=== PATIENT | male | born 1960 | race Hispanic/Latino ===

== ENCOUNTER 2017-10-29 02:27 | Emergency (ER) | payer MEDICARE ==
[2017-10-29 03:04] VITALS: BP 117/76
--- NOTE | 2017-10-29 03:30 | XRay Report ---
FINAL REPORT EXAM: XR SPINE LUMBOSACRAL 2-3V HISTORY: L SPINE PAIN FROM FALL TECHNIQUE: Three views of the lumbar spine were submitted. There are no previous studies available for comparison. FINDINGS: There is a chronic compression fracture of L1 with fusion and stabilization with Hutchison rods and pedicle screws extending from T11 through L3. There is no evidence of hardware complication or acute fracture. The SI joints appear normal. The soft tissues otherwise are remarkable for calcification of the abdominal aorta. IMPRESSION: Chronic fracture of L1 with thoracolumbar stabilization from T11 through L3 with hardware in place. No evidence acute injury.
--- NOTE | 2017-10-29 05:00 | Cat Scan Report ---
FINAL REPORT EXAM: CT HEAD/BRAIN WO CON HISTORY: fall TECHNIQUE: Routine axial imaging was obtained of the brain without IV contrast. Comparison is made the study of 03/31/2017. FINDINGS: There is mild atrophy. There is no evidence of acute stroke or hemorrhage. The ventricular system is appropriate in size and is symmetric. The basal cisterns appear normal. The mastoid air cells are well pneumatized. The sinuses reveal dependent secretions in the left sphenoid sinus. The calvarium reveals postsurgical deformity of the right frontal bone extending to the right supraorbital area. There is no evidence of acute skull fracture. IMPRESSION: Age related atrophy. No evidence of acute stroke or hemorrhage. Remote postsurgical changes with hardware in place along the right frontal bone and extending to the right supraorbital area.
[2017-10-29] MEDS ORDERED: NORCO 5/325 ONE (07:13)
[2017-10-29] MEDS ORDERED: NORCO 5/325 PO ONE (07:17)
--- NOTE | 2017-10-29 07:39 | Emergency Department Report ---
HPI - General Chief Complaint: Fall Time Seen by Provider: 10/29/17 07:26 - HPI HPI: Patient is a 57-year-old male who presents to ED complaining of lower back pain times a couple of days. She states that he had an accident back in 1986 . He got was put in his back. Patient states from time to time he gets intermittent back pain. Patient denies any recent trauma injuries or falls. Patient denies fevers/chills/chest pain/shortness of breath/blurry vision/nausea/vomiting or new symptoms. ED Past Medical Hx - Past Medical History Previous Medical History?: Yes Hx Hypertension: Yes Hx Seizures: Yes Hx Psychiatric Treatment: Yes (schizophrenia) Hx Asthma: No Hx COPD: Yes Hx Dementia: Yes Additional medical history: back surgery - Surgical History Past Surgical History?: Yes Additional Surgical History: back surgery from seizure, umbilical hernia repair - Social History Smoking Status: Current Every Day Smoker Substance Use Type: None - Medications Home Medications: Home Medications Medication Instructions Recorded Confirmed Last Taken Type risperiDONE [RisperiDONE] 1 mg PO DAILY 07/02/14 04/01/17 1 Day Ago History ~03/31/17 risperiDONE [RisperiDONE] 2 mg PO HS 07/02/14 04/01/17 1 Day Ago History ~03/31/17 Aspirin [Aspirin BABY CHEW TAB] 81 mg PO DAILY #30 tab.chew 04/02/17 Unknown Rx Carvedilol [Coreg] 3.125 mg PO BID #60 tablet 04/02/17 Unknown Rx Divalproex Sodium [Divalproex 1,000 mg PO HS #60 tab.er.24h 04/02/17 Unknown Rx Sodium ER] Docusate Sodium [Colace CAP] 100 mg PO BID PRN #60 capsule 04/02/17 Unknown Rx Lisinopril [Zestril TAB] 40 mg PO DAILY #30 tablet 04/02/17 Unknown Rx Mirtazapine [Remeron] 45 mg PO DAILY #30 tablet 04/02/17 Unknown Rx Paroxetine HCl [PARoxetine] 40 mg PO DAILY #30 tablet 04/02/17 Unknown Rx amLODIPine [Norvasc] 10 mg PO QDAY #30 tablet 04/02/17 Unknown Rx traMADol [Ultram 50 MG tab] 50 mg PO Q6HR PRN #20 tablet 10/29/17 Unknown Rx ED Review of Systems ROS: Stated complaint: BACK PAIN; GLF Other details as noted in HPI Constitutional: denies: chills, fever Eyes: denies: eye pain, eye discharge, vision change ENT: denies: ear pain, throat pain Respiratory: denies: cough, shortness of breath, wheezing Cardiovascular: denies: chest pain, palpitations Endocrine: no symptoms reported Gastrointestinal: denies: abdominal pain, nausea, vomiting, diarrhea Genitourinary: denies: urgency, dysuria Musculoskeletal: back pain, myalgia. denies: joint swelling, arthralgia Skin: denies: rash, lesions, pruritus Neurological: denies: headache, weakness, paresthesias Psychiatric: denies: anxiety, depression Hematological/Lymphatic: denies: easy bleeding, easy bruising Physical Exam - Physical Exam Vital Signs: Vital Signs 10/29/17 03:02 Temperature 98.7 F Pulse Rate 85 Respiratory 17 Rate Blood Pressure 117/76 O2 Sat by Pulse 99 Oximetry Physical Exam: GENERAL: Alert and oriented x3, no apparent distress, Normal Gait, atraumatic. HEAD: Head is normocephalic and a-traumatic. NECK: Supple. Non edematous, No lymphadenopathy or thyromegaly. No C-spine tenderness, full range of motion LUNGS: Symetrical with respiration, No wheezing, no rales or crackles, CTAB. HEART: S1, S2 present, regular rate and rhythm without murmur, no rubs, no gallops. Non tender to palpation BACK: Full range of motion, no spinal tenderness, Tenderness to palpation of the trapezius muscles and latissimus dorsi muscles of the back EXTREMITIES/MUSCULOSKELETAL: No cyanosis, clubbing, rash, lesions or edema. Full ROM bilaterally. UE/LE Pulses 2+ bilaterally. LE and UE 5+ strength bilaterally, NEUROLOGIC: The patient is cooperative with no focal neurologic deficits. SKIN: Warm and dry, No lesions, No ulceration or induration present. ED Course Vital Signs 10/29/17 03:02 Temperature 98.7 F Pulse Rate 85 Respiratory 17 Rate Blood Pressure 117/76 O2 Sat by Pulse 99 Oximetry ED Medical Decision Making - Medical Decision Making 57-year-old male presents with chronic back pain ED course: Patient received Emerson for pain while in the ED Patient is in no acute or respiratory distress. Patient able to ambulate without any problems. He seen in the ED room in no distress at all, very comfortable . I discussed the patient to follow up with his primary care dr Car. I discussed the patient was sent home on some pain medication. I discussed the patient is new onset of symptoms or worsening symptoms return to ED. Critical care attestation.: If time is entered above; I have spent that time in minutes in the direct care of this critically ill patient, excluding procedure time. ED Disposition Clinical Impression: Back pain Qualifiers: Back pain location: low back pain Chronicity: chronic Back pain laterality: unspecified Sciatica presence: without sciatica Qualified Code(s): M54.5 - Low back pain; G89.29 - Other chronic pain Chronic low back pain without sciatica Qualifiers: Back pain laterality: unspecified Qualified Code(s): M54.5 - Low back pain; G89.29 - Other chronic pain Disposition: DC-01 TO HOME OR SELFCARE Is pt being admited?: No Does the pt Need Aspirin: No Condition: Stable Instructions: Low Back Strain (ED), Arthralgia (ED), Chronic Back Pain (ED) Additional Instructions: Make sure to follow up with the primary care physician as discussed. Take all your medications as you've been prescribed. If you have any worsening symptoms or develop new symptoms please return to ED immediately. Prescriptions: traMADol [Ultram 50 MG tab] 50 mg PO Q6HR PRN #20 tablet PRN Reason: Pain Referrals: POORNIMA CAR MD [Primary Care Provider] - 3-5 Days Forms: Accompanied Note, Work/School Release Form(ED) Time of Disposition: 07:42
== END 2017-10-29 08:01 | disposition home or self-care (01) ==
LOC: ED 02:27
DX: M54.5 Low back pain (principal); G89.29 Other chronic pain; I10 Essential (primary) hypertension; F20.9 Schizophrenia, unspecified; J44.9 Chronic obstructive pulmonary disease, unspecified; F17.200 Nicotine dependence, unspecified, uncomplicated; Z79.82 Long term (current) use of aspirin
CPT/HCPCS: 70450; 72100; 99284

== ENCOUNTER 2018-01-07 14:38 | Inpatient (IN) | payer MEDICARE ==
--- NOTE | 2018-01-07 15:52 | Emergency Department Report ---
HPI - General Chief Complaint: Dyspnea/Respdistress Time Seen by Provider: 01/07/18 15:10 - HPI HPI: Room 5 The patient is a 57-year-old male presenting with chief complaint of syncopal. The patient states he was standing up urinating into the commode when he began to get weak and passed out. The patient states he does not feel the way he normally feels after having a seizure. The patient injured his right face with the fall but denies pain. Patient states he currently feels lightheaded. 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 Duration: [See above] Quality: Lightheaded Severity: Moderate Modifying factors: [see above] Context: [see above] Mode of transportation: [not driving] ED Past Medical Hx - Past Medical History Hx Hypertension: Yes Hx Seizures: Yes Hx Psychiatric Treatment: Yes (schizophrenia) Hx COPD: Yes Hx Dementia: Yes Additional medical history: back surgery - Surgical History Additional Surgical History: back surgery from seizure, umbilical hernia repair - Family History Family history: no significant - Social History Smoking Status: Never Smoker (1 pack per day) Substance Use Type: None (denies illicit drug use) - Medications Home Medications: Home Medications Medication Instructions Recorded Confirmed Last Taken Type risperiDONE [RisperiDONE] 1 mg PO DAILY 07/02/14 01/07/18 1 Day Ago History ~03/31/17 risperiDONE [RisperiDONE] 2 mg PO HS 07/02/14 01/07/18 1 Day Ago History ~03/31/17 Aspirin [Aspirin BABY CHEW TAB] 81 mg PO DAILY #30 tab.chew 04/02/17 01/07/18 Unknown Rx Carvedilol [Coreg] 3.125 mg PO BID #60 tablet 04/02/17 01/07/18 Unknown Rx Divalproex Sodium [Divalproex 1,000 mg PO HS #60 tab.er.24h 04/02/17 01/07/18 Unknown Rx Sodium ER] Docusate Sodium [Colace CAP] 100 mg PO BID PRN #60 capsule 04/02/17 01/07/18 Unknown Rx Lisinopril [Zestril TAB] 40 mg PO DAILY #30 tablet 04/02/17 01/07/18 Unknown Rx Mirtazapine [Remeron] 45 mg PO DAILY #30 tablet 04/02/17 01/07/18 Unknown Rx Paroxetine HCl [PARoxetine] 40 mg PO DAILY #30 tablet 04/02/17 01/07/18 Unknown Rx amLODIPine [Norvasc] 10 mg PO QDAY #30 tablet 04/02/17 01/07/18 Unknown Rx traMADol [Ultram 50 MG tab] 50 mg PO Q6HR PRN #20 tablet 10/29/17 01/07/18 Unknown Rx ED Review of Systems ROS: Stated complaint: PAIN Other details as noted in HPI Constitutional: weakness Eyes: denies: eye pain ENT: denies: throat pain Respiratory: no symptoms reported Cardiovascular: denies: chest pain Endocrine: no symptoms reported Gastrointestinal: denies: abdominal pain Genitourinary: denies: dysuria Musculoskeletal: denies: back pain Neurological: denies: headache Physical Exam - Physical Exam Vital Signs: Vital Signs 01/07/18 15:12 Temperature 98 F Pulse Rate 95 H Respiratory 16 Rate Blood Pressure 182/101 O2 Sat by Pulse 96 Oximetry Physical Exam: GENERAL: The patient is well-developed well-nourished male lying on stretcher with obvious right superior palpebral ecchymosis. [] HEENT: Normocephalic. Right superior palpebral ecchymosis. Extraocular motions are intact. Patient has moist mucous membranes. NECK: Supple. Trachea midline CHEST/LUNGS: Clear to auscultation. There is no respiratory distress noted. HEART/CARDIOVASCULAR: Regular. There is no tachycardia. There is no gallop rub or murmur. ABDOMEN: Abdomen is soft, nontender. Patient has normal bowel sounds. There is no abdominal distention. SKIN: There is no rash. There is no edema. There is no diaphoresis. NEURO: The patient is awake and responsive but not fully alert. Patient is slow to respond at times and sometimes does not answer the question posed. The patient is cooperative. The patient has no focal neurologic deficits. The patient has normal speech MUSCULOSKELETAL: There is no limitation range of motion. ED Course Vital Signs 01/07/18 15:12 Temperature 98 F Pulse Rate 95 H Respiratory 16 Rate Blood Pressure 182/101 O2 Sat by Pulse 96 Oximetry ED Medical Decision Making - Lab Data Result diagrams: 01/07/18 15:44 01/07/18 15:44 - EKG Data -: EKG Interpreted by Me EKG shows normal: sinus rhythm Rate: normal - EKG Data When compared to previous EKG there are: no significant change Interpretation: unchanged when compared t (03/30/2017) - Radiology Data Radiology results: report reviewed (CT head, CT cervical spine, CT facial bones) , image reviewed (CT head, CT cervical spine, CT facial bones) [address] [address] Cat Scan Report Signed Patient: MATTHEW PEGUERO MR#: [id number] : 1959 Acct:[id number] Age/Sex: 57 / M ADM Date: 01/07/18 Loc: ED Attending Dr: Ordering Physician: DEIDRE CAMPBELL MD Date of Service: 01/07/18 Procedure(s): CT head/brain wo con Accession Number(s): [id number] cc: DEIDRE CAMPBELL MD FINAL REPORT PROCEDURE: CT head without contrast. TECHNIQUE: Computerized tomography of the head was performed without contrast material. HISTORY: Syncope, head and neck injury. COMPARISON: CT head 10/29/2017. FINDINGS: The ventricles are normal in size. The landers matter and white matter appear normal. There is metallic internal fixation hardware in the right side of the frontal bone. This causes severe streak artifact. There are no mass lesions. There is no intracranial hemorrhage. The mastoid air cells and paranasal sinuses are clear. IMPRESSION: No evidence of acute injury. Transcribed By: [facility] Dictated By: PUMA FLORES MD Electronically Authenticated By: PUMA FLORES MD Signed Date/Time: 01/07/181745 DD/ 45 TD/TT: 01/07/181745 [address] [address] Cat Scan Report Signed Patient: MATTHEW PEGUERO MR#: [id number] : 1959 Acct:[id number] Age/Sex: 57 / M ADM Date: 01/07/18 Loc: ED Attending Dr: Ordering Physician: DEIDRE CAMPBELL MD Date of Service: 01/07/18 Procedure(s): CT cervical spine wo con Accession Number(s): [id number] cc: DEIDRE CAMPBELL MD FINAL REPORT PROCEDURE: CT cervical spine without contrast. TECHNIQUE: Computerized tomography of the cervical spine was performed from the skull base to T1 without contrast material. HISTORY: Syncope, head neck injury. COMPARISON: No prior studies are available for comparison. FINDINGS: The cervical vertebrae have normal height and satisfactory alignment. There are no fractures. There is no subluxation. There is mild disc space narrowing at C3-4. There is prominent anterior osteophyte formation at this level. There is fusion of the C5 and C6 vertebral bodies. There is fusion of the left-sided facet joint and possibly the right-sided facet joint at this level. The spinal canal appears adequately patent. The neural foramina appear adequately patent. IMPRESSION: No evidence of acute cervical spine injury. Transcribed By: [facility] Dictated By: PUMA FLORES MD Electronically Authenticated By: PUMA FLORES MD Signed Date/Time: 01/07/181742 DD/ 42 TD/TT: 01/07/181742 [facility] [address] [place] [address] Cat Scan Report Signed Patient: MATTHEW PEGUERO MR#: [id number] : 1959 Acct:[id number] Age/Sex: 57 / M ADM Date: 01/07/18 Loc: ED Attending Dr: Ordering Physician: DEIDRE CAMPBELL MD Date of Service: 01/07/18 Procedure(s): CT facial bones wo con Accession Number(s): [id number] cc: DEIDRE CAMPBELL MD FINAL REPORT PROCEDURE: CT facial bones without contrast. TECHNIQUE: Computerized tomography of the facial bones and soft tissues with axial, sagittal and coronal sections performed from the cranial aspect of the frontal sinuses to the caudal portion of the mandible without contrast material. HISTORY: Syncope, head and facial injury. COMPARISON: No prior studies are available for comparison. FINDINGS: The facial bones appear intact without acute fracture. There is some metallic hardware in the right side of the frontal bone from a previous injury. The orbital contents appear normal. There are no blowout type injuries. The mastoid air cells and paranasal sinuses are clear. The facial soft tissues are unremarkable. IMPRESSION: Old right frontal bone fracture. No evidence of an acute injury. Transcribed By: [facility] Dictated By: PUMA FLORES MD Electronically Authenticated By: PUMA FLORES MD Signed Date/Time: 01/07/181800 DD/ 00 TD/TT: 01/07/181800 - Differential Diagnosis syncope, seizure, subtherapeutic Depakote, ACS, PE Critical care attestation.: If time is entered above; I have spent that time in minutes in the direct care of this critically ill patient, excluding procedure time. ED Disposition Clinical Impression: Syncope Disposition: OP ADMIT IP TO THIS HOSP Is pt being admited?: Yes Does the pt Need Aspirin: Yes Condition: Fair Instructions: Syncope (ED) Referrals: PRIMARY CARE,MD [Primary Care Provider] - 3-5 Days Time of Disposition: 18:22 (Hospitalist notified (Dr Dominguez))
[2018-01-07] MEDS ORDERED: CATAPRES PO ONE (16:01)
[2018-01-07 16:08] LABS: Basophils # (Auto) 0.1 K/mm3 (0.0-0.1); Basophils % (Auto) 0.8 % (0.0-1.8); Eosinophils # (Auto) 0.1 K/mm3 (0.0-0.4); Eosinophils % (Auto) 0.8 % (0.0-4.3); Hemoglobin 13.6 gm/dl (11.8-15.2); Lymphocytes # (Auto) 1.3 K/mm3 (1.2-5.4); Lymphocytes % (Auto) 14.5 % (13.4-35.0); Mean Corpuscular HGB Conc 32 % (32-34); Mean Corpuscular Hemoglobin 29 pg (28-32); Mean Corpuscular Volume 89 fl (84-94); Monocytes # (Auto) 0.9 K/mm3 (0.0-0.8); Monocytes % (Auto) 10.2 % (0.0-7.3); Red Blood Count 4.74 M/mm3 (3.65-5.03); Red Cell Distribution Width 16.5 % (13.2-15.2)
[2018-01-07 16:15] LABS: Platelet Count 225 K/mm3 (140-440)
[2018-01-07 16:17] LABS: INR 0.83 (0.87-1.13)
[2018-01-07 16:18] LABS: Partial Thromboplastin Time 23.5 Sec. (24.2-36.6)
[2018-01-07 16:26] LABS: Creatine Kinase MB 2.6 ng/mL (0.0-4.0)
[2018-01-07 16:27] LABS: BUN/Creatinine Ratio 14; Blood Urea Nitrogen 7 mg/dL (9-20); Calcium 10.1 mg/dL (8.4-10.2); Hemolysis Index 74
--- NOTE | 2018-01-07 17:48 | Cat Scan Report ---
FINAL REPORT PROCEDURE: CT cervical spine without contrast. TECHNIQUE: Computerized tomography of the cervical spine was performed from the skull base to T1 without contrast material. HISTORY: Syncope, head neck injury. COMPARISON: No prior studies are available for comparison. FINDINGS: The cervical vertebrae have normal height and satisfactory alignment. There are no fractures. There is no subluxation. There is mild disc space narrowing at C3-4. There is prominent anterior osteophyte formation at this level. There is fusion of the C5 and C6 vertebral bodies. There is fusion of the left-sided facet joint and possibly the right-sided facet joint at this level. The spinal canal appears adequately patent. The neural foramina appear adequately patent. IMPRESSION: No evidence of acute cervical spine injury.
[2018-01-07 17:51] LABS: Amorphous Crystals,Urine Few; Bilirubin,Urine NEG (Negative); Blood,Urine NEG (Negative); Color,Urine Yellow (Yellow); Mucus,Urine FEW /HPF; Protein,Urine <15 mg/dL mg/dL (Negative); RBC,Urine < 1.0 /HPF (0.0-6.0); Urobilinogen,Urine < 2.0 mg/dL (<2.0); WBC,Urine < 1.0 /HPF (0.0-6.0)
--- NOTE | 2018-01-07 17:51 | Cat Scan Report ---
FINAL REPORT PROCEDURE: CT head without contrast. TECHNIQUE: Computerized tomography of the head was performed without contrast material. HISTORY: Syncope, head and neck injury. COMPARISON: CT head 10/29/2017. FINDINGS: The ventricles are normal in size. The landers matter and white matter appear normal. There is metallic internal fixation hardware in the right side of the frontal bone. This causes severe streak artifact. There are no mass lesions. There is no intracranial hemorrhage. The mastoid air cells and paranasal sinuses are clear. IMPRESSION: No evidence of acute injury.
[2018-01-07 17:54] LABS: Amphetamine Screen,Urine PRESUMPTIVE NEGATIVE; Benzodiazepines Screen,Urine PRESUMPTIVE NEGATIVE; Cannabinoid Screen,Urine PRESUMPTIVE NEGATIVE; Cocaine Screen,Urine PRESUMPTIVE NEGATIVE; Methadone Screen,Urine PRESUMPTIVE NEGATIVE; Opiate Screen,Urine PRESUMPTIVE NEGATIVE
--- NOTE | 2018-01-07 18:09 | Cat Scan Report ---
FINAL REPORT PROCEDURE: CT facial bones without contrast. TECHNIQUE: Computerized tomography of the facial bones and soft tissues with axial, sagittal and coronal sections performed from the cranial aspect of the frontal sinuses to the caudal portion of the mandible without contrast material. HISTORY: Syncope, head and facial injury. COMPARISON: No prior studies are available for comparison. FINDINGS: The facial bones appear intact without acute fracture. There is some metallic hardware in the right side of the frontal bone from a previous injury. The orbital contents appear normal. There are no blowout type injuries. The mastoid air cells and paranasal sinuses are clear. The facial soft tissues are unremarkable. IMPRESSION: Old right frontal bone fracture. No evidence of an acute injury.
--- NOTE | 2018-01-07 18:09 | History and Physical Report ---
History of Present Illness Chief complaint: I passed out History of present illness: 57 YO Male with HTN, Seizure Disorder, Chronic Pain, COPD, Dementia, Schizophrenia, Nicotine Dependence presents to ED for evaluation. Pt states that he was in the restroom urinating when he experienced a sudden onset of dizziness, blurred vision, weakness, and subsequently passed out. Pt states that he awoke later and had an injury to his right face, as well as right side numbness. Pt transported to [facility] for further care and evaluation. Pt seen and evaluated in ED and found to have symptoms consistent with CVA. Pt denies fever , chills, CP, Palpitations, NVD, unilateral leg swelling, calf pain, individual/ family history of DVT/PE, Productive cough, or recent ill contacts. Pt admitted to telemetry, and initiated on CVA protocol. Pt outside therapeutic window for TPA. Past History Past Medical History: COPD, hypertension, seizures, other (Dementia) Past Surgical History: Other (Back, Brain) Social history: Family history: hypertension Medications and Allergies Allergies Allergy/AdvReac Type Severity Reaction Status Date / Time No Known Allergies Allergy Verified 01/07/18 15:09 Home Medications Medication Instructions Recorded Confirmed Last Taken Type risperiDONE [RisperiDONE] 1 mg PO DAILY 07/02/14 01/07/18 1 Day Ago History ~03/31/17 risperiDONE [RisperiDONE] 2 mg PO HS 07/02/14 01/07/18 1 Day Ago History ~03/31/17 Aspirin [Aspirin BABY CHEW TAB] 81 mg PO DAILY #30 tab.chew 04/02/17 01/07/18 Unknown Rx Carvedilol [Coreg] 3.125 mg PO BID #60 tablet 04/02/17 01/07/18 Unknown Rx Divalproex Sodium [Divalproex 1,000 mg PO HS #60 tab.er.24h 04/02/17 01/07/18 Unknown Rx Sodium ER] Docusate Sodium [Colace CAP] 100 mg PO BID PRN #60 capsule 04/02/17 01/07/18 Unknown Rx Lisinopril [Zestril TAB] 40 mg PO DAILY #30 tablet 04/02/17 01/07/18 Unknown Rx Mirtazapine [Remeron] 45 mg PO DAILY #30 tablet 04/02/17 01/07/18 Unknown Rx Paroxetine HCl [PARoxetine] 40 mg PO DAILY #30 tablet 04/02/17 01/07/18 Unknown Rx amLODIPine [Norvasc] 10 mg PO QDAY #30 tablet 04/02/17 01/07/18 Unknown Rx traMADol [Ultram 50 MG tab] 50 mg PO Q6HR PRN #20 tablet 10/29/17 01/07/18 Unknown Rx Review of Systems Constitutional: no weight loss, no weight gain, no fever, no chills Ears, nose, mouth and throat: no ear pain, no ear discharge, no tinnitis, no decreased hearing, no nose pain Cardiovascular: no chest pain, no orthopnea, no palpitations, no rapid/ irregular heart beat, no edema Respiratory: no cough, no cough with sputum, no excessive sputum, no hemoptysis , no shortness of breath Gastrointestinal: no abdominal pain, no nausea, no vomiting, no diarrhea, no constipation Genitourinary Male: no hematuria, no flank pain, no discharge, no urinary frequency, no urinary hesitancy Rectal: no pain, no incontinence, no bleeding Musculoskeletal: no neck stiffness, no neck pain, no shooting arm pain, no arm numbness/tingling, no low back pain, no shooting leg pain Integumentary: no rash, no pruritis, no redness, no sores, no wounds, no jaundice Neurological: head injury, weakness, numbness, syncope, loss of vision, no tingling, no seizures, no tremors, no ataxia, no headaches, no migraines, no convulsions Psychiatric: no anxiety, no memory loss, no change in sleep habits, no sleep disturbances, no insomnia, no hypersomnia, no change in appetite Endocrine: no cold intolerance, no heat intolerance, no polyphagia, no excessive thirst, no polydipsia, no polyuria, no nocturia Hematologic/Lymphatic: no easy bruising, no easy bleeding, no lymphadenopathy, no lymphedema Allergic/Immunologic: no urticaria, no allergic rhinitis, no wheezing, no persistent infections, no anaphylaxis, no angioedema Exam - Constitutional Vitals: Temp Pulse Resp BP Pulse Ox 98 F 74 16 178/82 96 01/07/18 15:12 01/07/18 17:57 01/07/18 16:43 01/07/18 17:57 01/07/18 16:43 General appearance: Present: mild distress - EENT Eyes: Present: PERRL (Right facial trauma) ENT: hearing intact, clear oral mucosa - Neck Neck: Present: supple, normal ROM - Respiratory Respiratory effort: normal Respiratory: bilateral: CTA - Cardiovascular Heart Sounds: Present: S1 & S2. Absent: rub, click - Extremities Extremities: pulses symmetrical, No edema Peripheral Pulses: within normal limits - Abdominal General gastrointestinal: Present: soft, non-tender, non-distended, normal bowel sounds Male genitourinary: Present: normal - Integumentary Integumentary: Present: clear, warm, dry - Musculoskeletal Musculoskeletal: right sided weakness - Psychiatric Psychiatric: appropriate mood/affect, intact judgment & insight - Neurologic Neurologic: CNII-XII intact, moves all extremities Results - Labs CBC & Chem 7: 01/07/18 15:44 01/07/18 15:44 Labs: Abnormal lab results 01/07/18 01/07/18 01/07/18 Range/Units 15:44 15:44 15:44 RDW 16.5 H (13.2-15.2) % [place] % (Auto) 10.2 H (0.0-7.3) % [place] # 0.9 H (0.0-0.8) K/mm3 Seg Neutrophils % 73.7 H (40.0-70.0) % PT 11.8 L (12.2-14.9) Sec. INR 0.83 L (0.87-1.13) APTT 23.5 L (24.2-36.6) Sec. Sodium 133 L (137-145) mmol/L Chloride 89.4 L (98-107) mmol/L Carbon Dioxide 36 H (22-30) mmol/L BUN 7 L (9-20) mg/dL Creatinine 0.5 L (0.8-1.5) mg/dL Glucose 130 H (75-100) mg/dL POC Glucose (70-105) CK-MB (CK-2) Rel Index 4.3 H (0-4) Urine pH (5.0-7.0) Valproic Acid (50-100) ug/mL 01/07/18 01/07/18 01/07/18 Range/Units 15:51 15:53 Unknown RDW (13.2-15.2) % [place] % (Auto) (0.0-7.3) % [place] # (0.0-0.8) K/mm3 Seg Neutrophils % (40.0-70.0) % PT (12.2-14.9) Sec. INR (0.87-1.13) APTT (24.2-36.6) Sec. Sodium (137-145) mmol/L Chloride (98-107) mmol/L Carbon Dioxide (22-30) mmol/L BUN (9-20) mg/dL Creatinine (0.8-1.5) mg/dL Glucose (75-100) mg/dL POC Glucose 134 H (70-105) CK-MB (CK-2) Rel Index (0-4) Urine pH 8.0 H (5.0-7.0) Valproic Acid 27.1 L (50-100) ug/mL Assessment and Plan - Patient Problems (1) CVA (cerebral vascular accident) Current Visit: Yes Status: Acute Qualifiers: Precerebral and cerebral artery: middle cerebral artery Laterality of affected vessel: left Plan to address problem: Stroke protocol: CT Head, MRI Brain, MRA Brain, Echo, CArotid Doppler, PT/OT/ Speech Therapy, Antiplatelet therpay, lipid panel (2) Syncope Current Visit: Yes Status: Acute Qualifiers: Encounter type: initial encounter Plan to address problem: CT head, neuro checks, (3) Seizure Current Visit: Yes Status: Acute Plan to address problem: Seizure precautions, resume prehospital antiepileptic therapy (4) COPD (chronic obstructive pulmonary disease) Current Visit: Yes Status: Chronic Plan to address problem: supplemental oxygen, resume home medication, NIPPV as clinically indicated, pulse oximetry (5) Chronic back pain Current Visit: No Status: Acute Plan to address problem: Pain control, supportive care, ambulate in hallway PRN (6) DVT prophylaxis Current Visit: No Status: Acute Plan to address problem: SCD to BLE while in bed.
[2018-01-07] MEDS ORDERED: SODIUM CHLORIDE FLUSH SYRINGE 10 ML IV PRN (18:12)
[2018-01-07] MEDS ORDERED: PHENERGAN PR PRN (18:12)
[2018-01-07] MEDS ORDERED: REGLAN PO PRN (18:12)
[2018-01-07] MEDS ORDERED: PROVENTIL IH PRN (18:12)
[2018-01-07] MEDS ORDERED: MILK OF MAGNESIA PO PRN (18:12)
[2018-01-07] MEDS ORDERED: DULCOLAX PR PRN (18:12)
[2018-01-07] MEDS ORDERED: TYLENOL PO PRN (18:12)
[2018-01-07] MEDS ORDERED: ZOFRAN IV PRN (18:12)
[2018-01-07] MEDS ORDERED: COLACE PO PRN (18:16)
[2018-01-07] MEDS: RisperDAL PO SCH (23:23)
[2018-01-08 06:17] LABS: Chol/HDL Ratio 2.9 %
[2018-01-08] MEDS ORDERED: NON-FORMULARY (Mirtazapine [Remeron] 45 MG) PO SCH (10:00)
[2018-01-08] MEDS ORDERED: NON-FORMULARY (Paroxetine Hcl [Paroxetine] 40 MG) PO SCH (10:00)
[2018-01-08] MEDS: ASPIRIN PO SCH (10:37)
[2018-01-08] MEDS: ULTRAM PO PRN ×2 (10:37→20:25)
[2018-01-08] MEDS: REMERON PO SCH (10:37)
[2018-01-08] MEDS: RisperDAL PO SCH ×2 (10:38→21:49)
[2018-01-08] MEDS: PAXIL PO SCH (10:38)
--- NOTE | 2018-01-08 12:37 | Progress Note ---
Assessment and Plan Assessment and plan: Patient is a 57 yo man with a history of HTN, Seizure Disorder, Chronic Pain, COPD, Dementia, Schizophrenia and Nicotine Dependence who pw syncope while urinating with head trauma/right black eye -Suspect CVA per admission: Stroke protocol used, CT Head, (I cancelled due to metal in face and back; therefore, consulted Neurology, Echo, CArotid Doppler, PT/OT/ Speech Therapy, treat w/ Antiplatelet/statin -Syncope, appears micturitin syncope, CT head, neuro checks, ordered Orthostatic vitals -Seizure: Seizure precautions, resume prehospital antiepileptic therapy -Accelerated hypertension: prn iv hydralazine -COPD (chronic obstructive pulmonary disease): supplemental oxygen, resume home medication, NIPPV as clinically indicated, pulse oximetry -Chronic back pain: symptomatic care -DVT prophylaxis: SCD to BLE while in bed. History Interval history: Patient was seen and examined. Follow-up on current diagnosis. Overnight uneventful. Patient denies any chest pain, shortness breath, nausea/vomiting or severe headaches. Imaging, nursing note, chart, labs and old chart reviewed. Discussed with patient. Hospitalist Physical - Physical exam Narrative exam: GEN: WDWN, NAD, Awake, Alert, Orientated x2, slow to answer question HEENT: ,right eyelid and palepebral ecchymosis and forehead trauma, EOMI, PERRL , OP Clear NECK: supple, no adenopathy, no thyromegaly, no JVD CVS/HEART: RRR, normal S1S2, pulses present bilaterally CHEST/LUNGS: CTA B, Symmetrical chest expansion, good air entry bilaterally GI/Abdomen: soft, NTND, good bowel sounds, no guarding or rebound /Bladder: no suprapubic tenderness, no CVA or paraspinal tenderness EXT/Skin: no c/c/e, no obvious rash MSK: FROM x 4 Neuro: CN 2-12 grossly intact, no new focal deficits Psych: calm - Constitutional Vitals: Temp Pulse Resp BP Pulse Ox 98.9 F 83 18 162/92 96 01/08/18 05:35 01/08/18 11:28 01/08/18 05:35 01/08/18 05:35 01/08/18 05:35 General appearance: Absent: mild distress Results - Labs CBC & Chem 7: 01/07/18 15:44 01/07/18 15:44 Labs: Laboratory Last Values WBC 9.2 K/mm3 (4.5-11.0) 01/07/18 15:44 RBC 4.74 M/mm3 (3.65-5.03) 01/07/18 15:44 Hgb 13.6 gm/dl (11.8-15.2) 01/07/18 15:44 Hct 42.0 % (35.5-45.6) 01/07/18 15:44 MCV 89 fl (84-94) 01/07/18 15:44 MCH 29 pg (28-32) 01/07/18 15:44 MCHC 32 % (32-34) 01/07/18 15:44 RDW 16.5 % (13.2-15.2) H 01/07/18 15:44 Plt Count 225 K/mm3 (140-440) 01/07/18 15:44 Lymph % (Auto) 14.5 % (13.4-35.0) 01/07/18 15:44 [place] % (Auto) 10.2 % (0.0-7.3) H 01/07/18 15:44 Eos % (Auto) 0.8 % (0.0-4.3) 01/07/18 15:44 Baso % (Auto) 0.8 % (0.0-1.8) 01/07/18 15:44 Lymph # 1.3 K/mm3 (1.2-5.4) 01/07/18 15:44 [place] # 0.9 K/mm3 (0.0-0.8) H 01/07/18 15:44 Eos # 0.1 K/mm3 (0.0-0.4) 01/07/18 15:44 Baso # 0.1 K/mm3 (0.0-0.1) 01/07/18 15:44 Seg Neutrophils % 73.7 % (40.0-70.0) H 01/07/18 15:44 Seg Neutrophils # 6.8 K/mm3 (1.8-7.7) 01/07/18 15:44 PT 11.8 Sec. (12.2-14.9) L 01/07/18 15:44 INR 0.83 (0.87-1.13) L 01/07/18 15:44 APTT 23.5 Sec. (24.2-36.6) L 01/07/18 15:44 D-Dimer < 135.0 ng/mlDDU (0-234) 01/07/18 15:44 Sodium 133 mmol/L (137-145) L 01/07/18 15:44 Potassium 4.0 mmol/L (3.6-5.0) 01/07/18 15:44 Chloride 89.4 mmol/L (98-107) L 01/07/18 15:44 Carbon Dioxide 36 mmol/L (22-30) H 01/07/18 15:44 Anion Gap 12 mmol/L 01/07/18 15:44 BUN 7 mg/dL (9-20) L 01/07/18 15:44 Creatinine 0.5 mg/dL (0.8-1.5) L 01/07/18 15:44 Estimated GFR > 60 ml/min 01/07/18 15:44 BUN/Creatinine Ratio 14 % 01/07/18 15:44 Glucose 130 mg/dL (75-100) H 01/07/18 15:44 POC Glucose 134 (70-105) H 01/07/18 15:51 Calcium 10.1 mg/dL (8.4-10.2) 01/07/18 15:44 Total Creatine Kinase 60 units/L (55-170) 01/07/18 15:44 CK-MB (CK-2) 2.6 ng/mL (0.0-4.0) 01/07/18 15:44 CK-MB (CK-2) Rel Index 4.3 (0-4) H 01/07/18 15:44 Troponin T < 0.010 ng/mL (0.00-0.029) 01/07/18 15:44 Triglycerides 119 mg/dL (2-149) 01/08/18 04:59 Cholesterol 174 mg/dL (50-199) 01/08/18 04:59 LDL Cholesterol Direct 101 mg/dL (50-130) 01/08/18 04:59 HDL Cholesterol 60 mg/dL (40-59) H 01/08/18 04:59 Cholesterol/HDL Ratio 2.90 % 01/08/18 04:59 Urine Color Yellow (Yellow) 01/07/18 Unknown Urine Turbidity Clear (Clear) 01/07/18 Unknown Urine pH 8.0 (5.0-7.0) H 01/07/18 Unknown Ur Specific [place] 1.005 (1.003-1.030) 01/07/18 Unknown Urine Protein <15 mg/dl mg/dL (Negative) 01/07/18 Unknown Urine Glucose (UA) Neg mg/dL (Negative) 01/07/18 Unknown Urine Ketones Neg mg/dL (Negative) 01/07/18 Unknown Urine Blood Neg (Negative) 01/07/18 Unknown Urine Nitrite Neg (Negative) 01/07/18 Unknown Urine Bilirubin Neg (Negative) 01/07/18 Unknown Urine Urobilinogen < 2.0 mg/dL (<2.0) 01/07/18 Unknown Ur Leukocyte Esterase Neg (Negative) 01/07/18 Unknown Urine WBC (Auto) < 1.0 /HPF (0.0-6.0) 01/07/18 Unknown Urine RBC (Auto) < 1.0 /HPF (0.0-6.0) 01/07/18 Unknown Amorphous Crystals Few 01/07/18 Unknown Urine Mucus Few /HPF 01/07/18 Unknown Urine Opiates Screen Presumptive negative 01/07/18 Unknown Urine Methadone Screen Presumptive negative 01/07/18 Unknown Ur Barbiturates Screen Presumptive negative 01/07/18 Unknown Valproic Acid 27.1 ug/mL (50-100) L 01/07/18 15:53 Ur Phencyclidine Scrn Presumptive negative 01/07/18 Unknown Ur Amphetamines Screen Presumptive negative 01/07/18 Unknown U Benzodiazepines Scrn Presumptive negative 01/07/18 Unknown Urine Cocaine Screen Presumptive negative 01/07/18 Unknown U Marijuana (THC) Screen Presumptive negative 01/07/18 Unknown Drugs of Abuse Note Disclamer 01/07/18 Unknown Plasma/Serum Alcohol < 0.01 % (0-0.07) 01/07/18 15:44
[2018-01-09] MEDS: ULTRAM PO PRN (05:36)
[2018-01-09 06:09] LABS: Hematocrit 39.5 % (35.5-45.6); Hemoglobin 12.4 gm/dl (11.8-15.2); Mean Corpuscular HGB Conc 31 % (32-34); Mean Corpuscular Hemoglobin 28 pg (28-32); Mean Corpuscular Volume 90 fl (84-94); Platelet Count 237 K/mm3 (140-440); Red Cell Distribution Width 16.2 % (13.2-15.2)
[2018-01-09 06:30] LABS: BUN/Creatinine Ratio 14; Blood Urea Nitrogen 7 mg/dL (9-20); Calcium 10.1 mg/dL (8.4-10.2); Hemolysis Index 92
--- NOTE | 2018-01-09 08:06 | Progress Note ---
Assessment and Plan Assessment and plan: Patient is a 57 yo man with a history of HTN, Seizure Disorder, Chronic Pain, COPD, Dementia, Schizophrenia and Nicotine Dependence who pw syncope while urinating with head trauma/right black eye -Syncope, appears micturitin syncope, CT head, neuro checks, I ordered Orthostatic vitals==>normal Orthostasis -Seizure: Seizure precautions, resume prehospital antiepileptic therapy of Depakote -Accelerated hypertension: prn iv hydralazine, resume home medications -COPD (chronic obstructive pulmonary disease): supplemental oxygen, resume home medication, NIPPV as clinically indicated, pulse oximetry -Chronic back pain: symptomatic care -DVT prophylaxis: SCD to BLE while in bed. -CVA ruled out: Overnight temp of 100.2 Fahrenheit, isolation, work up with cxr, ua and blood culture History Interval history: Patient was seen and examined. Follow-up on current diagnosis. Overnight uneventful. Patient denies any chest pain, shortness breath, nausea/vomiting or severe headaches. Imaging, nursing note, chart, labs and old chart reviewed. Discussed with patient. Hospitalist Physical - Physical exam Narrative exam: GEN: WDWN, NAD, Awake, Alert, Orientated x2, slow to answer question HEENT: ,right eyelid and palepebral ecchymosis and forehead trauma, EOMI, PERRL , OP Clear NECK: supple, no adenopathy, no thyromegaly, no JVD CVS/HEART: RRR, normal S1S2, pulses present bilaterally CHEST/LUNGS: CTA B, Symmetrical chest expansion, good air entry bilaterally GI/Abdomen: soft, NTND, good bowel sounds, no guarding or rebound /Bladder: no suprapubic tenderness, no CVA or paraspinal tenderness EXT/Skin: no c/c/e, no obvious rash MSK: FROM x 4 Neuro: CN 2-12 grossly intact, no new focal deficits Psych: calm - Constitutional Vitals: Temp Pulse Resp BP Pulse Ox 98.7 F 98 H 18 155/76 95 01/09/18 04:20 01/09/18 04:20 01/09/18 06:35 01/09/18 04:20 01/09/18 04:20 General appearance: Absent: mild distress Results - Labs CBC & Chem 7: 01/09/18 05:02 01/09/18 05:02 Labs: Laboratory Last Values WBC 6.9 K/mm3 (4.5-11.0) 01/09/18 05:02 RBC 4.40 M/mm3 (3.65-5.03) 01/09/18 05:02 Hgb 12.4 gm/dl (11.8-15.2) 01/09/18 05:02 Hct 39.5 % (35.5-45.6) 01/09/18 05:02 MCV 90 fl (84-94) 01/09/18 05:02 MCH 28 pg (28-32) 01/09/18 05:02 MCHC 31 % (32-34) L 01/09/18 05:02 RDW 16.2 % (13.2-15.2) H 01/09/18 05:02 Plt Count 237 K/mm3 (140-440) 01/09/18 05:02 Lymph % (Auto) 14.5 % (13.4-35.0) 01/07/18 15:44 [place] % (Auto) 10.2 % (0.0-7.3) H 01/07/18 15:44 Eos % (Auto) 0.8 % (0.0-4.3) 01/07/18 15:44 Baso % (Auto) 0.8 % (0.0-1.8) 01/07/18 15:44 Lymph # 1.3 K/mm3 (1.2-5.4) 01/07/18 15:44 [place] # 0.9 K/mm3 (0.0-0.8) H 01/07/18 15:44 Eos # 0.1 K/mm3 (0.0-0.4) 01/07/18 15:44 Baso # 0.1 K/mm3 (0.0-0.1) 01/07/18 15:44 Seg Neutrophils % 73.7 % (40.0-70.0) H 01/07/18 15:44 Seg Neutrophils # 6.8 K/mm3 (1.8-7.7) 01/07/18 15:44 PT 11.8 Sec. (12.2-14.9) L 01/07/18 15:44 INR 0.83 (0.87-1.13) L 01/07/18 15:44 APTT 23.5 Sec. (24.2-36.6) L 01/07/18 15:44 D-Dimer < 135.0 ng/mlDDU (0-234) 01/07/18 15:44 Sodium 140 mmol/L (137-145) D 01/09/18 05:02 Potassium 4.0 mmol/L (3.6-5.0) 01/09/18 05:02 Chloride 91.9 mmol/L (98-107) L 01/09/18 05:02 Carbon Dioxide 38 mmol/L (22-30) H 01/09/18 05:02 Anion Gap 14 mmol/L 01/09/18 05:02 BUN 7 mg/dL (9-20) L 01/09/18 05:02 Creatinine 0.5 mg/dL (0.8-1.5) L 01/09/18 05:02 Estimated GFR > 60 ml/min 01/09/18 05:02 BUN/Creatinine Ratio 14 % 01/09/18 05:02 Glucose 95 mg/dL (75-100) 01/09/18 05:02 POC Glucose 102 (70-105) 01/08/18 17:44 Calcium 10.1 mg/dL (8.4-10.2) 01/09/18 05:02 Total Creatine Kinase 60 units/L (55-170) 01/07/18 15:44 CK-MB (CK-2) 2.6 ng/mL (0.0-4.0) 01/07/18 15:44 CK-MB (CK-2) Rel Index 4.3 (0-4) H 01/07/18 15:44 Troponin T < 0.010 ng/mL (0.00-0.029) 01/07/18 15:44 Triglycerides 119 mg/dL (2-149) 01/08/18 04:59 Cholesterol 174 mg/dL (50-199) 01/08/18 04:59 LDL Cholesterol Direct 101 mg/dL (50-130) 01/08/18 04:59 HDL Cholesterol 60 mg/dL (40-59) H 01/08/18 04:59 Cholesterol/HDL Ratio 2.90 % 01/08/18 04:59 Urine Color Yellow (Yellow) 01/07/18 Unknown Urine Turbidity Clear (Clear) 01/07/18 Unknown Urine pH 8.0 (5.0-7.0) H 01/07/18 Unknown Ur Specific [place] 1.005 (1.003-1.030) 01/07/18 Unknown Urine Protein <15 mg/dl mg/dL (Negative) 01/07/18 Unknown Urine Glucose (UA) Neg mg/dL (Negative) 01/07/18 Unknown Urine Ketones Neg mg/dL (Negative) 01/07/18 Unknown Urine Blood Neg (Negative) 01/07/18 Unknown Urine Nitrite Neg (Negative) 01/07/18 Unknown Urine Bilirubin Neg (Negative) 01/07/18 Unknown Urine Urobilinogen < 2.0 mg/dL (<2.0) 01/07/18 Unknown Ur Leukocyte Esterase Neg (Negative) 01/07/18 Unknown Urine WBC (Auto) < 1.0 /HPF (0.0-6.0) 01/07/18 Unknown Urine RBC (Auto) < 1.0 /HPF (0.0-6.0) 01/07/18 Unknown Amorphous Crystals Few 01/07/18 Unknown Urine Mucus Few /HPF 01/07/18 Unknown Urine Opiates Screen Presumptive negative 01/07/18 Unknown Urine Methadone Screen Presumptive negative 01/07/18 Unknown Ur Barbiturates Screen Presumptive negative 01/07/18 Unknown Valproic Acid 27.1 ug/mL (50-100) L 01/07/18 15:53 Ur Phencyclidine Scrn Presumptive negative 01/07/18 Unknown Ur Amphetamines Screen Presumptive negative 01/07/18 Unknown U Benzodiazepines Scrn Presumptive negative 01/07/18 Unknown Urine Cocaine Screen Presumptive negative 01/07/18 Unknown U Marijuana (THC) Screen Presumptive negative 01/07/18 Unknown Drugs of Abuse Note Disclamer 01/07/18 Unknown Plasma/Serum Alcohol < 0.01 % (0-0.07) 01/07/18 15:44
--- NOTE | 2018-01-09 09:31 | History and Physical Report ---
History of Present Illness Date of examination: 01/09/18 Date of admission: 01/07/18 18:12 History of present illness: NEUROLOGY CONSULTATION NOTE Hx reviewed in chart and with patient. He became light headed while standing early in the morning urinating. He fell, hit his head and right face and regained consciousness promptly. He has a seizure disorder x 20 years, and is on Depakote, not followed by a neurologist. He thinks his last seizure was 6 mos ago. He carries diagnoses of Dementia, Schizophrenia, HTN, COPD, tobacco abuse, and has had back surgery. CT face, neck normal, head - normal brain; C-ultrasound nl; Echo - nl with EF 55-60% ROS: naught to add MEDS/ALLERGIES - SEE CHART SH/FH REVIEWED BUT NOT RECOPIED HERE EXAM: HEENT - ECCYMOSIS UNDER RIGHT EYE. MANY TEETH MISSING, VERY POOR DENTITION NECK - SUPPLE, NO BRUITS COR - NO M, RUBS LUNGS - CLEAR ABD - BS NORMAL EXTREM - NO TRAUMA NEURO EXAM MS: ALERT, COOPERATIVE, SPEECH FLUENT AND INTELLIGIBLE, ORIENTED X 3, FOLLOWS COMMANDS REASONABLY WELL CN 2 - 12: NL, EOM FULL WITHOUT NYSTAGMUS, PUPILS BOTH 4 MM AND REACT TO BRIGHT LIGHT, NO VISUAL FIELD CUTS TO FINGER CONFRONTATION MOT: NL STRENGTH ALL FOUR EXTREM SENS: DENIES LOSS TO TOUCH THROUGHOUT CEREB: FNF REASONABLY WELL DONE BILAT DTRS: 1+ BICEPS, 1+ AT KNEES, TRACE AT ANKLES, BOTH GREAT TOES DOWNGOING TO PLANTAR STIM GAIT NOT TESTED DUE TO FALL RISK DXIMP: 1. Micturition syncope, perhaps exacc by postural hypotension (BP med related? ) 2. Multiple other Dxs as above RECC: 1. Neuro work up complete 2. Agree with your plan 3. Call as needed. Earl Leary MD Past History Past Medical History: COPD, hypertension, seizures, other (Dementia) Past Surgical History: Other (Back, Brain) Social history: Family history: hypertension Medications and Allergies Allergies Allergy/AdvReac Type Severity Reaction Status Date / Time No Known Allergies Allergy Verified 01/07/18 15:09 Home Medications Medication Instructions Recorded Confirmed Last Taken Type risperiDONE [RisperiDONE] 1 mg PO DAILY 07/02/14 01/07/18 1 Day Ago History ~03/31/17 risperiDONE [RisperiDONE] 2 mg PO HS 07/02/14 01/07/18 1 Day Ago History ~03/31/17 Aspirin [Aspirin BABY CHEW TAB] 81 mg PO DAILY #30 tab.chew 04/02/17 01/07/18 Unknown Rx Carvedilol [Coreg] 3.125 mg PO BID #60 tablet 04/02/17 01/07/18 Unknown Rx Divalproex Sodium [Divalproex 1,000 mg PO HS #60 tab.er.24h 04/02/17 01/07/18 Unknown Rx Sodium ER] Docusate Sodium [Colace CAP] 100 mg PO BID PRN #60 capsule 04/02/17 01/07/18 Unknown Rx Lisinopril [Zestril TAB] 40 mg PO DAILY #30 tablet 04/02/17 01/07/18 Unknown Rx Mirtazapine [Remeron] 45 mg PO DAILY #30 tablet 04/02/17 01/07/18 Unknown Rx Paroxetine HCl [PARoxetine] 40 mg PO DAILY #30 tablet 04/02/17 01/07/18 Unknown Rx amLODIPine [Norvasc] 10 mg PO QDAY #30 tablet 04/02/17 01/07/18 Unknown Rx traMADol [Ultram 50 MG tab] 50 mg PO Q6HR PRN #20 tablet 10/29/17 01/07/18 Unknown Rx Active Meds: Active Medications Acetaminophen (Tylenol) 650 mg PO Q4H PRN PRN Reason: Non Cardiac Pain or Temp>100.5 Albuterol (Proventil) 2.5 mg IH Q3HRT PRN PRN Reason: Shortness Of Breath Amlodipine Besylate (Norvasc) 10 mg PO QDAY [facility] Aspirin (Aspirin) 325 mg PO QDAY [facility] Last Admin: 01/08/18 10:37 Dose: 325 mg Atorvastatin Calcium (Lipitor) 40 mg PO QHS [facility] Last Admin: 01/08/18 21:49 Dose: 40 mg Bisacodyl (Dulcolax) 10 mg UT QDAY PRN PRN Reason: Constipation Carvedilol (Coreg) 3.125 mg PO BID [facility] Divalproex Sodium (Depakote Er) 1,000 mg PO HS [facility] Last Admin: 01/08/18 21:49 Dose: 1,000 mg Docusate Sodium (Colace) 100 mg PO BID PRN PRN Reason: Constipation Heparin Sodium (Porcine) (Heparin) 5,000 unit SUB-Q Q12HR [facility] Hydralazine HCl (Apresoline) 10 mg IV Q4HR PRN PRN Reason: Blood Pressure Magnesium Hydroxide (Milk Of Magnesia) 30 ml PO Q4H PRN PRN Reason: Constipation Metoclopramide HCl (Reglan) 10 mg PO Q6H PRN PRN Reason: Nausea And Vomiting Mirtazapine (Remeron) 45 mg PO QDAY [facility] Last Admin: 01/08/18 10:37 Dose: 45 mg Ondansetron HCl (Zofran) 4 mg IV Q8H PRN PRN Reason: N/V unrelieved by Reglan Paroxetine HCl (Paxil) 40 mg PO DAILY [facility] Last Admin: 01/08/18 10:38 Dose: 40 mg Promethazine HCl (Phenergan) 25 mg UT Q6H PRN PRN Reason: Nausea And Vomiting Risperidone (Risperdal) 1 mg PO DAILY [facility] Last Admin: 01/08/18 10:38 Dose: 1 mg Risperidone (Risperdal) 2 mg PO HS [facility] Last Admin: 01/08/18 21:49 Dose: 2 mg Sodium Chloride (Sodium Chloride Flush Syringe 10 Ml) 10 ml IV PRN PRN PRN Reason: LINE FLUSH Tramadol HCl (Ultram) 50 mg PO Q6HR PRN PRN Reason: Pain Last Admin: 01/09/18 05:36 Dose: 50 mg Physical Examination - Vital Signs Vital Signs: Vital Signs Temp Pulse Resp BP Pulse Ox 98 F 95 H 16 182/101 96 01/07/18 15:12 01/07/18 15:12 01/07/18 15:12 01/07/18 15:12 01/07/18 15:12 Results - Laboratory Findings CBC and BMP: 01/09/18 05:02 01/09/18 05:02 Abnormal Lab Findings: Abnormal Labs 01/07/18 01/07/18 01/07/18 15:44 15:44 15:44 MCHC RDW 16.5 H [place] % (Auto) 10.2 H [place] # 0.9 H Seg Neutrophils % 73.7 H PT 11.8 L INR 0.83 L APTT 23.5 L Sodium 133 L Chloride 89.4 L Carbon Dioxide 36 H BUN 7 L Creatinine 0.5 L Glucose 130 H POC Glucose CK-MB (CK-2) Rel Index 4.3 H HDL Cholesterol Urine pH Valproic Acid 01/07/18 01/07/18 01/07/18 15:51 15:53 Unknown MCHC RDW [place] % (Auto) [place] # Seg Neutrophils % PT INR APTT Sodium Chloride Carbon Dioxide BUN Creatinine Glucose POC Glucose 134 H CK-MB (CK-2) Rel Index HDL Cholesterol Urine pH 8.0 H Valproic Acid 27.1 L 01/08/18 01/09/18 01/09/18 04:59 05:02 05:02 MCHC 31 L RDW 16.2 H [place] % (Auto) [place] # Seg Neutrophils % PT INR APTT Sodium Chloride 91.9 L Carbon Dioxide 38 H BUN 7 L Creatinine 0.5 L Glucose POC Glucose CK-MB (CK-2) Rel Index HDL Cholesterol 60 H Urine pH Valproic Acid
--- NOTE | 2018-01-09 09:37 | XRay Report ---
AP CHEST: HISTORY: Pneumonia Compared to 03/30/17. AP view of the chest demonstrates a normal mediastinal and cardiac contour with clear lungs and normal bony and soft tissue structures. IMPRESSION: Unremarkable AP chest.
[2018-01-09] MEDS: REMERON PO SCH (11:29)
[2018-01-09] MEDS: NORVASC PO SCH (11:29)
[2018-01-09] MEDS: RisperDAL PO SCH ×2 (11:29→22:14)
[2018-01-09] MEDS: PAXIL PO SCH (11:30)
[2018-01-09] MEDS: ASPIRIN PO SCH (11:30)
[2018-01-09] MEDS: COREG PO SCH ×2 (11:31→22:13)
[2018-01-09] MEDS: HEPARIN SUB-Q SCH ×2 (18:09→22:13)
[2018-01-10] MEDS: RisperDAL PO SCH ×3 (00:46→23:19)
[2018-01-10] MEDS: COREG PO SCH ×3 (00:47→23:19)
[2018-01-10] MEDS: ULTRAM PO PRN (00:48)
[2018-01-10 06:58] LABS: Hematocrit 41.1 % (35.5-45.6); Hemoglobin 13.3 gm/dl (11.8-15.2); Mean Corpuscular HGB Conc 32 % (32-34); Mean Corpuscular Hemoglobin 29 pg (28-32); Mean Corpuscular Volume 88 fl (84-94); Platelet Count 261 K/mm3 (140-440); Red Blood Count 4.67 M/mm3 (3.65-5.03); Red Cell Distribution Width 16.4 % (13.2-15.2)
[2018-01-10 07:13] LABS: BUN/Creatinine Ratio 24; Blood Urea Nitrogen 12 mg/dL (9-20); Calcium 10.4 mg/dL (8.4-10.2); Hemolysis Index 16
--- NOTE | 2018-01-10 08:24 | Progress Note ---
Assessment and Plan Assessment and plan: Patient is a 57 yo man with a history of HTN, Seizure Disorder, Chronic Pain, COPD, Dementia, Schizophrenia and Nicotine Dependence who pw syncope while urinating with head trauma/right black eye -Syncope, appears micturition syncope, CT head, neuro checks, I ordered Orthostatic vitals==>normal Orthostasis, patient on large dose of Remeron which can cause syncope, will decrease -Seizure: Seizure precautions, resume prehospital antiepileptic therapy of Depakote -Acute hypoxic respiratory failure, most likely poa, 85% RA, pCXR unremarkable: possible COPD related, add duo nebs -Accelerated hypertension: prn iv hydralazine, Increased Coreg to 6.25 bid, restart home lisinopril -COPD (chronic obstructive pulmonary disease): supplemental oxygen, resume home medication, NIPPV as clinically indicated, pulse oximetry -Chronic back pain: symptomatic care -DVT prophylaxis: SCD to BLE while in bed. -CVA ruled out -Low grade fever with isolated temp of 100.2 Fahrenheit, resolved, UA and blood culture pending, pCXR unremarkable -Advance care planning: full code History Interval history: Patient was seen and examined. Follow-up on current diagnosis of syncope. Overnight uneventful. Patient denies any chest pain, shortness breath, nausea/ vomiting or severe headaches. Imaging, nursing note, chart, labs and old chart reviewed. Discussed with patient. Hospitalist Physical - Physical exam Narrative exam: GEN: WDWN, NAD, Awake, Alert, Orientated x2, slow to answer question HEENT: ,right eyelid and palepebral ecchymosis and forehead trauma, EOMI, PERRL , OP Clear NECK: supple, no adenopathy, no thyromegaly, no JVD CVS/HEART: RRR, normal S1S2, pulses present bilaterally CHEST/LUNGS: CTA B, Symmetrical chest expansion, good air entry bilaterally GI/Abdomen: soft, NTND, good bowel sounds, no guarding or rebound /Bladder: no suprapubic tenderness, no CVA or paraspinal tenderness EXT/Skin: no c/c/e, no obvious rash MSK: FROM x 4 Neuro: CN 2-12 grossly intact, no new focal deficits Psych: calm - Constitutional Vitals: Temp Pulse Resp BP Pulse Ox 98.8 F 93 H 20 172/88 84 01/10/18 05:03 01/10/18 05:08 01/10/18 05:03 01/10/18 05:03 01/10/18 05:08 General appearance: Absent: mild distress Results - Labs CBC & Chem 7: 01/10/18 05:26 01/10/18 05:26 Labs: Laboratory Last Values WBC 10.0 K/mm3 (4.5-11.0) 01/10/18 05:26 RBC 4.67 M/mm3 (3.65-5.03) 01/10/18 05:26 Hgb 13.3 gm/dl (11.8-15.2) 01/10/18 05:26 Hct 41.1 % (35.5-45.6) 01/10/18 05:26 MCV 88 fl (84-94) 01/10/18 05:26 MCH 29 pg (28-32) 01/10/18 05:26 MCHC 32 % (32-34) 01/10/18 05:26 RDW 16.4 % (13.2-15.2) H 01/10/18 05:26 Plt Count 261 K/mm3 (140-440) 01/10/18 05:26 Lymph % (Auto) 14.5 % (13.4-35.0) 01/07/18 15:44 [place] % (Auto) 10.2 % (0.0-7.3) H 01/07/18 15:44 Eos % (Auto) 0.8 % (0.0-4.3) 01/07/18 15:44 Baso % (Auto) 0.8 % (0.0-1.8) 01/07/18 15:44 Lymph # 1.3 K/mm3 (1.2-5.4) 01/07/18 15:44 [place] # 0.9 K/mm3 (0.0-0.8) H 01/07/18 15:44 Eos # 0.1 K/mm3 (0.0-0.4) 01/07/18 15:44 Baso # 0.1 K/mm3 (0.0-0.1) 01/07/18 15:44 Seg Neutrophils % 73.7 % (40.0-70.0) H 01/07/18 15:44 Seg Neutrophils # 6.8 K/mm3 (1.8-7.7) 01/07/18 15:44 PT 11.8 Sec. (12.2-14.9) L 01/07/18 15:44 INR 0.83 (0.87-1.13) L 01/07/18 15:44 APTT 23.5 Sec. (24.2-36.6) L 01/07/18 15:44 D-Dimer < 135.0 ng/mlDDU (0-234) 01/07/18 15:44 Sodium 135 mmol/L (137-145) L 01/10/18 05:26 Potassium 3.9 mmol/L (3.6-5.0) 01/10/18 05:26 Chloride 84.7 mmol/L (98-107) L 01/10/18 05:26 Carbon Dioxide 40 mmol/L (22-30) H 01/10/18 05:26 Anion Gap 14 mmol/L 01/10/18 05:26 BUN 12 mg/dL (9-20) 01/10/18 05:26 Creatinine 0.5 mg/dL (0.8-1.5) L 01/10/18 05:26 Estimated GFR > 60 ml/min 01/10/18 05:26 BUN/Creatinine Ratio 24 % 01/10/18 05:26 Glucose 93 mg/dL (75-100) 01/10/18 05:26 POC Glucose 96 (70-105) 01/09/18 22:32 Calcium 10.4 mg/dL (8.4-10.2) H 01/10/18 05:26 Total Creatine Kinase 60 units/L (55-170) 01/07/18 15:44 CK-MB (CK-2) 2.6 ng/mL (0.0-4.0) 01/07/18 15:44 CK-MB (CK-2) Rel Index 4.3 (0-4) H 01/07/18 15:44 Troponin T < 0.010 ng/mL (0.00-0.029) 01/07/18 15:44 Triglycerides 119 mg/dL (2-149) 01/08/18 04:59 Cholesterol 174 mg/dL (50-199) 01/08/18 04:59 LDL Cholesterol Direct 101 mg/dL (50-130) 01/08/18 04:59 HDL Cholesterol 60 mg/dL (40-59) H 01/08/18 04:59 Cholesterol/HDL Ratio 2.90 % 01/08/18 04:59 Urine Color Yellow (Yellow) 01/07/18 Unknown Urine Turbidity Clear (Clear) 01/07/18 Unknown Urine pH 8.0 (5.0-7.0) H 01/07/18 Unknown Ur Specific [place] 1.005 (1.003-1.030) 01/07/18 Unknown Urine Protein <15 mg/dl mg/dL (Negative) 01/07/18 Unknown Urine Glucose (UA) Neg mg/dL (Negative) 01/07/18 Unknown Urine Ketones Neg mg/dL (Negative) 01/07/18 Unknown Urine Blood Neg (Negative) 01/07/18 Unknown Urine Nitrite Neg (Negative) 01/07/18 Unknown Urine Bilirubin Neg (Negative) 01/07/18 Unknown Urine Urobilinogen < 2.0 mg/dL (<2.0) 01/07/18 Unknown Ur Leukocyte Esterase Neg (Negative) 01/07/18 Unknown Urine WBC (Auto) < 1.0 /HPF (0.0-6.0) 01/07/18 Unknown Urine RBC (Auto) < 1.0 /HPF (0.0-6.0) 01/07/18 Unknown Amorphous Crystals Few 01/07/18 Unknown Urine Mucus Few /HPF 01/07/18 Unknown Urine Opiates Screen Presumptive negative 01/07/18 Unknown Urine Methadone Screen Presumptive negative 01/07/18 Unknown Ur Barbiturates Screen Presumptive negative 01/07/18 Unknown Valproic Acid 27.1 ug/mL (50-100) L 01/07/18 15:53 Ur Phencyclidine Scrn Presumptive negative 01/07/18 Unknown Ur Amphetamines Screen Presumptive negative 01/07/18 Unknown U Benzodiazepines Scrn Presumptive negative 01/07/18 Unknown Urine Cocaine Screen Presumptive negative 01/07/18 Unknown U Marijuana (THC) Screen Presumptive negative 01/07/18 Unknown Drugs of Abuse Note Disclamer 01/07/18 Unknown Plasma/Serum Alcohol < 0.01 % (0-0.07) 01/07/18 15:44
[2018-01-10] MEDS ORDERED: COREG PO SCH (10:00)
[2018-01-10] MEDS: HEPARIN SUB-Q SCH ×2 (10:26→23:21)
[2018-01-10] MEDS: ASPIRIN PO SCH (10:31)
[2018-01-10] MEDS: NORVASC PO SCH (10:31)
[2018-01-10] MEDS: PAXIL PO SCH (10:43)
[2018-01-10] MEDS: REMERON PO SCH (10:44)
[2018-01-10] MEDS ORDERED: REMERON PO SCH (12:28)
[2018-01-10] MEDS: LEVAQUIN 750MG/150ML 750 MG/150 ML BAG IV SCH (12:54)
--- NOTE | 2018-01-10 13:12 | Progress Note ---
Assessment and Plan - Patient Problems (1) COPD (chronic obstructive pulmonary disease) Current Visit: Yes Status: Chronic Subjective Date of service: 01/10/18 Objective Vital Signs - 12hr 01/10/18 01/10/18 01/10/18 01:15 01:22 05:03 Temperature 99.0 F 98.8 F Pulse Rate 105 H 102 H 102 H Respiratory 22 20 Rate Blood Pressure 181/111 172/88 Blood Pressure [Left] O2 Sat by Pulse 84 89 84 Oximetry 01/10/18 01/10/18 01/10/18 05:08 08:22 10:31 Temperature 98.7 F Pulse Rate 93 H 89 83 Respiratory 16 Rate Blood Pressure 175/95 Blood Pressure 175/95 [Left] O2 Sat by Pulse 84 92 Oximetry 01/10/18 01/10/18 11:00 11:50 Temperature 98.7 F Pulse Rate 100 H 104 H Respiratory 19 Rate Blood Pressure 182/120 Blood Pressure [Left] O2 Sat by Pulse 91 Oximetry CBC and BMP: 01/10/18 05:26 01/10/18 05:26 ABG, PT/INR, D-dimer: PT/INR, D-dimer PT 11.8 Sec. (12.2-14.9) L 01/07/18 15:44 INR 0.83 (0.87-1.13) L 01/07/18 15:44 D-Dimer < 135.0 ng/mlDDU (0-234) 01/07/18 15:44 Abnormal lab findings: Abnormal Labs 01/07/18 01/07/18 01/07/18 15:44 15:44 15:44 MCHC RDW 16.5 H [place] % (Auto) 10.2 H [place] # 0.9 H Seg Neutrophils % 73.7 H PT 11.8 L INR 0.83 L APTT 23.5 L Sodium 133 L Chloride 89.4 L Carbon Dioxide 36 H BUN 7 L Creatinine 0.5 L Glucose 130 H POC Glucose Calcium CK-MB (CK-2) Rel Index 4.3 H HDL Cholesterol Urine pH Valproic Acid 01/07/18 01/07/18 01/07/18 15:51 15:53 Unknown MCHC RDW [place] % (Auto) [place] # Seg Neutrophils % PT INR APTT Sodium Chloride Carbon Dioxide BUN Creatinine Glucose POC Glucose 134 H Calcium CK-MB (CK-2) Rel Index HDL Cholesterol Urine pH 8.0 H Valproic Acid 27.1 L 01/08/18 01/09/18 01/09/18 04:59 05:02 05:02 MCHC 31 L RDW 16.2 H [place] % (Auto) [place] # Seg Neutrophils % PT INR APTT Sodium Chloride 91.9 L Carbon Dioxide 38 H BUN 7 L Creatinine 0.5 L Glucose POC Glucose Calcium CK-MB (CK-2) Rel Index HDL Cholesterol 60 H Urine pH Valproic Acid 01/10/18 01/10/18 05:26 05:26 MCHC RDW 16.4 H [place] % (Auto) [place] # Seg Neutrophils % PT INR APTT Sodium 135 L Chloride 84.7 L Carbon Dioxide 40 H BUN Creatinine 0.5 L Glucose POC Glucose Calcium 10.4 H CK-MB (CK-2) Rel Index HDL Cholesterol Urine pH Valproic Acid
--- NOTE | 2018-01-10 13:14 | Consultation ---
History of Present Illness Consult date: 01/10/18 Reason for consult: chest pain, COPD History of present illness: PULMONARY CONSULTATION. Dr. Dominguez thank you for asking us to participate in the care of this patient. 57 YO Male with HTN, Seizure Disorder, Chronic Pain, COPD, Dementia, Schizophrenia, Nicotine Dependence presents to ED for evaluation. Pt states that he was in the restroom urinating when he experienced a sudden onset of dizziness, blurred vision, weakness, and subsequently passed out. Pt states that he awoke later and had an injury to his right face, as well as right side numbness. Pt transported to [facility] for further care and evaluation. Pt seen and evaluated in ED and found to have symptoms consistent with CVA. Pt denies fever , chills, CP, Palpitations, NVD, unilateral leg swelling, calf pain, individual/ family history of DVT/PE, Productive cough, or recent ill contacts. Pt admitted to telemetry, and initiated on CVA protocol. Pt outside therapeutic window for TPA. Patient presently in deep sleep. On 3 litres O2. O2 saturation 94%. Unable to get furthur history other than mentioned in history physical by primary care doctor. Smoking history, alcohol history or drug history is not known. No Known drug allergies. Past History Past Medical History: COPD, hypertension, seizures, other (Dementia) Past Surgical History: Other (Back, Brain) Social history: Family history: hypertension Medications and Allergies Allergies Allergy/AdvReac Type Severity Reaction Status Date / Time No Known Allergies Allergy Verified 01/07/18 15:09 Home Medications Medication Instructions Recorded Confirmed Last Taken Type risperiDONE [RisperiDONE] 1 mg PO DAILY 07/02/14 01/07/18 1 Day Ago History ~03/31/17 risperiDONE [RisperiDONE] 2 mg PO HS 07/02/14 01/07/18 1 Day Ago History ~03/31/17 Aspirin [Aspirin BABY CHEW TAB] 81 mg PO DAILY #30 tab.chew 04/02/17 01/07/18 Unknown Rx Carvedilol [Coreg] 3.125 mg PO BID #60 tablet 04/02/17 01/07/18 Unknown Rx Divalproex Sodium [Divalproex 1,000 mg PO HS #60 tab.er.24h 04/02/17 01/07/18 Unknown Rx Sodium ER] Docusate Sodium [Colace CAP] 100 mg PO BID PRN #60 capsule 04/02/17 01/07/18 Unknown Rx Lisinopril [Zestril TAB] 40 mg PO DAILY #30 tablet 04/02/17 01/07/18 Unknown Rx Mirtazapine [Remeron] 45 mg PO DAILY #30 tablet 04/02/17 01/07/18 Unknown Rx Paroxetine HCl [PARoxetine] 40 mg PO DAILY #30 tablet 04/02/17 01/07/18 Unknown Rx amLODIPine [Norvasc] 10 mg PO QDAY #30 tablet 04/02/17 01/07/18 Unknown Rx traMADol [Ultram 50 MG tab] 50 mg PO Q6HR PRN #20 tablet 10/29/17 01/07/18 Unknown Rx Active Meds: Active Medications Acetaminophen (Tylenol) 650 mg PO Q4H PRN PRN Reason: Non Cardiac Pain or Temp>100.5 Albuterol (Proventil) 2.5 mg IH Q3HRT PRN PRN Reason: Shortness Of Breath Albuterol/Ipratropium (Duoneb *Not For Prn Use*) 1 ampul IH TIDRT [facility] Amlodipine Besylate (Norvasc) 10 mg PO QDAY [facility] Last Admin: 01/10/18 10:31 Dose: 10 mg Aspirin (Aspirin) 325 mg PO QDAY [facility] Last Admin: 01/10/18 10:31 Dose: 325 mg Atorvastatin Calcium (Lipitor) 40 mg PO QHS [facility] Last Admin: 01/10/18 00:47 Dose: 40 mg Bisacodyl (Dulcolax) [address] QDAY PRN PRN Reason: Constipation Carvedilol (Coreg) 6.25 mg PO BID [facility] Last Admin: 01/10/18 10:31 Dose: 6.25 mg Divalproex Sodium (Depakote Er) 1,000 mg PO [facility] Last Admin: 01/10/18 00:46 Dose: 1,000 mg Docusate Sodium (Colace) 100 mg PO BID PRN PRN Reason: Constipation Heparin Sodium (Porcine) (Heparin) 5,000 unit SUB-Q Q12HR [facility] Last Admin: 01/10/18 10:26 Dose: 5,000 unit Hydralazine HCl (Apresoline) 10 mg IV Q4HR PRN PRN Reason: Blood Pressure Levofloxacin/Dextrose (Levaquin 750mg/150ml) 750 mg in 150 mls @ 100 mls/hr IV Q24HR [facility]; Protocol Last Admin: 01/10/18 12:54 Dose: 100 mls/hr Lisinopril (Zestril) 40 mg PO DAILY [facility] Magnesium Hydroxide (Milk Of Magnesia) 30 ml PO Q4H PRN PRN Reason: Constipation Methylprednisolone Sodium Succinate (Solu-Medrol) 40 mg IV Q8HR [facility] Metoclopramide HCl (Reglan) 10 mg PO Q6H PRN PRN Reason: Nausea And Vomiting Mirtazapine (Remeron) 15 mg PO QDAY [facility] Ondansetron HCl (Zofran) 4 mg IV Q8H PRN PRN Reason: N/V unrelieved by Reglan Paroxetine HCl (Paxil) 40 mg PO DAILY [facility] Last Admin: 01/10/18 10:43 Dose: 40 mg Promethazine HCl (Phenergan) [address] Q6H PRN PRN Reason: Nausea And Vomiting Risperidone (Risperdal) 1 mg PO DAILY [facility] Last Admin: 01/10/18 10:44 Dose: 1 mg Risperidone (Risperdal) 2 mg PO HS [facility] Last Admin: 01/10/18 00:46 Dose: 2 mg Sodium Chloride (Sodium Chloride Flush Syringe 10 Ml) 10 ml IV PRN PRN PRN Reason: LINE FLUSH Review of Systems All systems: negative Physical Examination Vital signs: Vital Signs Temp Pulse Resp BP Pulse Ox 98 F 95 H 16 182/101 96 01/07/18 15:12 01/07/18 15:12 01/07/18 15:12 01/07/18 15:12 01/07/18 15:12 General appearance: no acute distress, asleep Eyes: non-icteric ENT: oropharynx moist Neck: supple, no JVD Ascultation: Bilateral: other (Prolonged expiratory phase.) Results - Laboratory Findings CBC and BMP: 01/10/18 05:26 01/10/18 05:26 PT/INR, D-dimer PT 11.8 Sec. (12.2-14.9) L 01/07/18 15:44 INR 0.83 (0.87-1.13) L 01/07/18 15:44 D-Dimer < 135.0 ng/mlDDU (0-234) 01/07/18 15:44 Abnormal lab findings: Abnormal Labs 01/07/18 01/07/18 01/07/18 15:44 15:44 15:44 MCHC RDW 16.5 H [place] % (Auto) 10.2 H [place] # 0.9 H Seg Neutrophils % 73.7 H PT 11.8 L INR 0.83 L APTT 23.5 L Sodium 133 L Chloride 89.4 L Carbon Dioxide 36 H BUN 7 L Creatinine 0.5 L Glucose 130 H POC Glucose Calcium CK-MB (CK-2) Rel Index 4.3 H HDL Cholesterol Urine pH Valproic Acid 01/07/18 01/07/18 01/07/18 15:51 15:53 Unknown MCHC RDW [place] % (Auto) [place] # Seg Neutrophils % PT INR APTT Sodium Chloride Carbon Dioxide BUN Creatinine Glucose POC Glucose 134 H Calcium CK-MB (CK-2) Rel Index HDL Cholesterol Urine pH 8.0 H Valproic Acid 27.1 L 01/08/18 01/09/18 01/09/18 04:59 05:02 05:02 MCHC 31 L RDW 16.2 H [place] % (Auto) [place] # Seg Neutrophils % PT INR APTT Sodium Chloride 91.9 L Carbon Dioxide 38 H BUN 7 L Creatinine 0.5 L Glucose POC Glucose Calcium CK-MB (CK-2) Rel Index HDL Cholesterol 60 H Urine pH Valproic Acid 01/10/18 01/10/18 05:26 05:26 MCHC RDW 16.4 H [place] % (Auto) [place] # Seg Neutrophils % PT INR APTT Sodium 135 L Chloride 84.7 L Carbon Dioxide 40 H BUN Creatinine 0.5 L Glucose POC Glucose Calcium 10.4 H CK-MB (CK-2) Rel Index HDL Cholesterol Urine pH Valproic Acid - Diagnostic Findings Chest x-ray: report reviewed, image reviewed (Reported unremarkable AP chest) Assessment and Plan 57 YO Male with HTN, Seizure Disorder, Chronic Pain, COPD, Dementia, Schizophrenia, Nicotine Dependence presents to ED for evaluation. Pt states that he was in the restroom urinating when he experienced a sudden onset of dizziness, blurred vision, weakness, and subsequently passed out. Pt states that he awoke later and had an injury to his right face, as well as right side numbness. Pt transported to [facility] for further care and evaluation. Pt seen and evaluated in ED and found to have symptoms consistent with CVA. Pt denies fever , chills, CP, Palpitations, NVD, unilateral leg swelling, calf pain, individual/ family history of DVT/PE, Productive cough, or recent ill contacts. Pt admitted to telemetry, and initiated on CVA protocol. Pt outside therapeutic window for TPA. Patient presently in deep sleep. On 3 litres O2. O2 saturation 94%. Unable to get furthur history other than mentioned in history physical by primary care doctor. Smoking history, alcohol history or drug history is not known. No Known drug allergies. - Patient Problems (1) COPD (chronic obstructive pulmonary disease) Current Visit: Yes Status: Chronic Plan to address problem: O2 3 litres via nasal canula. Albuterol/atrovent aerosol treatments q 6 hours. Continue I/V solumedrol. Patient is on Levaquin. Continue S/C Heparin. Patient is on Reglan. (2) CVA (cerebral vascular accident) Current Visit: Yes Status: Acute Qualifiers: Precerebral and cerebral artery: middle cerebral artery Laterality of affected vessel: left Plan to address problem: Management as per primary care and neurology. (3) Seizure Current Visit: Yes Status: Acute Plan to address problem: Management as per primary care and neurology. (4) HYACINTH (acute kidney injury) Current Visit: No Status: Acute Plan to address problem: Management as per nephrology. (5) Acute coronary syndrome Current Visit: No Status: Acute Plan to address problem: Management as per cardiology. (6) Mental disorder affecting medical condition Current Visit: No Status: Acute Plan to address problem: Recommend to consult psychiatry.
[2018-01-10] MEDS: DUONEB *Not for PRN Use IH SCH ×2 (14:29→20:27)
[2018-01-11] MEDS: DUONEB *Not for PRN Use IH SCH ×3 (07:35→20:02)
--- NOTE | 2018-01-11 07:52 | Progress Note ---
Assessment and Plan Assessment and plan: Patient is a 57 yo man with a history of HTN, Seizure Disorder, Chronic Pain, COPD, Dementia, Schizophrenia and Nicotine Dependence who pw syncope while urinating with head trauma/right black eye -Syncope, appears micturition syncope, CT head, neuro checks, I ordered Orthostatic vitals==>normal Orthostasis, patient on large dose of Remeron which can cause syncope, will decrease dose -Seizure: Seizure precautions, resume prehospital antiepileptic therapy of Depakote -Acute hypoxic respiratory failure, most likely poa, 85% RA, pCXR unremarkable: possible COPD related, add duo nebs -Accelerated hypertension: prn iv hydralazine, Increased Coreg to 6.25 bid, restart home lisinopril -AE COPD (chronic obstructive pulmonary disease): supplemental oxygen, NIPPV as indicated, pulse oximetry, added iv solumedrol, on levaquin and consulted Pulmonology who is following -Chronic back pain: symptomatic care -DVT prophylaxis: SCD to BLE while in bed. -CVA ruled out -Low grade fever with isolated temp of 100.2 Fahrenheit, resolved, UA and blood culture negative x 24 hours, pCXR unremarkable -Advance care planning: full code History Interval history: Patient was seen and examined. Follow-up on current diagnosis of syncope. Overnight uneventful. Patient denies any chest pain, shortness breath, nausea/ vomiting or severe headaches. Imaging, nursing note, chart, labs and old chart reviewed. Discussed with patient. Hospitalist Physical - Physical exam Narrative exam: GEN: WDWN, NAD, Awake, Alert, Orientated x2, slow to answer question HEENT: ,right eyelid and palepebral ecchymosis and forehead trauma, EOMI, PERRL , OP Clear NECK: supple, no adenopathy, no thyromegaly, no JVD CVS/HEART: RRR, normal S1S2, pulses present bilaterally CHEST/LUNGS: CTA B, Symmetrical chest expansion, good air entry bilaterally GI/Abdomen: soft, NTND, good bowel sounds, no guarding or rebound /Bladder: no suprapubic tenderness, no CVA or paraspinal tenderness EXT/Skin: no c/c/e, no obvious rash MSK: FROM x 4 Neuro: CN 2-12 grossly intact, no new focal deficits Psych: calm - Constitutional Vitals: Temp Pulse Resp BP Pulse Ox 98.3 F 89 20 144/91 92 01/11/18 05:49 01/11/18 07:42 01/11/18 07:42 01/11/18 05:49 01/11/18 07:37 General appearance: Absent: mild distress Results - Labs CBC & Chem 7: 01/10/18 05:26 01/10/18 05:26 Labs: Laboratory Last Values WBC 10.0 K/mm3 (4.5-11.0) 01/10/18 05:26 RBC 4.67 M/mm3 (3.65-5.03) 01/10/18 05:26 Hgb 13.3 gm/dl (11.8-15.2) 01/10/18 05:26 Hct 41.1 % (35.5-45.6) 01/10/18 05:26 MCV 88 fl (84-94) 01/10/18 05:26 MCH 29 pg (28-32) 01/10/18 05:26 MCHC 32 % (32-34) 01/10/18 05:26 RDW 16.4 % (13.2-15.2) H 01/10/18 05:26 Plt Count 261 K/mm3 (140-440) 01/10/18 05:26 Lymph % (Auto) 14.5 % (13.4-35.0) 01/07/18 15:44 [place] % (Auto) 10.2 % (0.0-7.3) H 01/07/18 15:44 Eos % (Auto) 0.8 % (0.0-4.3) 01/07/18 15:44 Baso % (Auto) 0.8 % (0.0-1.8) 01/07/18 15:44 Lymph # 1.3 K/mm3 (1.2-5.4) 01/07/18 15:44 [place] # 0.9 K/mm3 (0.0-0.8) H 01/07/18 15:44 Eos # 0.1 K/mm3 (0.0-0.4) 01/07/18 15:44 Baso # 0.1 K/mm3 (0.0-0.1) 01/07/18 15:44 Seg Neutrophils % 73.7 % (40.0-70.0) H 01/07/18 15:44 Seg Neutrophils # 6.8 K/mm3 (1.8-7.7) 01/07/18 15:44 PT 11.8 Sec. (12.2-14.9) L 01/07/18 15:44 INR 0.83 (0.87-1.13) L 01/07/18 15:44 APTT 23.5 Sec. (24.2-36.6) L 01/07/18 15:44 D-Dimer < 135.0 ng/mlDDU (0-234) 01/07/18 15:44 Sodium 135 mmol/L (137-145) L 01/10/18 05:26 Potassium 3.9 mmol/L (3.6-5.0) 01/10/18 05:26 Chloride 84.7 mmol/L (98-107) L 01/10/18 05:26 Carbon Dioxide 40 mmol/L (22-30) H 01/10/18 05:26 Anion Gap 14 mmol/L 01/10/18 05:26 BUN 12 mg/dL (9-20) 01/10/18 05:26 Creatinine 0.5 mg/dL (0.8-1.5) L 01/10/18 05:26 Estimated GFR > 60 ml/min 01/10/18 05:26 BUN/Creatinine Ratio 24 % 01/10/18 05:26 Glucose 93 mg/dL (75-100) 01/10/18 05:26 POC Glucose 96 (70-105) 01/09/18 22:32 Calcium 10.4 mg/dL (8.4-10.2) H 01/10/18 05:26 Total Creatine Kinase 60 units/L (55-170) 01/07/18 15:44 CK-MB (CK-2) 2.6 ng/mL (0.0-4.0) 01/07/18 15:44 CK-MB (CK-2) Rel Index 4.3 (0-4) H 01/07/18 15:44 Troponin T < 0.010 ng/mL (0.00-0.029) 01/07/18 15:44 Triglycerides 119 mg/dL (2-149) 01/08/18 04:59 Cholesterol 174 mg/dL (50-199) 01/08/18 04:59 LDL Cholesterol Direct 101 mg/dL (50-130) 01/08/18 04:59 HDL Cholesterol 60 mg/dL (40-59) H 01/08/18 04:59 Cholesterol/HDL Ratio 2.90 % 01/08/18 04:59 Urine Color Yellow (Yellow) 01/07/18 Unknown Urine Turbidity Clear (Clear) 01/07/18 Unknown Urine pH 8.0 (5.0-7.0) H 01/07/18 Unknown Ur Specific [place] 1.005 (1.003-1.030) 01/07/18 Unknown Urine Protein <15 mg/dl mg/dL (Negative) 01/07/18 Unknown Urine Glucose (UA) Neg mg/dL (Negative) 01/07/18 Unknown Urine Ketones Neg mg/dL (Negative) 01/07/18 Unknown Urine Blood Neg (Negative) 01/07/18 Unknown Urine Nitrite Neg (Negative) 01/07/18 Unknown Urine Bilirubin Neg (Negative) 01/07/18 Unknown Urine Urobilinogen < 2.0 mg/dL (<2.0) 01/07/18 Unknown Ur Leukocyte Esterase Neg (Negative) 01/07/18 Unknown Urine WBC (Auto) < 1.0 /HPF (0.0-6.0) 01/07/18 Unknown Urine RBC (Auto) < 1.0 /HPF (0.0-6.0) 01/07/18 Unknown Amorphous Crystals Few 01/07/18 Unknown Urine Mucus Few /HPF 01/07/18 Unknown Urine Opiates Screen Presumptive negative 01/07/18 Unknown Urine Methadone Screen Presumptive negative 01/07/18 Unknown Ur Barbiturates Screen Presumptive negative 01/07/18 Unknown Valproic Acid 27.1 ug/mL (50-100) L 01/07/18 15:53 Ur Phencyclidine Scrn Presumptive negative 01/07/18 Unknown Ur Amphetamines Screen Presumptive negative 01/07/18 Unknown U Benzodiazepines Scrn Presumptive negative 01/07/18 Unknown Urine Cocaine Screen Presumptive negative 01/07/18 Unknown U Marijuana (THC) Screen Presumptive negative 01/07/18 Unknown Drugs of Abuse Note Disclamer 01/07/18 Unknown Plasma/Serum Alcohol < 0.01 % (0-0.07) 01/07/18 15:44
[2018-01-11] MEDS: NORVASC PO SCH (09:58)
[2018-01-11] MEDS: REMERON PO SCH (09:58)
[2018-01-11] MEDS: COREG PO SCH ×2 (09:58→21:40)
[2018-01-11] MEDS: PAXIL PO SCH (09:58)
[2018-01-11] MEDS: LEVAQUIN 750MG/150ML 750 MG/150 ML BAG IV SCH (09:58)
[2018-01-11] MEDS: ZESTRIL PO SCH (09:58)
[2018-01-11] MEDS: ASPIRIN PO SCH (09:58)
[2018-01-11] MEDS: RisperDAL PO SCH ×2 (09:58→21:41)
[2018-01-11] MEDS: HEPARIN SUB-Q SCH ×2 (09:59→21:42)
[2018-01-11] MEDS: NORCO 10/325 PO PRN ×2 (12:12→18:05)
--- NOTE | 2018-01-11 13:01 | Progress Note ---
Assessment and Plan Acute Hypoxemic Respiratory Failure Acute COPD exacerbation Seizure Disorder Syncope Possible Acute CVA (negative work-up) HYACINTH Acute Coronary Syndrome Chronic Back Pain - continue systemic steroids - add brovana & pulmicort - continue empiric AB's - home oxygen evaluation at discharge - add GI prophylaxis - contineu VTE prophylaxis - continue chronic disease meds . continue other care per attending / other consultants including syncope w/up .... 35' Subjective Date of service: 01/11/18 Principal diagnosis: Acute Hypoxemic Resp Failure; Seizure disorder; Acute COPD exacerbation Interval history: Patient is seen today for: Acute Hypoxemic Resp Failure; Seizure disorder; Acute COPD exacerbation Seen and examined at bedside; 24-hour events reviewed; nursing and respiratory care staff consulted; sitting in chair; remains on 3L NC; denies acute chest pains; a little less SOB; No N/V/F/C Objective Vital Signs - 12hr 01/11/18 01/11/18 01/11/18 05:49 07:36 07:37 Temperature 98.3 F Pulse Rate 104 H Pulse Rate [ 88 Bilateral Throughout] Respiratory 18 Rate Respiratory 20 Rate [Bilateral Throughout] Blood Pressure 144/91 Blood Pressure [Left] O2 Sat by Pulse 87 92 Oximetry 01/11/18 01/11/18 01/11/18 07:42 07:43 10:00 Temperature 98.8 F Pulse Rate 102 H Pulse Rate [ 89 Bilateral Throughout] Respiratory 18 18 Rate Respiratory 20 Rate [Bilateral Throughout] Blood Pressure 137/90 Blood Pressure [Left] O2 Sat by Pulse 89 91 Oximetry 01/11/18 01/11/18 11:00 12:14 Temperature 98.7 F Pulse Rate 98 H 85 Pulse Rate [ Bilateral Throughout] Respiratory 19 Rate Respiratory Rate [Bilateral Throughout] Blood Pressure Blood Pressure 116/76 [Left] O2 Sat by Pulse 90 Oximetry Constitutional: no acute distress, other (middle aged CM normocephalic with mildly increased respiratory effort) Eyes: non-icteric, other (periorbital ecchymosis) ENT: oropharynx moist, other (mallampati 3) Neck: supple, no lymphadenopathy, no JVD, other (no thyromegaly) Ascultation: Bilateral: diminished breath sounds, rhonchi (posterior bases), other (Prolonged expiratory phase.) Percussion: Bilateral: not dull Cardiovascular: regular rate and rhythm, other (No R/M) Gastrointestinal: normoactive bowel sounds, soft, non-tender, non-distended, other (No HSM) Integumentary: rash Extremities: no cyanosis, no edema, pink and warm, pulses normal Neurologic: normal mental status, non-focal exam, pupils equal and round, CN II- XII normal, motor strength normal and Psychiatric: mood appropriate, affect normal CBC and BMP: 01/10/18 05:26 01/10/18 05:26 ABG, PT/INR, D-dimer: PT/INR, D-dimer PT 11.8 Sec. (12.2-14.9) L 01/07/18 15:44 INR 0.83 (0.87-1.13) L 01/07/18 15:44 D-Dimer < 135.0 ng/mlDDU (0-234) 01/07/18 15:44 Abnormal lab findings: Abnormal Labs 01/07/18 01/07/18 01/07/18 15:44 15:44 15:44 MCHC RDW 16.5 H [place] % (Auto) 10.2 H [place] # 0.9 H Seg Neutrophils % 73.7 H PT 11.8 L INR 0.83 L APTT 23.5 L Sodium 133 L Chloride 89.4 L Carbon Dioxide 36 H BUN 7 L Creatinine 0.5 L Glucose 130 H POC Glucose Calcium CK-MB (CK-2) Rel Index 4.3 H HDL Cholesterol Urine pH Valproic Acid 01/07/18 01/07/18 01/07/18 15:51 15:53 Unknown MCHC RDW [place] % (Auto) [place] # Seg Neutrophils % PT INR APTT Sodium Chloride Carbon Dioxide BUN Creatinine Glucose POC Glucose 134 H Calcium CK-MB (CK-2) Rel Index HDL Cholesterol Urine pH 8.0 H Valproic Acid 27.1 L 01/08/18 01/09/18 01/09/18 04:59 05:02 05:02 MCHC 31 L RDW 16.2 H [place] % (Auto) [place] # Seg Neutrophils % PT INR APTT Sodium Chloride 91.9 L Carbon Dioxide 38 H BUN 7 L Creatinine 0.5 L Glucose POC Glucose Calcium CK-MB (CK-2) Rel Index HDL Cholesterol 60 H Urine pH Valproic Acid 01/10/18 01/10/18 05:26 05:26 MCHC RDW 16.4 H [place] % (Auto) [place] # Seg Neutrophils % PT INR APTT Sodium 135 L Chloride 84.7 L Carbon Dioxide 40 H BUN Creatinine 0.5 L Glucose POC Glucose Calcium 10.4 H CK-MB (CK-2) Rel Index HDL Cholesterol Urine pH Valproic Acid Chest x-ray: image reviewed (no acute process; cardiomegaly) Allied health notes reviewed: nursing
[2018-01-11] MEDS: BROVANA NEBU IH SCH (20:00)
[2018-01-11] MEDS: PULMICORT IH SCH (20:00)
[2018-01-12] MEDS: NORCO 10/325 PO PRN ×3 (00:04→22:19)
[2018-01-12] MEDS: ASPIRIN PO SCH (10:52)
[2018-01-12] MEDS: PEPCID PO SCH (10:52)
[2018-01-12] MEDS: REMERON PO SCH (10:52)
[2018-01-12] MEDS: RisperDAL PO SCH ×2 (10:52→22:19)
[2018-01-12] MEDS: NORVASC PO SCH (10:52)
[2018-01-12] MEDS: LEVAQUIN 750MG/150ML 750 MG/150 ML BAG IV SCH (10:52)
[2018-01-12] MEDS: HEPARIN SUB-Q SCH ×2 (10:53→22:18)
[2018-01-12] MEDS: PAXIL PO SCH (10:53)
[2018-01-12] MEDS: ZESTRIL PO SCH (10:53)
[2018-01-12] MEDS: COREG PO SCH ×2 (10:53→22:00)
[2018-01-12] MEDS: PULMICORT IH SCH ×2 (11:15→21:20)
[2018-01-12] MEDS: BROVANA NEBU IH SCH ×2 (11:15→21:20)
[2018-01-12] MEDS: DUONEB *Not for PRN Use IH SCH ×2 (11:16→21:20)
--- NOTE | 2018-01-12 14:02 | Progress Note ---
Assessment and Plan Assessment and plan: Patient is a 57 yo man with a history of HTN, Seizure Disorder, Chronic Pain, COPD, Dementia, Schizophrenia and Nicotine Dependence who presented with syncope while urinating with head trauma/right black eye -Syncope, appears micturition syncope, CT head, neuro checks, normal Orthostasis. -Seizure: Seizure precautions, resume prehospital antiepileptic therapy of Depakote -Acute hypoxic respiratory failure, most likely poa, 85% RA, pCXR unremarkable: possible COPD related, add duo nebs -Accelerated hypertension: prn iv hydralazine, Increased Coreg to 6.25 bid, restart home lisinopril -AE COPD (chronic obstructive pulmonary disease): supplemental oxygen, NIPPV as indicated, pulse oximetry, added iv solumedrol, on levaquin and consulted Pulmonology who is following -Chronic back pain: symptomatic care -DVT prophylaxis: SCD to BLE while in bed. -CVA ruled out -Advance care planning: full code History Interval history: Patient was seen and evaluated this morning, patient didn't have any complaints. Hospitalist Physical - Physical exam Narrative exam: Not in cardiopulmonary distress. The patient appeared well nourished and normally developed. Vital signs as documented. Head exam is unremarkable. No scleral icterus . Neck is without jugular venous distension, thyromegaly, or carotid bruits. Lungs are clear to auscultation. Cardiac exam reveals regular rate and Rhythm. First and second heart sounds normal. No murmurs, rubs or gallops. Abdominal exam reveals normal bowel sounds, no masses, no organomegaly and no aortic enlargement. Extremities are nonedematous and both femoral and pedal pulses are normal. HEAD KILN OPERATOR: Alert and oriented. No focal weakness. - Constitutional Vitals: Temp Pulse Resp BP Pulse Ox 97.8 F 82 20 98/54 92 01/12/18 12:27 01/12/18 12:27 01/12/18 12:27 01/12/18 12:27 01/12/18 12:27 General appearance: Absent: mild distress Results - Labs CBC & Chem 7: 01/10/18 05:26 01/10/18 05:26 Labs: Laboratory Last Values WBC 10.0 K/mm3 (4.5-11.0) 01/10/18 05:26 RBC 4.67 M/mm3 (3.65-5.03) 01/10/18 05:26 Hgb 13.3 gm/dl (11.8-15.2) 01/10/18 05:26 Hct 41.1 % (35.5-45.6) 01/10/18 05:26 MCV 88 fl (84-94) 01/10/18 05:26 MCH 29 pg (28-32) 01/10/18 05:26 MCHC 32 % (32-34) 01/10/18 05:26 RDW 16.4 % (13.2-15.2) H 01/10/18 05:26 Plt Count 261 K/mm3 (140-440) 01/10/18 05:26 Lymph % (Auto) 14.5 % (13.4-35.0) 01/07/18 15:44 [place] % (Auto) 10.2 % (0.0-7.3) H 01/07/18 15:44 Eos % (Auto) 0.8 % (0.0-4.3) 01/07/18 15:44 Baso % (Auto) 0.8 % (0.0-1.8) 01/07/18 15:44 Lymph # 1.3 K/mm3 (1.2-5.4) 01/07/18 15:44 [place] # 0.9 K/mm3 (0.0-0.8) H 01/07/18 15:44 Eos # 0.1 K/mm3 (0.0-0.4) 01/07/18 15:44 Baso # 0.1 K/mm3 (0.0-0.1) 01/07/18 15:44 Seg Neutrophils % 73.7 % (40.0-70.0) H 01/07/18 15:44 Seg Neutrophils # 6.8 K/mm3 (1.8-7.7) 01/07/18 15:44 PT 11.8 Sec. (12.2-14.9) L 01/07/18 15:44 INR 0.83 (0.87-1.13) L 01/07/18 15:44 APTT 23.5 Sec. (24.2-36.6) L 01/07/18 15:44 D-Dimer < 135.0 ng/mlDDU (0-234) 01/07/18 15:44 Sodium 135 mmol/L (137-145) L 01/10/18 05:26 Potassium 3.9 mmol/L (3.6-5.0) 01/10/18 05:26 Chloride 84.7 mmol/L (98-107) L 01/10/18 05:26 Carbon Dioxide 40 mmol/L (22-30) H 01/10/18 05:26 Anion Gap 14 mmol/L 01/10/18 05:26 BUN 12 mg/dL (9-20) 01/10/18 05:26 Creatinine 0.5 mg/dL (0.8-1.5) L 01/10/18 05:26 Estimated GFR > 60 ml/min 01/10/18 05:26 BUN/Creatinine Ratio 24 % 01/10/18 05:26 Glucose 93 mg/dL (75-100) 01/10/18 05:26 POC Glucose 96 (70-105) 01/09/18 22:32 Calcium 10.4 mg/dL (8.4-10.2) H 01/10/18 05:26 Total Creatine Kinase 60 units/L (55-170) 01/07/18 15:44 CK-MB (CK-2) 2.6 ng/mL (0.0-4.0) 01/07/18 15:44 CK-MB (CK-2) Rel Index 4.3 (0-4) H 01/07/18 15:44 Troponin T < 0.010 ng/mL (0.00-0.029) 01/07/18 15:44 Triglycerides 119 mg/dL (2-149) 01/08/18 04:59 Cholesterol 174 mg/dL (50-199) 01/08/18 04:59 LDL Cholesterol Direct 101 mg/dL (50-130) 01/08/18 04:59 HDL Cholesterol 60 mg/dL (40-59) H 01/08/18 04:59 Cholesterol/HDL Ratio 2.90 % 01/08/18 04:59 Urine Color Yellow (Yellow) 01/07/18 Unknown Urine Turbidity Clear (Clear) 01/07/18 Unknown Urine pH 8.0 (5.0-7.0) H 01/07/18 Unknown Ur Specific [place] 1.005 (1.003-1.030) 01/07/18 Unknown Urine Protein <15 mg/dl mg/dL (Negative) 01/07/18 Unknown Urine Glucose (UA) Neg mg/dL (Negative) 01/07/18 Unknown Urine Ketones Neg mg/dL (Negative) 01/07/18 Unknown Urine Blood Neg (Negative) 01/07/18 Unknown Urine Nitrite Neg (Negative) 01/07/18 Unknown Urine Bilirubin Neg (Negative) 01/07/18 Unknown Urine Urobilinogen < 2.0 mg/dL (<2.0) 01/07/18 Unknown Ur Leukocyte Esterase Neg (Negative) 01/07/18 Unknown Urine WBC (Auto) < 1.0 /HPF (0.0-6.0) 01/07/18 Unknown Urine RBC (Auto) < 1.0 /HPF (0.0-6.0) 01/07/18 Unknown Amorphous Crystals Few 01/07/18 Unknown Urine Mucus Few /HPF 01/07/18 Unknown Urine Opiates Screen Presumptive negative 01/07/18 Unknown Urine Methadone Screen Presumptive negative 01/07/18 Unknown Ur Barbiturates Screen Presumptive negative 01/07/18 Unknown Valproic Acid 27.1 ug/mL (50-100) L 01/07/18 15:53 Ur Phencyclidine Scrn Presumptive negative 01/07/18 Unknown Ur Amphetamines Screen Presumptive negative 01/07/18 Unknown U Benzodiazepines Scrn Presumptive negative 01/07/18 Unknown Urine Cocaine Screen Presumptive negative 01/07/18 Unknown U Marijuana (THC) Screen Presumptive negative 01/07/18 Unknown Drugs of Abuse Note Disclamer 01/07/18 Unknown Plasma/Serum Alcohol < 0.01 % (0-0.07) 01/07/18 15:44
--- NOTE | 2018-01-12 16:21 | Progress Note ---
Assessment and Plan Acute Hypoxemic Respiratory Failure Acute COPD exacerbation Seizure Disorder Syncope (? Micturition related) Possible Acute CVA (negative work-up) HYACINTH Acute Coronary Syndrome Chronic Back Pain - continue systemic steroids - added brovana & pulmicort - continue empiric AB's - home oxygen evaluation at discharge - add GI prophylaxis - contineu VTE prophylaxis - continue chronic disease meds . continue other care per attending / other consultants including syncope w/up .... 25' Subjective Date of service: 01/12/18 Principal diagnosis: Acute Hypoxemic Resp Failure; Seizure disorder; Acute COPD exacerbation Interval history: Patient is seen today for: Acute Hypoxemic Resp Failure; Seizure disorder; Acute COPD exacerbation Seen and examined at bedside; 24-hour events reviewed; nursing and respiratory care staff consulted; sitting in chair; remains on 3L NC; denies acute chest pains; Objective Vital Signs - 12hr 01/12/18 01/12/18 01/12/18 05:29 07:57 10:00 Temperature 97.6 F Pulse Rate 83 Pulse Rate [ Bilateral Throughout] Respiratory 20 20 18 Rate Respiratory Rate [Bilateral Throughout] Blood Pressure Blood Pressure 109/68 [Left] O2 Sat by Pulse 90 92 Oximetry 01/12/18 01/12/18 01/12/18 11:00 11:14 11:16 Temperature Pulse Rate 80 Pulse Rate [ 86 Bilateral Throughout] Respiratory Rate Respiratory 20 Rate [Bilateral Throughout] Blood Pressure Blood Pressure [Left] O2 Sat by Pulse 93 Oximetry 01/12/18 01/12/18 01/12/18 11:33 12:27 15:24 Temperature 97.8 F 97.7 F Pulse Rate 82 80 Pulse Rate [ 88 Bilateral Throughout] Respiratory 20 18 Rate Respiratory 20 Rate [Bilateral Throughout] Blood Pressure 89/50 Blood Pressure 98/54 [Left] O2 Sat by Pulse 92 92 Oximetry Constitutional: no acute distress, other (middle aged CM normocephalic with mildly increased respiratory effort) Eyes: non-icteric, other (periorbital ecchymosis) ENT: oropharynx moist, other (mallampati 3) Neck: supple, no lymphadenopathy, no JVD, other (no thyromegaly) Ascultation: Bilateral: diminished breath sounds, rhonchi (posterior bases), other (Prolonged expiratory phase.) Percussion: Bilateral: not dull Cardiovascular: regular rate and rhythm, other (No R/M) Gastrointestinal: normoactive bowel sounds, soft, non-tender, non-distended, other (No HSM) Integumentary: rash Extremities: no cyanosis, no edema, pink and warm, pulses normal Neurologic: normal mental status, non-focal exam, pupils equal and round, CN II- XII normal, motor strength normal and Psychiatric: mood appropriate, affect normal CBC and BMP: 01/10/18 05:26 01/10/18 05:26 ABG, PT/INR, D-dimer: PT/INR, D-dimer PT 11.8 Sec. (12.2-14.9) L 01/07/18 15:44 INR 0.83 (0.87-1.13) L 01/07/18 15:44 D-Dimer < 135.0 ng/mlDDU (0-234) 01/07/18 15:44 Abnormal lab findings: Abnormal Labs 01/07/18 01/07/18 01/07/18 15:44 15:44 15:44 MCHC RDW 16.5 H [place] % (Auto) 10.2 H [place] # 0.9 H Seg Neutrophils % 73.7 H PT 11.8 L INR 0.83 L APTT 23.5 L Sodium 133 L Chloride 89.4 L Carbon Dioxide 36 H BUN 7 L Creatinine 0.5 L Glucose 130 H POC Glucose Calcium CK-MB (CK-2) Rel Index 4.3 H HDL Cholesterol Urine pH Valproic Acid 01/07/18 01/07/18 01/07/18 15:51 15:53 Unknown MCHC RDW [place] % (Auto) [place] # Seg Neutrophils % PT INR APTT Sodium Chloride Carbon Dioxide BUN Creatinine Glucose POC Glucose 134 H Calcium CK-MB (CK-2) Rel Index HDL Cholesterol Urine pH 8.0 H Valproic Acid 27.1 L 01/08/18 01/09/18 01/09/18 04:59 05:02 05:02 MCHC 31 L RDW 16.2 H [place] % (Auto) [place] # Seg Neutrophils % PT INR APTT Sodium Chloride 91.9 L Carbon Dioxide 38 H BUN 7 L Creatinine 0.5 L Glucose POC Glucose Calcium CK-MB (CK-2) Rel Index HDL Cholesterol 60 H Urine pH Valproic Acid 01/10/18 01/10/18 05:26 05:26 MCHC RDW 16.4 H [place] % (Auto) [place] # Seg Neutrophils % PT INR APTT Sodium 135 L Chloride 84.7 L Carbon Dioxide 40 H BUN Creatinine 0.5 L Glucose POC Glucose Calcium 10.4 H CK-MB (CK-2) Rel Index HDL Cholesterol Urine pH Valproic Acid Allied health notes reviewed: nursing
[2018-01-13] MEDS ORDERED: NACL 0.9% 1000 ML 1,000 ML IV SCH ×5 (01:04→23:00)
[2018-01-13] MEDS: BROVANA NEBU IH SCH ×2 (07:42→23:03)
[2018-01-13] MEDS: PULMICORT IH SCH ×2 (07:42→20:29)
[2018-01-13] MEDS: DUONEB *Not for PRN Use IH SCH ×2 (07:43→20:29)
[2018-01-13] MEDS: NORCO 10/325 PO PRN ×2 (08:20→12:05)
[2018-01-13] MEDS: REMERON PO SCH (09:30)
[2018-01-13] MEDS: RisperDAL PO SCH ×2 (09:30→21:32)
[2018-01-13] MEDS: NORVASC PO SCH ×2 (09:40→10:00)
[2018-01-13] MEDS: PAXIL PO SCH (09:40)
[2018-01-13] MEDS: ZESTRIL PO SCH ×2 (09:40→10:00)
[2018-01-13] MEDS: ASPIRIN PO SCH (09:41)
[2018-01-13] MEDS: PEPCID PO SCH (09:41)
[2018-01-13] MEDS: LEVAQUIN PO SCH (09:41)
[2018-01-13] MEDS: HEPARIN SUB-Q SCH ×2 (09:44→21:32)
[2018-01-13] MEDS: COREG PO SCH ×2 (10:00→21:38)
--- NOTE | 2018-01-13 12:28 | Discharge Summary ---
Providers - Providers Date of Admission: 01/07/18 18:12 Attending physician: PRAKASH AYALA MD 01/07/18 18:12 Occupational Therapy Evaluate and Treat [CONS] Routine Comment: Reason For Exam: Neuro deficits Physical Therapy Evaluation and Treat [CONS] Routine Comment: Reason For Exam: Neuro deficits 01/08/18 12:34 Consult to Physician [CONS] Routine Comment: Consulting Provider: DON SEGURA Physician Instructions: Reason For Exam: syncope ?CVA, unable to get mri due to metal 01/10/18 09:40 Speech Therapy Evaluation and Treat [CONS] Routine Reason For Exam: Difficulty in swallowing 01/10/18 12:39 Consult to Physician [CONS] Routine Comment: Consulting Provider: ARBEN CHACON Physician Instructions: Reason For Exam: respiratory failure Primary care physician: CARGO SERVICE AGENT Hospitalization Reason for admission: COPD exacerbation Condition: Stable Disposition: [id number]/[place]-06 HOME UNDER [facility] Time spent for discharge: 34 minutes - Discharge Diagnoses (1) COPD (chronic obstructive pulmonary disease) Status: Chronic Qualifiers: COPD type: COPD with acute exacerbation Qualified Code(s): J44.1 - Chronic obstructive pulmonary disease with (acute) exacerbation Core Measure Documentation - Palliative Care Palliative Care/ Comfort Measures: Not Applicable - Core Measures Any of the following diagnoses?: none Exam - Physical Exam Narrative exam: Not in cardiopulmonary distress. The patient appeared well nourished and normally developed. Vital signs as documented. Head exam is unremarkable. No scleral icterus . Neck is without jugular venous distension, thyromegaly, or carotid bruits. Lungs are clear to auscultation. Cardiac exam reveals regular rate and Rhythm. First and second heart sounds normal. No murmurs, rubs or gallops. Abdominal exam reveals normal bowel sounds, no masses, no organomegaly and no aortic enlargement. Extremities are nonedematous and both femoral and pedal pulses are normal. FACILITY ATTENDANT: Alert and oriented. No focal weakness. - Constitutional Vitals: Temp Pulse Resp BP Pulse Ox 97.4 F L 80 18 81/40 91 01/13/18 08:18 01/13/18 08:18 01/13/18 08:18 01/13/18 08:18 01/13/18 08:18 Plan Activity: no restrictions Weight Bearing Status: Full Weight Bearing Diet: low salt Additional Instructions: Follow up at [facility] in 1-2 weeks Follow up with: PRIMARY CARE, [Primary Care Provider] - 3-5 Days Prescriptions: AtorvaSTATin [Lipitor] 40 mg PO QHS #30 tablet amLODIPine [Norvasc] 10 mg PO QDAY #30 tablet Arformoterol Nebu [Brovana Nebu] 15 mcg IH Q12HRT #30 ml Aspirin [Aspirin BABY CHEW TAB] 81 mg PO DAILY #30 tab.chew Budesonide [Pulmicort Respules] 0.5 mg IH Q12HRT #30 nebu Carvedilol [Coreg] 3.125 mg PO BID #60 tablet Divalproex Sodium [Divalproex Sodium ER] 1,000 mg PO HS #60 tab.er.24h Docusate Sodium [Colace CAP] 100 mg PO BID PRN #60 capsule PRN Reason: Constipation Levofloxacin [Levaquin TAB] 500 mg PO QDAY #5 tablet Lisinopril [Zestril TAB] 40 mg PO DAILY #30 tablet Mirtazapine 7.5 mg PO DAILY #30 tablet Paroxetine HCl [PARoxetine] 40 mg PO DAILY #30 tablet Prednisone [predniSONE 10 mg (6-Day Pack, 21 Tabs)] 10 mg PO .TAPER #1 tab.ds.pk risperiDONE [RisperiDONE] 2 mg PO HS #60 tablet
--- NOTE | 2018-01-13 14:31 | Progress Note ---
Assessment and Plan Acute Hypoxemic Respiratory Failure Acute COPD exacerbation Seizure Disorder Syncope (? Micturition related) Possible Acute CVA (negative work-up) HYACINTH Acute Coronary Syndrome Chronic Back Pain - continue systemic steroids - continue brovana & pulmicort - continue empiric AB's - home oxygen evaluation at discharge - added GI prophylaxis - continue VTE prophylaxis - continue chronic disease meds . continue other care per attending / other consultants including syncope w/up .... 25' Subjective Date of service: 01/13/18 Principal diagnosis: Acute Hypoxemic Resp Failure; Seizure disorder; Acute COPD exacerbation Interval history: Patient is seen today for: Acute Hypoxemic Resp Failure; Seizure disorder; Acute COPD exacerbation Seen and examined at bedside; 24-hour events reviewed; nursing and respiratory care staff consulted; sitting in chair; remains on 3L NC; denies acute chest pains; somnolent; No N/V/F/C Objective Vital Signs - 12hr 01/13/18 01/13/18 01/13/18 04:00 04:23 07:42 Temperature 98.5 F Pulse Rate 81 Pulse Rate [ 84 Bilateral Throughout] Respiratory 18 18 Rate Respiratory 18 Rate [Bilateral Throughout] Blood Pressure Blood Pressure 84/67 [Left] O2 Sat by Pulse 95 98 Oximetry 01/13/18 01/13/18 01/13/18 07:52 08:18 12:36 Temperature 97.4 F L Pulse Rate 80 78 Pulse Rate [ 87 Bilateral Throughout] Respiratory 18 Rate Respiratory 18 Rate [Bilateral Throughout] Blood Pressure 81/40 79/44 Blood Pressure [Left] O2 Sat by Pulse 91 92 Oximetry 01/13/18 01/13/18 12:54 13:00 Temperature Pulse Rate 80 Pulse Rate [ Bilateral Throughout] Respiratory Rate Respiratory Rate [Bilateral Throughout] Blood Pressure 78/48 Blood Pressure [Left] O2 Sat by Pulse Oximetry Constitutional: no acute distress, other (middle aged CM normocephalic with mildly increased respiratory effort) Eyes: non-icteric, other (periorbital ecchymosis) ENT: oropharynx moist, other (mallampati 3) Neck: supple, no lymphadenopathy, no JVD, other (no thyromegaly) Ascultation: Bilateral: diminished breath sounds, rhonchi (posterior bases), other (Prolonged expiratory phase.) Percussion: Bilateral: not dull Cardiovascular: regular rate and rhythm, other (No R/M) Gastrointestinal: normoactive bowel sounds, soft, non-tender, non-distended, other (No HSM) Integumentary: rash Extremities: no cyanosis, no edema, pink and warm, pulses normal Neurologic: normal mental status, non-focal exam, pupils equal and round, CN II- XII normal, motor strength normal and Psychiatric: mood appropriate, affect normal CBC and BMP: 01/14/18 02:08 01/15/18 04:08 ABG, PT/INR, D-dimer: PT/INR, D-dimer PT 11.8 Sec. (12.2-14.9) L 01/07/18 15:44 INR 0.83 (0.87-1.13) L 01/07/18 15:44 D-Dimer < 135.0 ng/mlDDU (0-234) 01/07/18 15:44 Abnormal lab findings: Abnormal Labs 01/07/18 01/07/18 01/07/18 15:44 15:44 15:44 MCHC RDW 16.5 H [place] % (Auto) 10.2 H [place] # 0.9 H Seg Neutrophils % 73.7 H PT 11.8 L INR 0.83 L APTT 23.5 L Sodium 133 L Chloride 89.4 L Carbon Dioxide 36 H BUN 7 L Creatinine 0.5 L Glucose 130 H POC Glucose Calcium CK-MB (CK-2) Rel Index 4.3 H HDL Cholesterol Urine pH Valproic Acid 01/07/18 01/07/18 01/07/18 15:51 15:53 Unknown MCHC RDW [place] % (Auto) [place] # Seg Neutrophils % PT INR APTT Sodium Chloride Carbon Dioxide BUN Creatinine Glucose POC Glucose 134 H Calcium CK-MB (CK-2) Rel Index HDL Cholesterol Urine pH 8.0 H Valproic Acid 27.1 L 01/08/18 01/09/18 01/09/18 04:59 05:02 05:02 MCHC 31 L RDW 16.2 H [place] % (Auto) [place] # Seg Neutrophils % PT INR APTT Sodium Chloride 91.9 L Carbon Dioxide 38 H BUN 7 L Creatinine 0.5 L Glucose POC Glucose Calcium CK-MB (CK-2) Rel Index HDL Cholesterol 60 H Urine pH Valproic Acid 01/10/18 01/10/18 05:26 05:26 MCHC RDW 16.4 H [place] % (Auto) [place] # Seg Neutrophils % PT INR APTT Sodium 135 L Chloride 84.7 L Carbon Dioxide 40 H BUN Creatinine 0.5 L Glucose POC Glucose Calcium 10.4 H CK-MB (CK-2) Rel Index HDL Cholesterol Urine pH Valproic Acid Allied health notes reviewed: nursing
[2018-01-13] MEDS: DELTASONE PO SCH (15:17)
--- NOTE | 2018-01-13 16:10 | Progress Note ---
Assessment and Plan Assessment and plan: Patient is a 57 yo man with a history of HTN, Seizure Disorder, Chronic Pain, COPD, Dementia, Schizophrenia and Nicotine Dependence who presented with syncope while urinating with head trauma/right black eye -Syncope, appears micturition syncope, CT head, neuro checks, normal Orthostasis. -Seizure: Seizure precautions, resume prehospital antiepileptic therapy of Depakote -Acute hypoxic respiratory failure, most likely poa, 85% RA, pCXR unremarkable: possible COPD related, add duo nebs -Accelerated hypertension: prn iv hydralazine, Increased Coreg to 6.25 bid, restart home lisinopril -AE COPD (chronic obstructive pulmonary disease): supplemental oxygen, NIPPV as indicated, pulse oximetry, added iv solumedrol, on levaquin and consulted Pulmonology who is following -Chronic back pain: symptomatic care -DVT prophylaxis: SCD to BLE while in bed. -CVA ruled out -Advance care planning: full code Hypotension; - Hold his blood pressure medications, and if no improvement will give him fluid Possible discharge tomorrow if BP is stable - Patient Problems (1) COPD (chronic obstructive pulmonary disease) Current Visit: Yes Status: Chronic Qualifiers: COPD type: COPD with acute exacerbation Qualified Code(s): J44.1 - Chronic obstructive pulmonary disease with (acute) exacerbation History Interval history: Patient was seen and evaluated this morning, patient didn't have any complaints. Hospitalist Physical - Physical exam Narrative exam: Not in cardiopulmonary distress. The patient appeared well nourished and normally developed. Vital signs as documented. Head exam is unremarkable. No scleral icterus . Neck is without jugular venous distension, thyromegaly, or carotid bruits. Lungs are clear to auscultation. Cardiac exam reveals regular rate and Rhythm. First and second heart sounds normal. No murmurs, rubs or gallops. Abdominal exam reveals normal bowel sounds, no masses, no organomegaly and no aortic enlargement. Extremities are nonedematous and both femoral and pedal pulses are normal. PHOTOGRAPHIC PROCESSOR: Alert and oriented. No focal weakness. - Constitutional Vitals: Temp Pulse Resp BP Pulse Ox 97.4 F L 80 18 78/48 92 01/13/18 08:18 01/13/18 13:00 01/13/18 10:00 01/13/18 12:54 01/13/18 12:36 General appearance: Absent: mild distress Results - Labs CBC & Chem 7: 01/10/18 05:26 01/10/18 05:26 Labs: Laboratory Last Values WBC 10.0 K/mm3 (4.5-11.0) 01/10/18 05:26 RBC 4.67 M/mm3 (3.65-5.03) 01/10/18 05:26 Hgb 13.3 gm/dl (11.8-15.2) 01/10/18 05:26 Hct 41.1 % (35.5-45.6) 01/10/18 05:26 MCV 88 fl (84-94) 01/10/18 05:26 MCH 29 pg (28-32) 01/10/18 05:26 MCHC 32 % (32-34) 01/10/18 05:26 RDW 16.4 % (13.2-15.2) H 01/10/18 05:26 Plt Count 261 K/mm3 (140-440) 01/10/18 05:26 Lymph % (Auto) 14.5 % (13.4-35.0) 01/07/18 15:44 [place] % (Auto) 10.2 % (0.0-7.3) H 01/07/18 15:44 Eos % (Auto) 0.8 % (0.0-4.3) 01/07/18 15:44 Baso % (Auto) 0.8 % (0.0-1.8) 01/07/18 15:44 Lymph # 1.3 K/mm3 (1.2-5.4) 01/07/18 15:44 [place] # 0.9 K/mm3 (0.0-0.8) H 01/07/18 15:44 Eos # 0.1 K/mm3 (0.0-0.4) 01/07/18 15:44 Baso # 0.1 K/mm3 (0.0-0.1) 01/07/18 15:44 Seg Neutrophils % 73.7 % (40.0-70.0) H 01/07/18 15:44 Seg Neutrophils # 6.8 K/mm3 (1.8-7.7) 01/07/18 15:44 PT 11.8 Sec. (12.2-14.9) L 01/07/18 15:44 INR 0.83 (0.87-1.13) L 01/07/18 15:44 APTT 23.5 Sec. (24.2-36.6) L 01/07/18 15:44 D-Dimer < 135.0 ng/mlDDU (0-234) 01/07/18 15:44 Sodium 135 mmol/L (137-145) L 01/10/18 05:26 Potassium 3.9 mmol/L (3.6-5.0) 01/10/18 05:26 Chloride 84.7 mmol/L (98-107) L 01/10/18 05:26 Carbon Dioxide 40 mmol/L (22-30) H 01/10/18 05:26 Anion Gap 14 mmol/L 01/10/18 05:26 BUN 12 mg/dL (9-20) 01/10/18 05:26 Creatinine 0.5 mg/dL (0.8-1.5) L 01/10/18 05:26 Estimated GFR > 60 ml/min 01/10/18 05:26 BUN/Creatinine Ratio 24 % 01/10/18 05:26 Glucose 93 mg/dL (75-100) 01/10/18 05:26 POC Glucose 96 (70-105) 01/09/18 22:32 Calcium 10.4 mg/dL (8.4-10.2) H 01/10/18 05:26 Total Creatine Kinase 60 units/L (55-170) 01/07/18 15:44 CK-MB (CK-2) 2.6 ng/mL (0.0-4.0) 01/07/18 15:44 CK-MB (CK-2) Rel Index 4.3 (0-4) H 01/07/18 15:44 Troponin T < 0.010 ng/mL (0.00-0.029) 01/07/18 15:44 Triglycerides 119 mg/dL (2-149) 01/08/18 04:59 Cholesterol 174 mg/dL (50-199) 01/08/18 04:59 LDL Cholesterol Direct 101 mg/dL (50-130) 01/08/18 04:59 HDL Cholesterol 60 mg/dL (40-59) H 01/08/18 04:59 Cholesterol/HDL Ratio 2.90 % 01/08/18 04:59 Urine Color Yellow (Yellow) 01/07/18 Unknown Urine Turbidity Clear (Clear) 01/07/18 Unknown Urine pH 8.0 (5.0-7.0) H 01/07/18 Unknown Ur Specific [place] 1.005 (1.003-1.030) 01/07/18 Unknown Urine Protein <15 mg/dl mg/dL (Negative) 01/07/18 Unknown Urine Glucose (UA) Neg mg/dL (Negative) 01/07/18 Unknown Urine Ketones Neg mg/dL (Negative) 01/07/18 Unknown Urine Blood Neg (Negative) 01/07/18 Unknown Urine Nitrite Neg (Negative) 01/07/18 Unknown Urine Bilirubin Neg (Negative) 01/07/18 Unknown Urine Urobilinogen < 2.0 mg/dL (<2.0) 01/07/18 Unknown Ur Leukocyte Esterase Neg (Negative) 01/07/18 Unknown Urine WBC (Auto) < 1.0 /HPF (0.0-6.0) 01/07/18 Unknown Urine RBC (Auto) < 1.0 /HPF (0.0-6.0) 01/07/18 Unknown Amorphous Crystals Few 01/07/18 Unknown Urine Mucus Few /HPF 01/07/18 Unknown Urine Opiates Screen Presumptive negative 01/07/18 Unknown Urine Methadone Screen Presumptive negative 01/07/18 Unknown Ur Barbiturates Screen Presumptive negative 01/07/18 Unknown Valproic Acid 27.1 ug/mL (50-100) L 01/07/18 15:53 Ur Phencyclidine Scrn Presumptive negative 01/07/18 Unknown Ur Amphetamines Screen Presumptive negative 01/07/18 Unknown U Benzodiazepines Scrn Presumptive negative 01/07/18 Unknown Urine Cocaine Screen Presumptive negative 01/07/18 Unknown U Marijuana (THC) Screen Presumptive negative 01/07/18 Unknown Drugs of Abuse Note Disclamer 01/07/18 Unknown Plasma/Serum Alcohol < 0.01 % (0-0.07) 01/07/18 15:44
[2018-01-13] MEDS ORDERED: NACL 0.9% 1000 ML 500 ML IV SCH (17:00)
[2018-01-13] MEDS ORDERED: NACL 0.9% 1000 ML 1,000 ML IV ONE (18:20)
--- NOTE | 2018-01-13 20:01 | Progress Note ---
Assessment and Plan - Patient Problems (1) Acute hypercapnic respiratory failure Current Visit: Yes Status: Acute Plan to address problem: Admit to ICU, NIPPV, Serial ABG, supplemental oxygen, supportive care. The high probability of a clinically significant, sudden or life threatening deterioration of the [Neuro, respiratory, cardiac] system(s) required my full and direct attention, intervention and personal management. The aggregate critical care time was [65] minutes. This time is in addition to time spent performing reported procedures but includes the following: [x] Data Review and interpretation [x] Patient assessment and monitoring of vital signs [x] Documentation [x] Medication orders and management (2) Encephalopathy Current Visit: Yes Status: Acute Plan to address problem: CT Head, neuro checks, hold sedating medication. (3) CVA (cerebral vascular accident) Current Visit: Yes Status: Acute Qualifiers: Precerebral and cerebral artery: middle cerebral artery Laterality of affected vessel: left Plan to address problem: Stroke protocol: CT Head, MRI Brain, MRA Brain, Echo, CArotid Doppler, PT/OT/ Speech Therapy, Antiplatelet therpay, lipid panel (4) Syncope Current Visit: Yes Status: Acute Qualifiers: Encounter type: initial encounter Plan to address problem: CT head, neuro checks, (5) Seizure Current Visit: Yes Status: Acute Plan to address problem: Seizure precautions, resume prehospital antiepileptic therapy (6) COPD (chronic obstructive pulmonary disease) Current Visit: Yes Status: Chronic Qualifiers: COPD type: COPD with acute exacerbation Qualified Code(s): J44.1 - Chronic obstructive pulmonary disease with (acute) exacerbation Plan to address problem: supplemental oxygen, resume home medication, NIPPV as clinically indicated, pulse oximetry (7) Chronic back pain Current Visit: No Status: Acute Plan to address problem: Pain control, supportive care, ambulate in hallway PRN (8) DVT prophylaxis Current Visit: No Status: Acute Plan to address problem: SCD to BLE while in bed. History Interval history: Code Med Called. Pt seen and evaluated by me. Pt found to be in respiratory distress and hypotensive. Pt transferred to ICU for further care. Pt initiated on NIPPV due to Respiratory Acidosis. Pt has positive gag reflex and in able to protect his airway at time of exam. Hospitalist Physical - Constitutional Vitals: Temp Pulse Resp BP Pulse Ox 97.4 F L 80 18 78/35 92 01/13/18 08:18 01/13/18 13:00 01/13/18 10:00 01/13/18 17:50 01/13/18 12:36 General appearance: Absent: mild distress - EENT Eyes: Present: miosis ENT: hearing intact - Neck Neck: Present: supple - Respiratory Respiratory effort: labored Respiratory: bilateral: diminished, rhonchi - Cardiovascular Rhythm: other (hypotensive) - Extremities Extremities: no ischemia Extremity abnormal: edema Peripheral Pulses: within normal limits - Abdominal General gastrointestinal: soft, non-tender, tender - Integumentary Integumentary: Present: clear, dry - Psychiatric Psychiatric: no intact judgment & insight, no memory intact - Neurologic Neurologic: no gait normal Results - Labs CBC & Chem 7: 01/10/18 05:26 01/10/18 05:26 Labs: Laboratory Last Values WBC 10.0 K/mm3 (4.5-11.0) 01/10/18 05:26 RBC 4.67 M/mm3 (3.65-5.03) 01/10/18 05:26 Hgb 13.3 gm/dl (11.8-15.2) 01/10/18 05:26 Hct 41.1 % (35.5-45.6) 01/10/18 05:26 MCV 88 fl (84-94) 01/10/18 05:26 MCH 29 pg (28-32) 01/10/18 05:26 MCHC 32 % (32-34) 01/10/18 05:26 RDW 16.4 % (13.2-15.2) H 01/10/18 05:26 Plt Count 261 K/mm3 (140-440) 01/10/18 05:26 Lymph % (Auto) 14.5 % (13.4-35.0) 01/07/18 15:44 [place] % (Auto) 10.2 % (0.0-7.3) H 01/07/18 15:44 Eos % (Auto) 0.8 % (0.0-4.3) 01/07/18 15:44 Baso % (Auto) 0.8 % (0.0-1.8) 01/07/18 15:44 Lymph # 1.3 K/mm3 (1.2-5.4) 01/07/18 15:44 [place] # 0.9 K/mm3 (0.0-0.8) H 01/07/18 15:44 Eos # 0.1 K/mm3 (0.0-0.4) 01/07/18 15:44 Baso # 0.1 K/mm3 (0.0-0.1) 01/07/18 15:44 Seg Neutrophils % 73.7 % (40.0-70.0) H 01/07/18 15:44 Seg Neutrophils # 6.8 K/mm3 (1.8-7.7) 01/07/18 15:44 PT 11.8 Sec. (12.2-14.9) L 01/07/18 15:44 INR 0.83 (0.87-1.13) L 01/07/18 15:44 APTT 23.5 Sec. (24.2-36.6) L 01/07/18 15:44 D-Dimer < 135.0 ng/mlDDU (0-234) 01/07/18 15:44 POC ABG pH 7.162 (7.35-7.45) L 01/13/18 19:20 POC ABG pCO2 104.2 (35-45) H 01/13/18 19:20 POC ABG pO2 71 (80-105) L 01/13/18 19:20 POC ABG HCO3 37.3 01/13/18 19:20 POC ABG Total CO2 40 01/13/18 19:20 POC ABG O2 Sat 87 01/13/18 19:20 POC ABG Base Excess 9 01/13/18 19:20 FiO2 50 % 01/13/18 19:20 Sodium 135 mmol/L (137-145) L 01/10/18 05:26 Potassium 3.9 mmol/L (3.6-5.0) 01/10/18 05:26 Chloride 84.7 mmol/L (98-107) L 01/10/18 05:26 Carbon Dioxide 40 mmol/L (22-30) H 01/10/18 05:26 Anion Gap 14 mmol/L 01/10/18 05:26 BUN 12 mg/dL (9-20) 01/10/18 05:26 Creatinine 0.5 mg/dL (0.8-1.5) L 01/10/18 05:26 Estimated GFR > 60 ml/min 01/10/18 05:26 BUN/Creatinine Ratio 24 % 01/10/18 05:26 Glucose 93 mg/dL (75-100) 01/10/18 05:26 POC Glucose 118 (70-105) H 01/13/18 17:53 Calcium 10.4 mg/dL (8.4-10.2) H 01/10/18 05:26 Total Creatine Kinase 60 units/L (55-170) 01/07/18 15:44 CK-MB (CK-2) 2.6 ng/mL (0.0-4.0) 01/07/18 15:44 CK-MB (CK-2) Rel Index 4.3 (0-4) H 01/07/18 15:44 Troponin T < 0.010 ng/mL (0.00-0.029) 01/07/18 15:44 Triglycerides 119 mg/dL (2-149) 01/08/18 04:59 Cholesterol 174 mg/dL (50-199) 01/08/18 04:59 LDL Cholesterol Direct 101 mg/dL (50-130) 01/08/18 04:59 HDL Cholesterol 60 mg/dL (40-59) H 01/08/18 04:59 Cholesterol/HDL Ratio 2.90 % 01/08/18 04:59 Urine Color Yellow (Yellow) 01/07/18 Unknown Urine Turbidity Clear (Clear) 01/07/18 Unknown Urine pH 8.0 (5.0-7.0) H 01/07/18 Unknown Ur Specific [place] 1.005 (1.003-1.030) 01/07/18 Unknown Urine Protein <15 mg/dl mg/dL (Negative) 01/07/18 Unknown Urine Glucose (UA) Neg mg/dL (Negative) 01/07/18 Unknown Urine Ketones Neg mg/dL (Negative) 01/07/18 Unknown Urine Blood Neg (Negative) 01/07/18 Unknown Urine Nitrite Neg (Negative) 01/07/18 Unknown Urine Bilirubin Neg (Negative) 01/07/18 Unknown Urine Urobilinogen < 2.0 mg/dL (<2.0) 01/07/18 Unknown Ur Leukocyte Esterase Neg (Negative) 01/07/18 Unknown Urine WBC (Auto) < 1.0 /HPF (0.0-6.0) 01/07/18 Unknown Urine RBC (Auto) < 1.0 /HPF (0.0-6.0) 01/07/18 Unknown Amorphous Crystals Few 01/07/18 Unknown Urine Mucus Few /HPF 01/07/18 Unknown Urine Opiates Screen Presumptive negative 01/07/18 Unknown Urine Methadone Screen Presumptive negative 01/07/18 Unknown Ur Barbiturates Screen Presumptive negative 01/07/18 Unknown Valproic Acid 27.1 ug/mL (50-100) L 01/07/18 15:53 Ur Phencyclidine Scrn Presumptive negative 01/07/18 Unknown Ur Amphetamines Screen Presumptive negative 01/07/18 Unknown U Benzodiazepines Scrn Presumptive negative 01/07/18 Unknown Urine Cocaine Screen Presumptive negative 01/07/18 Unknown U Marijuana (THC) Screen Presumptive negative 01/07/18 Unknown Drugs of Abuse Note Disclamer 01/07/18 Unknown Plasma/Serum Alcohol < 0.01 % (0-0.07) 01/07/18 15:44
--- NOTE | 2018-01-13 20:31 | Cat Scan Report ---
FINAL REPORT EXAM: CT HEAD/BRAIN WO CON HISTORY: encephalopathy TECHNIQUE: Noncontrast CT axial images of the brain. PRIORS: 07 January 2018. FINDINGS: Postsurgical change and fixation hardware again noted in the right frontal calvarium, with associated beam hardening artifact limiting evaluation somewhat. No parenchymal mass, mass effect, hemorrhage, midline shift or hydrocephalus. No evidence of acute cortical infarct. No abnormal, extra-axial fluid or air collection. Remainder of osseous calvarium grossly intact. IMPRESSION: 1. No acute intracranial findings or significant interval change.
[2018-01-13 20:32] LABS: Hematocrit 38.1 % (35.5-45.6); Hemoglobin 11.8 gm/dl (11.8-15.2); Mean Corpuscular HGB Conc 31 % (32-34); Mean Corpuscular Hemoglobin 28 pg (28-32); Mean Corpuscular Volume 90 fl (84-94); Platelet Count 213 K/mm3 (140-440); Red Blood Count 4.25 M/mm3 (3.65-5.03); Red Cell Distribution Width 16.2 % (13.2-15.2)
[2018-01-13 21:06] LABS: Calcium 8.5 mg/dL (8.4-10.2)
--- NOTE | 2018-01-13 21:08 | XRay Report ---
FINAL REPORT EXAM: XR CHEST 1V AP HISTORY: hypoxia TECHNIQUE: Single, portable chest x-ray. PRIORS: 30 March 2017. FINDINGS: Cardiac silhouette prominent, which may be due in part to portable technique. Lungs mildly hypoinflated and show mild elevation or eventration of right hemidiaphragm about the same. Mild and partially confluent opacities project over left lower lung, new from comparison. No other focal consolidation or apparent pneumothorax. Mild dextroconvex curvature and degenerative change in the thoracic spine and posterior fixation hardware again partially visualized in thoracolumbar spine. IMPRESSION: 1. Findings which may represent left basilar atelectasis, mild infiltrate or postinflammatory change new in the interval. Correlate clinically.
[2018-01-14] MEDS ORDERED: ZOSYN/NS 2.25 GM/50ML 2.25 GM/50 ML BAG IV SCH (01:00)
[2018-01-14] MEDS ORDERED: ZOSYN/NS 2.25 GM/50ML 2.25 GM/50 ML BAG IV ONE (01:00)
--- NOTE | 2018-01-14 01:01 | Event Note ---
Called by nurse because blood pressures in the 70s systolically Check rectal temp, start Zosyn, fluid bolus and increase IV fluids to 75 mL an hour BMP noted with acute renal failure, repeat BMP to make ensure accuracy Addendum PAtient reponded to IV fluid Repeat labs confirmed ARF Check US kidneys, consult renal
[2018-01-14] MEDS ORDERED: NACL 0.9% 500 ML 500 ML IV ONE (01:04)
[2018-01-14 02:44] LABS: Basophils % (Auto) 0.2 % (0.0-1.8); Hematocrit 39.5 % (35.5-45.6); Hemoglobin 12.2 gm/dl (11.8-15.2); Lymphocytes # (Auto) 0.6 K/mm3 (1.2-5.4); Lymphocytes % (Auto) 8.7 % (13.4-35.0); Mean Corpuscular HGB Conc 31 % (32-34); Mean Corpuscular Hemoglobin 28 pg (28-32); Mean Corpuscular Volume 90 fl (84-94); Monocytes # (Auto) 0.9 K/mm3 (0.0-0.8); Monocytes % (Auto) 13.4 % (0.0-7.3); Platelet Count 197 K/mm3 (140-440); Red Blood Count 4.41 M/mm3 (3.65-5.03); Red Cell Distribution Width 16.1 % (13.2-15.2)
[2018-01-14 02:52] LABS: Calcium 8.6 mg/dL (8.4-10.2)
--- NOTE | 2018-01-14 07:49 | Consultation ---
History of Present Illness - Reason for Consult Consult date: 01/14/18 acute renal failure - History of Present Illness 57 y/o [place] male with h/o significant for COPD, HTN, dementia, admitted for symptoms concerning for CVA with sudden onset dizziness lightheadness as he was urinating at home. Brought in, CVA work up completed. Patient also had been treated for COPD exacerbation here in the hospital. Per notes, he was preparing to be discharged, when it was noted that he was developing more respiratory distress and he became more progressively hypotensive, for which a code was called. he was transferred to the ICU, on bipap. From a respiratory standpoint seems stable overnight. He had received a total of 3.5L fluid boluses and now is on standing IVF at 100 cc NS. Per nursing staff, patient has not voided since being transferred. Nephrology was consulted secondary to acute kidney injury, with a serum creatinine elevated at 3.1 from a previous of 0.7. A renal US is pending. He had a bladder scan done, which revealed 300 cc of urine. He has no bee in at present time. History was obtained from review of charts and discussion with nursing staff, as patient not a good historian at present time. He is currently on bibpap. Past History Past Medical History: COPD, hypertension, seizures, other (Dementia) Past Surgical History: Other (Back, Brain) Social history: Family history: hypertension Medications and Allergies Allergies Allergy/AdvReac Type Severity Reaction Status Date / Time No Known Allergies Allergy Verified 01/07/18 15:09 Home Medications Medication Instructions Recorded Confirmed Last Taken Type risperiDONE [RisperiDONE] 1 mg PO DAILY 07/02/14 01/07/18 1 Day Ago History ~03/31/17 Arformoterol Nebu [Brovana Nebu] 15 mcg IH Q12HRT #30 ml 01/13/18 Unknown Rx Aspirin [Aspirin BABY CHEW TAB] 81 mg PO DAILY #30 tab.chew 01/13/18 Unknown Rx AtorvaSTATin [Lipitor] 40 mg PO QHS #30 tablet 01/13/18 Unknown Rx Budesonide [Pulmicort Respules] 0.5 mg IH Q12HRT #30 nebu 01/13/18 Unknown Rx Carvedilol [Coreg] 3.125 mg PO BID #60 tablet 01/13/18 Unknown Rx Divalproex Sodium [Divalproex 1,000 mg PO HS #60 tab.er.24h 01/13/18 Unknown Rx Sodium ER] Docusate Sodium [Colace CAP] 100 mg PO BID PRN #60 capsule 01/13/18 Unknown Rx Levofloxacin [Levaquin TAB] 500 mg PO QDAY #5 tablet 01/13/18 Unknown Rx Lisinopril [Zestril TAB] 40 mg PO DAILY #30 tablet 01/13/18 Unknown Rx Mirtazapine 7.5 mg PO DAILY #30 tablet 01/13/18 Unknown Rx Paroxetine HCl [PARoxetine] 40 mg PO DAILY #30 tablet 01/13/18 Unknown Rx Prednisone [predniSONE 10 mg 10 mg PO .TAPER #1 tab.ds.pk 01/13/18 Unknown Rx (6-Day Pack, 21 Tabs)] amLODIPine [Norvasc] 10 mg PO QDAY #30 tablet 01/13/18 Unknown Rx risperiDONE [RisperiDONE] 2 mg PO HS #60 tablet 01/13/18 Unknown Rx Active Meds: Active Medications Acetaminophen (Tylenol) 650 mg PO Q4H PRN PRN Reason: Non Cardiac Pain or Temp>100.5 Acetaminophen/Hydrocodone Bitart ([place] 10/325) 1 each PO Q4H PRN PRN Reason: Pain , Severe (7-10) Last Admin: 01/13/18 12:05 Dose: 1 each Albuterol (Proventil) 2.5 mg IH Q3HRT PRN PRN Reason: Shortness Of Breath Albuterol/Ipratropium (Duoneb *Not For Prn Use*) 1 ampul IH BIDRT [facility] Last Admin: 01/13/18 20:29 Dose: 1 ampul Arformoterol Tartrate (Brovana Nebu) 15 mcg IH Q12HRT [facility] Last Admin: 01/13/18 23:03 Dose: Not Given Aspirin (Aspirin) 325 mg PO QDAY [facility] Last Admin: 01/13/18 09:41 Dose: 325 mg Atorvastatin Calcium (Lipitor) 40 mg PO QHS [facility] Last Admin: 01/13/18 22:30 Dose: Not Given Bisacodyl (Dulcolax) 10 mg NM QDAY PRN PRN Reason: Constipation Budesonide (Pulmicort) 0.5 mg IH Q12HRT [facility] Last Admin: 01/13/18 20:29 Dose: 0.5 mg Carvedilol (Coreg) 6.25 mg PO BID [facility] Last Admin: 01/13/18 21:38 Dose: Not Given Divalproex Sodium (Depakote Er) 1,000 mg PO HS [facility] Last Admin: 01/13/18 21:31 Dose: 1,000 mg Docusate Sodium (Colace) 100 mg PO BID PRN PRN Reason: Constipation Famotidine (Pepcid) 20 mg PO QDAY [facility] Last Admin: 01/13/18 09:41 Dose: 20 mg Heparin Sodium (Porcine) (Heparin) 5,000 unit SUB-Q Q12HR [facility] Last Admin: 01/13/18 21:32 Dose: 5,000 unit Hydralazine HCl (Apresoline) 10 mg IV Q4HR PRN PRN Reason: Blood Pressure Sodium Chloride (Nacl 0.9% 1000 Ml) 500 mls @ 999 mls/hr IV DIRECT [facility] Last Admin: 01/13/18 17:15 Dose: 999 mls/hr Sodium Chloride (Nacl 0.9% 1000 Ml) 1,000 mls @ 100 mls/hr IV DIRECT [facility] Stop: 01/15/18 07:59 Levofloxacin (Levaquin) 750 mg PO Q24H [facility] Stop: 01/14/18 23:59 Last Admin: 01/13/18 09:41 Dose: 750 mg Magnesium Hydroxide (Milk Of Magnesia) 30 ml PO Q4H PRN PRN Reason: Constipation Metoclopramide HCl (Reglan) 10 mg PO Q6H PRN PRN Reason: Nausea And Vomiting Mirtazapine (Remeron) 15 mg PO QDAY [facility] Last Admin: 01/13/18 09:30 Dose: 15 mg Ondansetron HCl (Zofran) 4 mg IV Q8H PRN PRN Reason: N/V unrelieved by Reglan Paroxetine HCl (Paxil) 40 mg PO DAILY [facility] Last Admin: 01/13/18 09:40 Dose: 40 mg Prednisone (Deltasone) 40 mg PO QDAY [facility] Last Admin: 01/13/18 15:17 Dose: 40 mg Promethazine HCl (Phenergan) 25 mg NM Q6H PRN PRN Reason: Nausea And Vomiting Risperidone (Risperdal) 1 mg PO DAILY [facility] Last Admin: 01/13/18 09:30 Dose: 1 mg Risperidone (Risperdal) 2 mg PO HS [facility] Last Admin: 01/13/18 21:32 Dose: 2 mg Sodium Chloride (Sodium Chloride Flush Syringe 10 Ml) 10 ml IV PRN PRN PRN Reason: LINE FLUSH Last Admin: 01/10/18 20:19 Dose: 10 ml Review of Systems ROS unobtainable: due to mental status Exam - Vital Signs Vital signs: Vital Signs Temp Pulse Resp BP Pulse Ox 98 F 95 H 16 182/101 96 01/07/18 15:12 01/07/18 15:12 01/07/18 15:12 01/07/18 15:12 01/07/18 15:12 - General Appearance General appearance: appears stated age, obese, fatigue EENT: PERRL Neck: Present: neck supple, trachea midline Respiratory: Decreased Breath Sounds Heart: regular, S1S2 Gastrointestinal: Present: normal, normoactive bowel sounds Integumentary: no rash, warm and dry Neurologic: no focal deficit Musculoskeletal: Present: deferred Psychiatric: cooperative Results - Lab Results 01/14/18 02:08 01/14/18 02:04 Most recent lab results Calcium 8.6 mg/dL (8.4-10.2) 01/14/18 02:04 - Image Kidney/bladder ultrasound: pending Assessment and Plan - Patient Problems (1) HYACINTH (acute kidney injury) Current Visit: No Status: Acute Plan to address problem: Likely secondary to ATN in the setting of his hypovolemic shock, persistently low blood pressures. Suggest placement of Bee for accurate measurements of his UO. Follow up on renal US to r/o any obstruction given his sudden decreased urine output. Blood cultures are negative so far. Will continue to follow closely. No acute need for renal replacement therapy, but will reassess daily. Once volume repleted with appropriate blood pressures, if he remains anuric would recommend diuretic dose. (2) Hyponatremia Current Visit: Yes Status: Acute Plan to address problem: In the setting of acute kidney injury. Will monitor closely. Repeat renal function panel daily (3) Hypertension Current Visit: Yes Status: Acute Plan to address problem: Now that he has been hypotensive, agree with holding blood pressure medications. Will continue to monitor closely in the ICU. (4) Acute and chronic respiratory failure Current Visit: Yes Status: Acute Plan to address problem: Currently on Bipap. Being treated for a COPD exacerbation. Further management per primary team.
--- NOTE | 2018-01-14 08:35 | Progress Note ---
Assessment and Plan Acute hypercapnic respiratory Acute exacerbation of COPD Syncope Seizure Hypotension -Chronic back pain Abnormal CXR, atelectasis right base -Continue with BIPAP and adjust EPAP with restrictive oxygen therapies for better gas excahnge -Has a high base excess, will give doses of acetazolamide -VTE prophylaxis -Bronchodialtors -Steroids -Gentle diuresis while monitoring renal function, blood pressure and electrolyte profile. Replete electrolytes as indicated -Antibiotics and bronchodilators for AE-COPD -CT chest to evaluate the right lung base better. FULL CODE The high probability of a clinically significant, sudden or life threatening deterioration of the [respiratory,] system(s) required my full and direct attention, intervention and personal management. The aggregate critical care time was [35] minutes. This time is in addition to time spent performing reported procedures but includes the following: [x] Data Review and interpretation [x] Patient assessment and monitoring of vital signs [x] Documentation [x] Medication orders and management Subjective Date of service: 01/14/18 Principal diagnosis: Acute Hypercapnic Resp Failure; Seizure disorder; Acute COPD exacerbation Interval history: Seen and examined at bedside; 24-hour events reviewed; nursing and respiratory care staff consulted; lying in bed on NIPPV, denies acute chest pains; no shortness of breath, states he feels better. He is hungry. His sister is at the bedside Objective Vital Signs - 12hr 01/13/18 01/13/18 01/13/18 20:41 20:42 20:51 Temperature Pulse Rate 80 83 Pulse Rate [ 86 Bilateral Throughout] Pulse Rate [ None] Respiratory 10 L 11 L Rate Respiratory 21 Rate [Bilateral Throughout] Respiratory Rate [back] Blood Pressure 80/50 80/50 O2 Sat by Pulse 96 97 Oximetry 01/13/18 01/13/18 01/13/18 21:00 21:11 21:21 Temperature Pulse Rate 83 83 83 Pulse Rate [ Bilateral Throughout] Pulse Rate [ None] Respiratory 12 12 14 Rate Respiratory Rate [Bilateral Throughout] Respiratory Rate [back] Blood Pressure 87/57 87/57 87/57 O2 Sat by Pulse 98 96 95 Oximetry 01/13/18 01/13/18 01/13/18 21:31 21:38 21:41 Temperature Pulse Rate 85 86 84 Pulse Rate [ Bilateral Throughout] Pulse Rate [ None] Respiratory 17 15 Rate Respiratory Rate [Bilateral Throughout] Respiratory Rate [back] Blood Pressure 87/57 87/57 87/57 O2 Sat by Pulse 99 98 Oximetry 01/13/18 01/13/18 01/13/18 21:45 21:51 22:00 Temperature Pulse Rate 85 86 Pulse Rate [ Bilateral Throughout] Pulse Rate [ None] Respiratory 15 16 18 Rate Respiratory Rate [Bilateral Throughout] Respiratory 15 Rate [back] Blood Pressure 87/57 90/54 O2 Sat by Pulse 93 98 96 Oximetry 01/13/18 01/13/18 01/13/18 22:11 22:21 22:23 Temperature Pulse Rate 83 82 84 Pulse Rate [ Bilateral Throughout] Pulse Rate [ None] Respiratory 16 13 27 H Rate Respiratory Rate [Bilateral Throughout] Respiratory Rate [back] Blood Pressure 90/54 90/54 90/54 O2 Sat by Pulse 96 96 100 Oximetry 01/13/18 01/13/18 01/13/18 22:31 22:41 22:51 Temperature Pulse Rate 83 83 81 Pulse Rate [ Bilateral Throughout] Pulse Rate [ None] Respiratory 13 25 H 18 Rate Respiratory Rate [Bilateral Throughout] Respiratory Rate [back] Blood Pressure 90/54 90/54 90/54 O2 Sat by Pulse 96 92 87 Oximetry 01/13/18 01/13/18 01/13/18 23:00 23:11 23:21 Temperature Pulse Rate 83 79 79 Pulse Rate [ Bilateral Throughout] Pulse Rate [ None] Respiratory 19 20 14 Rate Respiratory Rate [Bilateral Throughout] Respiratory Rate [back] Blood Pressure 82/45 82/45 82/48 O2 Sat by Pulse 84 87 89 Oximetry 01/13/18 01/13/18 01/13/18 23:31 23:35 23:41 Temperature Pulse Rate 83 83 84 Pulse Rate [ Bilateral Throughout] Pulse Rate [ None] Respiratory 14 12 14 Rate Respiratory Rate [Bilateral Throughout] Respiratory 15 Rate [back] Blood Pressure 82/44 82/44 82/44 O2 Sat by Pulse 96 93 92 Oximetry 01/13/18 01/13/18 01/14/18 23:43 23:51 00:00 Temperature 98.1 F Pulse Rate 83 83 Pulse Rate [ Bilateral Throughout] Pulse Rate [ None] Respiratory 14 14 Rate Respiratory Rate [Bilateral Throughout] Respiratory Rate [back] Blood Pressure 82/44 64/37 O2 Sat by Pulse 93 97 Oximetry 01/14/18 01/14/18 01/14/18 00:11 00:21 00:31 Temperature Pulse Rate 81 81 81 Pulse Rate [ Bilateral Throughout] Pulse Rate [ None] Respiratory 15 13 13 Rate Respiratory Rate [Bilateral Throughout] Respiratory Rate [back] Blood Pressure 75/45 75/45 75/45 O2 Sat by Pulse 97 92 92 Oximetry 01/14/18 01/14/18 01/14/18 00:41 00:51 01:00 Temperature Pulse Rate 80 80 Pulse Rate [ Bilateral Throughout] Pulse Rate [ 84 None] Respiratory 14 14 14 Rate Respiratory Rate [Bilateral Throughout] Respiratory Rate [back] Blood Pressure 84/45 84/45 75/45 O2 Sat by Pulse 94 94 97 Oximetry 01/14/18 01/14/18 01/14/18 01:01 01:05 01:11 Temperature 98.0 F Pulse Rate 79 75 Pulse Rate [ Bilateral Throughout] Pulse Rate [ None] Respiratory 15 25 H Rate Respiratory Rate [Bilateral Throughout] Respiratory Rate [back] Blood Pressure 93/55 93/55 O2 Sat by Pulse 93 98 Oximetry 01/14/18 01/14/18 01/14/18 01:21 01:30 01:31 Temperature Pulse Rate 75 77 Pulse Rate [ Bilateral Throughout] Pulse Rate [ None] Respiratory 12 17 Rate Respiratory Rate [Bilateral Throughout] Respiratory Rate [back] Blood Pressure 93/55 93/55 O2 Sat by Pulse 100 93 100 Oximetry 01/14/18 01/14/18 01/14/18 01:41 01:51 02:00 Temperature Pulse Rate 76 78 82 Pulse Rate [ Bilateral Throughout] Pulse Rate [ None] Respiratory 23 22 27 H Rate Respiratory Rate [Bilateral Throughout] Respiratory Rate [back] Blood Pressure 93/55 93/55 101/76 O2 Sat by Pulse 92 98 88 Oximetry 01/14/18 01/14/18 01/14/18 02:11 02:21 02:31 Temperature Pulse Rate 82 81 80 Pulse Rate [ Bilateral Throughout] Pulse Rate [ None] Respiratory 18 17 20 Rate Respiratory Rate [Bilateral Throughout] Respiratory Rate [back] Blood Pressure 101/76 101/76 101/76 O2 Sat by Pulse 94 93 94 Oximetry 01/14/18 01/14/18 01/14/18 02:41 02:51 03:00 Temperature Pulse Rate 80 79 79 Pulse Rate [ Bilateral Throughout] Pulse Rate [ None] Respiratory 20 25 H 27 H Rate Respiratory Rate [Bilateral Throughout] Respiratory Rate [back] Blood Pressure 101/76 101/76 101/76 O2 Sat by Pulse 93 94 94 Oximetry 01/14/18 01/14/18 01/14/18 03:11 03:21 03:31 Temperature Pulse Rate 82 77 Pulse Rate [ Bilateral Throughout] Pulse Rate [ None] Respiratory 18 14 46 H Rate Respiratory Rate [Bilateral Throughout] Respiratory Rate [back] Blood Pressure 97/62 97/62 97/62 O2 Sat by Pulse 91 94 94 Oximetry 01/14/18 01/14/18 01/14/18 03:41 03:51 04:00 Temperature 97.9 F Pulse Rate 78 81 79 Pulse Rate [ Bilateral Throughout] Pulse Rate [ None] Respiratory 23 24 13 Rate Respiratory Rate [Bilateral Throughout] Respiratory Rate [back] Blood Pressure 97/62 97/62 102/63 O2 Sat by Pulse 94 95 95 Oximetry 01/14/18 01/14/18 01/14/18 04:11 04:21 04:31 Temperature Pulse Rate 77 77 79 Pulse Rate [ Bilateral Throughout] Pulse Rate [ None] Respiratory 15 18 14 Rate Respiratory Rate [Bilateral Throughout] Respiratory Rate [back] Blood Pressure 102/63 102/63 102/63 O2 Sat by Pulse 94 93 95 Oximetry 01/14/18 01/14/18 01/14/18 04:41 04:51 05:00 Temperature Pulse Rate 79 77 77 Pulse Rate [ Bilateral Throughout] Pulse Rate [ None] Respiratory 19 14 13 Rate Respiratory Rate [Bilateral Throughout] Respiratory Rate [back] Blood Pressure 102/63 102/63 92/59 O2 Sat by Pulse 94 94 93 Oximetry 01/14/18 01/14/18 01/14/18 05:11 05:21 05:31 Temperature Pulse Rate 76 77 77 Pulse Rate [ Bilateral Throughout] Pulse Rate [ None] Respiratory 11 L 11 L 17 Rate Respiratory Rate [Bilateral Throughout] Respiratory Rate [back] Blood Pressure 102/63 102/63 102/63 O2 Sat by Pulse 94 94 94 Oximetry 01/14/18 01/14/18 01/14/18 05:32 05:41 05:51 Temperature Pulse Rate 77 76 78 Pulse Rate [ Bilateral Throughout] Pulse Rate [ None] Respiratory 24 25 H Rate Respiratory Rate [Bilateral Throughout] Respiratory Rate [back] Blood Pressure 92/59 92/59 O2 Sat by Pulse 93 95 95 Oximetry 01/14/18 01/14/18 06:00 08:00 Temperature 98.3 F Pulse Rate 78 Pulse Rate [ Bilateral Throughout] Pulse Rate [ None] Respiratory 25 H Rate Respiratory Rate [Bilateral Throughout] Respiratory Rate [back] Blood Pressure 101/65 O2 Sat by Pulse Oximetry Constitutional: no acute distress, other (middle aged CM normocephalic with mildly increased respiratory effort) Eyes: non-icteric, other (periorbital ecchymosis) ENT: oropharynx moist, other (mallampati 3) Neck: supple, no lymphadenopathy, no JVD, other (no thyromegaly) Effort: mildly labored Ascultation: Bilateral: diminished breath sounds, rhonchi (posterior bases), other (Prolonged expiratory phase.) Percussion: Bilateral: not dull Cardiovascular: regular rate and rhythm, other (No R/M) Gastrointestinal: normoactive bowel sounds, soft, non-tender, non-distended, other (No HSM, obese) Integumentary: rash Extremities: no cyanosis, no edema, pink and warm, pulses normal Neurologic: normal mental status, non-focal exam, pupils equal and round, CN II- XII normal, motor strength normal and Psychiatric: mood appropriate, affect normal CBC and BMP: 01/14/18 02:08 01/15/18 04:08 ABG, PT/INR, D-dimer: ABG POC ABG pH 7.182 (7.35-7.45) L 01/13/18 21:25 POC ABG pCO2 88.2 (35-45) H 01/13/18 21:25 POC ABG pO2 99 (80-105) 01/13/18 21:25 POC ABG HCO3 33.1 01/13/18 21:25 POC ABG Total CO2 36 01/13/18 21:25 POC ABG O2 Sat 95 01/13/18 21:25 PT/INR, D-dimer PT 11.8 Sec. (12.2-14.9) L 01/07/18 15:44 INR 0.83 (0.87-1.13) L 01/07/18 15:44 D-Dimer < 135.0 ng/mlDDU (0-234) 01/07/18 15:44 Abnormal lab findings: Abnormal Labs 01/07/18 01/07/18 01/07/18 15:44 15:44 15:44 MCHC RDW 16.5 H Lymph % (Auto) [place] % (Auto) 10.2 H Lymph # [place] # 0.9 H Seg Neutrophils % 73.7 H PT 11.8 L INR 0.83 L APTT 23.5 L POC ABG pH POC ABG pCO2 POC ABG pO2 Sodium 133 L Chloride 89.4 L Carbon Dioxide 36 H BUN 7 L Creatinine 0.5 L Glucose 130 H POC Glucose Calcium CK-MB (CK-2) Rel Index 4.3 H HDL Cholesterol Urine pH Valproic Acid 01/07/18 01/07/18 01/07/18 15:51 15:53 Unknown MCHC RDW Lymph % (Auto) [place] % (Auto) Lymph # [place] # Seg Neutrophils % PT INR APTT POC ABG pH POC ABG pCO2 POC ABG pO2 Sodium Chloride Carbon Dioxide BUN Creatinine Glucose POC Glucose 134 H Calcium CK-MB (CK-2) Rel Index HDL Cholesterol Urine pH 8.0 H Valproic Acid 27.1 L 01/08/18 01/09/18 01/09/18 04:59 05:02 05:02 MCHC 31 L RDW 16.2 H Lymph % (Auto) [place] % (Auto) Lymph # [place] # Seg Neutrophils % PT INR APTT POC ABG pH POC ABG pCO2 POC ABG pO2 Sodium Chloride 91.9 L Carbon Dioxide 38 H BUN 7 L Creatinine 0.5 L Glucose POC Glucose Calcium CK-MB (CK-2) Rel Index HDL Cholesterol 60 H Urine pH Valproic Acid 01/10/18 01/10/18 01/13/18 05:26 05:26 17:53 MCHC RDW 16.4 H Lymph % (Auto) [place] % (Auto) Lymph # [place] # Seg Neutrophils % PT INR APTT POC ABG pH POC ABG pCO2 POC ABG pO2 Sodium 135 L Chloride 84.7 L Carbon Dioxide 40 H BUN Creatinine 0.5 L Glucose POC Glucose 118 H Calcium 10.4 H CK-MB (CK-2) Rel Index HDL Cholesterol Urine pH Valproic Acid 01/13/18 01/13/18 01/13/18 19:20 19:59 20:10 MCHC 31 L RDW 16.2 H Lymph % (Auto) [place] % (Auto) Lymph # [place] # Seg Neutrophils % PT INR APTT POC ABG pH 7.162 L POC ABG pCO2 104.2 H POC ABG pO2 71 L Sodium 129 L Chloride 86.0 L Carbon Dioxide 33 H D BUN 80 H Creatinine 3.1 H D Glucose 124 H POC Glucose Calcium CK-MB (CK-2) Rel Index HDL Cholesterol Urine pH Valproic Acid 01/13/18 01/14/18 01/14/18 21:25 02:04 02:08 MCHC 31 L RDW 16.1 H Lymph % (Auto) 8.7 L [place] % (Auto) 13.4 H Lymph # 0.6 L [place] # 0.9 H Seg Neutrophils % 77.7 H PT INR APTT POC ABG pH 7.182 L POC ABG pCO2 88.2 H POC ABG pO2 Sodium 129 L Chloride 91.0 L Carbon Dioxide BUN 82 H Creatinine 3.1 H Glucose 123 H POC Glucose Calcium CK-MB (CK-2) Rel Index HDL Cholesterol Urine pH Valproic Acid Chest x-ray: image reviewed (Low lung volumes with elevated right hemidiaphragm , possible infiltrate) Allied health notes reviewed: nursing
--- NOTE | 2018-01-14 08:59 | Vascular Lab Report ---
CAROTID DUPLEX STUDY: RIGHT PSVEDV CCA [id number] CCA DIST:[id number] ICA PROX:[id number] ICA MID:8231 ICA DIST:[id number] ECA: 93 VERT: 42 19 LEFT PSVEDV CCA PROX:[id number] CCA DIST:[id number] ICA PROX:9525 ICA MID:[id number] ICA DIST:7833 ECA: 124 VERT: 57 25 REASON FOR EXAM: Stroke. COMMENTS ON THE RIGHT: Doppler frequency analysis is consistent with 16 to 49 percent diameter reduction of the internal carotid artery. A small amount of plaque is seen. The common carotid artery is patent. The external carotid artery is patent. The vertebral artery has antegrade flow. COMMENTS ON THE LEFT: Doppler frequency analysis is consistent with 16 to 49 percent diameter reduction of the internal carotid artery. A small amount of plaque is seen. The common carotid artery is patent. The external carotid artery is patent. The vertebral artery has antegrade flow. IMPRESSION: Less than 50% diameter reduction in the internal carotid arteries bilaterally.
[2018-01-14] MEDS: BROVANA NEBU IH SCH ×2 (09:09→19:48)
[2018-01-14] MEDS: PULMICORT IH SCH ×2 (09:09→19:48)
[2018-01-14] MEDS: DUONEB *Not for PRN Use IH SCH ×2 (09:09→19:48)
[2018-01-14] MEDS: COREG PO SCH ×2 (10:00→21:17)
[2018-01-14] MEDS: NACL 0.9% 1000 ML 1,000 ML IV SCH ×2 (10:00→20:14)
[2018-01-14] MEDS: HEPARIN SUB-Q SCH ×2 (10:53→21:20)
[2018-01-14] MEDS: RisperDAL PO SCH ×2 (10:54→21:17)
[2018-01-14] MEDS: DELTASONE PO SCH (10:54)
[2018-01-14] MEDS: LEVAQUIN PO SCH (10:54)
[2018-01-14] MEDS: PEPCID PO SCH (10:54)
[2018-01-14] MEDS: ASPIRIN PO SCH (10:54)
[2018-01-14] MEDS: NORCO 10/325 PO PRN ×2 (11:05→20:11)
--- NOTE | 2018-01-14 12:14 | Ultrasound Report ---
ULTRASOUND RENAL BILATERAL HISTORY: Acute renal failure. TECHNIQUE: transabdominal ultrasound with color Doppler interrogation. FINDINGS: The right kidney measures 12.0 x 7.0 x 5.4cm. Right renal cortex: 1.9cm. The left kidney measures 13.1 x 6.5 x 5.6cm. Left renal cortex: 1.4cm. Scans of the kidneys show normal renal contours. There is normal central calyceal clustering and good preservation of the cortical thickness. There is no evidence of mass or hydronephrosis. The bladder is collapsed and contains a Ochoa catheter. IMPRESSION: Unremarkable renal ultrasound.
[2018-01-14 13:27] LABS: Bilirubin,Urine NEG (Negative); Blood,Urine NEG (Negative); Color,Urine Straw (Yellow); Protein,Urine <15 mg/dL mg/dL (Negative); Urobilinogen,Urine < 2.0 mg/dL (<2.0); WBC,Urine < 1.0 /HPF (0.0-6.0)
[2018-01-14 13:29] LABS: Chloride, Urine 21.9 mmolL (110-250)
[2018-01-14] MEDS: PAXIL PO SCH (15:05)
[2018-01-14] MEDS: REMERON PO SCH (15:05)
[2018-01-14 15:33] LABS: Calcium 9.2 mg/dL (8.4-10.2)
--- NOTE | 2018-01-14 15:50 | Progress Note ---
Assessment and Plan Assessment and plan: Patient is a 57 yo man with a history of HTN, Seizure Disorder, Chronic Pain, COPD, Dementia, Schizophrenia and Nicotine Dependence who presented with syncope while urinating with head trauma/right black eye. Yesterday patient was somnolent and he was in respiratory distress with hypotension. CT head was done and negative for acute intracranial process. Patient was given bolus of IV fluids without improvement of his blood pressure and patient was transferred to ICU. ABG showed patient is hypercapnia. Acute kidney injury, creatinine was 3. Patient was managed appropriately in the ICU , blood pressures normalized HYACINTH Showed some improvement Acute exacerbation of COPD Acute hypercapnic respiratory failure patient is on BiPAP, patient is saturating well, patient is alert and oriented Syncope; resolved Seizure: Continue home medication Hypotension; blood pressure medications were held, he was given IV fluid and patient pressure normal -Chronic back pain: symptomatic care -DVT prophylaxis: SCD to BLE while in bed. -CVA ruled out -Advance care planning: full code DVT prophylaxis: Heparin The high probability of a clinically significant, sudden or life threatening deterioration of the [respiratory, renal] system(s) required my full and direct attention, intervention and personal management. The aggregate critical care time was [34] minutes. This time is in addition to time spent performing reported procedures but includes the following: [x] Data Review and interpretation [x] Patient assessment and monitoring of vital signs [x] Documentation [x] Medication orders and management - Patient Problems (1) COPD (chronic obstructive pulmonary disease) Current Visit: Yes Status: Chronic Qualifiers: COPD type: COPD with acute exacerbation Qualified Code(s): J44.1 - Chronic obstructive pulmonary disease with (acute) exacerbation History Interval history: Patient was seen and evaluated this morning, Patient is on BIPAP. He was alert. Hospitalist Physical - Physical exam Narrative exam: Patie is in cardiopulmonary distress. Patient is on BIPAP. The patient appeared well nourished and normally developed. Vital signs as documented. Head exam is unremarkable. No scleral icterus . Neck is without jugular venous distension, thyromegaly, or carotid bruits. Lungs are clear to auscultation. Cardiac exam reveals regular rate and Rhythm. First and second heart sounds normal. No murmurs, rubs or gallops. Abdominal exam reveals normal bowel sounds, no masses, no organomegaly and no aortic enlargement. Extremities are nonedematous and both femoral and pedal pulses are normal. ALIGNER: Alert and oriented. No focal weakness. - Constitutional Vitals: Temp Pulse Resp BP Pulse Ox 98.3 F 82 29 H 84/36 98 01/14/18 08:00 01/14/18 12:29 01/14/18 12:29 01/14/18 12:29 01/14/18 14:05 General appearance: Absent: mild distress Results - Labs CBC & Chem 7: 01/14/18 02:08 01/14/18 14:44 Labs: Laboratory Last Values WBC 6.6 K/mm3 (4.5-11.0) 01/14/18 02:08 RBC 4.41 M/mm3 (3.65-5.03) 01/14/18 02:08 Hgb 12.2 gm/dl (11.8-15.2) 01/14/18 02:08 Hct 39.5 % (35.5-45.6) 01/14/18 02:08 MCV 90 fl (84-94) 01/14/18 02:08 MCH 28 pg (28-32) 01/14/18 02:08 MCHC 31 % (32-34) L 01/14/18 02:08 RDW 16.1 % (13.2-15.2) H 01/14/18 02:08 Plt Count 197 K/mm3 (140-440) 01/14/18 02:08 Lymph % (Auto) 8.7 % (13.4-35.0) L 01/14/18 02:08 [place] % (Auto) 13.4 % (0.0-7.3) H 01/14/18 02:08 Eos % (Auto) 0.0 % (0.0-4.3) 01/14/18 02:08 Baso % (Auto) 0.2 % (0.0-1.8) 01/14/18 02:08 Lymph # 0.6 K/mm3 (1.2-5.4) L 01/14/18 02:08 [place] # 0.9 K/mm3 (0.0-0.8) H 01/14/18 02:08 Eos # 0.0 K/mm3 (0.0-0.4) 01/14/18 02:08 Baso # 0.0 K/mm3 (0.0-0.1) 01/14/18 02:08 Seg Neutrophils % 77.7 % (40.0-70.0) H 01/14/18 02:08 Seg Neutrophils # 5.1 K/mm3 (1.8-7.7) 01/14/18 02:08 PT 11.8 Sec. (12.2-14.9) L 01/07/18 15:44 INR 0.83 (0.87-1.13) L 01/07/18 15:44 APTT 23.5 Sec. (24.2-36.6) L 01/07/18 15:44 D-Dimer < 135.0 ng/mlDDU (0-234) 01/07/18 15:44 POC ABG pH 7.263 (7.35-7.45) L 01/14/18 11:18 POC ABG pCO2 80.4 (35-45) H 01/14/18 11:18 POC ABG pO2 79 (80-105) L 01/14/18 11:18 POC ABG HCO3 36.4 01/14/18 11:18 POC ABG Total CO2 39 01/14/18 11:18 POC ABG O2 Sat 93 01/14/18 11:18 POC ABG Base Excess 9 01/14/18 11:18 FiO2 40 % 01/14/18 11:18 Sodium 135 mmol/L (137-145) L 01/14/18 14:44 Potassium 4.4 mmol/L (3.6-5.0) 01/14/18 14:44 Chloride 95.4 mmol/L (98-107) L 01/14/18 14:44 Carbon Dioxide 28 mmol/L (22-30) 01/14/18 14:44 Anion Gap 16 mmol/L 01/14/18 14:44 BUN 70 mg/dL (9-20) H 01/14/18 14:44 Creatinine 2.0 mg/dL (0.8-1.5) H 01/14/18 14:44 Estimated GFR 34 ml/min 01/14/18 14:44 BUN/Creatinine Ratio 35 % 01/14/18 14:44 Glucose 144 mg/dL (75-100) H 01/14/18 14:44 POC Glucose 118 (70-105) H 01/13/18 17:53 Lactic Acid 0.80 mmol/L (0.7-2.0) 01/13/18 19:59 Calcium 9.2 mg/dL (8.4-10.2) 01/14/18 14:44 Total Creatine Kinase 60 units/L (55-170) 01/07/18 15:44 CK-MB (CK-2) 2.6 ng/mL (0.0-4.0) 01/07/18 15:44 CK-MB (CK-2) Rel Index 4.3 (0-4) H 01/07/18 15:44 Troponin T < 0.010 ng/mL (0.00-0.029) 01/07/18 15:44 Triglycerides 119 mg/dL (2-149) 01/08/18 04:59 Cholesterol 174 mg/dL (50-199) 01/08/18 04:59 LDL Cholesterol Direct 101 mg/dL (50-130) 01/08/18 04:59 HDL Cholesterol 60 mg/dL (40-59) H 01/08/18 04:59 Cholesterol/HDL Ratio 2.90 % 01/08/18 04:59 Urine Color Straw (Yellow) 01/14/18 12:01 Urine Turbidity Clear (Clear) 01/14/18 12:01 Urine pH 6.0 (5.0-7.0) 01/14/18 12:01 Ur Specific [place] 1.010 (1.003-1.030) 01/14/18 12:01 Urine Protein <15 mg/dl mg/dL (Negative) 01/14/18 12:01 Urine Glucose (UA) Neg mg/dL (Negative) 01/14/18 12:01 Urine Ketones Neg mg/dL (Negative) 01/14/18 12:01 Urine Blood Neg (Negative) 01/14/18 12:01 Urine Nitrite Neg (Negative) 01/14/18 12:01 Urine Bilirubin Neg (Negative) 01/14/18 12:01 Urine Urobilinogen < 2.0 mg/dL (<2.0) 01/14/18 12:01 Ur Leukocyte Esterase Neg (Negative) 01/14/18 12:01 Urine WBC (Auto) < 1.0 /HPF (0.0-6.0) 01/14/18 12:01 Urine RBC (Auto) 3.0 /HPF (0.0-6.0) 01/14/18 12:01 Amorphous Crystals Few 01/07/18 Unknown Urine Mucus Few /HPF 01/07/18 Unknown Urine Osmolality 321 Mosm/kg 01/14/18 12:01 Urine Sodium 35 mmol/L 01/14/18 12:01 Urine Chloride 21.9 mmolL (110-250) L 01/14/18 12:01 Urine Opiates Screen Presumptive negative 01/07/18 Unknown Urine Methadone Screen Presumptive negative 01/07/18 Unknown Ur Barbiturates Screen Presumptive negative 01/07/18 Unknown Valproic Acid 27.1 ug/mL (50-100) L 01/07/18 15:53 Ur Phencyclidine Scrn Presumptive negative 01/07/18 Unknown Ur Amphetamines Screen Presumptive negative 01/07/18 Unknown U Benzodiazepines Scrn Presumptive negative 01/07/18 Unknown Urine Cocaine Screen Presumptive negative 01/07/18 Unknown U Marijuana (THC) Screen Presumptive negative 01/07/18 Unknown Drugs of Abuse Note Disclamer 01/07/18 Unknown Plasma/Serum Alcohol < 0.01 % (0-0.07) 01/07/18 15:44
[2018-01-15] MEDS: DIAMOX IV SCH ×2 (04:58→14:40)
[2018-01-15 05:06] LABS: Calcium 9.4 mg/dL (8.4-10.2)
--- NOTE | 2018-01-15 06:42 | Progress Note ---
Assessment and Plan Acute hypercapnic respiratory Acute exacerbation of COPD Syncope Seizure Hypotension -Chronic back pain Abnormal CXR, atelectasis right base -Continue with BIPAP and adjust EPAP with restrictive oxygen therapies for better gas exchange -high base excess give acetazolamide -VTE prophylaxis -Bronchodialtors -Steroids -Gentle diuresis while monitoring renal function, blood pressure and electrolyte profile. Replete electrolytes as indicated -Antibiotics and bronchodilators for AE-COPD -CT chest to evaluate the right lung base better. FULL CODE The high probability of a clinically significant, sudden or life threatening deterioration of the [respiratory,] system(s) required my full and direct attention, intervention and personal management. The aggregate critical care time was [35] minutes. This time is in addition to time spent performing reported procedures but includes the following: [x] Data Review and interpretation [x] Patient assessment and monitoring of vital signs [x] Documentation [x] Medication orders and management Subjective Date of service: 01/15/18 Principal diagnosis: Acute Hypercapnic Resp Failure; Seizure disorder; Acute COPD exacerbation Interval history: Seen and examined at bedside; 24-hour events reviewed; nursing and respiratory care staff consulted; lying in bed on NIPPV, denies acute chest pains; no shortness of breath, states he feels better. Slept well last night. On 50% venturi mask with oxygen saturations of 100%, explained extensively the need to keep him on restrictive oxygen therapies Objective Vital Signs - 12hr 01/14/18 01/14/18 01/14/18 19:00 19:31 19:40 Temperature Pulse Rate 77 83 83 Pulse Rate [ Bilateral Throughout] Respiratory 21 14 19 Rate Respiratory Rate [Bilateral Throughout] Respiratory Rate [back] Blood Pressure 105/57 105/57 105/57 O2 Sat by Pulse 93 97 97 Oximetry 01/14/18 01/14/18 01/14/18 19:48 20:00 20:01 Temperature 98.8 F Pulse Rate 92 H Pulse Rate [ 86 Bilateral Throughout] Respiratory 13 Rate Respiratory 20 Rate [Bilateral Throughout] Respiratory 14 Rate [back] Blood Pressure 105/57 O2 Sat by Pulse 96 Oximetry 01/14/18 01/14/18 01/14/18 20:11 20:31 21:01 Temperature Pulse Rate 90 91 H Pulse Rate [ Bilateral Throughout] Respiratory 14 18 16 Rate Respiratory Rate [Bilateral Throughout] Respiratory Rate [back] Blood Pressure 163/91 163/91 O2 Sat by Pulse 99 96 Oximetry 01/14/18 01/14/18 01/14/18 21:11 21:15 21:17 Temperature Pulse Rate 91 H 92 H Pulse Rate [ Bilateral Throughout] Respiratory 14 13 Rate Respiratory Rate [Bilateral Throughout] Respiratory Rate [back] Blood Pressure 111/66 127/73 O2 Sat by Pulse 97 Oximetry 01/14/18 01/14/18 01/14/18 21:31 21:45 22:00 Temperature Pulse Rate 93 H 95 H 97 H Pulse Rate [ Bilateral Throughout] Respiratory 19 14 20 Rate Respiratory Rate [Bilateral Throughout] Respiratory Rate [back] Blood Pressure 111/66 127/73 129/73 O2 Sat by Pulse 95 94 89 Oximetry 01/14/18 01/14/18 01/14/18 22:15 22:31 22:45 Temperature Pulse Rate 98 H 94 H 93 H Pulse Rate [ Bilateral Throughout] Respiratory 16 15 15 Rate Respiratory Rate [Bilateral Throughout] Respiratory Rate [back] Blood Pressure 129/73 129/73 129/73 O2 Sat by Pulse 97 97 96 Oximetry 01/14/18 01/14/18 01/14/18 23:01 23:15 23:27 Temperature Pulse Rate 92 H 86 83 Pulse Rate [ Bilateral Throughout] Respiratory 14 15 13 Rate Respiratory Rate [Bilateral Throughout] Respiratory Rate [back] Blood Pressure 105/54 105/54 105/54 O2 Sat by Pulse 95 94 94 Oximetry 01/14/18 01/14/18 01/14/18 23:31 23:32 23:45 Temperature Pulse Rate 82 82 82 Pulse Rate [ Bilateral Throughout] Respiratory 13 13 17 Rate Respiratory Rate [Bilateral Throughout] Respiratory Rate [back] Blood Pressure 105/54 105/54 105/54 O2 Sat by Pulse 94 94 94 Oximetry 01/15/18 01/15/18 01/15/18 00:00 00:15 00:31 Temperature 99.6 F Pulse Rate 82 80 78 Pulse Rate [ Bilateral Throughout] Respiratory 12 18 14 Rate Respiratory Rate [Bilateral Throughout] Respiratory Rate [back] Blood Pressure 95/53 105/54 105/54 O2 Sat by Pulse 94 94 94 Oximetry 01/15/18 01/15/18 01/15/18 00:45 01:00 01:31 Temperature Pulse Rate 79 77 74 Pulse Rate [ Bilateral Throughout] Respiratory 12 23 15 Rate Respiratory Rate [Bilateral Throughout] Respiratory Rate [back] Blood Pressure 105/54 98/52 95/53 O2 Sat by Pulse 94 94 93 Oximetry 01/15/18 01/15/18 01/15/18 02:00 02:05 02:31 Temperature Pulse Rate 72 75 Pulse Rate [ Bilateral Throughout] Respiratory 12 12 Rate Respiratory Rate [Bilateral Throughout] Respiratory Rate [back] Blood Pressure 80/47 114/67 98/52 O2 Sat by Pulse 95 96 Oximetry 01/15/18 01/15/18 01/15/18 03:00 03:31 04:00 Temperature 99.1 F Pulse Rate 73 73 78 Pulse Rate [ Bilateral Throughout] Respiratory 14 13 12 Rate Respiratory Rate [Bilateral Throughout] Respiratory Rate [back] Blood Pressure 80/50 90/52 125/75 O2 Sat by Pulse 97 97 96 Oximetry 01/15/18 01/15/18 01/15/18 04:31 05:00 05:31 Temperature Pulse Rate 79 82 Pulse Rate [ Bilateral Throughout] Respiratory 16 16 Rate Respiratory Rate [Bilateral Throughout] Respiratory Rate [back] Blood Pressure 125/75 127/74 127/74 O2 Sat by Pulse 91 86 87 Oximetry 01/15/18 06:01 Temperature Pulse Rate Pulse Rate [ Bilateral Throughout] Respiratory Rate Respiratory Rate [Bilateral Throughout] Respiratory Rate [back] Blood Pressure 127/74 O2 Sat by Pulse 97 Oximetry Constitutional: no acute distress, other (middle aged CM normocephalic with mildly increased respiratory effort) Eyes: non-icteric, other (periorbital ecchymosis, improving) ENT: oropharynx moist, other (mallampati 3) Neck: supple, no lymphadenopathy, no JVD, other (no thyromegaly) Effort: mildly labored Ascultation: Bilateral: diminished breath sounds, rhonchi (posterior bases), other (Prolonged expiratory phase.) Percussion: Bilateral: not dull Cardiovascular: regular rate and rhythm, other (No R/M) Gastrointestinal: normoactive bowel sounds, soft, non-tender, non-distended, other (No HSM, obese) Integumentary: rash Extremities: no cyanosis, no edema, pink and warm, pulses normal Neurologic: normal mental status, non-focal exam, pupils equal and round, CN II- XII normal, motor strength normal and Psychiatric: mood appropriate, affect normal CBC and BMP: 01/14/18 02:08 01/15/18 04:08 ABG, PT/INR, D-dimer: ABG POC ABG pH 7.246 (7.35-7.45) L 01/15/18 04:25 POC ABG pCO2 83.8 (35-45) H 01/15/18 04:25 POC ABG pO2 80 (80-105) 01/15/18 04:25 POC ABG HCO3 36.5 01/15/18 04:25 POC ABG Total CO2 39 01/15/18 04:25 POC ABG O2 Sat 92 01/15/18 04:25 PT/INR, D-dimer PT 11.8 Sec. (12.2-14.9) L 01/07/18 15:44 INR 0.83 (0.87-1.13) L 01/07/18 15:44 D-Dimer < 135.0 ng/mlDDU (0-234) 01/07/18 15:44 Abnormal lab findings: Abnormal Labs 01/07/18 01/07/18 01/07/18 15:44 15:44 15:44 MCHC RDW 16.5 H Lymph % (Auto) [place] % (Auto) 10.2 H Lymph # [place] # 0.9 H Seg Neutrophils % 73.7 H PT 11.8 L INR 0.83 L APTT 23.5 L POC ABG pH POC ABG pCO2 POC ABG pO2 Sodium 133 L Chloride 89.4 L Carbon Dioxide 36 H BUN 7 L Creatinine 0.5 L Glucose 130 H POC Glucose Calcium CK-MB (CK-2) Rel Index 4.3 H HDL Cholesterol Urine pH Urine Chloride Valproic Acid 01/07/18 01/07/18 01/07/18 15:51 15:53 Unknown MCHC RDW Lymph % (Auto) [place] % (Auto) Lymph # [place] # Seg Neutrophils % PT INR APTT POC ABG pH POC ABG pCO2 POC ABG pO2 Sodium Chloride Carbon Dioxide BUN Creatinine Glucose POC Glucose 134 H Calcium CK-MB (CK-2) Rel Index HDL Cholesterol Urine pH 8.0 H Urine Chloride Valproic Acid 27.1 L 01/08/18 01/09/18 01/09/18 04:59 05:02 05:02 MCHC 31 L RDW 16.2 H Lymph % (Auto) [place] % (Auto) Lymph # [place] # Seg Neutrophils % PT INR APTT POC ABG pH POC ABG pCO2 POC ABG pO2 Sodium Chloride 91.9 L Carbon Dioxide 38 H BUN 7 L Creatinine 0.5 L Glucose POC Glucose Calcium CK-MB (CK-2) Rel Index HDL Cholesterol 60 H Urine pH Urine Chloride Valproic Acid 01/10/18 01/10/18 01/13/18 05:26 05:26 17:53 MCHC RDW 16.4 H Lymph % (Auto) [place] % (Auto) Lymph # [place] # Seg Neutrophils % PT INR APTT POC ABG pH POC ABG pCO2 POC ABG pO2 Sodium 135 L Chloride 84.7 L Carbon Dioxide 40 H BUN Creatinine 0.5 L Glucose POC Glucose 118 H Calcium 10.4 H CK-MB (CK-2) Rel Index HDL Cholesterol Urine pH Urine Chloride Valproic Acid 01/13/18 01/13/18 01/13/18 19:20 19:59 20:10 MCHC 31 L RDW 16.2 H Lymph % (Auto) [place] % (Auto) Lymph # [place] # Seg Neutrophils % PT INR APTT POC ABG pH 7.162 L POC ABG pCO2 104.2 H POC ABG pO2 71 L Sodium 129 L Chloride 86.0 L Carbon Dioxide 33 H D BUN 80 H Creatinine 3.1 H D Glucose 124 H POC Glucose Calcium CK-MB (CK-2) Rel Index HDL Cholesterol Urine pH Urine Chloride Valproic Acid 01/13/18 01/14/18 01/14/18 21:25 02:04 02:08 MCHC 31 L RDW 16.1 H Lymph % (Auto) 8.[address] [place] % (Auto) 13.4 H Lymph # 0.[address] [place] # 0.9 H Seg Neutrophils % 77.7 H PT INR APTT POC ABG pH 7.182 L POC ABG pCO2 88.2 H POC ABG pO2 Sodium 129 L Chloride 91.0 L Carbon Dioxide BUN 82 H Creatinine 3.1 H Glucose 123 H POC Glucose Calcium CK-MB (CK-2) Rel Index HDL Cholesterol Urine pH Urine Chloride Valproic Acid 01/14/18 01/14/18 01/14/18 08:37 11:18 12:01 MCHC RDW Lymph % (Auto) [place] % (Auto) Lymph # [place] # Seg Neutrophils % PT INR APTT POC ABG pH 7.284 L 7.263 L POC ABG pCO2 72.3 H 80.4 H POC ABG pO2 71 L 79 L Sodium Chloride Carbon Dioxide BUN Creatinine Glucose POC Glucose Calcium CK-MB (CK-2) Rel Index HDL Cholesterol Urine pH Urine Chloride 21.9 L Valproic Acid 01/14/18 01/14/18 01/15/18 14:44 18:40 04:08 MCHC RDW Lymph % (Auto) [place] % (Auto) Lymph # [place] # Seg Neutrophils % PT INR APTT POC ABG pH 7.230 L POC ABG pCO2 87.5 H POC ABG pO2 70 L Sodium 135 L Chloride 95.4 L Carbon Dioxide BUN 70 H 57 H Creatinine 2.0 H Glucose 144 H 129 H POC Glucose Calcium CK-MB (CK-2) Rel Index HDL Cholesterol Urine pH Urine Chloride Valproic Acid 01/15/18 04:25 MCHC RDW Lymph % (Auto) [place] % (Auto) Lymph # [place] # Seg Neutrophils % PT INR APTT POC ABG pH 7.246 L POC ABG pCO2 83.8 H POC ABG pO2 Sodium Chloride Carbon Dioxide BUN Creatinine Glucose POC Glucose Calcium CK-MB (CK-2) Rel Index HDL Cholesterol Urine pH Urine Chloride Valproic Acid Allied health notes reviewed: nursing
[2018-01-15] MEDS: NACL 0.9% 1000 ML 1,000 ML IV SCH (07:16)
--- NOTE | 2018-01-15 07:29 | Progress Note ---
Assessment and Plan - Patient Problems (1) HYACINTH (acute kidney injury) Current Visit: No Status: Acute Plan to address problem: Renal function has improved with IVF hydration and maintaining adequate hemodynamic parameters. He is non oliguric. Will D/C IVF at this time as he is tolerating PO intake well. (2) Hyponatremia Current Visit: Yes Status: Acute Plan to address problem: In the setting of acute renal injury. Has resolved at this time. Will D/C IVF at present. (3) Hypertension Current Visit: Yes Status: Acute Plan to address problem: Blood pressure parameters are stable at this time. No acute needs to restart antihypertensives at present. Will monitor. (4) Acute and chronic respiratory failure Current Visit: Yes Status: Acute Plan to address problem: Currently on O2 via [place]. Was on bipap earlier. Being treated for a COPD exacerbation. Management per pulmonary team. Subjective Date of service: 01/15/18 Principal diagnosis: Acute Hypercapnic Resp Failure; Seizure disorder; Acute COPD exacerbation Interval history: Patient more alert this am, on 3L O2 via [place]. Eating rae crackers. He had bee placed with >3L UO over last 24 hours. He is tolerating PO intake well per nursing staff. He still has IVF running at 100 cc/hr. Labs noted, with creatinine decreased to 1.4 this am. Hemodynamics are stable. Cultures are negative to date. Objective - Vital Signs Vital signs: Vital Signs - 12hr 01/14/18 01/14/18 01/14/18 19:31 19:40 19:48 Temperature Pulse Rate 83 83 Pulse Rate [ 86 Bilateral Throughout] Respiratory 14 19 Rate Respiratory 20 Rate [Bilateral Throughout] Respiratory Rate [back] Blood Pressure 105/57 105/57 O2 Sat by Pulse 97 97 Oximetry 01/14/18 01/14/18 01/14/18 20:00 20:01 20:11 Temperature 98.8 F Pulse Rate 92 H Pulse Rate [ Bilateral Throughout] Respiratory 13 14 Rate Respiratory Rate [Bilateral Throughout] Respiratory 14 Rate [back] Blood Pressure 105/57 O2 Sat by Pulse 96 Oximetry 01/14/18 01/14/18 01/14/18 20:31 21:01 21:11 Temperature Pulse Rate 90 91 H Pulse Rate [ Bilateral Throughout] Respiratory 18 16 14 Rate Respiratory Rate [Bilateral Throughout] Respiratory Rate [back] Blood Pressure 163/91 163/91 O2 Sat by Pulse 99 96 Oximetry 01/14/18 01/14/18 01/14/18 21:15 21:17 21:31 Temperature Pulse Rate 91 H 92 H 93 H Pulse Rate [ Bilateral Throughout] Respiratory 13 19 Rate Respiratory Rate [Bilateral Throughout] Respiratory Rate [back] Blood Pressure 111/66 127/73 111/66 O2 Sat by Pulse 97 95 Oximetry 01/14/18 01/14/18 01/14/18 21:45 22:00 22:15 Temperature Pulse Rate 95 H 97 H 98 H Pulse Rate [ Bilateral Throughout] Respiratory 14 20 16 Rate Respiratory Rate [Bilateral Throughout] Respiratory Rate [back] Blood Pressure 127/73 129/73 129/73 O2 Sat by Pulse 94 89 97 Oximetry 01/14/18 01/14/18 01/14/18 22:31 22:45 23:01 Temperature Pulse Rate 94 H 93 H 92 H Pulse Rate [ Bilateral Throughout] Respiratory 15 15 14 Rate Respiratory Rate [Bilateral Throughout] Respiratory Rate [back] Blood Pressure 129/73 129/73 105/54 O2 Sat by Pulse 97 96 95 Oximetry 01/14/18 01/14/18 01/14/18 23:15 23:27 23:31 Temperature Pulse Rate 86 83 82 Pulse Rate [ Bilateral Throughout] Respiratory 15 13 13 Rate Respiratory Rate [Bilateral Throughout] Respiratory Rate [back] Blood Pressure 105/54 105/54 105/54 O2 Sat by Pulse 94 94 94 Oximetry 01/14/18 01/14/18 01/15/18 23:32 23:45 00:00 Temperature 99.6 F Pulse Rate 82 82 82 Pulse Rate [ Bilateral Throughout] Respiratory 13 17 12 Rate Respiratory Rate [Bilateral Throughout] Respiratory Rate [back] Blood Pressure 105/54 105/54 95/53 O2 Sat by Pulse 94 94 94 Oximetry 01/15/18 01/15/18 01/15/18 00:15 00:31 00:45 Temperature Pulse Rate 80 78 79 Pulse Rate [ Bilateral Throughout] Respiratory 18 14 12 Rate Respiratory Rate [Bilateral Throughout] Respiratory Rate [back] Blood Pressure 105/54 105/54 105/54 O2 Sat by Pulse 94 94 94 Oximetry 01/15/18 01/15/18 01/15/18 01:00 01:31 02:00 Temperature Pulse Rate 77 74 72 Pulse Rate [ Bilateral Throughout] Respiratory 23 15 12 Rate Respiratory Rate [Bilateral Throughout] Respiratory Rate [back] Blood Pressure 98/52 95/53 80/47 O2 Sat by Pulse 94 93 95 Oximetry 01/15/18 01/15/18 01/15/18 02:05 02:31 03:00 Temperature Pulse Rate 75 73 Pulse Rate [ Bilateral Throughout] Respiratory 12 14 Rate Respiratory Rate [Bilateral Throughout] Respiratory Rate [back] Blood Pressure 114/67 98/52 80/50 O2 Sat by Pulse 96 97 Oximetry 01/15/18 01/15/18 01/15/18 03:31 04:00 04:31 Temperature 99.1 F Pulse Rate 73 78 79 Pulse Rate [ Bilateral Throughout] Respiratory 13 12 16 Rate Respiratory Rate [Bilateral Throughout] Respiratory Rate [back] Blood Pressure 90/52 125/75 125/75 O2 Sat by Pulse 97 96 91 Oximetry 01/15/18 01/15/18 01/15/18 05:00 05:31 06:01 Temperature Pulse Rate 82 Pulse Rate [ Bilateral Throughout] Respiratory 16 Rate Respiratory Rate [Bilateral Throughout] Respiratory Rate [back] Blood Pressure 127/74 127/74 127/74 O2 Sat by Pulse 86 87 97 Oximetry - General Appearance General appearance: well-developed, appears stated age, obese EENT: PERRL Neck: no JVD, no thyromegaly Respiratory: Present: R[place], Decreased Breath Sounds Cardiology: regular, normal heart rate Gastrointestinal: normal, normoactive bowel sounds Integumentary: no rash, warm and dry Neurologic: no focal deficit, no asterixis Musculoskeletal: deferred Psychiatric: mood/affect appropriate, cooperative - Lab 01/14/18 02:08 01/15/18 04:08 Most recent lab results Calcium 9.4 mg/dL (8.4-10.2) 01/15/18 04:08 Urine Sodium 35 mmol/L 01/14/18 12:01 - Imaging Chest x-ray: report reviewed, image reviewed Kidney/bladder ultrasound: report reviewed, image reviewed - Allied health notes Allied health notes reviewed: nursing
[2018-01-15] MEDS: PAXIL PO SCH (09:21)
[2018-01-15] MEDS: REMERON PO SCH (09:21)
[2018-01-15] MEDS: PEPCID PO SCH (09:22)
[2018-01-15] MEDS: ASPIRIN PO SCH (09:22)
[2018-01-15] MEDS: COREG PO SCH ×2 (09:22→21:15)
[2018-01-15] MEDS: RisperDAL PO SCH ×2 (09:22→21:15)
[2018-01-15] MEDS: DELTASONE PO SCH (09:22)
[2018-01-15] MEDS: HEPARIN SUB-Q SCH ×2 (09:23→21:16)
[2018-01-15] MEDS: NORCO 10/325 PO PRN ×2 (09:33→21:12)
[2018-01-15] MEDS: BROVANA NEBU IH SCH ×2 (10:40→19:55)
[2018-01-15] MEDS: PULMICORT IH SCH ×2 (10:40→19:55)
[2018-01-15] MEDS: DUONEB *Not for PRN Use IH SCH ×2 (10:40→19:55)
--- NOTE | 2018-01-15 16:38 | Progress Note ---
Assessment and Plan Assessment and plan: Patient is a 57 yo man with a history of HTN, Seizure Disorder, Chronic Pain, COPD, Dementia, Schizophrenia and Nicotine Dependence who presented with syncope while urinating with head trauma/right black eye. Yesterday patient was somnolent and he was in respiratory distress with hypotension. CT head was done and negative for acute intracranial process. Patient was given bolus of IV fluids without improvement of his blood pressure and patient was transferred to ICU. ABG showed patient is hypercapnia. Acute kidney injury, creatinine was 3. Patient was managed appropriately in the ICU , blood pressures normalized HYACINTH Showed some improvement Acute exacerbation of COPD Acute hypercapnic respiratory failure patient is on BiPAP, patient is saturating well, patient is alert and oriented Syncope; resolved Seizure: Continue home medication Hypotension; blood pressure medications were held, he was given IV fluid and patient pressure normal -Chronic back pain: symptomatic care -DVT prophylaxis: SCD to BLE while in bed. -CVA ruled out -Advance care planning: full code DVT prophylaxis: Heparin The high probability of a clinically significant, sudden or life threatening deterioration of the [respiratory, renal] system(s) required my full and direct attention, intervention and personal management. The aggregate critical care time was [34] minutes. This time is in addition to time spent performing reported procedures but includes the following: [x] Data Review and interpretation [x] Patient assessment and monitoring of vital signs [x] Documentation [x] Medication orders and management - Patient Problems (1) COPD (chronic obstructive pulmonary disease) Current Visit: Yes Status: Chronic Qualifiers: COPD type: COPD with acute exacerbation Qualified Code(s): J44.1 - Chronic obstructive pulmonary disease with (acute) exacerbation History Interval history: Patient was seen and evaluated this morning, Patient is on BIPAP. He was alert and oriented. Hospitalist Physical - Physical exam Narrative exam: Patie is in cardiopulmonary distress. Patient is on BIPAP. The patient appeared well nourished and normally developed. Vital signs as documented. Head exam is unremarkable. No scleral icterus . Neck is without jugular venous distension, thyromegaly, or carotid bruits. Lungs are clear to auscultation. Cardiac exam reveals regular rate and Rhythm. First and second heart sounds normal. No murmurs, rubs or gallops. Abdominal exam reveals normal bowel sounds, no masses, no organomegaly and no aortic enlargement. Extremities are nonedematous and both femoral and pedal pulses are normal. SENIOR INTEGRATION DEVELOPER: Alert and oriented. No focal weakness. - Constitutional Vitals: Temp Pulse Resp BP Pulse Ox 98.7 F 89 14 128/69 90 01/15/18 12:00 01/15/18 12:00 01/15/18 12:00 01/15/18 12:00 01/15/18 12:00 General appearance: Absent: mild distress Results - Labs CBC & Chem 7: 01/14/18 02:08 01/15/18 04:08 Labs: Laboratory Last Values WBC 6.6 K/mm3 (4.5-11.0) 01/14/18 02:08 RBC 4.41 M/mm3 (3.65-5.03) 01/14/18 02:08 Hgb 12.2 gm/dl (11.8-15.2) 01/14/18 02:08 Hct 39.5 % (35.5-45.6) 01/14/18 02:08 MCV 90 fl (84-94) 01/14/18 02:08 MCH 28 pg (28-32) 01/14/18 02:08 MCHC 31 % (32-34) L 01/14/18 02:08 RDW 16.1 % (13.2-15.2) H 01/14/18 02:08 Plt Count 197 K/mm3 (140-440) 01/14/18 02:08 Lymph % (Auto) 8.7 % (13.4-35.0) L 01/14/18 02:08 [place] % (Auto) 13.4 % (0.0-7.3) H 01/14/18 02:08 Eos % (Auto) 0.0 % (0.0-4.3) 01/14/18 02:08 Baso % (Auto) 0.2 % (0.0-1.8) 01/14/18 02:08 Lymph # 0.6 K/mm3 (1.2-5.4) L 01/14/18 02:08 [place] # 0.9 K/mm3 (0.0-0.8) H 01/14/18 02:08 Eos # 0.0 K/mm3 (0.0-0.4) 01/14/18 02:08 Baso # 0.0 K/mm3 (0.0-0.1) 01/14/18 02:08 Seg Neutrophils % 77.7 % (40.0-70.0) H 01/14/18 02:08 Seg Neutrophils # 5.1 K/mm3 (1.8-7.7) 01/14/18 02:08 PT 11.8 Sec. (12.2-14.9) L 01/07/18 15:44 INR 0.83 (0.87-1.13) L 01/07/18 15:44 APTT 23.5 Sec. (24.2-36.6) L 01/07/18 15:44 D-Dimer < 135.0 ng/mlDDU (0-234) 01/07/18 15:44 POC ABG pH 7.246 (7.35-7.45) L 01/15/18 04:25 POC ABG pCO2 83.8 (35-45) H 01/15/18 04:25 POC ABG pO2 80 (80-105) 01/15/18 04:25 POC ABG HCO3 36.5 01/15/18 04:25 POC ABG Total CO2 39 01/15/18 04:25 POC ABG O2 Sat 92 01/15/18 04:25 POC ABG Base Excess 9 01/15/18 04:25 FiO2 40 % 01/15/18 04:25 Sodium 137 mmol/L (137-145) 01/15/18 04:08 Potassium 4.8 mmol/L (3.6-5.0) 01/15/18 04:08 Chloride 99.0 mmol/L (98-107) 01/15/18 04:08 Carbon Dioxide 28 mmol/L (22-30) 01/15/18 04:08 Anion Gap 15 mmol/L 01/15/18 04:08 BUN 57 mg/dL (9-20) H 01/15/18 04:08 Creatinine 1.4 mg/dL (0.8-1.5) 01/15/18 04:08 Estimated GFR 52 ml/min 01/15/18 04:08 BUN/Creatinine Ratio 41 % 01/15/18 04:08 Glucose 129 mg/dL (75-100) H 01/15/18 04:08 POC Glucose 118 (70-105) H 01/13/18 17:53 Lactic Acid 0.80 mmol/L (0.7-2.0) 01/13/18 19:59 Calcium 9.4 mg/dL (8.4-10.2) 01/15/18 04:08 Total Creatine Kinase 60 units/L (55-170) 01/07/18 15:44 CK-MB (CK-2) 2.6 ng/mL (0.0-4.0) 01/07/18 15:44 CK-MB (CK-2) Rel Index 4.3 (0-4) H 01/07/18 15:44 Troponin T < 0.010 ng/mL (0.00-0.029) 01/07/18 15:44 Triglycerides 119 mg/dL (2-149) 01/08/18 04:59 Cholesterol 174 mg/dL (50-199) 01/08/18 04:59 LDL Cholesterol Direct 101 mg/dL (50-130) 01/08/18 04:59 HDL Cholesterol 60 mg/dL (40-59) H 01/08/18 04:59 Cholesterol/HDL Ratio 2.90 % 01/08/18 04:59 Urine Color Straw (Yellow) 01/14/18 12:01 Urine Turbidity Clear (Clear) 01/14/18 12:01 Urine pH 6.0 (5.0-7.0) 01/14/18 12:01 Ur Specific [place] 1.010 (1.003-1.030) 01/14/18 12:01 Urine Protein <15 mg/dl mg/dL (Negative) 01/14/18 12:01 Urine Glucose (UA) Neg mg/dL (Negative) 01/14/18 12:01 Urine Ketones Neg mg/dL (Negative) 01/14/18 12:01 Urine Blood Neg (Negative) 01/14/18 12:01 Urine Nitrite Neg (Negative) 01/14/18 12:01 Urine Bilirubin Neg (Negative) 01/14/18 12:01 Urine Urobilinogen < 2.0 mg/dL (<2.0) 01/14/18 12:01 Ur Leukocyte Esterase Neg (Negative) 01/14/18 12:01 Urine WBC (Auto) < 1.0 /HPF (0.0-6.0) 01/14/18 12:01 Urine RBC (Auto) 3.0 /HPF (0.0-6.0) 01/14/18 12:01 Amorphous Crystals Few 01/07/18 Unknown Urine Mucus Few /HPF 01/07/18 Unknown Urine Osmolality 321 Mosm/kg 01/14/18 12:01 Urine Sodium 35 mmol/L 01/14/18 12:01 Urine Chloride 21.9 mmolL (110-250) L 01/14/18 12:01 Urine Opiates Screen Presumptive negative 01/07/18 Unknown Urine Methadone Screen Presumptive negative 01/07/18 Unknown Ur Barbiturates Screen Presumptive negative 01/07/18 Unknown Valproic Acid 27.1 ug/mL (50-100) L 01/07/18 15:53 Ur Phencyclidine Scrn Presumptive negative 01/07/18 Unknown Ur Amphetamines Screen Presumptive negative 01/07/18 Unknown U Benzodiazepines Scrn Presumptive negative 01/07/18 Unknown Urine Cocaine Screen Presumptive negative 01/07/18 Unknown U Marijuana (THC) Screen Presumptive negative 01/07/18 Unknown Drugs of Abuse Note Disclamer 01/07/18 Unknown Plasma/Serum Alcohol < 0.01 % (0-0.07) 01/07/18 15:44
--- NOTE | 2018-01-15 23:12 | Cat Scan Report ---
FINAL REPORT PROCEDURE: CT CHEST WO CON TECHNIQUE: Computerized axial tomography of the chest was performed without contrast material. This study is performed without intravenous contrast and the sensitivity for pathology, including neoplasms, adenopathy, abscess, pulmonary embolism and aortic dissection, is reduced. HISTORY: hypercapnic respiraotry failure COMPARISON: No prior studies are available for comparison. TECHNICAL QUALITY: Satisfactory. FINDINGS: Multiple small calcified nodules are noted in bilateral lungs consistent with old healed granulomas. Small calcified lymph nodes are noted in bilateral hilar regions. Mild degree bilateral pleural effusions are noted right more than left. Atelectasis of right lower lobe is noted. Subsegmental atelectatic changes are noted involving left lingula and right middle lobe. There are no mass lesions. Aorta is of normal caliber. There is mild cardiomegaly. Coronary arterial calcification is noted. Thyroid demonstrates normal density. A fat containing right adrenal mass is identified measuring 2.8 centimeters. Subacute to ununited fractures are noted involving left veras 10 12th ribs posteriorly. IMPRESSION: Mild degree bilateral pleural effusions Atelectatic changes bilateral lungs as described above. Any underlying infiltrates cannot be excluded. Mild cardiomegaly with coronary arterial calcification Fat containing right adrenal mass most likely represents myelolipoma..
[2018-01-16] MEDS: BROVANA NEBU IH SCH ×2 (08:35→21:09)
[2018-01-16] MEDS: PULMICORT IH SCH ×2 (08:35→21:09)
[2018-01-16] MEDS: DUONEB *Not for PRN Use IH SCH ×2 (08:35→21:14)
--- NOTE | 2018-01-16 08:38 | Progress Note ---
Assessment and Plan Assessment and plan: Patient is a 57 yo man with a history of HTN, Seizure Disorder, Chronic Pain, COPD, Dementia, Schizophrenia and Nicotine Dependence who presented with syncope while urinating with head trauma/right black eye. Yesterday patient was somnolent and he was in respiratory distress with hypotension. CT head was done and negative for acute intracranial process. Patient was given bolus of IV fluids without improvement of his blood pressure and patient was transferred to ICU. ABG showed patient is hypercapnia. Acute kidney injury, creatinine was 3. Patient was managed appropriately in the ICU , blood pressures normalized HYACINTH Showed some improvement Acute exacerbation of COPD Acute hypercapnic respiratory failure patient is on BiPAP, patient is saturating well, patient is alert and oriented Syncope; resolved Seizure: Continue home medication Hypotension; blood pressure medications were held, he was given IV fluid and patient pressure normal -Chronic back pain: symptomatic care -DVT prophylaxis: SCD to BLE while in bed. -CVA ruled out -Advance care planning: full code DVT prophylaxis: Heparin Disposition: transfer to [facility] - Patient Problems (1) COPD (chronic obstructive pulmonary disease) Current Visit: Yes Status: Chronic Qualifiers: COPD type: COPD with acute exacerbation Qualified Code(s): J44.1 - Chronic obstructive pulmonary disease with (acute) exacerbation History Interval history: Patient was seen and evaluated this morning, Patient is on BIPAP. He was alert and oriented. Hospitalist Physical - Physical exam Narrative exam: Patie is in cardiopulmonary distress. Patient is on BIPAP. The patient appeared well nourished and normally developed. Vital signs as documented. Head exam is unremarkable. No scleral icterus . Neck is without jugular venous distension, thyromegaly, or carotid bruits. Lungs are clear to auscultation. Cardiac exam reveals regular rate and Rhythm. First and second heart sounds normal. No murmurs, rubs or gallops. Abdominal exam reveals normal bowel sounds, no masses, no organomegaly and no aortic enlargement. Extremities are nonedematous and both femoral and pedal pulses are normal. MATERIAL ANALYST: Alert and oriented. No focal weakness. - Constitutional Vitals: Temp Pulse Resp BP Pulse Ox 98.5 F 84 24 153/92 92 01/16/18 08:00 01/16/18 08:32 01/16/18 08:32 01/16/18 07:00 01/16/18 07:00 General appearance: Absent: mild distress Results - Labs CBC & Chem 7: 01/14/18 02:08 01/15/18 04:08 Labs: Laboratory Last Values WBC 6.6 K/mm3 (4.5-11.0) 01/14/18 02:08 RBC 4.41 M/mm3 (3.65-5.03) 01/14/18 02:08 Hgb 12.2 gm/dl (11.8-15.2) 01/14/18 02:08 Hct 39.5 % (35.5-45.6) 01/14/18 02:08 MCV 90 fl (84-94) 01/14/18 02:08 MCH 28 pg (28-32) 01/14/18 02:08 MCHC 31 % (32-34) L 01/14/18 02:08 RDW 16.1 % (13.2-15.2) H 01/14/18 02:08 Plt Count 197 K/mm3 (140-440) 01/14/18 02:08 Lymph % (Auto) 8.7 % (13.4-35.0) L 01/14/18 02:08 [place] % (Auto) 13.4 % (0.0-7.3) H 01/14/18 02:08 Eos % (Auto) 0.0 % (0.0-4.3) 01/14/18 02:08 Baso % (Auto) 0.2 % (0.0-1.8) 01/14/18 02:08 Lymph # 0.6 K/mm3 (1.2-5.4) L 01/14/18 02:08 [place] # 0.9 K/mm3 (0.0-0.8) H 01/14/18 02:08 Eos # 0.0 K/mm3 (0.0-0.4) 01/14/18 02:08 Baso # 0.0 K/mm3 (0.0-0.1) 01/14/18 02:08 Seg Neutrophils % 77.7 % (40.0-70.0) H 01/14/18 02:08 Seg Neutrophils # 5.1 K/mm3 (1.8-7.7) 01/14/18 02:08 PT 11.8 Sec. (12.2-14.9) L 01/07/18 15:44 INR 0.83 (0.87-1.13) L 01/07/18 15:44 APTT 23.5 Sec. (24.2-36.6) L 01/07/18 15:44 D-Dimer < 135.0 ng/mlDDU (0-234) 01/07/18 15:44 POC ABG pH 7.298 (7.35-7.45) L 01/15/18 16:43 POC ABG pCO2 72.6 (35-45) H 01/15/18 16:43 POC ABG pO2 68 (80-105) L 01/15/18 16:43 POC ABG HCO3 35.6 01/15/18 16:43 POC ABG Total CO2 38 01/15/18 16:43 POC ABG O2 Sat 90 01/15/18 16:43 POC ABG Base Excess 9 01/15/18 16:43 FiO2 30 % 01/15/18 16:43 Sodium 137 mmol/L (137-145) 01/15/18 04:08 Potassium 4.8 mmol/L (3.6-5.0) 01/15/18 04:08 Chloride 99.0 mmol/L (98-107) 01/15/18 04:08 Carbon Dioxide 28 mmol/L (22-30) 01/15/18 04:08 Anion Gap 15 mmol/L 01/15/18 04:08 BUN 57 mg/dL (9-20) H 01/15/18 04:08 Creatinine 1.4 mg/dL (0.8-1.5) 01/15/18 04:08 Estimated GFR 52 ml/min 01/15/18 04:08 BUN/Creatinine Ratio 41 % 01/15/18 04:08 Glucose 129 mg/dL (75-100) H 01/15/18 04:08 POC Glucose 118 (70-105) H 01/13/18 17:53 Lactic Acid 0.80 mmol/L (0.7-2.0) 01/13/18 19:59 Calcium 9.4 mg/dL (8.4-10.2) 01/15/18 04:08 Total Creatine Kinase 60 units/L (55-170) 01/07/18 15:44 CK-MB (CK-2) 2.6 ng/mL (0.0-4.0) 01/07/18 15:44 CK-MB (CK-2) Rel Index 4.3 (0-4) H 01/07/18 15:44 Troponin T < 0.010 ng/mL (0.00-0.029) 01/07/18 15:44 Triglycerides 119 mg/dL (2-149) 01/08/18 04:59 Cholesterol 174 mg/dL (50-199) 01/08/18 04:59 LDL Cholesterol Direct 101 mg/dL (50-130) 01/08/18 04:59 HDL Cholesterol 60 mg/dL (40-59) H 01/08/18 04:59 Cholesterol/HDL Ratio 2.90 % 01/08/18 04:59 Urine Color Straw (Yellow) 01/14/18 12:01 Urine Turbidity Clear (Clear) 01/14/18 12:01 Urine pH 6.0 (5.0-7.0) 01/14/18 12:01 Ur Specific [place] 1.010 (1.003-1.030) 01/14/18 12:01 Urine Protein <15 mg/dl mg/dL (Negative) 01/14/18 12:01 Urine Glucose (UA) Neg mg/dL (Negative) 01/14/18 12:01 Urine Ketones Neg mg/dL (Negative) 01/14/18 12:01 Urine Blood Neg (Negative) 01/14/18 12:01 Urine Nitrite Neg (Negative) 01/14/18 12:01 Urine Bilirubin Neg (Negative) 01/14/18 12:01 Urine Urobilinogen < 2.0 mg/dL (<2.0) 01/14/18 12:01 Ur Leukocyte Esterase Neg (Negative) 01/14/18 12:01 Urine WBC (Auto) < 1.0 /HPF (0.0-6.0) 01/14/18 12:01 Urine RBC (Auto) 3.0 /HPF (0.0-6.0) 01/14/18 12:01 Amorphous Crystals Few 01/07/18 Unknown Urine Mucus Few /HPF 01/07/18 Unknown Urine Osmolality 321 Mosm/kg 01/14/18 12:01 Urine Sodium 35 mmol/L 01/14/18 12:01 Urine Chloride 21.9 mmolL (110-250) L 01/14/18 12:01 Urine Opiates Screen Presumptive negative 01/07/18 Unknown Urine Methadone Screen Presumptive negative 01/07/18 Unknown Ur Barbiturates Screen Presumptive negative 01/07/18 Unknown Valproic Acid 27.1 ug/mL (50-100) L 01/07/18 15:53 Ur Phencyclidine Scrn Presumptive negative 01/07/18 Unknown Ur Amphetamines Screen Presumptive negative 01/07/18 Unknown U Benzodiazepines Scrn Presumptive negative 01/07/18 Unknown Urine Cocaine Screen Presumptive negative 01/07/18 Unknown U Marijuana (THC) Screen Presumptive negative 01/07/18 Unknown Drugs of Abuse Note Disclamer 01/07/18 Unknown Plasma/Serum Alcohol < 0.01 % (0-0.07) 01/07/18 15:44
--- NOTE | 2018-01-16 09:05 | Progress Note ---
Assessment and Plan Acute hypercapnic respiratory failure -Acute exacerbation of COPD -Syncope -Seizure -Hypotension -Chronic back pain -Abnormal CXR, atelectasis right base -Continue with BIPAP and adjust IPAP with restrictive oxygen therapies for better gas exchange -ABG much improved, continue nocturnal BIPAP and prn -Oxygen at 2L/min -PT/OT to evalute and treat -VTE prophylaxis -Bronchodialtors -Steroids, start steroid taper in the next 24 hours -Gentle diuresis while monitoring renal function, blood pressure and electrolyte profile. -Replete electrolytes as indicated -Antibiotics and bronchodilators for AE-COPD -Transfer to [facility] for ongoing care, will follow FULL CODE Subjective Date of service: 01/16/18 Principal diagnosis: Acute Hypercapnic Resp Failure; Seizure disorder; Acute COPD exacerbation Interval history: Seen and examined at bedside; 24-hour events reviewed; nursing and respiratory care staff consulted; lying in bed on NIPPV, denies acute chest pains; no shortness of breath, states he feels better. Slept well last night. Looks great this morning. Objective Vital Signs - 12hr 01/15/18 01/15/18 01/15/18 21:15 21:31 22:01 Temperature Pulse Rate 104 H 97 H 107 H Pulse Rate [ Bilateral Throughout] Respiratory 19 24 Rate Respiratory Rate [Bilateral Throughout] Blood Pressure 165/76 155/81 163/89 O2 Sat by Pulse 95 94 Oximetry 01/15/18 01/15/18 01/15/18 22:31 23:00 23:31 Temperature Pulse Rate 98 H 98 H 100 H Pulse Rate [ Bilateral Throughout] Respiratory 19 17 16 Rate Respiratory Rate [Bilateral Throughout] Blood Pressure 163/89 140/81 140/81 O2 Sat by Pulse 95 93 95 Oximetry 01/15/18 01/16/18 01/16/18 23:35 00:00 00:07 Temperature 98.4 F Pulse Rate 99 H 98 H 95 H Pulse Rate [ Bilateral Throughout] Respiratory 17 17 27 H Rate Respiratory Rate [Bilateral Throughout] Blood Pressure 140/81 136/78 136/78 O2 Sat by Pulse 96 90 95 Oximetry 01/16/18 01/16/18 01/16/18 00:31 01:00 01:31 Temperature Pulse Rate 88 82 95 H Pulse Rate [ Bilateral Throughout] Respiratory 17 21 19 Rate Respiratory Rate [Bilateral Throughout] Blood Pressure 136/78 136/78 118/70 O2 Sat by Pulse 94 94 97 Oximetry 01/16/18 01/16/18 01/16/18 02:00 02:31 03:00 Temperature Pulse Rate 84 88 77 Pulse Rate [ Bilateral Throughout] Respiratory 13 16 22 Rate Respiratory Rate [Bilateral Throughout] Blood Pressure 135/88 135/88 134/81 O2 Sat by Pulse 95 94 95 Oximetry 01/16/18 01/16/18 01/16/18 03:31 03:35 04:00 Temperature 99.3 F Pulse Rate 82 81 78 Pulse Rate [ Bilateral Throughout] Respiratory 13 27 H 24 Rate Respiratory Rate [Bilateral Throughout] Blood Pressure 134/81 134/81 140/86 O2 Sat by Pulse 97 97 93 Oximetry 01/16/18 01/16/18 01/16/18 04:31 05:00 05:31 Temperature Pulse Rate 76 76 72 Pulse Rate [ Bilateral Throughout] Respiratory 25 H 19 25 H Rate Respiratory Rate [Bilateral Throughout] Blood Pressure 140/86 132/86 132/86 O2 Sat by Pulse 94 94 94 Oximetry 01/16/18 01/16/18 01/16/18 06:00 06:31 07:00 Temperature Pulse Rate 74 79 79 Pulse Rate [ Bilateral Throughout] Respiratory 25 H 16 19 Rate Respiratory Rate [Bilateral Throughout] Blood Pressure 136/79 136/79 153/92 O2 Sat by Pulse 93 95 92 Oximetry 01/16/18 01/16/18 01/16/18 08:00 08:32 08:41 Temperature 98.5 F Pulse Rate Pulse Rate [ 84 89 Bilateral Throughout] Respiratory Rate Respiratory 24 20 Rate [Bilateral Throughout] Blood Pressure O2 Sat by Pulse 93 Oximetry Constitutional: no acute distress, other (middle aged CM normocephalic with mildly increased respiratory effort) Eyes: non-icteric, other (periorbital ecchymosis, improving) ENT: oropharynx moist, other (mallampati 3) Neck: supple, no lymphadenopathy, no JVD, other (no thyromegaly) Effort: mildly labored Ascultation: Bilateral: diminished breath sounds, rhonchi (posterior bases), other (Prolonged expiratory phase.) Percussion: Bilateral: not dull Cardiovascular: regular rate and rhythm, other (No R/M) Gastrointestinal: normoactive bowel sounds, soft, non-tender, non-distended, other (No HSM, obese) Integumentary: rash Extremities: no cyanosis, no edema, pink and warm, pulses normal Neurologic: normal mental status, non-focal exam, pupils equal and round, CN II- XII normal, motor strength normal and Psychiatric: mood appropriate, affect normal CBC and BMP: 01/18/18 05:32 01/18/18 05:32 ABG, PT/INR, D-dimer: ABG POC ABG pH 7.298 (7.35-7.45) L 01/15/18 16:43 POC ABG pCO2 72.6 (35-45) H 01/15/18 16:43 POC ABG pO2 68 (80-105) L 01/15/18 16:43 POC ABG HCO3 35.6 01/15/18 16:43 POC ABG Total CO2 38 01/15/18 16:43 POC ABG O2 Sat 90 01/15/18 16:43 PT/INR, D-dimer PT 11.8 Sec. (12.2-14.9) L 01/07/18 15:44 INR 0.83 (0.87-1.13) L 01/07/18 15:44 D-Dimer < 135.0 ng/mlDDU (0-234) 01/07/18 15:44 Abnormal lab findings: Abnormal Labs 01/07/18 01/07/18 01/07/18 15:44 15:44 15:44 MCHC RDW 16.5 H Lymph % (Auto) [place] % (Auto) 10.2 H Lymph # [place] # 0.9 H Seg Neutrophils % 73.7 H PT 11.8 L INR 0.83 L APTT 23.5 L POC ABG pH POC ABG pCO2 POC ABG pO2 Sodium 133 L Chloride 89.4 L Carbon Dioxide 36 H BUN 7 L Creatinine 0.5 L Glucose 130 H POC Glucose Calcium CK-MB (CK-2) Rel Index 4.3 H HDL Cholesterol Urine pH Urine Chloride Valproic Acid 01/07/18 01/07/18 01/07/18 15:51 15:53 Unknown MCHC RDW Lymph % (Auto) [place] % (Auto) Lymph # [place] # Seg Neutrophils % PT INR APTT POC ABG pH POC ABG pCO2 POC ABG pO2 Sodium Chloride Carbon Dioxide BUN Creatinine Glucose POC Glucose 134 H Calcium CK-MB (CK-2) Rel Index HDL Cholesterol Urine pH 8.0 H Urine Chloride Valproic Acid 27.1 L 01/08/18 01/09/18 01/09/18 04:59 05:02 05:02 MCHC 31 L RDW 16.2 H Lymph % (Auto) [place] % (Auto) Lymph # [place] # Seg Neutrophils % PT INR APTT POC ABG pH POC ABG pCO2 POC ABG pO2 Sodium Chloride 91.9 L Carbon Dioxide 38 H BUN 7 L Creatinine 0.5 L Glucose POC Glucose Calcium CK-MB (CK-2) Rel Index HDL Cholesterol 60 H Urine pH Urine Chloride Valproic Acid 01/10/18 01/10/18 01/13/18 05:26 05:26 17:53 MCHC RDW 16.4 H Lymph % (Auto) [place] % (Auto) Lymph # [place] # Seg Neutrophils % PT INR APTT POC ABG pH POC ABG pCO2 POC ABG pO2 Sodium 135 L Chloride 84.7 L Carbon Dioxide 40 H BUN Creatinine 0.5 L Glucose POC Glucose 118 H Calcium 10.4 H CK-MB (CK-2) Rel Index HDL Cholesterol Urine pH Urine Chloride Valproic Acid 01/13/18 01/13/18 01/13/18 19:20 19:59 20:10 MCHC 31 L RDW 16.2 H Lymph % (Auto) [place] % (Auto) Lymph # [place] # Seg Neutrophils % PT INR APTT POC ABG pH 7.162 L POC ABG pCO2 104.2 H POC ABG pO2 71 L Sodium 129 L Chloride 86.0 L Carbon Dioxide 33 H D BUN 80 H Creatinine 3.1 H D Glucose 124 H POC Glucose Calcium CK-MB (CK-2) Rel Index HDL Cholesterol Urine pH Urine Chloride Valproic Acid 01/13/18 01/14/18 01/14/18 21:25 02:04 02:08 MCHC 31 L RDW 16.1 H Lymph % (Auto) 8.7 L [place] % (Auto) 13.4 H Lymph # 0.6 L [place] # 0.9 H Seg Neutrophils % 77.7 H PT INR APTT POC ABG pH 7.182 L POC ABG pCO2 88.2 H POC ABG pO2 Sodium 129 L Chloride 91.0 L Carbon Dioxide BUN 82 H Creatinine 3.1 H Glucose 123 H POC Glucose Calcium CK-MB (CK-2) Rel Index HDL Cholesterol Urine pH Urine Chloride Valproic Acid 01/14/18 01/14/18 01/14/18 08:37 11:18 12:01 [facility] RDW Lymph % (Auto) [place] % (Auto) Lymph # [place] # Seg Neutrophils % PT INR APTT POC ABG pH 7.284 L 7.263 L POC ABG pCO2 72.3 H 80.4 H POC ABG pO2 71 L 79 L Sodium Chloride Carbon Dioxide BUN Creatinine Glucose POC Glucose Calcium CK-MB (CK-2) Rel Index HDL Cholesterol Urine pH Urine Chloride 21.9 L Valproic Acid 01/14/18 01/14/18 01/15/18 14:44 18:40 04:08 [facility] RDW Lymph % (Auto) [place] % (Auto) Lymph # [place] # Seg Neutrophils % PT INR APTT POC ABG pH 7.230 L POC ABG pCO2 87.5 H POC ABG pO2 70 L Sodium 135 L Chloride 95.4 L Carbon Dioxide BUN 70 H 57 H Creatinine 2.0 H Glucose 144 H 129 H POC Glucose Calcium CK-MB (CK-2) Rel Index HDL Cholesterol Urine pH Urine Chloride Valproic Acid 01/15/18 01/15/18 04:25 16:43 [facility] RDW Lymph % (Auto) [place] % (Auto) Lymph # [place] # Seg Neutrophils % PT INR APTT POC ABG pH 7.246 L 7.298 L POC ABG pCO2 83.8 H 72.6 H POC ABG pO2 68 L Sodium Chloride Carbon Dioxide BUN Creatinine Glucose POC Glucose Calcium CK-MB (CK-2) Rel Index HDL Cholesterol Urine pH Urine Chloride Valproic Acid CT scan - chest: image reviewed (right lower lobe infiltrate) Allied health notes reviewed: nursing
[2018-01-16] MEDS: COREG PO SCH ×2 (09:18→21:12)
[2018-01-16] MEDS: PAXIL PO SCH (09:18)
[2018-01-16] MEDS: APRESOLINE IV PRN ×3 (09:19→20:36)
[2018-01-16] MEDS: ASPIRIN PO SCH (09:19)
[2018-01-16] MEDS: DELTASONE PO SCH (09:19)
--- NOTE | 2018-01-16 09:19 | Progress Note ---
Assessment and Plan - Patient Problems (1) HYACINTH (acute kidney injury) Current Visit: No Status: Acute Plan to address problem: Renal function has improved with IVF hydration and maintaining adequate hemodynamic parameters. He is non oliguric. IVF have been DC'd at this time as he is tolerating PO intake well. (2) Hyponatremia Current Visit: Yes Status: Acute Plan to address problem: In the setting of acute renal injury. Has resolved at this time. IVF DC'd at present. (3) Hypertension Current Visit: Yes Status: Acute Plan to address problem: Blood pressure parameters noted at this time. His am blood pressures are in the systolic 130s-150s with latest in 180s. Continue to monitor, but if maintains same trend, would slowly add back his amlodipine. Would hold off on the lisinopril for now in the setting of the recent HYACINTH until renal function further stabilizes back to baseline. (4) Acute and chronic respiratory failure Current Visit: Yes Status: Acute Plan to address problem: Currently on O2 via NC. Was on bipap earlier. Being treated for a COPD exacerbation. Management per pulmonary team. Subjective Date of service: 01/16/18 Principal diagnosis: Acute Hypercapnic Resp Failure; Seizure disorder; Acute COPD exacerbation Interval history: No acute changes overnight. He is tolerating PO intake and is finishing his breakfast this morning. Labs pending this am. He remains non oliguric. Objective - Vital Signs Vital signs: Vital Signs - 12hr 01/15/18 01/15/18 01/15/18 21:31 22:01 22:31 Temperature Pulse Rate 97 H 107 H 98 H Pulse Rate [ Bilateral Throughout] Respiratory 19 24 19 Rate Respiratory Rate [Bilateral Throughout] Blood Pressure 155/81 163/89 163/89 O2 Sat by Pulse 95 94 95 Oximetry 01/15/18 01/15/18 01/15/18 23:00 23:31 23:35 Temperature Pulse Rate 98 H 100 H 99 H Pulse Rate [ Bilateral Throughout] Respiratory 17 16 17 Rate Respiratory Rate [Bilateral Throughout] Blood Pressure 140/81 140/81 140/81 O2 Sat by Pulse 93 95 96 Oximetry 01/16/18 01/16/18 01/16/18 00:00 00:07 00:31 Temperature 98.4 F Pulse Rate 98 H 95 H 88 Pulse Rate [ Bilateral Throughout] Respiratory 17 27 H 17 Rate Respiratory Rate [Bilateral Throughout] Blood Pressure 136/78 136/78 136/78 O2 Sat by Pulse 90 95 94 Oximetry 01/16/18 01/16/18 01/16/18 01:00 01:31 02:00 Temperature Pulse Rate 82 95 H 84 Pulse Rate [ Bilateral Throughout] Respiratory 21 19 13 Rate Respiratory Rate [Bilateral Throughout] Blood Pressure 136/78 118/70 135/88 O2 Sat by Pulse 94 97 95 Oximetry 01/16/18 01/16/18 01/16/18 02:31 03:00 03:31 Temperature Pulse Rate 88 77 82 Pulse Rate [ Bilateral Throughout] Respiratory 16 22 13 Rate Respiratory Rate [Bilateral Throughout] Blood Pressure 135/88 134/81 134/81 O2 Sat by Pulse 94 95 97 Oximetry 01/16/18 01/16/18 01/16/18 03:35 04:00 04:31 Temperature 99.3 F Pulse Rate 81 78 76 Pulse Rate [ Bilateral Throughout] Respiratory 27 H 24 25 H Rate Respiratory Rate [Bilateral Throughout] Blood Pressure 134/81 140/86 140/86 O2 Sat by Pulse 97 93 94 Oximetry 01/16/18 01/16/18 01/16/18 05:00 05:31 06:00 Temperature Pulse Rate 76 72 74 Pulse Rate [ Bilateral Throughout] Respiratory 19 25 H 25 H Rate Respiratory Rate [Bilateral Throughout] Blood Pressure 132/86 132/86 136/79 O2 Sat by Pulse 94 94 93 Oximetry 01/16/18 01/16/18 01/16/18 06:31 07:00 08:00 Temperature 98.5 F Pulse Rate 79 79 Pulse Rate [ Bilateral Throughout] Respiratory 16 19 Rate Respiratory Rate [Bilateral Throughout] Blood Pressure 136/79 153/92 O2 Sat by Pulse 95 92 Oximetry 01/16/18 01/16/18 08:32 08:41 Temperature Pulse Rate Pulse Rate [ 84 89 Bilateral Throughout] Respiratory Rate Respiratory 24 20 Rate [Bilateral Throughout] Blood Pressure O2 Sat by Pulse 93 Oximetry - General Appearance General appearance: well-nourished, appears stated age, chronically ill EENT: PERRL, mucous membranes moist Neck: no JVD, no thyromegaly, supple Respiratory: Present: Decreased Breath Sounds Cardiology: regular, normal heart rate Gastrointestinal: normal, normoactive bowel sounds Integumentary: no rash, warm and dry Neurologic: no focal deficit, no asterixis Musculoskeletal: deferred Psychiatric: mood/affect appropriate, cooperative - Lab 01/14/18 02:08 01/15/18 04:08 Most recent lab results Calcium 9.4 mg/dL (8.4-10.2) 01/15/18 04:08 Urine Sodium 35 mmol/L 01/14/18 12:01 - Allied health notes Allied health notes reviewed: nursing
[2018-01-16] MEDS: NORCO 10/325 PO PRN ×2 (09:20→19:49)
[2018-01-16] MEDS: REMERON PO SCH (09:20)
[2018-01-16] MEDS: HEPARIN SUB-Q SCH ×2 (09:20→21:13)
[2018-01-16] MEDS: PEPCID PO SCH (09:22)
[2018-01-16] MEDS: RisperDAL PO SCH ×2 (09:22→21:12)
[2018-01-16] MEDS ORDERED: DIAMOX PO NR (09:35)
[2018-01-17] MEDS: NORCO 10/325 PO PRN ×3 (08:43→21:16)
[2018-01-17] MEDS: DELTASONE PO SCH (09:39)
[2018-01-17] MEDS: COREG PO SCH ×2 (09:39→21:15)
[2018-01-17] MEDS: RisperDAL PO SCH (09:39)
[2018-01-17] MEDS: ASPIRIN PO SCH (09:40)
[2018-01-17] MEDS: PEPCID PO SCH (09:40)
[2018-01-17] MEDS: HEPARIN SUB-Q SCH ×2 (09:40→21:17)
--- NOTE | 2018-01-17 09:48 | Progress Note ---
Assessment and Plan - Patient Problems (1) HYACINTH (acute kidney injury) Current Visit: No Status: Acute Plan to address problem: Renal function has improved with IVF hydration and maintaining adequate hemodynamic parameters. He is non oliguric. IVF have been DC'd at this time as he is tolerating PO intake well. (2) Hyponatremia Current Visit: Yes Status: Acute Plan to address problem: In the setting of acute renal injury. Has resolved at this time. IVF DC'd at present. No new labs this am. (3) Hypertension Current Visit: Yes Status: Acute Plan to address problem: Blood pressure parameters noted at this time. His am blood pressures are stable Restarted on coreg 6.25 mg BID. Will continue to monitor BP control on current regimen. (4) Acute and chronic respiratory failure Current Visit: Yes Status: Acute Plan to address problem: Currently on O2 via NC. Was on bipap earlier. Being treated for a COPD exacerbation. Management per pulmonary team. Subjective Date of service: 01/17/18 Principal diagnosis: Acute Hypercapnic Resp Failure; Seizure disorder; Acute COPD exacerbation Interval history: No acute issues. He has been transferred to the intermediate ICU. Objective - Vital Signs Vital signs: Vital Signs - 12hr 01/16/18 01/17/18 01/17/18 23:51 00:00 04:00 Temperature 98.1 F 98.2 F Pulse Rate 86 85 74 Respiratory 25 H 22 25 H Rate Blood Pressure 97/55 Blood Pressure 107/66 144/99 [Left] O2 Sat by Pulse 96 97 97 Oximetry 01/17/18 01/17/18 01/17/18 04:58 05:00 07:00 Temperature 97.9 F Pulse Rate 73 73 Respiratory 25 H Rate Blood Pressure 144/99 Blood Pressure [Left] O2 Sat by Pulse 92 Oximetry - General Appearance General appearance: well-developed, appears stated age EENT: PERRL, mucous membranes moist Neck: no JVD, no thyromegaly Respiratory: Present: Clear to Ascultation Cardiology: regular, normal heart rate Gastrointestinal: normal, normoactive bowel sounds Integumentary: no rash, warm and dry Neurologic: no focal deficit, no asterixis, alert and oriented x3 Psychiatric: mood/affect appropriate - Lab 01/14/18 02:08 01/15/18 04:08 Most recent lab results Calcium 9.4 mg/dL (8.4-10.2) 01/15/18 04:08 Urine Sodium 35 mmol/L 01/14/18 12:01 - Allied health notes Allied health notes reviewed: nursing
[2018-01-17] MEDS: DUONEB *Not for PRN Use IH SCH ×2 (09:49→23:19)
[2018-01-17] MEDS: PULMICORT IH SCH ×2 (09:49→22:29)
[2018-01-17] MEDS: BROVANA NEBU IH SCH ×2 (09:51→22:29)
[2018-01-17] MEDS: PAXIL PO SCH (11:08)
--- NOTE | 2018-01-17 14:33 | Progress Note ---
Assessment and Plan Acute Hypoxemic Respiratory Failure Acute COPD exacerbation Seizure Disorder Syncope (? Micturition related) Possible Acute CVA (negative work-up) HYACINTH Acute Coronary Syndrome Chronic Back Pain Abnormal CXR (atelectasis right base) - Continue nocturnal BIPAP with prn daytime use - continue oxygen at 2L/min and wean to keep sats > 90% - Continue with PT/OT , increase activity - continue systemic steroids - continue brovana & pulmicort - continue empiric AB's - home oxygen evaluation at discharge - added GI prophylaxis - continue VTE prophylaxis - continue chronic disease meds . continue other care per attending / other consultants including syncope w/up .... 35' Subjective Date of service: 01/17/18 Principal diagnosis: Acute Hypercapnic Resp Failure; Seizure disorder; Acute COPD exacerbation Interval history: Patient is seen today for: Acute Hypoxemic Resp Failure; Severe Sepsis; Seizure disorder; Acute COPD exacerbation Seen and examined at bedside; 24-hour events reviewed; nursing and respiratory care staff consulted; no adverse overnight events reported to me; resting in bed ; on 2L NC; denies acute chest pains; No N/V/F/C; "can i go home" Objective Vital Signs - 12hr 01/17/18 01/17/18 01/17/18 04:00 04:58 05:00 Temperature 98.2 F Pulse Rate 74 73 73 Pulse Rate [ Bilateral Throughout] Respiratory 25 H 25 H Rate Respiratory Rate [Bilateral Throughout] Blood Pressure 144/99 Blood Pressure 144/99 [Left] O2 Sat by Pulse 97 92 Oximetry 01/17/18 01/17/18 01/17/18 07:00 08:00 09:39 Temperature 97.9 F Pulse Rate 101 H Pulse Rate [ Bilateral Throughout] Respiratory Rate Respiratory Rate [Bilateral Throughout] Blood Pressure 161/96 Blood Pressure [Left] O2 Sat by Pulse 96 Oximetry 01/17/18 01/17/18 01/17/18 09:50 09:56 10:13 Temperature Pulse Rate Pulse Rate [ 102 H 97 H Bilateral Throughout] Respiratory Rate Respiratory 18 17 Rate [Bilateral Throughout] Blood Pressure Blood Pressure [Left] O2 Sat by Pulse 95 Oximetry 01/17/18 01/17/18 01/17/18 11:00 12:00 13:00 Temperature 97.8 F Pulse Rate 92 H Pulse Rate [ Bilateral Throughout] Respiratory 15 16 15 Rate Respiratory Rate [Bilateral Throughout] Blood Pressure Blood Pressure 155/89 143/75 135/78 [Left] O2 Sat by Pulse 95 95 96 Oximetry Constitutional: no acute distress, other (middle aged CM normocephalic with mildly increased respiratory effort) Eyes: non-icteric, other (periorbital ecchymosis, improving) ENT: oropharynx moist, other (mallampati 3) Neck: supple, no lymphadenopathy, no JVD, other (no thyromegaly) Effort: mildly labored Ascultation: Bilateral: diminished breath sounds, rhonchi (posterior bases), other (Prolonged expiratory phase.) Percussion: Bilateral: not dull Cardiovascular: regular rate and rhythm, other (No R/M) Gastrointestinal: normoactive bowel sounds, soft, non-tender, non-distended, other (No HSM, obese) Integumentary: rash Extremities: no cyanosis, no edema, pink and warm, pulses normal Neurologic: normal mental status, non-focal exam, pupils equal and round, CN II- XII normal, motor strength normal and Psychiatric: mood appropriate, affect normal CBC and BMP: 01/20/18 05:08 01/20/18 05:08 ABG, PT/INR, D-dimer: ABG POC ABG pH 7.438 (7.35-7.45) 01/16/18 11:22 POC ABG pCO2 54.2 (35-45) H 01/16/18 11:22 POC ABG pO2 55 (80-105) L 01/16/18 11:22 POC ABG HCO3 36.6 01/16/18 11:22 POC ABG Total CO2 38 01/16/18 11:22 POC ABG O2 Sat 88 01/16/18 11:22 PT/INR, D-dimer PT 11.8 Sec. (12.2-14.9) L 01/07/18 15:44 INR 0.83 (0.87-1.13) L 01/07/18 15:44 D-Dimer < 135.0 ng/mlDDU (0-234) 01/07/18 15:44 Abnormal lab findings: Abnormal Labs 01/07/18 01/07/18 01/07/18 15:44 15:44 15:44 MCHC RDW 16.5 H Lymph % (Auto) [place] % (Auto) 10.2 H Lymph # [place] # 0.9 H Seg Neutrophils % 73.7 H PT 11.8 L INR 0.83 L APTT 23.5 L POC ABG pH POC ABG pCO2 POC ABG pO2 Sodium 133 L Chloride 89.4 L Carbon Dioxide 36 H BUN 7 L Creatinine 0.5 L Glucose 130 H POC Glucose Calcium CK-MB (CK-2) Rel Index 4.3 H HDL Cholesterol Urine pH Urine Chloride Valproic Acid 01/07/18 01/07/18 01/07/18 15:51 15:53 Unknown MCHC RDW Lymph % (Auto) [place] % (Auto) Lymph # [place] # Seg Neutrophils % PT INR APTT POC ABG pH POC ABG pCO2 POC ABG pO2 Sodium Chloride Carbon Dioxide BUN Creatinine Glucose POC Glucose 134 H Calcium CK-MB (CK-2) Rel Index HDL Cholesterol Urine pH 8.0 H Urine Chloride Valproic Acid 27.1 L 01/08/18 01/09/18 01/09/18 04:59 05:02 05:02 MCHC 31 L RDW 16.2 H Lymph % (Auto) [place] % (Auto) Lymph # [place] # Seg Neutrophils % PT INR APTT POC ABG pH POC ABG pCO2 POC ABG pO2 Sodium Chloride 91.9 L Carbon Dioxide 38 H BUN 7 L Creatinine 0.5 L Glucose POC Glucose Calcium CK-MB (CK-2) Rel Index HDL Cholesterol 60 H Urine pH Urine Chloride Valproic Acid 01/10/18 01/10/18 01/13/18 05:26 05:26 17:53 MCHC RDW 16.4 H Lymph % (Auto) [place] % (Auto) Lymph # [place] # Seg Neutrophils % PT INR APTT POC ABG pH POC ABG pCO2 POC ABG pO2 Sodium 135 L Chloride 84.7 L Carbon Dioxide 40 H BUN Creatinine 0.5 L Glucose POC Glucose 118 H Calcium 10.4 H CK-MB (CK-2) Rel Index HDL Cholesterol Urine pH Urine Chloride Valproic Acid 01/13/18 01/13/18 01/13/18 19:20 19:59 20:10 MCHC 31 L RDW 16.2 H Lymph % (Auto) [place] % (Auto) Lymph # [place] # Seg Neutrophils % PT INR APTT POC ABG pH 7.162 L POC ABG pCO2 104.2 H POC ABG pO2 71 L Sodium 129 L Chloride 86.0 L Carbon Dioxide 33 H D BUN 80 H Creatinine 3.1 H D Glucose 124 H POC Glucose Calcium CK-MB (CK-2) Rel Index HDL Cholesterol Urine pH Urine Chloride Valproic Acid 01/13/18 01/14/18 01/14/18 21:25 02:04 02:08 MCHC 31 L RDW 16.1 H Lymph % (Auto) 8.7 L [place] % (Auto) 13.4 H Lymph # 0.6 L [place] # 0.9 H Seg Neutrophils % 77.7 H PT INR APTT POC ABG pH 7.182 L POC ABG pCO2 88.2 H POC ABG pO2 Sodium 129 L Chloride 91.0 L Carbon Dioxide BUN 82 H Creatinine 3.1 H Glucose 123 H POC Glucose Calcium CK-MB (CK-2) Rel Index HDL Cholesterol Urine pH Urine Chloride Valproic Acid 01/14/18 01/14/18 01/14/18 08:37 11:18 12:01 MCHC RDW Lymph % (Auto) [place] % (Auto) Lymph # [place] # Seg Neutrophils % PT INR APTT POC ABG pH 7.284 L 7.263 L POC ABG pCO2 72.3 H 80.4 H POC ABG pO2 71 L 79 L Sodium Chloride Carbon Dioxide BUN Creatinine Glucose POC Glucose Calcium CK-MB (CK-2) Rel Index HDL Cholesterol Urine pH Urine Chloride 21.9 L Valproic Acid 01/14/18 01/14/18 01/15/18 14:44 18:40 04:08 MCHC RDW Lymph % (Auto) [place] % (Auto) Lymph # [place] # Seg Neutrophils % PT INR APTT POC ABG pH 7.230 L POC ABG pCO2 87.5 H POC ABG pO2 70 L Sodium 135 L Chloride 95.4 L Carbon Dioxide BUN 70 H 57 H Creatinine 2.0 H Glucose 144 H 129 H POC Glucose Calcium CK-MB (CK-2) Rel Index HDL Cholesterol Urine pH Urine Chloride Valproic Acid 01/15/18 01/15/18 01/16/18 04:25 16:43 11:22 MCHC RDW Lymph % (Auto) [place] % (Auto) Lymph # [place] # Seg Neutrophils % PT INR APTT POC ABG pH 7.246 L 7.298 L POC ABG pCO2 83.8 H 72.6 H 54.2 H POC ABG pO2 68 L 55 L Sodium Chloride Carbon Dioxide BUN Creatinine Glucose POC Glucose Calcium CK-MB (CK-2) Rel Index HDL Cholesterol Urine pH Urine Chloride Valproic Acid Allied health notes reviewed: nursing
--- NOTE | 2018-01-17 16:15 | Progress Note ---
Assessment and Plan Assessment and plan: Patient is a 57 yo man with a history of HTN, Seizure Disorder, Chronic Pain, COPD, Dementia, Schizophrenia and Nicotine Dependence who presented with syncope while urinating with head trauma/right black eye. Yesterday patient was somnolent and he was in respiratory distress with hypotension. CT head was done and negative for acute intracranial process. Patient was given bolus of IV fluids without improvement of his blood pressure and patient was transferred to ICU. ABG showed patient is hypercapnia. Acute kidney injury, creatinine was 3. Patient was managed appropriately in the ICU , blood pressures normalized HYACINTH Showed some improvement Acute exacerbation of COPD Acute hypercapnic respiratory failure patient is on BiPAP, patient is saturating well, patient is alert and oriented Syncope; resolved Seizure: Continue home medication Hypotension; blood pressure medications were held, he was given IV fluid and patient pressure normal -Chronic back pain: symptomatic care -DVT prophylaxis: SCD to BLE while in bed. -CVA ruled out -Advance care planning: full code DVT prophylaxis: Heparin Disposition: continue inpatient care. - Patient Problems (1) COPD (chronic obstructive pulmonary disease) Current Visit: Yes Status: Chronic Qualifiers: COPD type: COPD with acute exacerbation Qualified Code(s): J44.1 - Chronic obstructive pulmonary disease with (acute) exacerbation History Interval history: Patient was seen and evaluated this morning, Patient is on BIPAP. He was alert and oriented. Hospitalist Physical - Physical exam Narrative exam: Patie is in cardiopulmonary distress. Patient is on BIPAP. The patient appeared well nourished and normally developed. Vital signs as documented. Head exam is unremarkable. No scleral icterus . Neck is without jugular venous distension, thyromegaly, or carotid bruits. Lungs are clear to auscultation. Cardiac exam reveals regular rate and Rhythm. First and second heart sounds normal. No murmurs, rubs or gallops. Abdominal exam reveals normal bowel sounds, no masses, no organomegaly and no aortic enlargement. Extremities are nonedematous and both femoral and pedal pulses are normal. [employer]ERA OPERATOR: Alert and oriented. No focal weakness. - Constitutional Vitals: Temp Pulse Resp BP Pulse Ox 98.5 F 92 H 15 135/78 96 01/17/18 16:00 01/17/18 11:00 01/17/18 13:00 01/17/18 13:00 01/17/18 13:00 General appearance: Absent: mild distress Results - Labs CBC & Chem 7: 01/14/18 02:08 01/15/18 04:08 Labs: Laboratory Last Values WBC 6.6 K/mm3 (4.5-11.0) 01/14/18 02:08 RBC 4.41 M/mm3 (3.65-5.03) 01/14/18 02:08 Hgb 12.2 gm/dl (11.8-15.2) 01/14/18 02:08 Hct 39.5 % (35.5-45.6) 01/14/18 02:08 MCV 90 fl (84-94) 01/14/18 02:08 MCH 28 pg (28-32) 01/14/18 02:08 MCHC 31 % (32-34) L 01/14/18 02:08 RDW 16.1 % (13.2-15.2) H 01/14/18 02:08 Plt Count 197 K/mm3 (140-440) 01/14/18 02:08 Lymph % (Auto) 8.7 % (13.4-35.0) L 01/14/18 02:08 [place] % (Auto) 13.4 % (0.0-7.3) H 01/14/18 02:08 Eos % (Auto) 0.0 % (0.0-4.3) 01/14/18 02:08 Baso % (Auto) 0.2 % (0.0-1.8) 01/14/18 02:08 Lymph # 0.6 K/mm3 (1.2-5.4) L 01/14/18 02:08 [place] # 0.9 K/mm3 (0.0-0.8) H 01/14/18 02:08 Eos # 0.0 K/mm3 (0.0-0.4) 01/14/18 02:08 Baso # 0.0 K/mm3 (0.0-0.1) 01/14/18 02:08 Seg Neutrophils % 77.7 % (40.0-70.0) H 01/14/18 02:08 Seg Neutrophils # 5.1 K/mm3 (1.8-7.7) 01/14/18 02:08 PT 11.8 Sec. (12.2-14.9) L 01/07/18 15:44 INR 0.83 (0.87-1.13) L 01/07/18 15:44 APTT 23.5 Sec. (24.2-36.6) L 01/07/18 15:44 D-Dimer < 135.0 ng/mlDDU (0-234) 01/07/18 15:44 POC ABG pH 7.438 (7.35-7.45) 01/16/18 11:22 POC ABG pCO2 54.2 (35-45) H 01/16/18 11:22 POC ABG pO2 55 (80-105) L 01/16/18 11:22 POC ABG HCO3 36.6 01/16/18 11:22 POC ABG Total CO2 38 01/16/18 11:22 POC ABG O2 Sat 88 01/16/18 11:22 POC ABG Base Excess 12 01/16/18 11:22 FiO2 28 % 01/16/18 11:22 Sodium 137 mmol/L (137-145) 01/15/18 04:08 Potassium 4.8 mmol/L (3.6-5.0) 01/15/18 04:08 Chloride 99.0 mmol/L (98-107) 01/15/18 04:08 Carbon Dioxide 28 mmol/L (22-30) 01/15/18 04:08 Anion Gap 15 mmol/L 01/15/18 04:08 BUN 57 mg/dL (9-20) H 01/15/18 04:08 Creatinine 1.4 mg/dL (0.8-1.5) 01/15/18 04:08 Estimated GFR 52 ml/min 01/15/18 04:08 BUN/Creatinine Ratio 41 % 01/15/18 04:08 Glucose 129 mg/dL (75-100) H 01/15/18 04:08 POC Glucose 118 (70-105) H 01/13/18 17:53 Lactic Acid 0.80 mmol/L (0.7-2.0) 01/13/18 19:59 Calcium 9.4 mg/dL (8.4-10.2) 01/15/18 04:08 Total Creatine Kinase 60 units/L (55-170) 01/07/18 15:44 CK-MB (CK-2) 2.6 ng/mL (0.0-4.0) 01/07/18 15:44 CK-MB (CK-2) Rel Index 4.3 (0-4) H 01/07/18 15:44 Troponin T < 0.010 ng/mL (0.00-0.029) 01/07/18 15:44 Triglycerides 119 mg/dL (2-149) 01/08/18 04:59 Cholesterol 174 mg/dL (50-199) 01/08/18 04:59 LDL Cholesterol Direct 101 mg/dL (50-130) 01/08/18 04:59 HDL Cholesterol 60 mg/dL (40-59) H 01/08/18 04:59 Cholesterol/HDL Ratio 2.90 % 01/08/18 04:59 Urine Color Straw (Yellow) 01/14/18 12:01 Urine Turbidity Clear (Clear) 01/14/18 12:01 Urine pH 6.0 (5.0-7.0) 01/14/18 12:01 Ur Specific [place] 1.010 (1.003-1.030) 01/14/18 12:01 Urine Protein <15 mg/dl mg/dL (Negative) 01/14/18 12:01 Urine Glucose (UA) Neg mg/dL (Negative) 01/14/18 12:01 Urine Ketones Neg mg/dL (Negative) 01/14/18 12:01 Urine Blood Neg (Negative) 01/14/18 12:01 Urine Nitrite Neg (Negative) 01/14/18 12:01 Urine Bilirubin Neg (Negative) 01/14/18 12:01 Urine Urobilinogen < 2.0 mg/dL (<2.0) 01/14/18 12:01 Ur Leukocyte Esterase Neg (Negative) 01/14/18 12:01 Urine WBC (Auto) < 1.0 /HPF (0.0-6.0) 01/14/18 12:01 Urine RBC (Auto) 3.0 /HPF (0.0-6.0) 01/14/18 12:01 Amorphous Crystals Few 01/07/18 Unknown Urine Mucus Few /HPF 01/07/18 Unknown Urine Osmolality 321 Mosm/kg 01/14/18 12:01 Urine Sodium 35 mmol/L 01/14/18 12:01 Urine Chloride 21.9 mmolL (110-250) L 01/14/18 12:01 Urine Opiates Screen Presumptive negative 01/07/18 Unknown Urine Methadone Screen Presumptive negative 01/07/18 Unknown Ur Barbiturates Screen Presumptive negative 01/07/18 Unknown Valproic Acid 27.1 ug/mL (50-100) L 01/07/18 15:53 Ur Phencyclidine Scrn Presumptive negative 01/07/18 Unknown Ur Amphetamines Screen Presumptive negative 01/07/18 Unknown U Benzodiazepines Scrn Presumptive negative 01/07/18 Unknown Urine Cocaine Screen Presumptive negative 01/07/18 Unknown U Marijuana (THC) Screen Presumptive negative 01/07/18 Unknown Drugs of Abuse Note Disclamer 01/07/18 Unknown Plasma/Serum Alcohol < 0.01 % (0-0.07) 01/07/18 15:44
[2018-01-18] MEDS: RisperDAL PO SCH ×3 (00:46→21:07)
[2018-01-18] MEDS: NORCO 10/325 PO PRN ×5 (00:47→21:06)
[2018-01-18 06:03] LABS: Basophils % (Auto) 0.1 % (0.0-1.8); Eosinophils # (Auto) 0.1 K/mm3 (0.0-0.4); Eosinophils % (Auto) 1.1 % (0.0-4.3); Hematocrit 40.8 % (35.5-45.6); Hemoglobin 12.6 gm/dl (11.8-15.2); Lymphocytes # (Auto) 2.2 K/mm3 (1.2-5.4); Lymphocytes % (Auto) 34.9 % (13.4-35.0); Mean Corpuscular HGB Conc 31 % (32-34); Mean Corpuscular Hemoglobin 28 pg (28-32); Mean Corpuscular Volume 90 fl (84-94); Monocytes # (Auto) 0.7 K/mm3 (0.0-0.8); Monocytes % (Auto) 11.9 % (0.0-7.3); Platelet Count 191 K/mm3 (140-440); Red Blood Count 4.54 M/mm3 (3.65-5.03); Red Cell Distribution Width 16.6 % (13.2-15.2)
[2018-01-18 06:11] LABS: BUN/Creatinine Ratio 23; Blood Urea Nitrogen 21 mg/dL (9-20); Calcium 10.1 mg/dL (8.4-10.2); Hemolysis Index 5
[2018-01-18] MEDS: PULMICORT IH SCH ×2 (08:17→21:58)
[2018-01-18] MEDS: BROVANA NEBU IH SCH ×2 (08:17→21:58)
[2018-01-18] MEDS: DUONEB *Not for PRN Use IH SCH (08:17)
--- NOTE | 2018-01-18 08:46 | Progress Note ---
Assessment and Plan Acute hypercapnic respiratory failure -Acute exacerbation of COPD -Syncope -Seizure -Hypotension -Chronic back pain -Abnormal CXR, atelectasis right base -Continue with BIPAP and adjust IPAP with restrictive oxygen therapies for better gas exchange -ABG much improved, continue nocturnal BIPAP and prn -Oxygen at 2L/min - Continue with PT/OT , increase activity -VTE prophylaxis -Bronchodialtors -Steroids, start steroid taper today -Gentle diuresis while monitoring renal function, blood pressure and electrolyte profile. -Replete electrolytes as indicated - Complete antibiotics for AE-COPD -Bronchodilators FULL CODE Subjective Date of service: 01/18/18 Principal diagnosis: Acute Hypercapnic Resp Failure; Seizure disorder; Acute COPD exacerbation Interval history: Seen and examined at bedside; 24-hour events reviewed; nursing and respiratory care staff consulted; lying in bed on NIPPV, denies acute chest pains; no shortness of breath, states he feels better. Slept well last night. Looks great this morning. Objective Vital Signs - 12hr 01/17/18 01/17/18 01/17/18 21:15 21:16 22:00 Temperature Pulse Rate 102 H Pulse Rate [ Bilateral Throughout] Pulse Rate [ Left Radial] Respiratory 18 Rate Respiratory Rate [Bilateral Throughout] Blood Pressure 160/110 Blood Pressure [Left] O2 Sat by Pulse 96 Oximetry 01/17/18 01/17/18 01/17/18 22:16 22:30 23:01 Temperature Pulse Rate 86 Pulse Rate [ 96 H Bilateral Throughout] Pulse Rate [ Left Radial] Respiratory 18 25 H Rate Respiratory 19 Rate [Bilateral Throughout] Blood Pressure 168/102 Blood Pressure [Left] O2 Sat by Pulse 95 Oximetry 01/18/18 01/18/18 01/18/18 00:00 04:00 08:17 Temperature 98.2 F 97.2 F L Pulse Rate 87 76 Pulse Rate [ 89 Bilateral Throughout] Pulse Rate [ 77 Left Radial] Respiratory 14 9 L Rate Respiratory 18 Rate [Bilateral Throughout] Blood Pressure Blood Pressure 156/89 120/77 [Left] O2 Sat by Pulse 96 97 Oximetry 01/18/18 01/18/18 08:20 08:39 Temperature Pulse Rate Pulse Rate [ 90 Bilateral Throughout] Pulse Rate [ Left Radial] Respiratory Rate Respiratory 18 Rate [Bilateral Throughout] Blood Pressure Blood Pressure [Left] O2 Sat by Pulse 95 Oximetry Constitutional: no acute distress, other (middle aged CM normocephalic with mildly increased respiratory effort) Eyes: non-icteric, other (periorbital ecchymosis, improving) ENT: oropharynx moist, other (mallampati 3) Neck: supple, no lymphadenopathy, no JVD, other (no thyromegaly) Effort: mildly labored Ascultation: Bilateral: diminished breath sounds, rhonchi (posterior bases), other (Prolonged expiratory phase.) Percussion: Bilateral: not dull Cardiovascular: regular rate and rhythm, other (No R/M) Gastrointestinal: normoactive bowel sounds, soft, non-tender, non-distended, other (No HSM, obese) Integumentary: rash Extremities: no cyanosis, no edema, pink and warm, pulses normal Neurologic: normal mental status, non-focal exam, pupils equal and round, CN II- XII normal, motor strength normal and Psychiatric: mood appropriate, affect normal CBC and BMP: 01/18/18 05:32 01/18/18 05:32 ABG, PT/INR, D-dimer: ABG POC ABG pH 7.438 (7.35-7.45) 01/16/18 11:22 POC ABG pCO2 54.2 (35-45) H 01/16/18 11:22 POC ABG pO2 55 (80-105) L 01/16/18 11:22 POC ABG HCO3 36.6 01/16/18 11:22 POC ABG Total CO2 38 01/16/18 11:22 POC ABG O2 Sat 88 01/16/18 11:22 PT/INR, D-dimer PT 11.8 Sec. (12.2-14.9) L 01/07/18 15:44 INR 0.83 (0.87-1.13) L 01/07/18 15:44 D-Dimer < 135.0 ng/mlDDU (0-234) 01/07/18 15:44 Abnormal lab findings: Abnormal Labs 01/07/18 01/07/18 01/07/18 15:44 15:44 15:44 MCHC RDW 16.5 H Lymph % (Auto) [place] % (Auto) 10.2 H Lymph # [place] # 0.9 H Seg Neutrophils % 73.7 H PT 11.8 L INR 0.83 L APTT 23.5 L POC ABG pH POC ABG pCO2 POC ABG pO2 Sodium 133 L Chloride 89.4 L Carbon Dioxide 36 H BUN 7 L Creatinine 0.5 L Glucose 130 H POC Glucose Calcium CK-MB (CK-2) Rel Index 4.3 H HDL Cholesterol Urine pH Urine Chloride Valproic Acid 01/07/18 01/07/18 01/07/18 15:51 15:53 Unknown MCHC RDW Lymph % (Auto) [place] % (Auto) Lymph # [place] # Seg Neutrophils % PT INR APTT POC ABG pH POC ABG pCO2 POC ABG pO2 Sodium Chloride Carbon Dioxide BUN Creatinine Glucose POC Glucose 134 H Calcium CK-MB (CK-2) Rel Index HDL Cholesterol Urine pH 8.0 H Urine Chloride Valproic Acid 27.1 L 01/08/18 01/09/18 01/09/18 04:59 05:02 05:02 MCHC 31 L RDW 16.2 H Lymph % (Auto) [place] % (Auto) Lymph # [place] # Seg Neutrophils % PT INR APTT POC ABG pH POC ABG pCO2 POC ABG pO2 Sodium Chloride 91.9 L Carbon Dioxide 38 H BUN 7 L Creatinine 0.5 L Glucose POC Glucose Calcium CK-MB (CK-2) Rel Index HDL Cholesterol 60 H Urine pH Urine Chloride Valproic Acid 01/10/18 01/10/18 01/13/18 05:26 05:26 17:53 MCHC RDW 16.4 H Lymph % (Auto) [place] % (Auto) Lymph # [place] # Seg Neutrophils % PT INR APTT POC ABG pH POC ABG pCO2 POC ABG pO2 Sodium 135 L Chloride 84.7 L Carbon Dioxide 40 H BUN Creatinine 0.5 L Glucose POC Glucose 118 H Calcium 10.4 H CK-MB (CK-2) Rel Index HDL Cholesterol Urine pH Urine Chloride Valproic Acid 01/13/18 01/13/18 01/13/18 19:20 19:59 20:10 MCHC 31 L RDW 16.2 H Lymph % (Auto) [place] % (Auto) Lymph # [place] # Seg Neutrophils % PT INR APTT POC ABG pH 7.162 L POC ABG pCO2 104.2 H POC ABG pO2 71 L Sodium 129 L Chloride 86.0 L Carbon Dioxide 33 H D BUN 80 H Creatinine 3.1 H D Glucose 124 H POC Glucose Calcium CK-MB (CK-2) Rel Index HDL Cholesterol Urine pH Urine Chloride Valproic Acid 01/13/18 01/14/18 01/14/18 21:25 02:04 02:08 MCHC 31 L RDW 16.1 H Lymph % (Auto) 8.7 L [place] % (Auto) 13.4 H Lymph # 0.6 L [place] # 0.9 H Seg Neutrophils % 77.7 H PT INR APTT POC ABG pH 7.182 L POC ABG pCO2 88.2 H POC ABG pO2 Sodium 129 L Chloride 91.0 L Carbon Dioxide BUN 82 H Creatinine 3.1 H Glucose 123 H POC Glucose Calcium CK-MB (CK-2) Rel Index HDL Cholesterol Urine pH Urine Chloride Valproic Acid 01/14/18 01/14/18 01/14/18 08:37 11:18 12:01 MCHC RDW Lymph % (Auto) [place] % (Auto) Lymph # [place] # Seg Neutrophils % PT INR APTT POC ABG pH 7.284 L 7.263 L POC ABG pCO2 72.3 H 80.4 H POC ABG pO2 71 L 79 L Sodium Chloride Carbon Dioxide BUN Creatinine Glucose POC Glucose Calcium CK-MB (CK-2) Rel Index HDL Cholesterol Urine pH Urine Chloride 21.9 L Valproic Acid 01/14/18 01/14/18 01/15/18 14:44 18:40 04:08 MCHC RDW Lymph % (Auto) [place] % (Auto) Lymph # [place] # Seg Neutrophils % PT INR APTT POC ABG pH 7.230 L POC ABG pCO2 87.5 H POC ABG pO2 70 L Sodium 135 L Chloride 95.4 L Carbon Dioxide BUN 70 H 57 H Creatinine 2.0 H Glucose 144 H 129 H POC Glucose Calcium CK-MB (CK-2) Rel Index HDL Cholesterol Urine pH Urine Chloride Valproic Acid 01/15/18 01/15/18 01/16/18 04:25 16:43 11:22 MCHC RDW Lymph % (Auto) [place] % (Auto) Lymph # [place] # Seg Neutrophils % PT INR APTT POC ABG pH 7.246 L 7.298 L POC ABG pCO2 83.8 H 72.6 H 54.2 H POC ABG pO2 68 L 55 L Sodium Chloride Carbon Dioxide BUN Creatinine Glucose POC Glucose Calcium CK-MB (CK-2) Rel Index HDL Cholesterol Urine pH Urine Chloride Valproic Acid 01/18/18 01/18/18 05:32 05:32 MCHC 31 L RDW 16.6 H Lymph % (Auto) [place] % (Auto) 11.9 H Lymph # [place] # Seg Neutrophils % PT INR APTT POC ABG pH POC ABG pCO2 POC ABG pO2 Sodium Chloride Carbon Dioxide 39 H D BUN 21 H Creatinine Glucose POC Glucose Calcium CK-MB (CK-2) Rel Index HDL Cholesterol Urine pH Urine Chloride Valproic Acid Allied health notes reviewed: nursing
[2018-01-18] MEDS: DELTASONE PO SCH (09:30)
[2018-01-18] MEDS: PAXIL PO SCH (09:31)
[2018-01-18] MEDS: ASPIRIN PO SCH (09:31)
[2018-01-18] MEDS: COREG PO SCH ×2 (09:31→21:07)
[2018-01-18] MEDS: PEPCID PO SCH (09:31)
[2018-01-18] MEDS: HEPARIN SUB-Q SCH ×2 (09:32→21:07)
--- NOTE | 2018-01-18 13:54 | Progress Note ---
Assessment and Plan - Patient Problems (1) HYACINTH (acute kidney injury) Current Visit: No Status: Acute Plan to address problem: Renal function has improved s/p IVF hydration and maintaining adequate hemodynamic parameters. now tolerating po well (2) Hyponatremia Current Visit: Yes Status: Acute Plan to address problem: In the setting of acute renal injury. resolved (3) Acute and chronic respiratory failure Current Visit: Yes Status: Acute Plan to address problem: Currently on O2 via [place]. Was on bipap earlier. Being treated for a COPD exacerbation. Management per pulmonary team. (4) Hypertension Current Visit: Yes Status: Acute Plan to address problem: monitor BP control on current regimen. Subjective Date of service: 01/18/18 Principal diagnosis: Acute Hypercapnic Resp Failure; Seizure disorder; Acute COPD exacerbation Interval history: Pt awake, alert, in NAD Objective - Vital Signs Vital signs: Vital Signs - 12hr 01/18/18 01/18/18 01/18/18 04:00 08:00 08:17 Temperature 97.2 F L 97.5 F L Pulse Rate 76 94 H Pulse Rate [ 89 Bilateral Throughout] Pulse Rate [ 77 94 H Left Radial] Respiratory 9 L 18 Rate Respiratory 18 Rate [Bilateral Throughout] Blood Pressure Blood Pressure 120/77 140/85 [Left] O2 Sat by Pulse 97 97 Oximetry 01/18/18 01/18/18 01/18/18 08:20 08:39 09:31 Temperature Pulse Rate 96 H Pulse Rate [ 90 Bilateral Throughout] Pulse Rate [ Left Radial] Respiratory Rate Respiratory 18 Rate [Bilateral Throughout] Blood Pressure 140/85 Blood Pressure [Left] O2 Sat by Pulse 95 Oximetry - General Appearance General appearance: well-developed, well-nourished, appears stated age EENT: ATNC, PERRL, mucous membranes moist Neck: no JVD Respiratory: Present: Clear to Ascultation Cardiology: regular, S1S2 Gastrointestinal: normoactive bowel sounds Integumentary: no rash, other (no edema ) Neurologic: no focal deficit, alert and oriented x3, strength 5/5, CN 3-12 intact Psychiatric: mood/affect appropriate, cooperative - Lab 01/18/18 05:32 01/18/18 05:32 Most recent lab results Calcium 10.1 mg/dL (8.4-10.2) 01/18/18 05:32 Urine Sodium 35 mmol/L 01/14/18 12:01
--- NOTE | 2018-01-18 14:09 | Progress Note ---
Assessment and Plan Assessment and plan: Patient is a 57 yo man with a history of HTN, Seizure Disorder, Chronic Pain, COPD, Dementia, Schizophrenia and Nicotine Dependence who presented with syncope while urinating with head trauma/right black eye. Patient was somnolent and he was in respiratory distress with hypotension. CT head was done and negative for acute intracranial process. Patient was given bolus of IV fluids without improvement of his blood pressure and patient was transferred to ICU. ABG showed patient is hypercapnia. Acute kidney injury, creatinine was 3. Patient was managed appropriately in the ICU , blood pressures normalized HYACINTH resolved. patient is saturating well and transferred to the IMCU. Acute exacerbation of COPD Acute hypercapnic respiratory failure patient is on BiPAP, patient is saturating well, patient is alert and oriented Syncope; resolved Seizure: Continue home medication Hypotension; blood pressure medications were held, he was given IV fluid and patient pressure normal -Chronic back pain: symptomatic care -DVT prophylaxis: SCD to BLE while in bed. -CVA ruled out -Advance care planning: full code DVT prophylaxis: Heparin Disposition: pending placement to SNF. - Patient Problems (1) COPD (chronic obstructive pulmonary disease) Current Visit: Yes Status: Chronic Qualifiers: COPD type: COPD with acute exacerbation Qualified Code(s): J44.1 - Chronic obstructive pulmonary disease with (acute) exacerbation History Interval history: Patient was seen and evaluated this morning, Patient is on [place] oxygen, alert and oriented. Hospitalist Physical - Physical exam Narrative exam: [place] is not cardiopulmonary distress. . The patient appeared well nourished and normally developed. Vital signs as documented. Head exam is unremarkable. No scleral icterus . Neck is without jugular venous distension, thyromegaly, or carotid bruits. Lungs are clear to auscultation. Cardiac exam reveals regular rate and Rhythm. First and second heart sounds normal. No murmurs, rubs or gallops. Abdominal exam reveals normal bowel sounds, no masses, no organomegaly and no aortic enlargement. Extremities are nonedematous and both femoral and pedal pulses are normal. LEATHER LACER: Alert and oriented. No focal weakness. - Constitutional Vitals: Temp Pulse Resp BP Pulse Ox 97.5 F L 96 H 18 140/85 95 01/18/18 08:00 01/18/18 09:31 01/18/18 08:39 01/18/18 09:31 01/18/18 08:20 General appearance: Absent: mild distress Results - Labs CBC & Chem 7: 01/18/18 05:32 01/18/18 05:32 Labs: Laboratory Last Values WBC 6.3 K/mm3 (4.5-11.0) 01/18/18 05:32 RBC 4.54 M/mm3 (3.65-5.03) 01/18/18 05:32 Hgb 12.6 gm/dl (11.8-15.2) 01/18/18 05:32 Hct 40.8 % (35.5-45.6) 01/18/18 05:32 MCV 90 fl (84-94) 01/18/18 05:32 MCH 28 pg (28-32) 01/18/18 05:32 MCHC 31 % (32-34) L 01/18/18 05:32 RDW 16.6 % (13.2-15.2) H 01/18/18 05:32 Plt Count 191 K/mm3 (140-440) 01/18/18 05:32 Lymph % (Auto) 34.9 % (13.4-35.0) 01/18/18 05:32 [place] % (Auto) 11.9 % (0.0-7.3) H 01/18/18 05:32 Eos % (Auto) 1.1 % (0.0-4.3) 01/18/18 05:32 Baso % (Auto) 0.1 % (0.0-1.8) 01/18/18 05:32 Lymph # 2.2 K/mm3 (1.2-5.4) 01/18/18 05:32 [place] # 0.7 K/mm3 (0.0-0.8) 01/18/18 05:32 Eos # 0.1 K/mm3 (0.0-0.4) 01/18/18 05:32 Baso # 0.0 K/mm3 (0.0-0.1) 01/18/18 05:32 Seg Neutrophils % 52.0 % (40.0-70.0) 01/18/18 05:32 Seg Neutrophils # 3.3 K/mm3 (1.8-7.7) 01/18/18 05:32 PT 11.8 Sec. (12.2-14.9) L 01/07/18 15:44 INR 0.83 (0.87-1.13) L 01/07/18 15:44 APTT 23.5 Sec. (24.2-36.6) L 01/07/18 15:44 D-Dimer < 135.0 ng/mlDDU (0-234) 01/07/18 15:44 POC ABG pH 7.438 (7.35-7.45) 01/16/18 11:22 POC ABG pCO2 54.2 (35-45) H 01/16/18 11:22 POC ABG pO2 55 (80-105) L 01/16/18 11:22 POC ABG HCO3 36.6 01/16/18 11:22 POC ABG Total CO2 38 01/16/18 11:22 POC ABG O2 Sat 88 01/16/18 11:22 POC ABG Base Excess 12 01/16/18 11:22 FiO2 28 % 01/16/18 11:22 Sodium 143 mmol/L (137-145) 01/18/18 05:32 Potassium 4.1 mmol/L (3.6-5.0) 01/18/18 05:32 Chloride 101.3 mmol/L (98-107) 01/18/18 05:32 Carbon Dioxide 39 mmol/L (22-30) H D 01/18/18 05:32 Anion Gap 7 mmol/L 01/18/18 05:32 BUN 21 mg/dL (9-20) H 01/18/18 05:32 Creatinine 0.9 mg/dL (0.8-1.5) 01/18/18 05:32 Estimated GFR > 60 ml/min 01/18/18 05:32 BUN/Creatinine Ratio 23 % 01/18/18 05:32 Glucose 91 mg/dL (75-100) 01/18/18 05:32 POC Glucose 118 (70-105) H 01/13/18 17:53 Lactic Acid 0.80 mmol/L (0.7-2.0) 01/13/18 19:59 Calcium 10.1 mg/dL (8.4-10.2) 01/18/18 05:32 Total Creatine Kinase 60 units/L (55-170) 01/07/18 15:44 CK-MB (CK-2) 2.6 ng/mL (0.0-4.0) 01/07/18 15:44 CK-MB (CK-2) Rel Index 4.3 (0-4) H 01/07/18 15:44 Troponin T < 0.010 ng/mL (0.00-0.029) 01/07/18 15:44 Triglycerides 119 mg/dL (2-149) 01/08/18 04:59 Cholesterol 174 mg/dL (50-199) 01/08/18 04:59 LDL Cholesterol Direct 101 mg/dL (50-130) 01/08/18 04:59 HDL Cholesterol 60 mg/dL (40-59) H 01/08/18 04:59 Cholesterol/HDL Ratio 2.90 % 01/08/18 04:59 Urine Color Straw (Yellow) 01/14/18 12:01 Urine Turbidity Clear (Clear) 01/14/18 12:01 Urine pH 6.0 (5.0-7.0) 01/14/18 12:01 Ur Specific [place] 1.010 (1.003-1.030) 01/14/18 12:01 Urine Protein <15 mg/dl mg/dL (Negative) 01/14/18 12:01 Urine Glucose (UA) Neg mg/dL (Negative) 01/14/18 12:01 Urine Ketones Neg mg/dL (Negative) 01/14/18 12:01 Urine Blood Neg (Negative) 01/14/18 12:01 Urine Nitrite Neg (Negative) 01/14/18 12:01 Urine Bilirubin Neg (Negative) 01/14/18 12:01 Urine Urobilinogen < 2.0 mg/dL (<2.0) 01/14/18 12:01 Ur Leukocyte Esterase Neg (Negative) 01/14/18 12:01 Urine WBC (Auto) < 1.0 /HPF (0.0-6.0) 01/14/18 12:01 Urine RBC (Auto) 3.0 /HPF (0.0-6.0) 01/14/18 12:01 Amorphous Crystals Few 01/07/18 Unknown Urine Mucus Few /HPF 01/07/18 Unknown Urine Osmolality 321 Mosm/kg 01/14/18 12:01 Urine Sodium 35 mmol/L 01/14/18 12:01 Urine Chloride 21.9 mmolL (110-250) L 01/14/18 12:01 Urine Opiates Screen Presumptive negative 01/07/18 Unknown Urine Methadone Screen Presumptive negative 01/07/18 Unknown Ur Barbiturates Screen Presumptive negative 01/07/18 Unknown Valproic Acid 27.1 ug/mL (50-100) L 01/07/18 15:53 Ur Phencyclidine Scrn Presumptive negative 01/07/18 Unknown Ur Amphetamines Screen Presumptive negative 01/07/18 Unknown U Benzodiazepines Scrn Presumptive negative 01/07/18 Unknown Urine Cocaine Screen Presumptive negative 01/07/18 Unknown U Marijuana (THC) Screen Presumptive negative 01/07/18 Unknown Drugs of Abuse Note Disclamer 01/07/18 Unknown Plasma/Serum Alcohol < 0.01 % (0-0.07) 01/07/18 15:44
[2018-01-19] MEDS: NORCO 10/325 PO PRN ×4 (04:22→18:40)
[2018-01-19] MEDS: DUONEB *Not for PRN Use IH SCH ×3 (06:32→20:52)
[2018-01-19] MEDS: PULMICORT IH SCH ×2 (08:24→20:53)
[2018-01-19] MEDS: BROVANA NEBU IH SCH ×2 (08:24→20:52)
--- NOTE | 2018-01-19 10:05 | Progress Note ---
Assessment and Plan Assessment and plan: Patient is a 57 yo man with a history of HTN, Seizure Disorder, Chronic Pain, COPD, Dementia, Schizophrenia and Nicotine Dependence who presented with syncope while urinating with head trauma/right black eye. Patient was somnolent and he was in respiratory distress with hypotension. CT head was done and negative for acute intracranial process. Patient was given bolus of IV fluids without improvement of his blood pressure and patient was transferred to ICU. ABG showed patient is hypercapnia. Acute kidney injury, creatinine was 3. Patient was managed appropriately in the ICU , blood pressures normalized HYACINTH resolved. patient is saturating well and transferred to the IM. Acute exacerbation of COPD Acute hypercapnic respiratory failure; resolved , saturating well. Syncope; resolved Seizure: Continue home medication Hypotension; blood pressure medications were held, he was given IV fluid and patient pressure normal -Chronic back pain: symptomatic care -DVT prophylaxis: SCD to BLE while in bed. -CVA ruled out -Advance care planning: full code DVT prophylaxis: Heparin Disposition: pending placement to SNF. Patient wants to go home. - Patient Problems (1) COPD (chronic obstructive pulmonary disease) Current Visit: Yes Status: Chronic Qualifiers: COPD type: COPD with acute exacerbation Qualified Code(s): J44.1 - Chronic obstructive pulmonary disease with (acute) exacerbation History Interval history: Patient was seen and evaluated this morning, Patient is not in distress, alert and oriented x3. Hospitalist Physical - Physical exam Narrative exam: Patient is not cardiopulmonary distress. . The patient appeared well nourished and normally developed. Vital signs as documented. Head exam is unremarkable. No scleral icterus . Neck is without jugular venous distension, thyromegaly, or carotid bruits. Lungs are clear to auscultation. Cardiac exam reveals regular rate and Rhythm. Abdominal exam reveals normal bowel sounds. Extremities are nonedematous and both femoral and pedal pulses are normal. TOBACCO SIZER: Alert and oriented x3. No focal weakness. - Constitutional Vitals: Temp Pulse Resp BP Pulse Ox 97.9 F 92 H 18 140/80 98 01/19/18 04:00 01/19/18 08:34 01/19/18 08:34 01/19/18 04:00 01/19/18 08:24 General appearance: Absent: mild distress Results - Labs CBC & Chem 7: 01/18/18 05:32 01/18/18 05:32 Labs: Laboratory Last Values WBC 6.3 K/mm3 (4.5-11.0) 01/18/18 05:32 RBC 4.54 M/mm3 (3.65-5.03) 01/18/18 05:32 Hgb 12.6 gm/dl (11.8-15.2) 01/18/18 05:32 Hct 40.8 % (35.5-45.6) 01/18/18 05:32 MCV 90 fl (84-94) 01/18/18 05:32 MCH 28 pg (28-32) 01/18/18 05:32 MCHC 31 % (32-34) L 01/18/18 05:32 RDW 16.6 % (13.2-15.2) H 01/18/18 05:32 Plt Count 191 K/mm3 (140-440) 01/18/18 05:32 Lymph % (Auto) 34.9 % (13.4-35.0) 01/18/18 05:32 [place] % (Auto) 11.9 % (0.0-7.3) H 01/18/18 05:32 Eos % (Auto) 1.1 % (0.0-4.3) 01/18/18 05:32 Baso % (Auto) 0.1 % (0.0-1.8) 01/18/18 05:32 Lymph # 2.2 K/mm3 (1.2-5.4) 01/18/18 05:32 [place] # 0.7 K/mm3 (0.0-0.8) 01/18/18 05:32 Eos # 0.1 K/mm3 (0.0-0.4) 01/18/18 05:32 Baso # 0.0 K/mm3 (0.0-0.1) 01/18/18 05:32 Seg Neutrophils % 52.0 % (40.0-70.0) 01/18/18 05:32 Seg Neutrophils # 3.3 K/mm3 (1.8-7.7) 01/18/18 05:32 PT 11.8 Sec. (12.2-14.9) L 01/07/18 15:44 INR 0.83 (0.87-1.13) L 01/07/18 15:44 APTT 23.5 Sec. (24.2-36.6) L 01/07/18 15:44 D-Dimer < 135.0 ng/mlDDU (0-234) 01/07/18 15:44 POC ABG pH 7.438 (7.35-7.45) 01/16/18 11:22 POC ABG pCO2 54.2 (35-45) H 01/16/18 11:22 POC ABG pO2 55 (80-105) L 01/16/18 11:22 POC ABG HCO3 36.6 01/16/18 11:22 POC ABG Total CO2 38 01/16/18 11:22 POC ABG O2 Sat 88 01/16/18 11:22 POC ABG Base Excess 12 01/16/18 11:22 FiO2 28 % 01/16/18 11:22 Sodium 143 mmol/L (137-145) 01/18/18 05:32 Potassium 4.1 mmol/L (3.6-5.0) 01/18/18 05:32 Chloride 101.3 mmol/L (98-107) 01/18/18 05:32 Carbon Dioxide 39 mmol/L (22-30) H D 01/18/18 05:32 Anion Gap 7 mmol/L 01/18/18 05:32 BUN 21 mg/dL (9-20) H 01/18/18 05:32 Creatinine 0.9 mg/dL (0.8-1.5) 01/18/18 05:32 Estimated GFR > 60 ml/min 01/18/18 05:32 BUN/Creatinine Ratio 23 % 01/18/18 05:32 Glucose 91 mg/dL (75-100) 01/18/18 05:32 POC Glucose 118 (70-105) H 01/13/18 17:53 Lactic Acid 0.80 mmol/L (0.7-2.0) 01/13/18 19:59 Calcium 10.1 mg/dL (8.4-10.2) 01/18/18 05:32 Total Creatine Kinase 60 units/L (55-170) 01/07/18 15:44 CK-MB (CK-2) 2.6 ng/mL (0.0-4.0) 01/07/18 15:44 CK-MB (CK-2) Rel Index 4.3 (0-4) H 01/07/18 15:44 Troponin T < 0.010 ng/mL (0.00-0.029) 01/07/18 15:44 Triglycerides 119 mg/dL (2-149) 01/08/18 04:59 Cholesterol 174 mg/dL (50-199) 01/08/18 04:59 LDL Cholesterol Direct 101 mg/dL (50-130) 01/08/18 04:59 HDL Cholesterol 60 mg/dL (40-59) H 01/08/18 04:59 Cholesterol/HDL Ratio 2.90 % 01/08/18 04:59 Urine Color Straw (Yellow) 01/14/18 12:01 Urine Turbidity Clear (Clear) 01/14/18 12:01 Urine pH 6.0 (5.0-7.0) 01/14/18 12:01 Ur Specific [place] 1.010 (1.003-1.030) 01/14/18 12:01 Urine Protein <15 mg/dl mg/dL (Negative) 01/14/18 12:01 Urine Glucose (UA) Neg mg/dL (Negative) 01/14/18 12:01 Urine Ketones Neg mg/dL (Negative) 01/14/18 12:01 Urine Blood Neg (Negative) 01/14/18 12:01 Urine Nitrite Neg (Negative) 01/14/18 12:01 Urine Bilirubin Neg (Negative) 01/14/18 12:01 Urine Urobilinogen < 2.0 mg/dL (<2.0) 01/14/18 12:01 Ur Leukocyte Esterase Neg (Negative) 01/14/18 12:01 Urine WBC (Auto) < 1.0 /HPF (0.0-6.0) 01/14/18 12:01 Urine RBC (Auto) 3.0 /HPF (0.0-6.0) 01/14/18 12:01 Amorphous Crystals Few 01/07/18 Unknown Urine Mucus Few /HPF 01/07/18 Unknown Urine Osmolality 321 Mosm/kg 01/14/18 12:01 Urine Sodium 35 mmol/L 01/14/18 12:01 Urine Chloride 21.9 mmolL (110-250) L 01/14/18 12:01 Urine Opiates Screen Presumptive negative 01/07/18 Unknown Urine Methadone Screen Presumptive negative 01/07/18 Unknown Ur Barbiturates Screen Presumptive negative 01/07/18 Unknown Valproic Acid 27.1 ug/mL (50-100) L 01/07/18 15:53 Ur Phencyclidine Scrn Presumptive negative 01/07/18 Unknown Ur Amphetamines Screen Presumptive negative 01/07/18 Unknown U Benzodiazepines Scrn Presumptive negative 01/07/18 Unknown Urine Cocaine Screen Presumptive negative 01/07/18 Unknown U Marijuana (THC) Screen Presumptive negative 01/07/18 Unknown Drugs of Abuse Note Disclamer 01/07/18 Unknown Plasma/Serum Alcohol < 0.01 % (0-0.07) 01/07/18 15:44
[2018-01-19] MEDS: PEPCID PO SCH (10:09)
[2018-01-19] MEDS: RisperDAL PO SCH ×2 (10:09→21:58)
[2018-01-19] MEDS: ASPIRIN PO SCH (10:09)
[2018-01-19] MEDS: PAXIL PO SCH (10:10)
[2018-01-19] MEDS: COREG PO SCH ×2 (10:10→21:57)
[2018-01-19] MEDS: DELTASONE PO SCH (10:10)
[2018-01-19] MEDS: HEPARIN SUB-Q SCH ×2 (10:11→21:56)
--- NOTE | 2018-01-19 11:43 | Progress Note ---
Assessment and Plan Acute hypercapnic respiratory failure -Acute exacerbation of COPD -Syncope -Seizure -Hypotension -Chronic back pain -Abnormal CXR, atelectasis right base -Continue with BIPAP and adjust IPAP with restrictive oxygen therapies for better gas exchange -ABG much improved, continue nocturnal BIPAP and prn -Oxygen at 2L/min - Continue with PT/OT , increase activity -VTE prophylaxis -Bronchodialtors -Steroids, start steroid taper today -Gentle diuresis while monitoring renal function, blood pressure and electrolyte profile. -Replete electrolytes as indicated - Complete antibiotics for AE-COPD -Bronchodilators FULL CODE Subjective Date of service: 01/19/18 Principal diagnosis: Acute Hypercapnic Resp Failure; Seizure disorder; Acute COPD exacerbation Interval history: Seen and examined at bedside; 24-hour events reviewed; nursing and respiratory care staff consulted; lying in bed on NIPPV, denies acute chest pains; no shortness of breath, states he feels better. Slept well last night. Looks great this morning. Objective Vital Signs - 12hr 01/19/18 01/19/18 01/19/18 00:00 02:00 03:05 Temperature Pulse Rate 76 Pulse Rate [ Bilateral Throughout] Pulse Rate [ 82 77 Left Radial] Respiratory 20 Rate Respiratory Rate [Bilateral Throughout] Blood Pressure 99/60 Blood Pressure 99/60 [Left] O2 Sat by Pulse 98 98 97 Oximetry 01/19/18 01/19/18 01/19/18 04:00 05:00 08:00 Temperature 97.9 F 98.6 F Pulse Rate 82 85 87 Pulse Rate [ Bilateral Throughout] Pulse Rate [ 81 87 Left Radial] Respiratory 15 16 Rate Respiratory Rate [Bilateral Throughout] Blood Pressure Blood Pressure 140/80 145/77 [Left] O2 Sat by Pulse 97 97 Oximetry 01/19/18 01/19/18 01/19/18 08:24 08:34 10:00 Temperature Pulse Rate 87 Pulse Rate [ 86 92 H Bilateral Throughout] Pulse Rate [ 88 Left Radial] Respiratory Rate Respiratory 18 18 Rate [Bilateral Throughout] Blood Pressure Blood Pressure [Left] O2 Sat by Pulse 98 97 Oximetry 01/19/18 10:10 Temperature Pulse Rate 81 Pulse Rate [ Bilateral Throughout] Pulse Rate [ Left Radial] Respiratory Rate Respiratory Rate [Bilateral Throughout] Blood Pressure 177/94 Blood Pressure [Left] O2 Sat by Pulse Oximetry Constitutional: no acute distress, other (middle aged CM normocephalic with mildly increased respiratory effort) Eyes: non-icteric, other (periorbital ecchymosis, improving) ENT: oropharynx moist, other (mallampati 3) Neck: supple, no lymphadenopathy, no JVD, other (no thyromegaly) Effort: mildly labored Ascultation: Bilateral: diminished breath sounds, rhonchi (posterior bases), other (Prolonged expiratory phase.) Percussion: Bilateral: not dull Cardiovascular: regular rate and rhythm, other (No R/M) Gastrointestinal: normoactive bowel sounds, soft, non-tender, non-distended, other (No HSM, obese) Integumentary: rash Extremities: no cyanosis, no edema, pink and warm, pulses normal Neurologic: normal mental status, non-focal exam, pupils equal and round, CN II- XII normal, motor strength normal and Psychiatric: mood appropriate, affect normal CBC and BMP: 01/18/18 05:32 01/18/18 05:32 ABG, PT/INR, D-dimer: ABG POC ABG pH 7.438 (7.35-7.45) 01/16/18 11:22 POC ABG pCO2 54.2 (35-45) H 01/16/18 11:22 POC ABG pO2 55 (80-105) L 01/16/18 11:22 POC ABG HCO3 36.6 01/16/18 11:22 POC ABG Total CO2 38 01/16/18 11:22 POC ABG O2 Sat 88 01/16/18 11:22 PT/INR, D-dimer PT 11.8 Sec. (12.2-14.9) L 01/07/18 15:44 INR 0.83 (0.87-1.13) L 01/07/18 15:44 D-Dimer < 135.0 ng/mlDDU (0-234) 01/07/18 15:44 Abnormal lab findings: Abnormal Labs 01/07/18 01/07/18 01/07/18 15:44 15:44 15:44 MCHC RDW 16.5 H Lymph % (Auto) [place] % (Auto) 10.2 H Lymph # [place] # 0.9 H Seg Neutrophils % 73.7 H PT 11.8 L INR 0.83 L APTT 23.5 L POC ABG pH POC ABG pCO2 POC ABG pO2 Sodium 133 L Chloride 89.4 L Carbon Dioxide 36 H BUN 7 L Creatinine 0.5 L Glucose 130 H POC Glucose Calcium CK-MB (CK-2) Rel Index 4.3 H HDL Cholesterol Urine pH Urine Chloride Valproic Acid 01/07/18 01/07/18 01/07/18 15:51 15:53 Unknown MCHC RDW Lymph % (Auto) [place] % (Auto) Lymph # [place] # Seg Neutrophils % PT INR APTT POC ABG pH POC ABG pCO2 POC ABG pO2 Sodium Chloride Carbon Dioxide BUN Creatinine Glucose POC Glucose 134 H Calcium CK-MB (CK-2) Rel Index HDL Cholesterol Urine pH 8.0 H Urine Chloride Valproic Acid 27.1 L 01/08/18 01/09/18 01/09/18 04:59 05:02 05:02 MCHC 31 L RDW 16.2 H Lymph % (Auto) [place] % (Auto) Lymph # [place] # Seg Neutrophils % PT INR APTT POC ABG pH POC ABG pCO2 POC ABG pO2 Sodium Chloride 91.9 L Carbon Dioxide 38 H BUN 7 L Creatinine 0.5 L Glucose POC Glucose Calcium CK-MB (CK-2) Rel Index HDL Cholesterol 60 H Urine pH Urine Chloride Valproic Acid 01/10/18 01/10/18 01/13/18 05:26 05:26 17:53 MCHC RDW 16.4 H Lymph % (Auto) [place] % (Auto) Lymph # [place] # Seg Neutrophils % PT INR APTT POC ABG pH POC ABG pCO2 POC ABG pO2 Sodium 135 L Chloride 84.7 L Carbon Dioxide 40 H BUN Creatinine 0.5 L Glucose POC Glucose 118 H Calcium 10.4 H CK-MB (CK-2) Rel Index HDL Cholesterol Urine pH Urine Chloride Valproic Acid 01/13/18 01/13/18 01/13/18 19:20 19:59 20:10 MCHC 31 L RDW 16.2 H Lymph % (Auto) [place] % (Auto) Lymph # [place] # Seg Neutrophils % PT INR APTT POC ABG pH 7.162 L POC ABG pCO2 104.2 H POC ABG pO2 71 L Sodium 129 L Chloride 86.0 L Carbon Dioxide 33 H D BUN 80 H Creatinine 3.1 H D Glucose 124 H POC Glucose Calcium CK-MB (CK-2) Rel Index HDL Cholesterol Urine pH Urine Chloride Valproic Acid 01/13/18 01/14/18 01/14/18 21:25 02:04 02:08 MCHC 31 L RDW 16.1 H Lymph % (Auto) 8.7 L [place] % (Auto) 13.4 H Lymph # 0.6 L [place] # 0.9 H Seg Neutrophils % 77.7 H PT INR APTT POC ABG pH 7.182 L POC ABG pCO2 88.2 H POC ABG pO2 Sodium 129 L Chloride 91.0 L Carbon Dioxide BUN 82 H Creatinine 3.1 H Glucose 123 H POC Glucose Calcium CK-MB (CK-2) Rel Index HDL Cholesterol Urine pH Urine Chloride Valproic Acid 01/14/18 01/14/18 01/14/18 08:37 11:18 12:01 MCHC RDW Lymph % (Auto) [place] % (Auto) Lymph # [place] # Seg Neutrophils % PT INR APTT POC ABG pH 7.284 L 7.263 L POC ABG pCO2 72.3 H 80.4 H POC ABG pO2 71 L 79 L Sodium Chloride Carbon Dioxide BUN Creatinine Glucose POC Glucose Calcium CK-MB (CK-2) Rel Index HDL Cholesterol Urine pH Urine Chloride 21.9 L Valproic Acid 01/14/18 01/14/18 01/15/18 14:44 18:40 04:08 MCHC RDW Lymph % (Auto) [place] % (Auto) Lymph # [place] # Seg Neutrophils % PT INR APTT POC ABG pH 7.230 L POC ABG pCO2 87.5 H POC ABG pO2 70 L Sodium 135 L Chloride 95.4 L Carbon Dioxide BUN 70 H 57 H Creatinine 2.0 H Glucose 144 H 129 H POC Glucose Calcium CK-MB (CK-2) Rel Index HDL Cholesterol Urine pH Urine Chloride Valproic Acid 01/15/18 01/15/18 01/16/18 04:25 16:43 11:22 MCHC RDW Lymph % (Auto) [place] % (Auto) Lymph # [place] # Seg Neutrophils % PT INR APTT POC ABG pH 7.246 L 7.298 L POC ABG pCO2 83.8 H 72.6 H 54.2 H POC ABG pO2 68 L 55 L Sodium Chloride Carbon Dioxide BUN Creatinine Glucose POC Glucose Calcium CK-MB (CK-2) Rel Index HDL Cholesterol Urine pH Urine Chloride Valproic Acid 01/18/18 01/18/18 05:32 05:32 MCHC 31 L RDW 16.6 H Lymph % (Auto) [place] % (Auto) 11.9 H Lymph # [place] # Seg Neutrophils % PT INR APTT POC ABG pH POC ABG pCO2 POC ABG pO2 Sodium Chloride Carbon Dioxide 39 H D BUN 21 H Creatinine Glucose POC Glucose Calcium CK-MB (CK-2) Rel Index HDL Cholesterol Urine pH Urine Chloride Valproic Acid Allied health notes reviewed: nursing
--- NOTE | 2018-01-19 16:15 | Progress Note ---
Assessment and Plan - Patient Problems (1) HYACINTH (acute kidney injury) Current Visit: No Status: Acute Plan to address problem: Renal function normalized. tolerating po well (2) Hyponatremia Current Visit: Yes Status: Acute Plan to address problem: In the setting of acute renal injury. resolved (3) Acute and chronic respiratory failure Current Visit: Yes Status: Acute Plan to address problem: Currently on O2 via NC. Being treated for a COPD exacerbation. Management per pulmonary team. (4) Hypertension Current Visit: Yes Status: Acute Plan to address problem: monitor BP control on current regimen. Subjective Date of service: 01/19/18 Principal diagnosis: Acute Hypercapnic Resp Failure; Seizure disorder; Acute COPD exacerbation Interval history: Pt awake, alert, in NAD Objective - Vital Signs Vital signs: Vital Signs - 12hr 01/19/18 01/19/18 01/19/18 05:00 08:00 08:24 Temperature 98.6 F Pulse Rate 85 87 Pulse Rate [ 86 Bilateral Throughout] Pulse Rate [ 87 Left Radial] Respiratory 16 Rate Respiratory 18 Rate [Bilateral Throughout] Blood Pressure Blood Pressure 145/77 [Left] O2 Sat by Pulse 97 98 Oximetry 01/19/18 01/19/18 01/19/18 08:34 10:00 10:10 Temperature Pulse Rate 87 81 Pulse Rate [ 92 H Bilateral Throughout] Pulse Rate [ 88 Left Radial] Respiratory Rate Respiratory 18 Rate [Bilateral Throughout] Blood Pressure 177/94 Blood Pressure [Left] O2 Sat by Pulse 97 Oximetry 01/19/18 01/19/18 12:00 14:00 Temperature 98.7 F Pulse Rate 80 Pulse Rate [ Bilateral Throughout] Pulse Rate [ 88 Left Radial] Respiratory 16 Rate Respiratory Rate [Bilateral Throughout] Blood Pressure Blood Pressure 117/75 [Left] O2 Sat by Pulse 96 94 Oximetry - General Appearance General appearance: well-developed, well-nourished, appears stated age EENT: ATNC, PERRL, mucous membranes moist Neck: no JVD Respiratory: Present: Clear to Ascultation Cardiology: regular, S1S2 Gastrointestinal: normoactive bowel sounds Integumentary: no rash, other (no edema ) Neurologic: no focal deficit, alert and oriented x3, strength 5/5, CN 3-12 intact Psychiatric: mood/affect appropriate, cooperative - Lab 01/18/18 05:32 01/18/18 05:32 Most recent lab results Calcium 10.1 mg/dL (8.4-10.2) 01/18/18 05:32 Urine Sodium 35 mmol/L 01/14/18 12:01
[2018-01-20] MEDS: NORCO 10/325 PO PRN ×3 (02:17→15:02)
[2018-01-20 06:35] LABS: Basophils % (Auto) 0.1 % (0.0-1.8); Eosinophils % (Auto) 0.3 % (0.0-4.3); Hematocrit 38.7 % (35.5-45.6); Lymphocytes # (Auto) 1.3 K/mm3 (1.2-5.4); Mean Corpuscular HGB Conc 31 % (32-34); Mean Corpuscular Hemoglobin 28 pg (28-32); Mean Corpuscular Volume 89 fl (84-94); Monocytes # (Auto) 0.9 K/mm3 (0.0-0.8); Monocytes % (Auto) 15.7 % (0.0-7.3); Platelet Count 166 K/mm3 (140-440); Red Blood Count 4.34 M/mm3 (3.65-5.03); Red Cell Distribution Width 16.6 % (13.2-15.2)
[2018-01-20 06:50] LABS: BUN/Creatinine Ratio 28; Blood Urea Nitrogen 17 mg/dL (9-20); Calcium 10.1 mg/dL (8.4-10.2); Hemolysis Index 2
[2018-01-20] MEDS: BROVANA NEBU IH SCH ×2 (08:37→21:51)
[2018-01-20] MEDS: PULMICORT IH SCH ×2 (08:37→21:51)
[2018-01-20] MEDS: DUONEB *Not for PRN Use IH SCH ×2 (08:37→21:52)
--- NOTE | 2018-01-20 10:29 | Progress Note ---
Assessment and Plan - Patient Problems (1) HYACINTH (acute kidney injury) Current Visit: No Status: Acute Plan to address problem: Renal function normalized. Cr down to 0.6mg/dl. no further recommendations from renal stand point, will sign off. (2) Hyponatremia Current Visit: Yes Status: Acute Plan to address problem: In the setting of acute renal injury. resolved (3) Acute and chronic respiratory failure Current Visit: Yes Status: Acute Plan to address problem: Currently on O2 via NC. Being treated for a COPD exacerbation. Management per pulmonary team. (4) Hypertension Current Visit: Yes Status: Acute Plan to address problem: monitor BP control on current regimen. Subjective Date of service: 01/20/18 Principal diagnosis: Acute Hypercapnic Resp Failure; Seizure disorder; Acute COPD exacerbation Interval history: Pt awake, alert, in NAD Objective - Vital Signs Vital signs: Vital Signs - 12hr 01/19/18 01/20/18 01/20/18 22:28 02:17 03:46 Temperature 98.6 F 97.4 F L Pulse Rate Pulse Rate [ Bilateral Throughout] Respiratory 14 Rate Respiratory Rate [Bilateral Throughout] Blood Pressure [Left] O2 Sat by Pulse Oximetry 01/20/18 01/20/18 01/20/18 04:33 07:00 08:00 Temperature 98.0 F 98.0 F Pulse Rate 84 83 Pulse Rate [ 76 Bilateral Throughout] Respiratory 20 Rate Respiratory 15 Rate [Bilateral Throughout] Blood Pressure 145/78 [Left] O2 Sat by Pulse 92 Oximetry 01/20/18 01/20/18 08:38 08:41 Temperature Pulse Rate Pulse Rate [ 75 Bilateral Throughout] Respiratory Rate Respiratory 16 Rate [Bilateral Throughout] Blood Pressure [Left] O2 Sat by Pulse 99 Oximetry - General Appearance General appearance: well-developed, well-nourished, appears stated age EENT: ATNC, PERRL, mucous membranes moist Neck: no JVD Respiratory: Present: Clear to Ascultation Cardiology: regular, S1S2 Gastrointestinal: normoactive bowel sounds Integumentary: no rash, other (no edema ) Neurologic: no focal deficit, alert and oriented x3, strength 5/5, CN 3-12 intact Psychiatric: mood/affect appropriate, cooperative - Lab 01/20/18 05:08 01/20/18 05:08 Most recent lab results Calcium 10.1 mg/dL (8.4-10.2) 01/20/18 05:08 Urine Sodium 35 mmol/L 01/14/18 12:01
[2018-01-20] MEDS: COREG PO SCH ×2 (10:54→22:14)
[2018-01-20] MEDS: PEPCID PO SCH (10:54)
[2018-01-20] MEDS: ASPIRIN PO SCH (10:54)
[2018-01-20] MEDS: RisperDAL PO SCH ×2 (10:54→22:13)
[2018-01-20] MEDS: HEPARIN SUB-Q SCH ×2 (10:55→22:14)
[2018-01-20] MEDS: PAXIL PO SCH (10:55)
[2018-01-20] MEDS: DELTASONE PO SCH (10:55)
--- NOTE | 2018-01-20 10:55 | Progress Note ---
Assessment and Plan Acute Hypoxemic Respiratory Failure Acute COPD exacerbation Seizure Disorder Syncope (? Micturition related) Possible Acute CVA (negative work-up) HYACINTH Acute Coronary Syndrome Chronic Back Pain Abnormal CXR (atelectasis right base) - home oxygen evaluation - continue oxygen at 2L/min and wean to keep sats > 90% - Continue with PT/OT , increase activity - continue systemic steroids taper - continue brovana & pulmicort - completed empiric AB's - continue GI prophylaxis - continue VTE prophylaxis - continue chronic disease meds - continue other care per attending / other consultants including syncope w/up - outpatient pulmonary clinic f/up post discharge - discharge planning ok pulmonary-chow .... 25' Subjective Date of service: 01/20/18 Principal diagnosis: Acute Hypercapnic Resp Failure; Seizure disorder; Acute COPD exacerbation Interval history: Patient is seen today for: Acute Hypoxemic Resp Failure; Severe Sepsis; Seizure disorder; Acute COPD exacerbation Seen and examined at bedside; 24-hour events reviewed; nursing and respiratory care staff consulted; no adverse overnight events reported to me; up in chair; denies acute chest pains; feels better; No N/V/F/C Objective Vital Signs - 12hr 01/20/18 01/20/18 01/20/18 02:17 03:46 04:33 Temperature 97.4 F L Pulse Rate 84 Pulse Rate [ Bilateral Throughout] Respiratory 14 Rate Respiratory Rate [Bilateral Throughout] Blood Pressure [Left] O2 Sat by Pulse Oximetry 01/20/18 01/20/18 01/20/18 07:00 08:00 08:38 Temperature 98.0 F 98.0 F Pulse Rate 83 Pulse Rate [ 76 75 Bilateral Throughout] Respiratory 20 Rate Respiratory 15 16 Rate [Bilateral Throughout] Blood Pressure 145/78 [Left] O2 Sat by Pulse 92 Oximetry 01/20/18 08:41 Temperature Pulse Rate Pulse Rate [ Bilateral Throughout] Respiratory Rate Respiratory Rate [Bilateral Throughout] Blood Pressure [Left] O2 Sat by Pulse 99 Oximetry Constitutional: no acute distress, other (middle aged CM normocephalic with mildly increased respiratory effort) Eyes: non-icteric, other (periorbital ecchymosis, improving) ENT: oropharynx moist, other (mallampati 3) Neck: supple, no lymphadenopathy, no JVD, other (no thyromegaly) Effort: mildly labored Ascultation: Bilateral: clear, diminished breath sounds, other (Prolonged expiratory phase.) Percussion: Bilateral: not dull Cardiovascular: regular rate and rhythm, other (No R/M) Gastrointestinal: normoactive bowel sounds, soft, non-tender, non-distended, other (No HSM, obese) Integumentary: rash Extremities: no cyanosis, no edema, pink and warm, pulses normal Neurologic: normal mental status, non-focal exam, pupils equal and round, CN II- XII normal, motor strength normal and Psychiatric: mood appropriate, affect normal CBC and BMP: 01/20/18 05:08 01/20/18 05:08 ABG, PT/INR, D-dimer: ABG POC ABG pH 7.350 (7.35-7.45) 01/20/18 09:24 POC ABG pCO2 77.4 (35-45) H 01/20/18 09:24 POC ABG pO2 54 (80-105) L 01/20/18 09:24 POC ABG HCO3 42.7 01/20/18 09:24 POC ABG Total CO2 45 01/20/18 09:24 POC ABG O2 Sat 84 01/20/18 09:24 PT/INR, D-dimer PT 11.8 Sec. (12.2-14.9) L 01/07/18 15:44 INR 0.83 (0.87-1.13) L 01/07/18 15:44 D-Dimer < 135.0 ng/mlDDU (0-234) 01/07/18 15:44 Abnormal lab findings: Abnormal Labs 01/07/18 01/07/18 01/07/18 15:44 15:44 15:44 MCHC RDW 16.5 H Lymph % (Auto) [place] % (Auto) 10.2 H Lymph # [place] # 0.9 H Seg Neutrophils % 73.7 H PT 11.8 L INR 0.83 L APTT 23.5 L POC ABG pH POC ABG pCO2 POC ABG pO2 Sodium 133 L Chloride 89.4 L Carbon Dioxide 36 H BUN 7 L Creatinine 0.5 L Glucose 130 H POC Glucose Calcium CK-MB (CK-2) Rel Index 4.3 H HDL Cholesterol Urine pH Urine Chloride Valproic Acid 01/07/18 01/07/18 01/07/18 15:51 15:53 Unknown MCHC RDW Lymph % (Auto) [place] % (Auto) Lymph # [place] # Seg Neutrophils % PT INR APTT POC ABG pH POC ABG pCO2 POC ABG pO2 Sodium Chloride Carbon Dioxide BUN Creatinine Glucose POC Glucose 134 H Calcium CK-MB (CK-2) Rel Index HDL Cholesterol Urine pH 8.0 H Urine Chloride Valproic Acid 27.1 L 01/08/18 01/09/18 01/09/18 04:59 05:02 05:02 MCHC 31 L RDW 16.2 H Lymph % (Auto) [place] % (Auto) Lymph # [place] # Seg Neutrophils % PT INR APTT POC ABG pH POC ABG pCO2 POC ABG pO2 Sodium Chloride 91.9 L Carbon Dioxide 38 H BUN 7 L Creatinine 0.5 L Glucose POC Glucose Calcium CK-MB (CK-2) Rel Index HDL Cholesterol 60 H Urine pH Urine Chloride Valproic Acid 01/10/18 01/10/18 01/13/18 05:26 05:26 17:53 MCHC RDW 16.4 H Lymph % (Auto) [place] % (Auto) Lymph # [place] # Seg Neutrophils % PT INR APTT POC ABG pH POC ABG pCO2 POC ABG pO2 Sodium 135 L Chloride 84.7 L Carbon Dioxide 40 H BUN Creatinine 0.5 L Glucose POC Glucose 118 H Calcium 10.4 H CK-MB (CK-2) Rel Index HDL Cholesterol Urine pH Urine Chloride Valproic Acid 01/13/18 01/13/18 01/13/18 19:20 19:59 20:10 MCHC 31 L RDW 16.2 H Lymph % (Auto) [place] % (Auto) Lymph # [place] # Seg Neutrophils % PT INR APTT POC ABG pH 7.162 L POC ABG pCO2 104.2 H POC ABG pO2 71 L Sodium 129 L Chloride 86.0 L Carbon Dioxide 33 H D BUN 80 H Creatinine 3.1 H D Glucose 124 H POC Glucose Calcium CK-MB (CK-2) Rel Index HDL Cholesterol Urine pH Urine Chloride Valproic Acid 01/13/18 01/14/18 01/14/18 21:25 02:04 02:08 MCHC 31 L RDW 16.1 H Lymph % (Auto) 8.7 L [place] % (Auto) 13.4 H Lymph # 0.6 L [place] # 0.9 H Seg Neutrophils % 77.7 H PT INR APTT POC ABG pH 7.182 L POC ABG pCO2 88.2 H POC ABG pO2 Sodium 129 L Chloride 91.0 L Carbon Dioxide BUN 82 H Creatinine 3.1 H Glucose 123 H POC Glucose Calcium CK-MB (CK-2) Rel Index HDL Cholesterol Urine pH Urine Chloride Valproic Acid 01/14/18 01/14/18 01/14/18 08:37 11:18 12:01 MCHC RDW Lymph % (Auto) [place] % (Auto) Lymph # [place] # Seg Neutrophils % PT INR APTT POC ABG pH 7.284 L 7.263 L POC ABG pCO2 72.3 H 80.4 H POC ABG pO2 71 L 79 L Sodium Chloride Carbon Dioxide BUN Creatinine Glucose POC Glucose Calcium CK-MB (CK-2) Rel Index HDL Cholesterol Urine pH Urine Chloride 21.9 L Valproic Acid 01/14/18 01/14/18 01/15/18 14:44 18:40 04:08 MCHC RDW Lymph % (Auto) [place] % (Auto) Lymph # [place] # Seg Neutrophils % PT INR APTT POC ABG pH 7.230 L POC ABG pCO2 87.5 H POC ABG pO2 70 L Sodium 135 L Chloride 95.4 L Carbon Dioxide BUN 70 H 57 H Creatinine 2.0 H Glucose 144 H 129 H POC Glucose Calcium CK-MB (CK-2) Rel Index HDL Cholesterol Urine pH Urine Chloride Valproic Acid 01/15/18 01/15/18 01/16/18 04:25 16:43 11:22 MCHC RDW Lymph % (Auto) [place] % (Auto) Lymph # [place] # Seg Neutrophils % PT INR APTT POC ABG pH 7.246 L 7.298 L POC ABG pCO2 83.8 H 72.6 H 54.2 H POC ABG pO2 68 L 55 L Sodium Chloride Carbon Dioxide BUN Creatinine Glucose POC Glucose Calcium CK-MB (CK-2) Rel Index HDL Cholesterol Urine pH Urine Chloride Valproic Acid 01/18/18 01/18/18 01/20/18 05:32 05:32 05:08 MCHC 31 L 31 L RDW 16.6 H 16.6 H Lymph % (Auto) [place] % (Auto) 11.9 H 15.7 H Lymph # [place] # 0.9 H Seg Neutrophils % PT INR APTT POC ABG pH POC ABG pCO2 POC ABG pO2 Sodium Chloride Carbon Dioxide 39 H D BUN 21 H Creatinine Glucose POC Glucose Calcium CK-MB (CK-2) Rel Index HDL Cholesterol Urine pH Urine Chloride Valproic Acid 01/20/18 01/20/18 05:08 09:24 MCHC RDW Lymph % (Auto) [place] % (Auto) Lymph # [place] # Seg Neutrophils % PT INR APTT POC ABG pH POC ABG pCO2 77.4 H POC ABG pO2 54 L Sodium Chloride Carbon Dioxide 40 H BUN Creatinine 0.6 L Glucose POC Glucose Calcium CK-MB (CK-2) Rel Index HDL Cholesterol Urine pH Urine Chloride Valproic Acid Allied health notes reviewed: nursing
--- NOTE | 2018-01-20 11:01 | Progress Note ---
Assessment and Plan Assessment and plan: Patient is a 57 yo man with a history of HTN, Seizure Disorder, Chronic Pain, COPD, Dementia, Schizophrenia and Nicotine Dependence who presented with syncope while urinating with head trauma/right black eye. Patient was somnolent and he was in respiratory distress with hypotension. CT head was done and negative for acute intracranial process. Patient was given bolus of IV fluids without improvement of his blood pressure and patient was transferred to ICU. ABG showed patient is hypercapnia. Acute kidney injury, creatinine was 3. Patient was managed appropriately in the ICU , blood pressures normalized HYACINTH resolved. patient is saturating well and transferred to the IMCU. Acute exacerbation of COPD Acute hypercapnic respiratory failure; saturating well. ABG from this morning shows hypercapnia. Syncope; resolved Seizure: Continue home medication Hypotension; blood pressure medications were held, he was given IV fluid and patient pressure normal -Chronic back pain: symptomatic care -DVT prophylaxis: SCD to BLE while in bed. -CVA ruled out -Advance care planning: full code DVT prophylaxis: Heparin Disposition: pending placement to SNF. - Patient Problems (1) COPD (chronic obstructive pulmonary disease) Current Visit: Yes Status: Chronic Qualifiers: COPD type: COPD with acute exacerbation Qualified Code(s): J44.1 - Chronic obstructive pulmonary disease with (acute) exacerbation History Interval history: Patient was seen and evaluated this morning, Patient is not in distress. Patient was confused. Hospitalist Physical - Physical exam Narrative exam: Patient is not cardiopulmonary distress. . The patient appeared well nourished and normally developed. Vital signs as documented. Head exam is unremarkable. No scleral icterus . Neck is without jugular venous distension, thyromegaly, or carotid bruits. Lungs are clear to auscultation. Cardiac exam reveals regular rate and Rhythm. Abdominal exam reveals normal bowel sounds. Extremities are nonedematous and both femoral and pedal pulses are normal. [place]: Alert and but not oriented. - Constitutional Vitals: Temp Pulse Resp BP Pulse Ox 98.0 F 75 16 145/78 99 01/20/18 08:00 01/20/18 08:38 01/20/18 08:38 01/20/18 07:00 01/20/18 08:41 General appearance: Absent: mild distress Results - Labs CBC & Chem 7: 01/20/18 05:08 01/20/18 05:08 Labs: Laboratory Last Values WBC 5.8 K/mm3 (4.5-11.0) 01/20/18 05:08 RBC 4.34 M/mm3 (3.65-5.03) 01/20/18 05:08 Hgb 12.0 gm/dl (11.8-15.2) 01/20/18 05:08 Hct 38.7 % (35.5-45.6) 01/20/18 05:08 MCV 89 fl (84-94) 01/20/18 05:08 MCH 28 pg (28-32) 01/20/18 05:08 MCHC 31 % (32-34) L 01/20/18 05:08 RDW 16.6 % (13.2-15.2) H 01/20/18 05:08 Plt Count 166 K/mm3 (140-440) 01/20/18 05:08 Lymph % (Auto) 23.0 % (13.4-35.0) 01/20/18 05:08 [place] % (Auto) 15.7 % (0.0-7.3) H 01/20/18 05:08 Eos % (Auto) 0.3 % (0.0-4.3) 01/20/18 05:08 Baso % (Auto) 0.1 % (0.0-1.8) 01/20/18 05:08 Lymph # 1.3 K/mm3 (1.2-5.4) 01/20/18 05:08 [place] # 0.9 K/mm3 (0.0-0.8) H 01/20/18 05:08 Eos # 0.0 K/mm3 (0.0-0.4) 01/20/18 05:08 Baso # 0.0 K/mm3 (0.0-0.1) 01/20/18 05:08 Seg Neutrophils % 60.9 % (40.0-70.0) 01/20/18 05:08 Seg Neutrophils # 3.5 K/mm3 (1.8-7.7) 01/20/18 05:08 PT 11.8 Sec. (12.2-14.9) L 01/07/18 15:44 INR 0.83 (0.87-1.13) L 01/07/18 15:44 APTT 23.5 Sec. (24.2-36.6) L 01/07/18 15:44 D-Dimer < 135.0 ng/mlDDU (0-234) 01/07/18 15:44 POC ABG pH 7.350 (7.35-7.45) 01/20/18 09:24 POC ABG pCO2 77.4 (35-45) H 01/20/18 09:24 POC ABG pO2 54 (80-105) L 01/20/18 09:24 POC ABG HCO3 42.7 01/20/18 09:24 POC ABG Total CO2 45 01/20/18 09:24 POC ABG O2 Sat 84 01/20/18 09:24 POC ABG Base Excess 17 01/20/18 09:24 FiO2 21 % 01/20/18 09:24 Sodium 144 mmol/L (137-145) 01/20/18 05:08 Potassium 4.0 mmol/L (3.6-5.0) 01/20/18 05:08 Chloride 99.1 mmol/L (98-107) 01/20/18 05:08 Carbon Dioxide 40 mmol/L (22-30) H 01/20/18 05:08 Anion Gap 9 mmol/L 01/20/18 05:08 BUN 17 mg/dL (9-20) 01/20/18 05:08 Creatinine 0.6 mg/dL (0.8-1.5) L 01/20/18 05:08 Estimated GFR > 60 ml/min 01/20/18 05:08 BUN/Creatinine Ratio 28 % 01/20/18 05:08 Glucose 95 mg/dL (75-100) 01/20/18 05:08 POC Glucose 118 (70-105) H 01/13/18 17:53 Lactic Acid 0.80 mmol/L (0.7-2.0) 01/13/18 19:59 Calcium 10.1 mg/dL (8.4-10.2) 01/20/18 05:08 Total Creatine Kinase 60 units/L (55-170) 01/07/18 15:44 CK-MB (CK-2) 2.6 ng/mL (0.0-4.0) 01/07/18 15:44 CK-MB (CK-2) Rel Index 4.3 (0-4) H 01/07/18 15:44 Troponin T < 0.010 ng/mL (0.00-0.029) 01/07/18 15:44 Triglycerides 119 mg/dL (2-149) 01/08/18 04:59 Cholesterol 174 mg/dL (50-199) 01/08/18 04:59 LDL Cholesterol Direct 101 mg/dL (50-130) 01/08/18 04:59 HDL Cholesterol 60 mg/dL (40-59) H 01/08/18 04:59 Cholesterol/HDL Ratio 2.90 % 01/08/18 04:59 Urine Color Straw (Yellow) 01/14/18 12:01 Urine Turbidity Clear (Clear) 01/14/18 12:01 Urine pH 6.0 (5.0-7.0) 01/14/18 12:01 Ur Specific [place] 1.010 (1.003-1.030) 01/14/18 12:01 Urine Protein <15 mg/dl mg/dL (Negative) 01/14/18 12:01 Urine Glucose (UA) Neg mg/dL (Negative) 01/14/18 12:01 Urine Ketones Neg mg/dL (Negative) 01/14/18 12:01 Urine Blood Neg (Negative) 01/14/18 12:01 Urine Nitrite Neg (Negative) 01/14/18 12:01 Urine Bilirubin Neg (Negative) 01/14/18 12:01 Urine Urobilinogen < 2.0 mg/dL (<2.0) 01/14/18 12:01 Ur Leukocyte Esterase Neg (Negative) 01/14/18 12:01 Urine WBC (Auto) < 1.0 /HPF (0.0-6.0) 01/14/18 12:01 Urine RBC (Auto) 3.0 /HPF (0.0-6.0) 01/14/18 12:01 Amorphous Crystals Few 01/07/18 Unknown Urine Mucus Few /HPF 01/07/18 Unknown Urine Osmolality 321 Mosm/kg 01/14/18 12:01 Urine Sodium 35 mmol/L 01/14/18 12:01 Urine Chloride 21.9 mmolL (110-250) L 01/14/18 12:01 Urine Opiates Screen Presumptive negative 01/07/18 Unknown Urine Methadone Screen Presumptive negative 01/07/18 Unknown Ur Barbiturates Screen Presumptive negative 01/07/18 Unknown Valproic Acid 27.1 ug/mL (50-100) L 01/07/18 15:53 Ur Phencyclidine Scrn Presumptive negative 01/07/18 Unknown Ur Amphetamines Screen Presumptive negative 01/07/18 Unknown U Benzodiazepines Scrn Presumptive negative 01/07/18 Unknown Urine Cocaine Screen Presumptive negative 01/07/18 Unknown U Marijuana (THC) Screen Presumptive negative 01/07/18 Unknown Drugs of Abuse Note Disclamer 01/07/18 Unknown Plasma/Serum Alcohol < 0.01 % (0-0.07) 01/07/18 15:44
[2018-01-21] MEDS: PULMICORT IH SCH ×2 (07:51→20:56)
[2018-01-21] MEDS: BROVANA NEBU IH SCH ×2 (07:51→20:56)
[2018-01-21] MEDS: DUONEB *Not for PRN Use IH SCH ×2 (07:52→20:58)
[2018-01-21] MEDS: NORCO 10/325 PO PRN ×3 (08:48→18:57)
[2018-01-21] MEDS: PAXIL PO SCH (09:14)
[2018-01-21] MEDS: PEPCID PO SCH (09:15)
[2018-01-21] MEDS: ASPIRIN PO SCH (09:16)
[2018-01-21] MEDS: DELTASONE PO SCH (09:17)
[2018-01-21] MEDS: RisperDAL PO SCH ×2 (09:17→23:44)
[2018-01-21] MEDS: COREG PO SCH ×2 (09:17→23:44)
[2018-01-21] MEDS: HEPARIN SUB-Q SCH ×2 (09:18→23:45)
--- NOTE | 2018-01-21 12:01 | Progress Note ---
Assessment and Plan Assessment and plan: Acute exacerbation of COPD Acute hypercapnic respiratory failure; saturating well. Syncope; resolved Seizure: Continue home medication Hypotension; blood pressure medications were held, he was given IV fluid and patient pressure normal -Chronic back pain: symptomatic care -CVA ruled out -Advance care planning: full code DVT prophylaxis: Heparin Disposition: pending placement to SNF. History Interval history: Patient is a 57 yo man with a history of HTN, Seizure Disorder, Chronic Pain, COPD, Dementia, Schizophrenia and Nicotine Dependence who presented with syncope while urinating with head trauma/right black eye. Patient was somnolent and he was in respiratory distress with hypotension. CT head was done and negative for acute intracranial process. Patient was given bolus of IV fluids without improvement of his blood pressure and patient was transferred to ICU. ABG showed patient is hypercapnia. Acute kidney injury, creatinine was 3. Patient was managed appropriately in the ICU , blood pressures normalized HYACINTH resolved. patient is saturating well and transferred to the IMCU. Hospitalist Physical - Constitutional Vitals: Temp Pulse Resp BP Pulse Ox 98.0 F 90 18 140/79 93 01/21/18 04:00 01/21/18 09:17 01/21/18 07:52 01/21/18 04:00 01/21/18 07:53 General appearance: Absent: mild distress - EENT Eyes: Present: PERRL, EOM intact ENT: hearing intact, clear oral mucosa, dentition normal - Neck Neck: Present: supple, normal ROM - Respiratory Respiratory effort: normal Respiratory: bilateral: CTA - Cardiovascular Rhythm: regular Heart Sounds: Present: S1 & S2. Absent: gallop, rub - Extremities Extremities: no ischemia, No edema, Full ROM - Abdominal General gastrointestinal: soft, non-tender, non-distended, normal bowel sounds - Integumentary Integumentary: Present: clear, warm, dry - Neurologic Neurologic: CNII-XII intact, moves all extremities Results - Labs CBC & Chem 7: 01/20/18 05:08 01/20/18 05:08 Labs: Laboratory Last Values WBC 5.8 K/mm3 (4.5-11.0) 01/20/18 05:08 RBC 4.34 M/mm3 (3.65-5.03) 01/20/18 05:08 Hgb 12.0 gm/dl (11.8-15.2) 01/20/18 05:08 Hct 38.7 % (35.5-45.6) 01/20/18 05:08 MCV 89 fl (84-94) 01/20/18 05:08 MCH 28 pg (28-32) 01/20/18 05:08 MCHC 31 % (32-34) L 01/20/18 05:08 RDW 16.6 % (13.2-15.2) H 01/20/18 05:08 Plt Count 166 K/mm3 (140-440) 01/20/18 05:08 Lymph % (Auto) 23.0 % (13.4-35.0) 01/20/18 05:08 [place] % (Auto) 15.7 % (0.0-7.3) H 01/20/18 05:08 Eos % (Auto) 0.3 % (0.0-4.3) 01/20/18 05:08 Baso % (Auto) 0.1 % (0.0-1.8) 01/20/18 05:08 Lymph # 1.3 K/mm3 (1.2-5.4) 01/20/18 05:08 [place] # 0.9 K/mm3 (0.0-0.8) H 01/20/18 05:08 Eos # 0.0 K/mm3 (0.0-0.4) 01/20/18 05:08 Baso # 0.0 K/mm3 (0.0-0.1) 01/20/18 05:08 Seg Neutrophils % 60.9 % (40.0-70.0) 01/20/18 05:08 Seg Neutrophils # 3.5 K/mm3 (1.8-7.7) 01/20/18 05:08 PT 11.8 Sec. (12.2-14.9) L 01/07/18 15:44 INR 0.83 (0.87-1.13) L 01/07/18 15:44 APTT 23.5 Sec. (24.2-36.6) L 01/07/18 15:44 D-Dimer < 135.0 ng/mlDDU (0-234) 01/07/18 15:44 POC ABG pH 7.350 (7.35-7.45) 01/20/18 09:24 POC ABG pCO2 77.4 (35-45) H 01/20/18 09:24 POC ABG pO2 54 (80-105) L 01/20/18 09:24 POC ABG HCO3 42.7 01/20/18 09:24 POC ABG Total CO2 45 01/20/18 09:24 POC ABG O2 Sat 84 01/20/18 09:24 POC ABG Base Excess 17 01/20/18 09:24 FiO2 21 % 01/20/18 09:24 Sodium 144 mmol/L (137-145) 01/20/18 05:08 Potassium 4.0 mmol/L (3.6-5.0) 01/20/18 05:08 Chloride 99.1 mmol/L (98-107) 01/20/18 05:08 Carbon Dioxide 40 mmol/L (22-30) H 01/20/18 05:08 Anion Gap 9 mmol/L 01/20/18 05:08 BUN 17 mg/dL (9-20) 01/20/18 05:08 Creatinine 0.6 mg/dL (0.8-1.5) L 01/20/18 05:08 Estimated GFR > 60 ml/min 01/20/18 05:08 BUN/Creatinine Ratio 28 % 01/20/18 05:08 Glucose 95 mg/dL (75-100) 01/20/18 05:08 POC Glucose 118 (70-105) H 01/13/18 17:53 Lactic Acid 0.80 mmol/L (0.7-2.0) 01/13/18 19:59 Calcium 10.1 mg/dL (8.4-10.2) 01/20/18 05:08 Total Creatine Kinase 60 units/L (55-170) 01/07/18 15:44 CK-MB (CK-2) 2.6 ng/mL (0.0-4.0) 01/07/18 15:44 CK-MB (CK-2) Rel Index 4.3 (0-4) H 01/07/18 15:44 Troponin T < 0.010 ng/mL (0.00-0.029) 01/07/18 15:44 Triglycerides 119 mg/dL (2-149) 01/08/18 04:59 Cholesterol 174 mg/dL (50-199) 01/08/18 04:59 LDL Cholesterol Direct 101 mg/dL (50-130) 01/08/18 04:59 HDL Cholesterol 60 mg/dL (40-59) H 01/08/18 04:59 Cholesterol/HDL Ratio 2.90 % 01/08/18 04:59 Urine Color Straw (Yellow) 01/14/18 12:01 Urine Turbidity Clear (Clear) 01/14/18 12:01 Urine pH 6.0 (5.0-7.0) 01/14/18 12:01 Ur Specific [place] 1.010 (1.003-1.030) 01/14/18 12:01 Urine Protein <15 mg/dl mg/dL (Negative) 01/14/18 12:01 Urine Glucose (UA) Neg mg/dL (Negative) 01/14/18 12:01 Urine Ketones Neg mg/dL (Negative) 01/14/18 12:01 Urine Blood Neg (Negative) 01/14/18 12:01 Urine Nitrite Neg (Negative) 01/14/18 12:01 Urine Bilirubin Neg (Negative) 01/14/18 12:01 Urine Urobilinogen < 2.0 mg/dL (<2.0) 01/14/18 12:01 Ur Leukocyte Esterase Neg (Negative) 01/14/18 12:01 Urine WBC (Auto) < 1.0 /HPF (0.0-6.0) 01/14/18 12:01 Urine RBC (Auto) 3.0 /HPF (0.0-6.0) 01/14/18 12:01 Amorphous Crystals Few 01/07/18 Unknown Urine Mucus Few /HPF 01/07/18 Unknown Urine Osmolality 321 Mosm/kg 01/14/18 12:01 Urine Sodium 35 mmol/L 01/14/18 12:01 Urine Chloride 21.9 mmolL (110-250) L 01/14/18 12:01 Urine Opiates Screen Presumptive negative 01/07/18 Unknown Urine Methadone Screen Presumptive negative 01/07/18 Unknown Ur Barbiturates Screen Presumptive negative 01/07/18 Unknown Valproic Acid 27.1 ug/mL (50-100) L 01/07/18 15:53 Ur Phencyclidine Scrn Presumptive negative 01/07/18 Unknown Ur Amphetamines Screen Presumptive negative 01/07/18 Unknown U Benzodiazepines Scrn Presumptive negative 01/07/18 Unknown Urine Cocaine Screen Presumptive negative 01/07/18 Unknown U Marijuana (THC) Screen Presumptive negative 01/07/18 Unknown Drugs of Abuse Note Disclamer 01/07/18 Unknown Plasma/Serum Alcohol < 0.01 % (0-0.07) 01/07/18 15:44
--- NOTE | 2018-01-21 14:04 | Progress Note ---
Assessment and Plan Acute Hypoxemic Respiratory Failure Acute COPD exacerbation Seizure Disorder Syncope (? Micturition related) Possible Acute CVA (negative work-up) HYACINTH Acute Coronary Syndrome Chronic Back Pain Abnormal CXR (atelectasis right base) - redirected back to his room and assured discharge planning was ongoing - adviced better oxygen therapy compliance - home oxygen evaluation - continue oxygen at 2L/min and wean to keep sats > 90% - Continue with PT/OT , increase activity - continue systemic steroids taper - continue brovana & pulmicort - completed empiric AB's - continue GI prophylaxis - continue VTE prophylaxis - continue chronic disease meds - continue other care per attending / other consultants including syncope w/up - outpatient pulmonary clinic f/up post discharge - discharge planning ok pulmonary-chow .... 25' Subjective Date of service: 01/21/18 Principal diagnosis: Acute Hypercapnic Resp Failure; Seizure disorder; Acute COPD exacerbation Interval history: Patient is seen today for: Acute Hypoxemic Resp Failure; Severe Sepsis; Seizure disorder; Acute COPD exacerbation Seen and examined at bedside; 24-hour events reviewed; nursing and respiratory care staff consulted; no adverse overnight events reported to me; walking up and down hdz; wants to go home; remains hypoxemic; No N/V/F/C Objective Vital Signs - 12hr 01/21/18 01/21/18 01/21/18 04:00 07:52 07:53 Temperature 98.0 F Pulse Rate 96 H Pulse Rate [ 92 H Bilateral Throughout] Respiratory 15 Rate Respiratory 18 Rate [Bilateral Throughout] Blood Pressure 140/79 [Left] O2 Sat by Pulse 94 93 Oximetry 01/21/18 09:17 Temperature Pulse Rate 90 Pulse Rate [ Bilateral Throughout] Respiratory Rate Respiratory Rate [Bilateral Throughout] Blood Pressure [Left] O2 Sat by Pulse Oximetry Constitutional: no acute distress, other (middle aged CM normocephalic with mildly increased respiratory effort) Eyes: non-icteric, other (periorbital ecchymosis, improving) ENT: oropharynx moist, other (mallampati 3) Neck: supple, no lymphadenopathy, no JVD, other (no thyromegaly) Effort: mildly labored Ascultation: Bilateral: clear, diminished breath sounds, other (Prolonged expiratory phase.) Percussion: Bilateral: not dull Cardiovascular: regular rate and rhythm, other (No R/M) Gastrointestinal: normoactive bowel sounds, soft, non-tender, non-distended, other (No HSM, obese) Integumentary: rash Extremities: no cyanosis, no edema, pink and warm, pulses normal Neurologic: normal mental status, non-focal exam, pupils equal and round, CN II- XII normal, motor strength normal and Psychiatric: mood appropriate, affect normal CBC and BMP: 01/20/18 05:08 01/20/18 05:08 ABG, PT/INR, D-dimer: ABG POC ABG pH 7.350 (7.35-7.45) 01/20/18 09:24 POC ABG pCO2 77.4 (35-45) H 01/20/18 09:24 POC ABG pO2 54 (80-105) L 01/20/18 09:24 POC ABG HCO3 42.7 01/20/18 09:24 POC ABG Total CO2 45 01/20/18 09:24 POC ABG O2 Sat 84 01/20/18 09:24 PT/INR, D-dimer PT 11.8 Sec. (12.2-14.9) L 01/07/18 15:44 INR 0.83 (0.87-1.13) L 01/07/18 15:44 D-Dimer < 135.0 ng/mlDDU (0-234) 01/07/18 15:44 Abnormal lab findings: Abnormal Labs 01/07/18 01/07/18 01/07/18 15:44 15:44 15:44 MCHC RDW 16.5 H Lymph % (Auto) [place] % (Auto) 10.2 H Lymph # [place] # 0.9 H Seg Neutrophils % 73.7 H PT 11.8 L INR 0.83 L APTT 23.5 L POC ABG pH POC ABG pCO2 POC ABG pO2 Sodium 133 L Chloride 89.4 L Carbon Dioxide 36 H BUN 7 L Creatinine 0.5 L Glucose 130 H POC Glucose Calcium CK-MB (CK-2) Rel Index 4.3 H HDL Cholesterol Urine pH Urine Chloride Valproic Acid 01/07/18 01/07/18 01/07/18 15:51 15:53 Unknown MCHC RDW Lymph % (Auto) [place] % (Auto) Lymph # [place] # Seg Neutrophils % PT INR APTT POC ABG pH POC ABG pCO2 POC ABG pO2 Sodium Chloride Carbon Dioxide BUN Creatinine Glucose POC Glucose 134 H Calcium CK-MB (CK-2) Rel Index HDL Cholesterol Urine pH 8.0 H Urine Chloride Valproic Acid 27.1 L 01/08/18 01/09/18 01/09/18 04:59 05:02 05:02 MCHC 31 L RDW 16.2 H Lymph % (Auto) [place] % (Auto) Lymph # [place] # Seg Neutrophils % PT INR APTT POC ABG pH POC ABG pCO2 POC ABG pO2 Sodium Chloride 91.9 L Carbon Dioxide 38 H BUN 7 L Creatinine 0.5 L Glucose POC Glucose Calcium CK-MB (CK-2) Rel Index HDL Cholesterol 60 H Urine pH Urine Chloride Valproic Acid 01/10/18 01/10/18 01/13/18 05:26 05:26 17:53 MCHC RDW 16.4 H Lymph % (Auto) [place] % (Auto) Lymph # [place] # Seg Neutrophils % PT INR APTT POC ABG pH POC ABG pCO2 POC ABG pO2 Sodium 135 L Chloride 84.7 L Carbon Dioxide 40 H BUN Creatinine 0.5 L Glucose POC Glucose 118 H Calcium 10.4 H CK-MB (CK-2) Rel Index HDL Cholesterol Urine pH Urine Chloride Valproic Acid 01/13/18 01/13/18 01/13/18 19:20 19:59 20:10 MCHC 31 L RDW 16.2 H Lymph % (Auto) [place] % (Auto) Lymph # [place] # Seg Neutrophils % PT INR APTT POC ABG pH 7.162 L POC ABG pCO2 104.2 H POC ABG pO2 71 L Sodium 129 L Chloride 86.0 L Carbon Dioxide 33 H D BUN 80 H Creatinine 3.1 H D Glucose 124 H POC Glucose Calcium CK-MB (CK-2) Rel Index HDL Cholesterol Urine pH Urine Chloride Valproic Acid 01/13/18 01/14/18 01/14/18 21:25 02:04 02:08 MCHC 31 L RDW 16.1 H Lymph % (Auto) 8.7 L [place] % (Auto) 13.4 H Lymph # 0.6 L [place] # 0.9 H Seg Neutrophils % 77.7 H PT INR APTT POC ABG pH 7.182 L POC ABG pCO2 88.2 H POC ABG pO2 Sodium 129 L Chloride 91.0 L Carbon Dioxide BUN 82 H Creatinine 3.1 H Glucose 123 H POC Glucose Calcium CK-MB (CK-2) Rel Index HDL Cholesterol Urine pH Urine Chloride Valproic Acid 01/14/18 01/14/18 01/14/18 08:37 11:18 12:01 MCHC RDW Lymph % (Auto) [place] % (Auto) Lymph # [place] # Seg Neutrophils % PT INR APTT POC ABG pH 7.284 L 7.263 L POC ABG pCO2 72.3 H 80.4 H POC ABG pO2 71 L 79 L Sodium Chloride Carbon Dioxide BUN Creatinine Glucose POC Glucose Calcium CK-MB (CK-2) Rel Index HDL Cholesterol Urine pH Urine Chloride 21.9 L Valproic Acid 01/14/18 01/14/18 01/15/18 14:44 18:40 04:08 MCHC RDW Lymph % (Auto) [place] % (Auto) Lymph # [place] # Seg Neutrophils % PT INR APTT POC ABG pH 7.230 L POC ABG pCO2 87.5 H POC ABG pO2 70 L Sodium 135 L Chloride 95.4 L Carbon Dioxide BUN 70 H 57 H Creatinine 2.0 H Glucose 144 H 129 H POC Glucose Calcium CK-MB (CK-2) Rel Index HDL Cholesterol Urine pH Urine Chloride Valproic Acid 01/15/18 01/15/18 01/16/18 04:25 16:43 11:22 MCHC RDW Lymph % (Auto) [place] % (Auto) Lymph # [place] # Seg Neutrophils % PT INR APTT POC ABG pH 7.246 L 7.298 L POC ABG pCO2 83.8 H 72.6 H 54.2 H POC ABG pO2 68 L 55 L Sodium Chloride Carbon Dioxide BUN Creatinine Glucose POC Glucose Calcium CK-MB (CK-2) Rel Index HDL Cholesterol Urine pH Urine Chloride Valproic Acid 01/18/18 01/18/18 01/20/18 05:32 05:32 05:08 MCHC 31 L 31 L RDW 16.6 H 16.6 H Lymph % (Auto) [place] % (Auto) 11.9 H 15.7 H Lymph # [place] # 0.9 H Seg Neutrophils % PT INR APTT POC ABG pH POC ABG pCO2 POC ABG pO2 Sodium Chloride Carbon Dioxide 39 H D BUN 21 H Creatinine Glucose POC Glucose Calcium CK-MB (CK-2) Rel Index HDL Cholesterol Urine pH Urine Chloride Valproic Acid 01/20/18 01/20/18 05:08 09:24 MCHC RDW Lymph % (Auto) [place] % (Auto) Lymph # [place] # Seg Neutrophils % PT INR APTT POC ABG pH POC ABG pCO2 77.4 H POC ABG pO2 54 L Sodium Chloride Carbon Dioxide 40 H BUN Creatinine 0.6 L Glucose POC Glucose Calcium CK-MB (CK-2) Rel Index HDL Cholesterol Urine pH Urine Chloride Valproic Acid Allied health notes reviewed: nursing
[2018-01-22] MEDS: PULMICORT IH SCH (08:50)
[2018-01-22] MEDS: DUONEB *Not for PRN Use IH SCH (08:50)
[2018-01-22] MEDS: BROVANA NEBU IH SCH (08:50)
--- NOTE | 2018-01-22 10:37 | Discharge Summary ---
Providers - Providers Date of Admission: 01/07/18 18:12 Date of discharge: 01/22/18 Attending physician: ANGELO AVERY 01/07/18 18:12 Occupational Therapy Evaluate and Treat [CONS] Routine Comment: Reason For Exam: Neuro deficits Physical Therapy Evaluation and Treat [CONS] Routine Comment: Reason For Exam: Neuro deficits 01/08/18 12:34 Consult to Physician [CONS] Routine Comment: Consulting Provider: DON SEGURA Physician Instructions: Reason For Exam: syncope ?CVA, unable to get mri due to metal 01/10/18 09:40 Speech Therapy Evaluation and Treat [CONS] Routine Reason For Exam: Difficulty in swallowing 01/10/18 12:39 Consult to Physician [CONS] Routine Comment: Consulting Provider: ARBEN CHACON Physician Instructions: Reason For Exam: respiratory failure 01/14/18 03:17 Consult to Physician [CONS] Routine Comment: Consulting Provider: MARAH BARBER Physician Instructions: Reason For Exam: arf 01/16/18 09:11 Physical Therapy Evaluation and Treat [CONS] Routine Comment: Reason For Exam: deconditioning Primary care physician: JACQUARD LACE WEAVER Hospitalization Reason for admission: syncope Condition: Stable Hospital course: Patient is a 57 yo man with a history of HTN, Seizure Disorder, Chronic Pain, COPD, Dementia, Schizophrenia and Nicotine Dependence who presented to the emergency department with syncope while urinating with subsequent head trauma/ right orbital hematoma/bruising. Syncope was felt to be secondary to micturition. The patient was seen by neurology in auscultation. CT scan was found to be negative. He does have seizure disorder and was maintained on medications with no new seizure activity. Patient had a hospital course that was complicated by respiratory distress with hypotension on 01/15/18. The acute hypercapnic respiratory failure was treated with BiPAP and patient was seen by pulmonary. Etiology is felt to be secondary to acute COPD exacerbation. Patient was continued on BiPAP and eventually weaned off, patient also received systemic steroids, Brovana and Pulmicort. The patient also received them. Antibiotic therapy. The patient received IV fluid hydration for hypotension which resolved. Pulmonary recommended a home oxygen evaluation for the COPD. Case management was consulted and home oxygen was arranged. Patient is felt to have received maximal hospital benefit and will discharge home. Patient discharge time 32 minutes. Disposition: [id number] HOME UNDER HOME [facility] Time spent for discharge: 32 - Discharge Diagnoses (1) Acute and chronic respiratory failure Status: Acute (2) Acute hypercapnic respiratory failure Status: Acute (3) Encephalopathy Status: Acute (4) Seizure Status: Acute (5) Syncope Status: Acute (6) COPD (chronic obstructive pulmonary disease) Status: Chronic Qualifiers: COPD type: COPD with acute exacerbation Qualified Code(s): J44.1 - Chronic obstructive pulmonary disease with (acute) exacerbation (7) HYACINTH (acute kidney injury) Status: Acute Core Measure Documentation - Palliative Care Palliative Care/ Comfort Measures: Not Applicable - Core Measures Any of the following diagnoses?: none Exam - Constitutional Vitals: Temp Pulse Resp BP Pulse Ox 99.1 F 86 15 103/50 95 01/22/18 08:00 01/22/18 10:00 01/22/18 08:00 01/22/18 08:00 01/22/18 08:49 General appearance: Present: no acute distress, well-nourished - EENT Eyes: Present: PERRL ENT: hearing intact, clear oral mucosa - Neck Neck: Present: supple, normal ROM - Respiratory Respiratory effort: normal Respiratory: bilateral: CTA - Cardiovascular Heart Sounds: Present: S1 & S2. Absent: rub, click - Extremities Extremities: pulses symmetrical, No edema Peripheral Pulses: within normal limits - Abdominal General gastrointestinal: Present: soft, non-tender, non-distended, normal bowel sounds Male genitourinary: Present: normal - Integumentary Integumentary: Present: clear, warm, dry - Musculoskeletal Musculoskeletal: gait normal, strength equal bilaterally - Psychiatric Psychiatric: appropriate mood/affect, intact judgment & insight - Neurologic Neurologic: CNII-XII intact, moves all extremities Plan Activity: advance as tolerated Weight Bearing Status: Weight Bear as Tolerated Diet: low fat, low cholesterol, low salt Follow up with: PRIMARY CARE, [Primary Care Provider] - 3-5 Days Prescriptions: amLODIPine [Norvasc] 10 mg PO QDAY #30 tablet Arformoterol Nebu [Brovana Nebu] 15 mcg IH Q12HRT #30 ml Aspirin [Aspirin BABY CHEW TAB] 81 mg PO DAILY #30 tab.chew Aspirin [Aspirin TAB] 325 mg PO QDAY #30 tablet AtorvaSTATin [Lipitor] 40 mg PO QHS #30 tablet Budesonide [Pulmicort Respules] 0.5 mg IH Q12HRT #30 nebu Carvedilol [Coreg] 3.125 mg PO BID #60 tablet Carvedilol [Coreg] 6.25 mg PO BID #60 tablet Divalproex Sodium [Divalproex Sodium ER] 1,000 mg PO HS #60 tab.er.24h Docusate Sodium [Colace CAP] 100 mg PO BID PRN #60 capsule PRN Reason: Constipation Famotidine [Pepcid] 20 mg PO QDAY #30 tablet Levofloxacin [Levaquin TAB] 500 mg PO QDAY #5 tablet Lisinopril [Zestril TAB] 40 mg PO DAILY #30 tablet Mirtazapine 7.5 mg PO DAILY #30 tablet PARoxetine [Paxil] 40 mg PO DAILY #30 tablet Paroxetine HCl [PARoxetine] 40 mg PO DAILY #30 tablet Prednisone [predniSONE 10 mg (6-Day Pack, 21 Tabs)] 10 mg PO .TAPER #1 tab.ds.pk risperiDONE [RisperiDONE] 2 mg PO HS #60 tablet
[2018-01-22] MEDS: ASPIRIN PO SCH (11:29)
[2018-01-22] MEDS: DELTASONE PO SCH (11:29)
[2018-01-22] MEDS: PAXIL PO SCH (11:30)
[2018-01-22] MEDS: PEPCID PO SCH (11:30)
[2018-01-22] MEDS: HEPARIN SUB-Q SCH (11:38)
[2018-01-22] MEDS: COREG PO SCH ×2 (11:38→12:15)
[2018-01-22] MEDS: RisperDAL PO SCH (11:38)
[2018-01-22] MEDS: NORCO 10/325 PO PRN (12:03)
[2018-01-22 12:18] VITALS: BP 171/106
--- NOTE | 2018-01-22 14:49 | Progress Note ---
Assessment and Plan Acute Hypoxemic Respiratory Failure Acute COPD exacerbation Seizure Disorder Syncope (? Micturition related) Possible Acute CVA (negative work-up) HYACINTH Acute Coronary Syndrome Chronic Back Pain Abnormal CXR (atelectasis right base) - redirected back to his room and assured discharge planning was ongoing - adviced better oxygen therapy compliance - home oxygen evaluation - continue oxygen at 2L/min and wean to keep sats > 90% - Continue with PT/OT , increase activity - continue systemic steroids taper - continue brovana & pulmicort - completed empiric AB's - continue GI prophylaxis - continue VTE prophylaxis - continue chronic disease meds - continue other care per attending / other consultants including syncope w/up - outpatient pulmonary clinic f/up post discharge - discharge planning ok pulmonary-chow .... 25' Subjective Date of service: 01/22/18 Principal diagnosis: Acute Hypercapnic Resp Failure; Seizure disorder; Acute COPD exacerbation Interval history: Patient is seen today for: Acute Hypoxemic Resp Failure; Severe Sepsis; Seizure disorder; Acute COPD exacerbation Seen and examined at bedside; 24-hour events reviewed; nursing and respiratory care staff consulted; no adverse overnight events reported to me; Objective Vital Signs - 12hr 01/22/18 01/22/18 01/22/18 04:00 08:00 08:49 Temperature 99.1 F Pulse Rate 81 82 Respiratory 11 L 17 Rate Blood Pressure Blood Pressure 107/61 103/50 [Left] O2 Sat by Pulse 99 99 95 Oximetry 01/22/18 01/22/18 01/22/18 10:00 12:00 12:15 Temperature 99.0 F Pulse Rate 86 84 Respiratory Rate Blood Pressure 171/106 Blood Pressure [Left] O2 Sat by Pulse Oximetry Constitutional: no acute distress, other (middle aged CM normocephalic with mildly increased respiratory effort) Eyes: non-icteric, other (periorbital ecchymosis, improving) ENT: oropharynx moist, other (mallampati 3) Neck: supple, no lymphadenopathy, no JVD, other (no thyromegaly) Effort: mildly labored Ascultation: Bilateral: clear, diminished breath sounds, rhonchi (posterior bases), other (Prolonged expiratory phase.) Percussion: Bilateral: not dull Cardiovascular: regular rate and rhythm, other (No R/M) Gastrointestinal: normoactive bowel sounds, soft, non-tender, non-distended, other (No HSM, obese) Integumentary: rash Extremities: no cyanosis, no edema, pink and warm, pulses normal Neurologic: normal mental status, non-focal exam, pupils equal and round, CN II- XII normal, motor strength normal and Psychiatric: mood appropriate, affect normal CBC and BMP: 01/20/18 05:08 01/20/18 05:08 ABG, PT/INR, D-dimer: ABG POC ABG pH 7.350 (7.35-7.45) 01/20/18 09:24 POC ABG pCO2 77.4 (35-45) H 01/20/18 09:24 POC ABG pO2 54 (80-105) L 01/20/18 09:24 POC ABG HCO3 42.7 01/20/18 09:24 POC ABG Total CO2 45 01/20/18 09:24 POC ABG O2 Sat 84 01/20/18 09:24 PT/INR, D-dimer PT 11.8 Sec. (12.2-14.9) L 01/07/18 15:44 INR 0.83 (0.87-1.13) L 01/07/18 15:44 D-Dimer < 135.0 ng/mlDDU (0-234) 01/07/18 15:44 Abnormal lab findings: Abnormal Labs 01/07/18 01/07/18 01/07/18 15:44 15:44 15:44 MCHC RDW 16.5 H Lymph % (Auto) [place] % (Auto) 10.2 H Lymph # [place] # 0.9 H Seg Neutrophils % 73.7 H PT 11.8 L INR 0.83 L APTT 23.5 L POC ABG pH POC ABG pCO2 POC ABG pO2 Sodium 133 L Chloride 89.4 L Carbon Dioxide 36 H BUN 7 L Creatinine 0.5 L Glucose 130 H POC Glucose Calcium CK-MB (CK-2) Rel Index 4.3 H HDL Cholesterol Urine pH Urine Chloride Valproic Acid 01/07/18 01/07/18 01/07/18 15:51 15:53 Unknown MCHC RDW Lymph % (Auto) [place] % (Auto) Lymph # [place] # Seg Neutrophils % PT INR APTT POC ABG pH POC ABG pCO2 POC ABG pO2 Sodium Chloride Carbon Dioxide BUN Creatinine Glucose POC Glucose 134 H Calcium CK-MB (CK-2) Rel Index HDL Cholesterol Urine pH 8.0 H Urine Chloride Valproic Acid 27.1 L 01/08/18 01/09/18 01/09/18 04:59 05:02 05:02 MCHC 31 L RDW 16.2 H Lymph % (Auto) [place] % (Auto) Lymph # [place] # Seg Neutrophils % PT INR APTT POC ABG pH POC ABG pCO2 POC ABG pO2 Sodium Chloride 91.9 L Carbon Dioxide 38 H BUN 7 L Creatinine 0.5 L Glucose POC Glucose Calcium CK-MB (CK-2) Rel Index HDL Cholesterol 60 H Urine pH Urine Chloride Valproic Acid 01/10/18 01/10/18 01/13/18 05:26 05:26 17:53 MCHC RDW 16.4 H Lymph % (Auto) [place] % (Auto) Lymph # [place] # Seg Neutrophils % PT INR APTT POC ABG pH POC ABG pCO2 POC ABG pO2 Sodium 135 L Chloride 84.7 L Carbon Dioxide 40 H BUN Creatinine 0.5 L Glucose POC Glucose 118 H Calcium 10.4 H CK-MB (CK-2) Rel Index HDL Cholesterol Urine pH Urine Chloride Valproic Acid 01/13/18 01/13/18 01/13/18 19:20 19:59 20:10 MCHC 31 L RDW 16.2 H Lymph % (Auto) [place] % (Auto) Lymph # [place] # Seg Neutrophils % PT INR APTT POC ABG pH 7.162 L POC ABG pCO2 104.2 H POC ABG pO2 71 L Sodium 129 L Chloride 86.0 L Carbon Dioxide 33 H D BUN 80 H Creatinine 3.1 H D Glucose 124 H POC Glucose Calcium CK-MB (CK-2) Rel Index HDL Cholesterol Urine pH Urine Chloride Valproic Acid 01/13/18 01/14/18 01/14/18 21:25 02:04 02:08 MCHC 31 L RDW 16.1 H Lymph % (Auto) 8.7 L [place] % (Auto) 13.4 H Lymph # 0.6 L [place] # 0.9 H Seg Neutrophils % 77.7 H PT INR APTT POC ABG pH 7.182 L POC ABG pCO2 88.2 H POC ABG pO2 Sodium 129 L Chloride 91.0 L Carbon Dioxide BUN 82 H Creatinine 3.1 H Glucose 123 H POC Glucose Calcium CK-MB (CK-2) Rel Index HDL Cholesterol Urine pH Urine Chloride Valproic Acid 01/14/18 01/14/18 01/14/18 08:37 11:18 12:01 MCHC RDW Lymph % (Auto) [place] % (Auto) Lymph # [place] # Seg Neutrophils % PT INR APTT POC ABG pH 7.284 L 7.263 L POC ABG pCO2 72.3 H 80.4 H POC ABG pO2 71 L 79 L Sodium Chloride Carbon Dioxide BUN Creatinine Glucose POC Glucose Calcium CK-MB (CK-2) Rel Index HDL Cholesterol Urine pH Urine Chloride 21.9 L Valproic Acid 01/14/18 01/14/18 01/15/18 14:44 18:40 04:08 MCHC RDW Lymph % (Auto) [place] % (Auto) Lymph # [place] # Seg Neutrophils % PT INR APTT POC ABG pH 7.230 L POC ABG pCO2 87.5 H POC ABG pO2 70 L Sodium 135 L Chloride 95.4 L Carbon Dioxide BUN 70 H 57 H Creatinine 2.0 H Glucose 144 H 129 H POC Glucose Calcium CK-MB (CK-2) Rel Index HDL Cholesterol Urine pH Urine Chloride Valproic Acid 01/15/18 01/15/18 01/16/18 04:25 16:43 11:22 MCHC RDW Lymph % (Auto) [place] % (Auto) Lymph # [place] # Seg Neutrophils % PT INR APTT POC ABG pH 7.246 L 7.298 L POC ABG pCO2 83.8 H 72.6 H 54.2 H POC ABG pO2 68 L 55 L Sodium Chloride Carbon Dioxide BUN Creatinine Glucose POC Glucose Calcium CK-MB (CK-2) Rel Index HDL Cholesterol Urine pH Urine Chloride Valproic Acid 01/18/18 01/18/18 01/20/18 05:32 05:32 05:08 MCHC 31 L 31 L RDW 16.6 H 16.6 H Lymph % (Auto) [place] % (Auto) 11.9 H 15.7 H Lymph # [place] # 0.9 H Seg Neutrophils % PT INR APTT POC ABG pH POC ABG pCO2 POC ABG pO2 Sodium Chloride Carbon Dioxide 39 H D BUN 21 H Creatinine Glucose POC Glucose Calcium CK-MB (CK-2) Rel Index HDL Cholesterol Urine pH Urine Chloride Valproic Acid 01/20/18 01/20/18 05:08 09:24 MCHC RDW Lymph % (Auto) [place] % (Auto) Lymph # [place] # Seg Neutrophils % PT INR APTT POC ABG pH POC ABG pCO2 77.4 H POC ABG pO2 54 L Sodium Chloride Carbon Dioxide 40 H BUN Creatinine 0.6 L Glucose POC Glucose Calcium CK-MB (CK-2) Rel Index HDL Cholesterol Urine pH Urine Chloride Valproic Acid Allied health notes reviewed: nursing
== END 2018-01-22 13:36 | disposition home or self-care (01) | DRG 189 ==
LOC: ED 14:38 → 4A 18:12 → CC1 01-13 19:15 → IMCU 01-16 15:26
PROVIDERS: ADMIT Internal Medicine; ATTEND Hospitalist
PROC: 4A033R1 Measurement of Arterial Saturation, Peripheral, Percutaneous Approach (ICD-10-PCS; principal; 2018-01-13)
PROC: 5A09557 Assistance with Respiratory Ventilation, Greater than 96 Consecutive Hours, Continuous Positive Airway Pressure (ICD-10-PCS; 2018-01-13)
PROC: 5A09357 Assistance with Respiratory Ventilation, Less than 24 Consecutive Hours, Continuous Positive Airway Pressure (ICD-10-PCS; 2018-01-19)
DX: J96.01 Acute respiratory failure with hypoxia (principal); G93.40 Encephalopathy, unspecified; N17.9 Acute kidney failure, unspecified; J44.1 Chronic obstructive pulmonary disease with (acute) exacerbation; E87.1 Hypo-osmolality and hyponatremia; J98.11 Atelectasis; I95.9 Hypotension, unspecified; J96.02 Acute respiratory failure with hypercapnia; R39.198 Other difficulties with micturition; S09.90XA Unspecified injury of head, initial encounter; S05.10XA Contusion of eyeball and orbital tissues, unspecified eye, initial encounter; H05.231 Hemorrhage of right orbit; G40.909 Epilepsy, unspecified, not intractable, without status epilepticus; G89.29 Other chronic pain; M54.9 Dorsalgia, unspecified; I10 Essential (primary) hypertension; F99 Mental disorder, not otherwise specified; F03.90 Unspecified dementia, unspecified severity, without behavioral disturbance, psychotic disturbance, mood disturbance, and anxiety; F20.9 Schizophrenia, unspecified; F17.200 Nicotine dependence, unspecified, uncomplicated; Z82.49 Family history of ischemic heart disease and other diseases of the circulatory system; Z79.899 Other long term (current) drug therapy; Z79.82 Long term (current) use of aspirin
CPT/HCPCS: 36415; 36600; 70450; 70486; 71045; 71250; 72125; 76770; 80048; 80061; 80164; 80307; 80320; 81001; 82140; 82436; 82550; 82553; 82803; 82962; 83935; 84300; 84484; 85025; 85027; 85379; 85610; 85730; 87040; 87086; 93005; 93010; 93306; 93880; 94640; 94660; 94760; A9270-GY; G0480; G8987-GO; G8988-GO; G8996-GN; G8997-GN; G8998-GN; J0360; J1120; J1644; J1956; J2543; J2920; J7030; J7040; J7512

== ENCOUNTER 2018-02-05 11:11 | Emergency (ER) | payer MEDICARE ==
--- NOTE | 2018-02-05 11:57 | Emergency Department Report ---
ED General Adult HPI - General Chief complaint: Fall Stated complaint: FALL Time Seen by Provider: 02/05/18 11:39 Source: patient, EMS (ems notes not available at time of chart dictation), RN notes reviewed, old records reviewed Mode of arrival: Stretcher Limitations: Other (patient is demented. Patient is a poor historian) - History of Present Illness Initial comments: This is a 57-year-old gentleman who has a past history of hypertension, seizure disorder, chronic pain, COPD, dementia, schizophrenia, on home oxygen therapy. Patient recently had a prolonged hospital course, please see his most recent discharge summary. He is sent to the ER from his personal halfway for evaluation of frequent falls. The patient doesn't recall when his last fall happened. He denies headache, neck pain, chest pain, abdominal pain, shortness of breath. He complains of back pain, but cannot further describe the nature of his back pain. He cannot describe exacerbating or relieving factors or radiation He is not able to tell me when his last fall was. He arrives to the emergency room hypoxic and not currently on supplemental oxygen. As per review of old medical records, case management had set up home oxygen for him. Nursing staff contacted the patient's personal halfway, and the indicated that they have oxygen, but the patient is not compliant with his oxygen therapy. -: unknown Location: back Radiation: other Severity scale (0 -10): 8 Quality: other Consistency: other Improves with: other Worsens with: other Associated Symptoms: other - Related Data Home Medications Medication Instructions Recorded Confirmed Last Taken risperiDONE [RisperiDONE] 1 mg PO DAILY 07/02/14 01/07/18 1 Day Ago ~03/31/17 Previous Rx's Medication Instructions Recorded Last Taken Type Arformoterol Nebu [Brovana Nebu] 15 mcg IH Q12HRT #30 ml 01/13/18 Unknown Rx Aspirin [Aspirin BABY CHEW TAB] 81 mg PO DAILY #30 tab.chew 01/13/18 Unknown Rx AtorvaSTATin [Lipitor] 40 mg PO QHS #30 tablet 01/13/18 Unknown Rx Budesonide [Pulmicort Respules] 0.5 mg IH Q12HRT #30 nebu 01/13/18 Unknown Rx Carvedilol [Coreg] 3.125 mg PO BID #60 tablet 01/13/18 Unknown Rx Divalproex Sodium [Divalproex 1,000 mg PO HS #60 tab.er.24h 01/13/18 Unknown Rx Sodium ER] Docusate Sodium [Colace CAP] 100 mg PO BID PRN #60 capsule 01/13/18 Unknown Rx Lisinopril [Zestril TAB] 40 mg PO DAILY #30 tablet 01/13/18 Unknown Rx Mirtazapine 7.5 mg PO DAILY #30 tablet 01/13/18 Unknown Rx PARoxetine HCl [PARoxetine] 40 mg PO DAILY #30 tablet 01/13/18 Unknown Rx Prednisone [predniSONE 10 mg 10 mg PO .TAPER #1 tab.ds.pk 01/13/18 Unknown Rx (6-Day Pack, 21 Tabs)] amLODIPine [Norvasc] 10 mg PO QDAY #30 tablet 01/13/18 Unknown Rx levoFLOXacin [Levaquin TAB] 500 mg PO QDAY #5 tablet 01/13/18 Unknown Rx risperiDONE [RisperiDONE] 2 mg PO HS #60 tablet 01/13/18 Unknown Rx Aspirin [Aspirin TAB] 325 mg PO QDAY #30 tablet 01/22/18 Unknown Rx Carvedilol [Coreg] 6.25 mg PO BID #60 tablet 01/22/18 Unknown Rx Famotidine [Pepcid] 20 mg PO QDAY #30 tablet 01/22/18 Unknown Rx PARoxetine [Paxil] 40 mg PO DAILY #30 tablet 01/22/18 Unknown Rx Allergies Allergy/AdvReac Type Severity Reaction Status Date / Time No Known Allergies Allergy Verified 01/07/18 15:09 ED Review of Systems ROS: Stated complaint: FALL Other details as noted in HPI Comment: Unobtainable due to pts medical conditions ED Past Medical Hx - Past Medical History Hx Hypertension: Yes Hx Congestive Heart Failure: No Hx Diabetes: No Hx Seizures: Yes Hx Psychiatric Treatment: Yes (schizophrenia) Hx Asthma: No Hx COPD: Yes Hx Dementia: Yes Hx HIV: No Additional medical history: back surgery - Surgical History Additional Surgical History: back surgery from seizure, umbilical hernia repair - Social History Smoking Status: Never Smoker Substance Use Type: None - Medications Home Medications: Home Medications Medication Instructions Recorded Confirmed Last Taken Type risperiDONE [RisperiDONE] 1 mg PO DAILY 07/02/14 01/07/18 1 Day Ago History ~03/31/17 Arformoterol Nebu [Brovana Nebu] 15 mcg IH Q12HRT #30 ml 01/13/18 Unknown Rx Aspirin [Aspirin BABY CHEW TAB] 81 mg PO DAILY #30 tab.chew 01/13/18 Unknown Rx AtorvaSTATin [Lipitor] 40 mg PO QHS #30 tablet 01/13/18 Unknown Rx Budesonide [Pulmicort Respules] 0.5 mg IH Q12HRT #30 nebu 01/13/18 Unknown Rx Carvedilol [Coreg] 3.125 mg PO BID #60 tablet 01/13/18 Unknown Rx Divalproex Sodium [Divalproex 1,000 mg PO HS #60 tab.er.24h 01/13/18 Unknown Rx Sodium ER] Docusate Sodium [Colace CAP] 100 mg PO BID PRN #60 capsule 01/13/18 Unknown Rx Lisinopril [Zestril TAB] 40 mg PO DAILY #30 tablet 01/13/18 Unknown Rx Mirtazapine 7.5 mg PO DAILY #30 tablet 01/13/18 Unknown Rx PARoxetine HCl [PARoxetine] 40 mg PO DAILY #30 tablet 01/13/18 Unknown Rx Prednisone [predniSONE 10 mg 10 mg PO .TAPER #1 tab.ds.pk 01/13/18 Unknown Rx (6-Day Pack, 21 Tabs)] amLODIPine [Norvasc] 10 mg PO QDAY #30 tablet 01/13/18 Unknown Rx levoFLOXacin [Levaquin TAB] 500 mg PO QDAY #5 tablet 01/13/18 Unknown Rx risperiDONE [RisperiDONE] 2 mg PO HS #60 tablet 01/13/18 Unknown Rx Aspirin [Aspirin TAB] 325 mg PO QDAY #30 tablet 01/22/18 Unknown Rx Carvedilol [Coreg] 6.25 mg PO BID #60 tablet 01/22/18 Unknown Rx Famotidine [Pepcid] 20 mg PO QDAY #30 tablet 01/22/18 Unknown Rx PARoxetine [Paxil] 40 mg PO DAILY #30 tablet 01/22/18 Unknown Rx ED Physical Exam - General Limitations: No Limitations General appearance: alert, in no apparent distress - Head Head exam: Present: atraumatic, normocephalic - Eye Eye exam: Present: normal appearance, EOMI. Absent: nystagmus - ENT ENT exam: Present: normal exam, normal orophraynx, mucous membranes moist, normal external ear exam - Neck Neck exam: Present: normal inspection, full ROM. Absent: tenderness, meningismus - Respiratory Respiratory exam: Present: normal lung sounds bilaterally. Absent: respiratory distress - Cardiovascular Cardiovascular Exam: Present: regular rate, normal rhythm, normal heart sounds. Absent: bradycardia, tachycardia, irregular rhythm, systolic murmur, diastolic murmur, rubs, gallop - GI/Abdominal GI/Abdominal exam: Present: soft, normal bowel sounds. Absent: distended, tenderness, guarding, rebound, rigid, pulsatile mass - Rectal Rectal exam: Present: deferred - Extremities Exam Extremities exam: Present: normal inspection (inferior knee ecchymosis noted bilaterally. There is anterior knee tenderness. There is no laxity or instability to the bilateral knee joints), full ROM, tenderness (there is anterior knee tenderness.), normal capillary refill, other (2+ pulses noted in the bilateral upper, lower extremities. Compartments soft. No long bony tenderness. The pelvis is stable.). Absent: pedal edema, joint swelling, calf tenderness - Back Exam Back exam: Present: normal inspection, paraspinal tenderness - Neurological Exam Neurological exam: Present: alert (patient is alert to name. He follows commands.), CN II-XII intact, other (Extraocular movements intact. Tongue midline. No facial droop. Facial sensation intact to light touch in the V1, V2 , V3 distribution bilaterally. 5 and 5 strength in 4 extremities.. Sensation is intact to light touch in 4 extremities.). Absent: motor sensory deficit - Psychiatric Psychiatric exam: Present: normal affect, normal mood - Skin Skin exam: Present: warm, ecchymosis ED Course Vital Signs 02/05/18 02/05/18 11:47 14:47 Temperature 97.6 F Pulse Rate 85 86 Respiratory 19 16 Rate Blood Pressure 138/85 149/98 [Right] O2 Sat by Pulse 85 91 Oximetry - Reevaluation(s) Reevaluation #1: 02/05/18 13:44 Differential diagnosis, including but not limited to: Deconditioning, frequent falls, dementia, intracranial injury, spinal injury, pneumonia, urinary tract infection, anemia, electrolyte derangement Assessment and plan: 57-year-old male who was sent to the ER for evaluation of frequent falls. He arrived without oxygen. He is hypoxic to the 80s on room air, but corrects nicely with supplemental oxygen. We have confirmed that the patient has oxygen back to his personal halfway and is noncompliant with this. This is not an indication for hospital admission. The patient is pleasant, calm and cooperative, and is not endorsing homicidality or suicidality or signs of acute psychosis. He therefore does not require a 1013 at this time. He is moving 4 extremities and he is in no distress. X-ray of the chest, pelvis, bilateral lower extremities are unremarkable for acute disease. He complained of nonspecific back pain, and a CT scan of the brain, cervical spine have been obtained, and we are waiting for interpretation. CT scan of the abdomen and pelvis was also obtained. Interpretation is pending. Urinalysis is pending at this time tube. I have involved case management to facilitate outpatient initiation of physical therapy to assist with frequent falls. Reevaluation #2: 02/05/18 15:14 Patient's belly is soft. There is no right upper quadrant tenderness. Therefore doubt cholecystitis. There is no left lower quadrant tenderness or right lower quadrant tenderness. There is no diarrhea. Therefore doubt colitis. CT scan shows numerous incidental findings. The patient has been observed in the ER for hours without clinical decompensation. His repeat motor and mental status examination is unchanged. The patient has been seen, evaluated by case management, and they're going to set up for home physical therapy. Patient actively speaking does not have an immediate/emergent medical condition that would require hospitalization at this time. He is medically suitable for discharge at this time. ED Medical Decision Making - Lab Data Result diagrams: 02/05/18 12:08 02/05/18 12:08 Vital Signs 02/05/18 11:47 Temperature 97.6 F Pulse Rate 85 Respiratory 19 Rate Blood Pressure 138/85 [Right] O2 Sat by Pulse 85 Oximetry Lab Results 02/05/18 02/05/18 02/05/18 Range/Units 12:08 12:08 12:08 WBC 6.5 (4.5-11.0) K/mm3 RBC 4.55 (3.65-5.03) M/mm3 Hgb 12.6 (11.8-15.2) gm/dl Hct 39.5 (35.5-45.6) % MCV 87 (84-94) fl MCH 28 (28-32) pg MCHC 32 (32-34) % RDW 17.8 H (13.2-15.2) % Plt Count 187 (140-440) K/mm3 PT 12.6 (12.2-14.9) Sec. INR 0.90 (0.87-1.13) APTT 25.5 (24.2-36.6) Sec. Sodium 138 (137-145) mmol/L Potassium 4.8 (3.6-5.0) mmol/L Chloride 95.3 L (98-107) mmol/L Carbon Dioxide 33 H (22-30) mmol/L Anion Gap 15 mmol/L BUN 13 (9-20) mg/dL Creatinine 0.8 (0.8-1.5) mg/dL Estimated GFR > 60 ml/min BUN/Creatinine Ratio 16 % Glucose 82 (75-100) mg/dL Calcium 10.3 H (8.4-10.2) mg/dL Magnesium 2.10 (1.7-2.3) mg/dL Total Creatine Kinase 30 L (55-170) units/L Valproic Acid (50-100) ug/mL / Range/Units 12:08 WBC (4.5-11.0) K/mm3 RBC (3.65-5.03) M/mm3 Hgb (11.8-15.2) gm/dl Hct (35.5-45.6) % MCV (84-94) fl MCH (28-32) pg MCHC (32-34) % RDW (13.2-15.2) % Plt Count (140-440) K/mm3 PT (12.2-14.9) Sec. INR (0.87-1.13) APTT (24.2-36.6) Sec. Sodium (137-145) mmol/L Potassium (3.6-5.0) mmol/L Chloride (98-107) mmol/L Carbon Dioxide (22-30) mmol/L Anion Gap mmol/L BUN (9-20) mg/dL Creatinine (0.8-1.5) mg/dL Estimated GFR ml/min BUN/Creatinine Ratio % Glucose (75-100) mg/dL Calcium (8.4-10.2) mg/dL Magnesium (1.7-2.3) mg/dL Total Creatine Kinase (55-170) units/L Valproic Acid 52.9 (50-100) ug/mL - EKG Data EKG shows normal: sinus rhythm Rate: normal - EKG Data Interpretation: other 02/05/18 15:18 Sinus, 88 bpm, normal axis, premature atrial contractions, QTC within normal limits, not a STEMI. - Radiology Data Radiology results: pending, report reviewed, image reviewed interpreted by me: X-ray of the chest, x-ray of the pelvis, x-ray of the bilateral knees, interpreted by me: No acute disease. DJD noted in the knee x-ray. Patient arm in the diagnostic [id number] degrades image quality and limits the examination. Five anatomic lumbar vertebrae. Spinal hardware in place from T11 through L3 transfixing a compression fracture of L1, chronic appearing. There is retropulsion at the L1 compression fracture associated with central canal stenosis. Metal artifact from hardware limits examination at multiple levels. Moderate to severe compression fracture deformity of T8 appears chronic without CT visualization of acute fracture line. No other vertebral compression noted. No definite spondylolisthesis. Chronic appearing postoperative or old posttraumatic changes in the posterior right 9th and 8th ribs. Healed fractures in the posterior left ninth through 12th ribs. Minimally displaced fracture appears acute in the lateral right 7th rib. Linear scar versus atelectasis in left lung base. Minimal nonspecific patchy opacity in the right middle lobe may be scar, atelectasis, or mild pneumonitis Coronary artery calcification. Slight cardiomegaly. A smoothly marginated hypodense right anterior subcapsular hepatic lobe lesion is nonspecific and statistically most likely reflect a cyst or hemangioma. Lucency in the gallbladder lumen may be gas within a gallstone. Nonspecific slight fat stranding adjacent to the gallbladder may be scar, edema, or mild cholecystitis. Nonspecific fatty nodule in the posterior right adrenal gland measures 2.8 cm. This may be a lipid rich adenoma or myelolipoma. Normal-appearing left adrenal. Normal noncontrast appearance of the pancreas and spleen. Minimal fusiform ectasia of the distal abdominal aorta with moderate to severe calcified atherosclerotic plaque. Normal caliber IVC. 3 mm parenchymal calcification in the right kidney may be from scarring. No definite right renal mass or hydronephrosis. A nonspecific, smoothly marginated, low density, simple appearing left renal lesion is statistically most likely a cyst. It is partly obscured by metal artifact. Otherwise normal-appearing kidneys and ureters. Very small fat containing umbilical hernia and bilateral inguinal hernia. No retroperitoneal adenopathy. No evidence of mesenteric mass. Normal-appearing stomach and duodenum. No small bowel distention in the abdomen and pelvis. No pelvic free fluid. Normal-appearing urinary bladder, prostate, seminal vesicles, and rectum. No gross ascites, free air, or colonic distention. Appendix not visible. No pericecal inflammation. Slight descending and sigmoid diverticulosis without evidence of diverticulitis. Nonspecific fatty mural stratification is present in the cecum and terminal ileum. IMPRESSION: Minimally displaced lateral right 7th rib fracture appears acute. Multiple other fractures appear chronic and/or healed Linear scar versus atelectasis in left lung base. Right middle lobe slight patchy opacity may be scar, atelectasis, or mild pneumonitis Slight cardiomegaly with coronary artery calcification Liver and left renal lesions statistically most likely representing cysts. Examination limited by metal artifact 2.8 cm fatty nodule in right adrenal posteriorly may be a lipid rich adenoma or myelolipoma Slight descending and sigmoid diverticulosis Nonspecific fatty mural stratification in the colon and terminal ileum may be related to diet, body habitus, or chronic colitis. The differential includes inflammatory bowel disease. Critical care attestation.: If time is entered above; I have spent that time in minutes in the direct care of this critically ill patient, excluding procedure time. ED Disposition Clinical Impression: Chronic back pain, History of fall Disposition: DC-01 TO HOME OR SELFCARE Is pt being admited?: No Does the pt Need Aspirin: No Condition: Stable Instructions: Chronic Obstructive Pulmonary Disease (ED), Fall Prevention (ED) Additional Instructions: Continue current outpatient medications. Avoid medications that are sedating, such as benzodiazepines, Xanax, Ativan, Percocet, oxycodone. Follow-up with the primary care doctor within the next month. CT scan of the abdomen and pelvis demonstrated numerous nonemergent incidental findings which should be followed up by a primary care doctor. Have a primary care doctor contact the medical records department to obtain CT scan reports and follow up these incidental findings. Not following up as recommended may resultant undiagnosed tumor, cancer, malignancy. [address] local primary care doctor is Dr. Hawkins. The [facility] is a local clinic available. Follow-up with the mixer operator vacuum pan salt within the next 4-[address] Herndon is a local citizen participation specialist. Patient has been evaluated by case management, and they're going to arrange outpatient physical therapy to assist with falls. Patient may continue to have falls. Return to the ER right away with lethargy, irritability, projectile vomiting, change in mental status, confusion, inability to tolerate liquid feeds. Referrals: PRIMARY CARE, [Primary Care Provider] - 3-5 Days JOSÉ MIGUEL HERNDON MD [Staff Physician] - 3-5 Days SUNG LEIVA MD [Staff Physician] - 3-5 Days [facility] [Provider Group] - 3-5 Days
[2018-02-05 12:33] LABS: Hematocrit 39.5 % (35.5-45.6); Hemoglobin 12.6 gm/dl (11.8-15.2); Mean Corpuscular HGB Conc 32 % (32-34); Mean Corpuscular Hemoglobin 28 pg (28-32); Mean Corpuscular Volume 87 fl (84-94); Platelet Count 187 K/mm3 (140-440); Red Blood Count 4.55 M/mm3 (3.65-5.03); Red Cell Distribution Width 17.8 % (13.2-15.2)
[2018-02-05] MEDS ORDERED: TYLENOL ONE (12:37)
[2018-02-05 12:44] LABS: INR 0.9 (0.87-1.13)
[2018-02-05 12:45] LABS: Partial Thromboplastin Time 25.5 Sec. (24.2-36.6)
[2018-02-05 12:51] LABS: BUN/Creatinine Ratio 16; Blood Urea Nitrogen 13 mg/dL (9-20); Calcium 10.3 mg/dL (8.4-10.2); Hemolysis Index 33
--- NOTE | 2018-02-05 13:53 | Cat Scan Report ---
FINAL REPORT EXAM: CT HEAD/BRAIN WO CON HISTORY: FALLS TECHNIQUE: CT examination of the head without IV contrast PRIORS: 01/13/2018 FINDINGS: Postsurgical change and fixation hardware again noted in the right frontal calvarium and right orbit, with associated beam hardening artifact limiting evaluation. It is specially limits evaluation of the anterior right frontal lobe and right basal ganglia region. Stable mucosal thickening posterior left sphenoid sinus. No acute air-fluid level visualized in the included air-filled sinuses. Bone windows demonstrate no acute fracture. The brain is without mass, mass effect, hemorrhage, or acute infarct. There is no extra-axial intracranial bleed, brain bleed, or midline shift. The ventricles and sulci are age-appropriate. IMPRESSION: No CT visible acute CVA, intracranial bleed, or brain mass
--- NOTE | 2018-02-05 13:57 | XRay Report ---
FINAL REPORT EXAM: XR KNEE BILAT 1-2V HISTORY: KNEE PAIN FALL TECHNIQUE: 2 views of the left knee 2 views of the right knee PRIORS: None. FINDINGS: There is no radiographic evidence of definite acute fracture or dislocation in the right knee and left knee. No definite misalignment. No evidence of osseous lesion. Joint spaces are maintained. No evidence of synovial joint effusion. There is no evidence of significant arthrosis. IMPRESSION: No acute skeletal pathology in the right knee and left knee
--- NOTE | 2018-02-05 13:59 | XRay Report ---
FINAL REPORT EXAM: XR CHEST 1V AP HISTORY: FALLS HYPOXIA,chest pain TECHNIQUE: One view examination of the chest PRIORS: A portable chest 01/13/2018 FINDINGS: Postoperative spinal hardware again noted. Stable nonspecific elevation of right diaphragm. Stable healed posterior right rib fractures. Again noted is slight thoracic spine curvature with mid to upper left apex. Atherosclerotic change in the thoracic aorta. Degenerative change in the thoracic spine. There is no visible pulmonary consolidation, pleural effusion, or pneumothorax. Cardiac silhouette size is normal without vascular congestion. IMPRESSION: No evidence of acute cardiopulmonary disease in the visualized chest
--- NOTE | 2018-02-05 14:03 | XRay Report ---
FINAL REPORT EXAM: XR PELVIS 1-2V HISTORY: FALLS PELVIC PAIN TECHNIQUE: One view of the pelvis PRIORS: AP CT 02/05/2018 FINDINGS: Partly visible spinal hardware. Multifocal degenerative change in the pelvis and visible lumbar spine without definite hip joint space narrowing.There is no radiographic evidence of definite acute fracture or dislocation. No evidence of osseous lesion. IMPRESSION: No radiographic evidence of definite acute skeletal pathology
[2018-02-05 14:15] LABS: Bilirubin,Urine NEG (Negative); Blood,Urine NEG (Negative); Color,Urine Straw (Yellow); Protein,Urine <15 mg/dL mg/dL (Negative); Urobilinogen,Urine < 2.0 mg/dL (<2.0); WBC,Urine < 1.0 /HPF (0.0-6.0)
--- NOTE | 2018-02-05 14:18 | Cat Scan Report ---
FINAL REPORT EXAM: CT ABDOMEN PELVIS WO CON HISTORY: FALL BACK PAIN TECHNIQUE: CT examination of the ABDOMEN without IV contrast CT examination of the PELVIS without IV contrast PRIORS: None. FINDINGS: Patient arm in the diagnostic [id number] degrades image quality and limits the examination. Five anatomic lumbar vertebrae. Spinal hardware in place from T11 through L3 transfixing a compression fracture of L1, chronic appearing. There is retropulsion at the L1 compression fracture associated with central canal stenosis. Metal artifact from hardware limits examination at multiple levels. Moderate to severe compression fracture deformity of T8 appears chronic without CT visualization of acute fracture line. No other vertebral compression noted. No definite spondylolisthesis. Chronic appearing postoperative or old posttraumatic changes in the posterior right 9th and 8th ribs. Healed fractures in the posterior left ninth through 12th ribs. Minimally displaced fracture appears acute in the lateral right 7th rib. Linear scar versus atelectasis in left lung base. Minimal nonspecific patchy opacity in the right middle lobe may be scar, atelectasis, or mild pneumonitis Coronary artery calcification. Slight cardiomegaly. A smoothly marginated hypodense right anterior subcapsular hepatic lobe lesion is nonspecific and statistically most likely reflect a cyst or hemangioma. Lucency in the gallbladder lumen may be gas within a gallstone. Nonspecific slight fat stranding adjacent to the gallbladder may be scar, edema, or mild cholecystitis. Nonspecific fatty nodule in the posterior right adrenal gland measures 2.8 cm. This may be a lipid rich adenoma or myelolipoma. Normal-appearing left adrenal. Normal noncontrast appearance of the pancreas and spleen. Minimal fusiform ectasia of the distal abdominal aorta with moderate to severe calcified atherosclerotic plaque. Normal caliber IVC. 3 mm parenchymal calcification in the right kidney may be from scarring. No definite right renal mass or hydronephrosis. A nonspecific, smoothly marginated, low density, simple appearing left renal lesion is statistically most likely a cyst. It is partly obscured by metal artifact. Otherwise normal-appearing kidneys and ureters. Very small fat containing umbilical hernia and bilateral inguinal hernia. No retroperitoneal adenopathy. No evidence of mesenteric mass. Normal-appearing stomach and duodenum. No small bowel distention in the abdomen and pelvis. No pelvic free fluid. Normal-appearing urinary bladder, prostate, seminal vesicles, and rectum. No gross ascites, free air, or colonic distention. Appendix not visible. No pericecal inflammation. Slight descending and sigmoid diverticulosis without evidence of diverticulitis. Nonspecific fatty mural stratification is present in the cecum and terminal ileum. IMPRESSION: Minimally displaced lateral right 7th rib fracture appears acute. Multiple other fractures appear chronic and/or healed Linear scar versus atelectasis in left lung base. Right middle lobe slight patchy opacity may be scar, atelectasis, or mild pneumonitis Slight cardiomegaly with coronary artery calcification Liver and left renal lesions statistically most likely representing cysts. Examination limited by metal artifact 2.8 cm fatty nodule in right adrenal posteriorly may be a lipid rich adenoma or myelolipoma Slight descending and sigmoid diverticulosis Nonspecific fatty mural stratification in the colon and terminal ileum may be related to diet, body habitus, or chronic colitis. The differential includes inflammatory bowel disease.
--- NOTE | 2018-02-05 14:30 | Cat Scan Report ---
FINAL REPORT EXAM: CT CERVICAL SPINE WO CON HISTORY: FALL AMS CANNOT CLEAR C SPINE TECHNIQUE: CT examination of the cervical spine without IV contrast PRIORS: 01/07/2018 FINDINGS: Patient motion artifact degrades image quality and limits the examination. Again noted is fusion of C5 and C6. Prevertebral soft tissues are without swelling. No evidence of cervical fracture or vertebral compression. Multilevel degenerative changes are present at the vertebral endplates, facet joints, and uncinate joints. Anterolisthesis: None. Retrolisthesis: C3-4 trace Disc narrowing: C2-3 slight, C3-4 severe, C4-5 slight, C6-7 moderate Vertebral endplate, uncinate, and facet degenerative hypertrophic change is associated with multilevel osseous neural foraminal stenosis. Stable mucosal thickening posterior left sphenoid sinus. IMPRESSION: No acute skeletal pathology in the cervical spine Again noted is C5 and C6 fusion Multilevel degenerative change, disc narrowing, and neural foraminal stenosis Trace degenerative retrolisthesis at C3-4
[2018-02-05 14:48] VITALS: BP 149/98
[2018-02-05] MEDS ORDERED: TYLENOL PO ONE (15:00)
== END 2018-02-05 18:00 | disposition home or self-care (01) ==
LOC: ED 11:11
DX: S80.02XA Contusion of left knee, initial encounter (principal); S80.01XA Contusion of right knee, initial encounter; M54.5 Low back pain; I10 Essential (primary) hypertension; F20.9 Schizophrenia, unspecified; J44.9 Chronic obstructive pulmonary disease, unspecified; F03.90 Unspecified dementia, unspecified severity, without behavioral disturbance, psychotic disturbance, mood disturbance, and anxiety; W18.39XA Other fall on same level, initial encounter; Y93.89 Activity, other specified; Y92.89 Other specified places as the place of occurrence of the external cause; Y99.8 Other external cause status
CPT/HCPCS: 36415; 70450; 71045; 72125; 72170; 74176; 80048; 80164; 81001; 82550; 83735; 85027; 85610; 85730; 93005; 93010

== ENCOUNTER 2018-02-23 18:06 | Emergency (ER) | payer MEDICARE ==
[2018-02-23 20:01] LABS: Basophils # (Auto) 0.1 K/mm3 (0.0-0.1); Basophils % (Auto) 1.2 % (0.0-1.8); Eosinophils # (Auto) 0.1 K/mm3 (0.0-0.4); Eosinophils % (Auto) 1.1 % (0.0-4.3); Hematocrit 37.1 % (35.5-45.6); Hemoglobin 11.7 gm/dl (11.8-15.2); Lymphocytes # (Auto) 1.8 K/mm3 (1.2-5.4); Mean Corpuscular HGB Conc 32 % (32-34); Mean Corpuscular Hemoglobin 27 pg (28-32); Mean Corpuscular Volume 86 fl (84-94); Monocytes # (Auto) 0.9 K/mm3 (0.0-0.8); Monocytes % (Auto) 12.1 % (0.0-7.3); Platelet Count 201 K/mm3 (140-440); Red Blood Count 4.31 M/mm3 (3.65-5.03); Red Cell Distribution Width 17.5 % (13.2-15.2)
[2018-02-23 20:22] LABS: Alanine Aminotransferase 25 units/L (7-56); Albumin 3.2 g/dL (3.9-5); BUN/Creatinine Ratio 10; Blood Urea Nitrogen 7 mg/dL (9-20); Hemolysis Index 3
--- NOTE | 2018-02-23 20:31 | XRay Report ---
FINAL REPORT EXAM: XR SPINE LUMBOSACRAL 2-3V HISTORY: back pain. COMPARISON: October 2017. FINDINGS: Five total images of the lumbar spine obtained. Chronic moderate compression deformity L1 level. There is posterior fusion with vertical fusion rods and pedicle screws at the T11, T12, L2, L3 levels. Remaining lumbar vertebral body heights are preserved. Mild loss of disc height endplate osteophyte at several levels. No spondylolisthesis. Mild facet changes. Probable decompressive laminectomy at the L1 level. IMPRESSION: Stable moderate compression deformity L1 level with posterior fusion of the thoracolumbar spine. Remaining lumbar vertebral body heights are preserved. Stable mild multilevel degenerative changes.
--- NOTE | 2018-02-23 20:36 | Cat Scan Report ---
FINAL REPORT EXAM: CT HEAD/BRAIN WO CON HISTORY: fall/ head injury COMPARISON: CT of the head from January 2018. TECHNIQUE: Axial images obtained skull base through vertex. FINDINGS: No acute intracranial hemorrhage, midline shift or pathologic extra axial fluid collection. Ventricles and cisterns are normal in size and configuration for the patient's age. Castro-white differentiation preserved. Calvarium grossly intact. Prior plate screw fixation of the right frontal sinus and right periorbital region. This creates streak artifact through that region of the brain parenchyma. Mild chronic small vessel ischemic disease. Mild calcified plaque along the left vertebral artery and carotid siphons. Ocular globes are unremarkable. Mastoid air cells are clear. Minimal mucosal thickening along ethmoid air cell septations. IMPRESSION: No grossly acute intracranial abnormality. Mild chronic small vessel ischemic disease. Prior surgical fixation of right facial fractures.
--- NOTE | 2018-02-23 20:37 | Cat Scan Report ---
FINAL REPORT EXAM: CT CERVICAL SPINE WO CON HISTORY: fall/ head injury COMPARISON: CT cervical spine from January 2018. TECHNIQUE: Axial images obtained through the cervical spine. Additional sagittal and coronal reformatted images were obtained. FINDINGS: Mild straightening of the cervical spine. Prior anterior fusion at the C5-C6 level. Cervical vertebral body heights are preserved. No acute fracture or traumatic subluxation. Odontoid process, articular pillars and occipital condyles are intact. Mild to moderate loss of disc height at several levels. No significant central canal stenosis. Mild to moderate foraminal narrowing at several levels due to uncovertebral hypertrophy and facet changes. Tiny calcified granuloma at the right lung apex. IMPRESSION: No acute fracture or subluxation of the cervical spine. Prior anterior fusion at the C5-C6 level. Mild to moderate degenerative changes.
[2018-02-24] MEDS ORDERED: ZOFRAN IM ONE (00:17)
[2018-02-24] MEDS ORDERED: MORPHINE IM ONE (00:17)
--- NOTE | 2018-02-24 00:21 | Emergency Department Report ---
ED Fall HPI - General Chief Complaint: Fall Stated Complaint: BACK PAIN Time Seen by Provider: 02/24/18 00:11 Source: patient Mode of arrival: Stretcher - History of Present Illness Initial Comments: Patient is 57 years old male history of hypertension, COPD, dementia and schizophrenia. Patient presented to the ER complaining of a fall happened 2 days ago. Patient stated that he was going to the bathroom and he lost his balance and he fell on his right side in the back complaining of neck pain and lower back pain. Patient denied any loss of consciousness, headache, weakness numbness or tingling sensation. No bowel or bladder incontinence. MD Complaint: fall -: days(s) Fall From: standing Fall Witnessed: yes, by living facility s Place Fall Occurred: senior living/SNF Loss of Consciousness: none Prolonged Down Time?: no Symptoms Prior to Fall: none Location: head, neck, back Context: tripped/slipped - Related Data Home Medications Medication Instructions Recorded Confirmed Last Taken risperiDONE [RisperiDONE] 1 mg PO DAILY 07/02/14 02/08/18 1 Day Ago ~03/31/17 Previous Rx's Medication Instructions Recorded Last Taken Type Arformoterol Nebu [Brovana Nebu] 15 mcg IH Q12HRT #30 ml 01/13/18 Unknown Rx AtorvaSTATin [Lipitor] 40 mg PO QHS #30 tablet 01/13/18 Unknown Rx Budesonide [Pulmicort Respules] 0.5 mg IH Q12HRT #30 nebu 01/13/18 Unknown Rx Divalproex Sodium [Divalproex 1,000 mg PO HS #60 tab.er.24h 01/13/18 Unknown Rx Sodium ER] Docusate Sodium [Colace CAP] 100 mg PO BID PRN #60 capsule 01/13/18 Unknown Rx Lisinopril [Zestril TAB] 40 mg PO DAILY #30 tablet 01/13/18 Unknown Rx Mirtazapine 7.5 mg PO DAILY #30 tablet 01/13/18 Unknown Rx amLODIPine [Norvasc] 10 mg PO QDAY #30 tablet 01/13/18 Unknown Rx risperiDONE [RisperiDONE] 2 mg PO HS #60 tablet 01/13/18 Unknown Rx Aspirin [Aspirin TAB] 325 mg PO QDAY #30 tablet 01/22/18 Unknown Rx Carvedilol [Coreg] 6.25 mg PO BID #60 tablet 01/22/18 Unknown Rx Famotidine [Pepcid] 20 mg PO QDAY #30 tablet 01/22/18 Unknown Rx PARoxetine [Paxil] 40 mg PO DAILY #30 tablet 01/22/18 Unknown Rx Prednisone [predniSONE 5 mg (6-Day 5 mg PO .TAPER #1 tab.ds.pk 02/12/18 Unknown Rx Pack, 21 Tabs)] Cyclobenzaprine [Flexeril] 5 mg PO TID PRN #14 tablet 02/24/18 Unknown Rx Naproxen [Naprosyn] 500 mg PO BID #14 tablet 02/24/18 Unknown Rx Allergies Allergy/AdvReac Type Severity Reaction Status Date / Time No Known Allergies Allergy Verified 01/07/18 15:09 ED Review of Systems ROS: Stated complaint: BACK PAIN Other details as noted in HPI Comment: All other systems reviewed and negative Constitutional: denies: chills, fever Respiratory: denies: cough, shortness of breath, SOB with exertion, wheezing Gastrointestinal: denies: abdominal pain, nausea, vomiting Musculoskeletal: back pain Neurological: denies: headache, weakness ED Past Medical Hx - Past Medical History Hx Hypertension: Yes Hx Congestive Heart Failure: No Hx Diabetes: No Hx Pulmonary Embolism: No Hx Headaches / Migraines: No Hx Seizures: Yes Hx Psychiatric Treatment: Yes (schizophrenia) Hx Asthma: No Hx COPD: Yes Hx Tuberculosis: No Hx Dementia: Yes Hx HIV: No Additional medical history: back surgery - Surgical History Additional Surgical History: back surgery from seizure, umbilical hernia repair - Social History Smoking Status: Former Smoker Substance Use Type: None - Medications Home Medications: Home Medications Medication Instructions Recorded Confirmed Last Taken Type risperiDONE [RisperiDONE] 1 mg PO DAILY 07/02/14 02/08/18 1 Day Ago History ~03/31/17 Arformoterol Nebu [Brovana Nebu] 15 mcg IH Q12HRT #30 ml 01/13/18 02/08/18 Unknown Rx AtorvaSTATin [Lipitor] 40 mg PO QHS #30 tablet 01/13/18 02/08/18 Unknown Rx Budesonide [Pulmicort Respules] 0.5 mg IH Q12HRT #30 nebu 01/13/18 02/08/18 Unknown Rx Divalproex Sodium [Divalproex 1,000 mg PO HS #60 tab.er.24h 01/13/18 02/08/18 Unknown Rx Sodium ER] Docusate Sodium [Colace CAP] 100 mg PO BID PRN #60 capsule 01/13/18 02/08/18 Unknown Rx Lisinopril [Zestril TAB] 40 mg PO DAILY #30 tablet 01/13/18 02/08/18 Unknown Rx Mirtazapine 7.5 mg PO DAILY #30 tablet 01/13/18 02/08/18 Unknown Rx amLODIPine [Norvasc] 10 mg PO QDAY #30 tablet 01/13/18 02/08/18 Unknown Rx risperiDONE [RisperiDONE] 2 mg PO HS #60 tablet 01/13/18 02/08/18 Unknown Rx Aspirin [Aspirin TAB] 325 mg PO QDAY #30 tablet 01/22/18 02/08/18 Unknown Rx Carvedilol [Coreg] 6.25 mg PO BID #60 tablet 01/22/18 02/08/18 Unknown Rx Famotidine [Pepcid] 20 mg PO QDAY #30 tablet 01/22/18 02/08/18 Unknown Rx PARoxetine [Paxil] 40 mg PO DAILY #30 tablet 01/22/18 02/08/18 Unknown Rx Prednisone [predniSONE 5 mg (6-Day 5 mg PO .TAPER #1 tab.ds.pk 02/12/18 Unknown Rx Pack, 21 Tabs)] Cyclobenzaprine [Flexeril] 5 mg PO TID PRN #14 tablet 02/24/18 Unknown Rx Naproxen [Naprosyn] 500 mg PO BID #14 tablet 02/24/18 Unknown Rx ED Physical Exam - General Limitations: No Limitations, Other General appearance: alert, in no apparent distress - Head Head exam: Present: atraumatic, normocephalic, normal inspection - Eye Eye exam: Present: normal appearance - ENT ENT exam: Present: normal exam, normal orophraynx - Neck Neck exam: Present: normal inspection, full ROM. Absent: tenderness, meningismus, lymphadenopathy, thyromegaly - Respiratory Respiratory exam: Present: normal lung sounds bilaterally. Absent: respiratory distress, wheezes, rales, rhonchi, stridor, chest wall tenderness, accessory muscle use, decreased breath sounds, prolonged expiratory - Cardiovascular Cardiovascular Exam: Present: regular rate, normal rhythm, normal heart sounds - GI/Abdominal GI/Abdominal exam: Present: soft, normal bowel sounds. Absent: distended, tenderness, guarding, rebound, rigid, organomegaly, mass, bruit, pulsatile mass , hernia - Extremities Exam Extremities exam: Present: normal inspection, full ROM, normal capillary refill - Back Exam Back exam: Present: normal inspection, full ROM, muscle spasm. Absent: tenderness, CVA tenderness (L), paraspinal tenderness, vertebral tenderness - Neurological Exam Neurological exam: Present: alert, oriented X3, CN II-XII intact, normal gait, reflexes normal - Psychiatric Psychiatric exam: Present: normal affect, normal mood - Skin Skin exam: Present: warm, dry, intact, abrasion ED Course Vital Signs 02/23/18 02/24/18 02/24/18 19:25 00:15 01:00 Temperature 97.8 F Pulse Rate 84 87 Respiratory 18 18 18 Rate Blood Pressure 156/85 Blood Pressure 143/89 [Right] O2 Sat by Pulse 93 95 95 Oximetry 02/24/18 02/24/18 02/24/18 01:19 01:30 02:00 Temperature Pulse Rate 81 81 Respiratory 16 16 16 Rate Blood Pressure Blood Pressure 124/68 110/56 [Right] O2 Sat by Pulse 94 90 Oximetry 02/24/18 02/24/18 02/24/18 03:00 04:00 05:00 Temperature Pulse Rate 87 89 102 H Respiratory 20 16 20 Rate Blood Pressure Blood Pressure 109/67 124/85 175/103 [Right] O2 Sat by Pulse 96 95 95 Oximetry 02/24/18 02/24/18 06:00 08:40 Temperature Pulse Rate 93 H 74 Respiratory 18 18 Rate Blood Pressure Blood Pressure 122/69 124/82 [Right] O2 Sat by Pulse 94 99 Oximetry ED Medical Decision Making - Lab Data Result diagrams: 02/23/18 19:43 02/23/18 19:43 - Radiology Data Radiology results: report reviewed Referring Physician: ED DOC Patient Name: MATTHEW PEGUERO Date of : 1960 Sex: Male Report Date: 2018-02-23 Report Status: Finalized Findings [facility] [address] [place] [address] XRay Report Signed Patient: MATTHEW PEGUERO MR#: [id number] : 1960 Acct:[id number] Age/Sex: 57 / M ADM Date: 02/23/18 Loc: ED Attending Dr: Ordering Physician: FABRICE RIVERA MD Date of Service: 02/23/18 Procedure(s): XR spine lumbosacral 2-3V Accession Number(s): [id number] cc: FABRICE RIVERA MD Fluoro Time In Minutes: FINAL REPORT EXAM: XR SPINE LUMBOSACRAL 2-3V HISTORY: back pain. COMPARISON: October 2017. FINDINGS: Five total images of the lumbar spine obtained. Chronic moderate compression deformity L1 level. There is posterior fusion with vertical fusion rods and pedicle screws at the T11, T12, L2, L3 levels. Remaining lumbar vertebral body heights are preserved. Mild loss of disc height endplate osteophyte at several levels. No spondylolisthesis. Mild facet changes. Probable decompressive laminectomy at the L1 level. IMPRESSION: Stable moderate compression deformity L1 level with posterior fusion of the thoracolumbar spine. Remaining lumbar vertebral body heights are preserved. Stable mild multilevel degenerative changes. Transcribed By: LMA Dictated By: DYLON MCCORMICK MD Electronically Authenticated By: DYLON MCCORMICK MD Signed Date/Time: 02/23/182030 DD/ 30 TD/TT: 02/23/182030 Referring Physician: FABRICE RIVERA Patient Name: MATTHEW PEGUERO Date of : 1960 Sex: Male Report Date: 2018-02-23 Report Status: Finalized Findings [facility] [address] [place] [address] Cat Scan Report Signed Patient: MATTHEW PEGUERO MR#: [id number] : 1960 Acct:[id number] Age/Sex: 57 / M ADM Date: 02/23/18 Loc: ED Attending Dr: Ordering Physician: FABRICE RIVERA MD Date of Service: 02/23/18 Procedure(s): CT head/brain wo con Accession Number(s): [id number] cc: FABRICE RIVERA MD FINAL REPORT EXAM: CT HEAD/BRAIN WO CON HISTORY: fall/ head injury COMPARISON: CT of the head from January 2018. TECHNIQUE: Axial images obtained skull base through vertex. FINDINGS: No acute intracranial hemorrhage, midline shift or pathologic extra axial fluid collection. Ventricles and cisterns are normal in size and configuration for the patient's age. Castro-white differentiation preserved. Calvarium grossly intact. Prior plate screw fixation of the right frontal sinus and right periorbital region. This creates streak artifact through that region of the brain parenchyma. Mild chronic small vessel ischemic disease. Mild calcified plaque along the left vertebral artery and carotid siphons. Ocular globes are unremarkable. Mastoid air cells are clear. Minimal mucosal thickening along ethmoid air cell septations. IMPRESSION: No grossly acute intracranial abnormality. Mild chronic small vessel ischemic disease. Prior surgical fixation of right facial fractures. Transcribed By: LMA Dictated By: DYLON MCCORMICK MD Electronically Authenticated By: DYLON MCCORMICK MD Signed Date/Time: 02/23/182033 DD/ 33 TD/TT: 02/23/182033 Referring Physician: FABRICE RIVERA Patient Name: MATTHEW PEGUERO Date of : 1960 Sex: Male Report Date: 2018-02-23 Report Status: Finalized Findings [facility] [address] [place] [address] Cat Scan Report Signed Patient: MATTHEW PEGUERO MR#: [id number] : 1960 Acct:[id number] Age/Sex: 57 / M ADM Date: 02/23/18 Loc: ED Attending Dr: Ordering Physician: FABRICE RIVERA MD Date of Service: 02/23/18 Procedure(s): CT cervical spine wo con Accession Number(s): [id number] cc: FABRICE RIVERA MD FINAL REPORT EXAM: CT CERVICAL SPINE WO CON HISTORY: fall/ head injury COMPARISON: CT cervical spine from January 2018. TECHNIQUE: Axial images obtained through the cervical spine. Additional sagittal and coronal reformatted images were obtained. FINDINGS: Mild straightening of the cervical spine. Prior anterior fusion at the C5-C6 level. Cervical vertebral body heights are preserved. No acute fracture or traumatic subluxation. Odontoid process, articular pillars and occipital condyles are intact. Mild to moderate loss of disc height at several levels. No significant central canal stenosis. Mild to moderate foraminal narrowing at several levels due to uncovertebral hypertrophy and facet changes. Tiny calcified granuloma at the right lung apex. IMPRESSION: No acute fracture or subluxation of the cervical spine. Prior anterior fusion at the C5-C6 level. Mild to moderate degenerative changes. Transcribed By: LMA Dictated By: DYLON MCCORMICK MD Electronically Authenticated By: DYLON MCCORMICK MD Signed Date/Time: 02/23/182036 DD/ 36 TD/TT: 02/23/182036 Critical care attestation.: If time is entered above; I have spent that time in minutes in the direct care of this critically ill patient, excluding procedure time. ED Disposition Clinical Impression: Fall, Contusion Disposition: -01 TO HOME OR SELFCARE Is pt being admited?: No Condition: Stable Instructions: Minor Head Injury (ED), Contusion in Adults (ED), Fall Prevention (ED) Prescriptions: Cyclobenzaprine [Flexeril] 5 mg PO TID PRN #14 tablet PRN Reason: Muscle Spasm Naproxen [Naprosyn] 500 mg PO BID #14 tablet Referrals: PRIMARY CARE, [Primary Care Provider] - 3-5 Days
[2018-02-24] MEDS ORDERED: PERCOCET 5/325 PO ONE (09:19)
[2018-02-24 09:43] VITALS: BP 124/82
[2018-02-24] MEDS ORDERED: MOTRIN ONE (14:02)
[2018-02-24] MEDS ORDERED: MOTRIN PO ONE (16:55)
== END 2018-02-24 16:19 | disposition home or self-care (01) ==
LOC: ED 18:06
DX: S30.0XXA Contusion of lower back and pelvis, initial encounter (principal); S10.93XA Contusion of unspecified part of neck, initial encounter; I10 Essential (primary) hypertension; J44.9 Chronic obstructive pulmonary disease, unspecified; F20.9 Schizophrenia, unspecified; Z79.82 Long term (current) use of aspirin; Z87.891 Personal history of nicotine dependence; W01.198A Fall on same level from slipping, tripping and stumbling with subsequent striking against other object, initial encounter; Y93.89 Activity, other specified; Y92.89 Other specified places as the place of occurrence of the external cause; Y99.8 Other external cause status
CPT/HCPCS: 36415; 70450; 72100; 72125; 80053; 85025; 96372; 99285; J2270; J2405